=== PATIENT | female | born 1940 | race Caucasian/White ===

== ENCOUNTER 2018-05-30 17:36 | Inpatient (IN) | payer MEDICARE ==
[~2018-05-30] VITALS: Ht 154.9 cm; Wt 59.6 kg
[~2018-05-30 17:36] MED LIST: ACTONEL35 MG PO; AMIODARONE HCL200 MG PO; ARAVA10 MG PO; AVAPRO300 MG PO; BUTALBITAL-ASA1 EACH PO; CLONIDINE HCL0.2 MG PO; DAILY MULTIPLE1 EACH PO; FISH OIL300 MG PO; FUROSEMIDE20 MG PO; FUROSEMIDE40 MG PO; HYDRALAZINE HC100 MG PO; HYDROCHLOROTHIA25 MG PO; LOSARTAN POTASS25 MG PO; NORVASC5 MG PO; OPTIVAR6 ML; PANTOPRAZOLE SO40 MG PO; POTASSIUM CHLO20 ME1 PO; PRAVASTATIN SOD40 MG PO; PREVACID30 MG PO; TOPROL XL100 MG PO; ULTRAM 50MG50 MG PO; VITAMIN C500 M1 PO; ZOLOFT100 MG PO; [UNRECOGNIZED DRUG - REMARK]
--- OUTSIDE RECORDS SUMMARY | 2018-05-30 17:42 | XMS REPORT ---
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
--- OUTSIDE RECORDS SUMMARY | 2018-05-30 17:42 | XMS REPORT ---
Author Author Anthony Murphy [facility] [employer] Address Unknown Phone Unavailable Care Team Providers Care System Administration Manager Name Role Phone Anthony Murphy CP Unavailable Allergies, Adverse Reactions, Alerts Substance Reaction Event Type Scopolamine Base Info Not Available Drug Allergy plaquenil Info Not Available Non Drug Allergy Encounters Encounter Location Date 3m f/u Dick Beaulieu MD August 29, 2013 Problems Problem Type Condition ICD-9 Code Onset Dates Condition Status Problem 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 Problem Long-term (current) use of other medications - High Risk V58.69 Active Problem Rheumatoid arthritis 714.0 Active Problem Polyarthritis, multiple sites 716.59 Active Assessment Rheumatoid arthritis 714.0 Active Medications Medication Code System Code Instructions Start Date End Date Status Dosage Lisinopril [facility] [address]-97 10 MG Orally Once a day Active 1 tablet HydrALAZINE HCl [facility] [address]-00 100 MG Orally Twice a day Active 1 tablet Sertraline HCl [facility] [address]-54 100 MG Orally Once a day Active 1 tablet Lansoprazole [facility] [address]-07 30 MG Orally Once a day Active 1 capsule before a meal Lasix [facility] [address]-72 40MG Orally Once a day as needed Active 1 tablet Pravastatin Sodium [facility] [address]-18 40 MG Orally Once a day Active 1 tablet Actonel [facility] [address]-58 35 MG Orally Once a Week Active 1 tablet Multi Vitamin/Minerals [facility] [address]-51 Orally Active as directed Weishvywkk-JSZM-Ncmcuecf [facility] [address]-06 50-325-40 MG Orally every 4 hrs Active 1 tablet as needed Irbesartan [facility] [address]-61 300 MG Orally Once a day Active 1 tablet Metoprolol Succinate [facility] [address]-17 100 MG Orally Once a day Active 1 tablet Arava [facility] [address]-39 10 MG Orally Once a day August 29, 2013 November 27, 2013 Active 1 tablet Social History Social History Element Qualifiers Date Reported Tobacco Use: . Are you a:: never smoker August 29, 2013 Caffeine: yes. 1 cup a day August 29, 2013 Exercise: yes. walking August 29, 2013 Alcohol: no. August 29, 2013 Vital Signs Date/Time: August 29, 2013 Weight 174 lbs Height 63 in Temperature 97.0 F Cardiac Monitoring Heart Rate 66 /min Blood Pressure Diastolic 82 mm Hg Blood Pressure Systolic 128 mm Hg Results CBC (INCLUDES DIFF/PLT) SED RATE BY MODIFIED [place] COMPREHENSIVE METABOLIC PANEL W/EGFR C-REACTIVE PROTEIN Immunizations Vaccine Administration Date TORADOL August 29, 2013 depomedrol August 29, 2013 Summary Purpose [employer] Submission
--- OUTSIDE RECORDS SUMMARY | 2018-05-30 17:42 | XMS REPORT | Continuity of Care Document ---
Author Author Danielle devon [facility] Interface Address Unknown Phone Unavailable Problems Problem Status Onset Date Classification Date Reported Comments Source M79.661 - PAIN IN RIGHT LOWER LEG Active 12/31/2017 [facility] UNK Active 07/08/2016 [facility] Discharge Diagnosis: Acute headache 06/20/2016 06/23/2016 [facility] Discharge Diagnosis: Acute UTI 06/20/2016 06/23/2016 [facility] Discharge Diagnosis: Hypertension 06/20/2016 06/23/2016 [facility] Discharge Diagnosis: Nausea and vomiting 06/20/2016 06/23/2016 [facility] HYPERTENSIVE, VOMITING Active 06/19/2016 [facility] R10.9 Active 05/30/2016 [facility] CONSULT Active 05/14/2016 [facility] R11.2 NAUSEA WITH VOMITING, UNSPECIFIED Active 04/18/2016 [facility] Discharge Diagnosis: Abdominal pain 04/10/2016 04/13/2016 [facility] ABD PAIN Active 04/10/2016 [facility] Long-term use of high-risk medication Active Problem 04/15/2018 [facility] Midline low back pain, with sciatica presence unspecified Active Problem 04/15/2018 [facility] Rheumatoid arthritis of multiple sites without rheumatoid factor Active Problem 08/08/2017 [facility] Primary osteoarthritis involving multiple joints Active Problem 04/15/2018 [facility] Rheumatoid arthritis without rheumatoid factor, multiple sites Active Diagnosis 04/15/2018 [facility] disrd of bone density and structure, multiple sites Active Problem 04/15/2018 [facility] Low back pain Active Problem 04/15/2018 [facility] 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 09/24/2016 [facility] Neuropathy Active Problem 04/15/2018 [facility] Rheumatoid lung Active Problem 06/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 [facility] Long-term use of other medications - High Risk Active Problem 10/04/2015 [facility] Rheumatoid arthritis Active Problem 10/04/2015 [facility] Polyarthritis, multiple sites Active Problem 10/04/2015 [facility] Osteopenia Active Problem 10/04/2015 [facility] Osteoarthrosis, multiple sites Active Problem 10/04/2015 [facility] Pain in joint, hand Active Diagnosis 10/12/2014 [facility] Skin lesions Active Problem 04/15/2018 [facility] Atrial tachycardia Active Problem 08/01/2016 [facility] Acid reflux Resolved Problem 08/01/2016 [facility] HTN - Hypertension Active Problem 08/01/2016 [facility] PAC - Premature atrial contraction Active Problem 08/01/2016 [facility] Chronic diarrhea Active Problem 08/01/2016 [facility] Diverticulosis Active Problem 08/01/2016 [facility] Dysthymic disorder Resolved Problem 08/01/2016 [facility] Hemorrhoids Resolved Problem 08/01/2016 [facility] HLD (<span [id number]="[id number]</span>) Active Problem 08/01/2016 [facility] Breast cancer Resolved Problem 08/01/2016 [facility] Hiatal hernia Active Problem 08/01/2016 [facility] Osteopenia Active Problem 08/01/2016 [facility] ENCOUNTER FOR SCREENING FOR MALIGNANT NE Active [facility] GASTRO-ESOPHAGEAL REFLUX DISEASE WITHOUT Active [facility] NAUSEA WITH VOMITING, UNSPECIFIED Active [facility] ENCNTR FOR GENERAL ADULT MEDICAL EXAM W/ Active [facility] UNSPECIFIED ABDOMINAL PAIN Active [facility] DIARRHEA, UNSPECIFIED Active [facility] Medications Medication Details Route Status Patient Instructions Ordering Provider Order Date Source Leflunomide take 1 tablet BY MOUTH Active 10 BY MOUTH ONCE A DAY Elias 06/30/2017 [facility] Tramadol HCl 1 tablet as needed Orally Active 50 MG Orally every 6 hrs Elias 06/30/2017 [facility] Tizanidine HCl 1 tablet as needed Orally Active 4 MG Orally BID Elias 04/01/2017 [facility] Leflunomide 1 tablet Orally Active 10MG Orally Once a day [facility] 03/24/2017 [facility] Sodium Chloride 0.154 MEQ/ML Injectable Solution 1,000 mL, Rate: 25 ml/hr, Infuse over: 40 hr, Route: IV, Dosing Weight 58.239 kg, Total Volume: 1,000, Start date: 07/29/16 8:32:00 CDT, Duration: 30 day, Stop date: 08/28/16 8:31:00 CDT Inactive 07/29/2016 [facility] Vitamin C 500 mg oral tablet 500 mg=1 tab, PO, Daily Active 07/28/2016 [facility] Fish oil + D3 Caps Fish oil + D3 Caps, 1 cap, PO, Daily, Refill(s) 0 Active 07/28/2016 [facility] multivitamin 1 tab, PO, Daily, 0 Refill(s) Active 07/28/2016 [facility] Naproxen sodium 220 MG Oral Tablet [Aleve] 440 mg=2 tab, PO, Q8H, PRN Pain Active 07/28/2016 [facility] Acetaminophen 325 MG / butalbital 50 MG Oral Tablet 1 tab, PO, Q4H, PRN Headache Active 07/28/2016 [facility] Promethazine Hydrochloride 25 MG Oral Tablet See Instructions, PRN as needed for nausea/vomiting, Take 1 tab every 4 to 6 hours, 0 Refill(s) Active 07/28/2016 [facility] Atropine Sulfate 0.025 MG / Diphenoxylate Hydrochloride 2.5 MG Oral Tablet 1 tab, PO, QID, PRN for loose stool Active 07/28/2016 [facility] budesonide 3 mg oral capsule, extended release 3 mg=1 cap, PO, TID, 0 Refill(s) Active 07/28/2016 [facility] tramadol hydrochloride 50 MG Oral Tablet 50 mg=1 tab, PO, Q6H, PRN Pain Active 07/28/2016 [facility] losartan 50 mg oral tablet 50 mg=1 tab, PO, Daily Active 07/28/2016 [facility] leflunomide 10 mg oral tablet 10 mg=1 tab, PO, Daily Active 07/28/2016 [facility] pravastatin 40 mg oral tablet 40 mg=1 tab, PO, Bedtime Active 07/28/2016 [facility] pantoprazole 40 mg oral enteric coated tablet 40 mg=1 tab, PO, Daily Active 07/28/2016 [facility] sertraline 100 mg oral tablet 150 mg=1.5 tab, PO, Bedtime Active 07/28/2016 [facility] mesalamine 800 MG Enteric Coated Tablet 800 mg=1 tab, PO, TID Active 07/28/2016 [facility] buPROPion 150 mg/24 hours (XL) oral tablet, extended release 150 mg=1 tab, PO, QAM Active 07/28/2016 [facility] flunisolide 0.025 MG/ACTUAT Metered Dose Nasal [place] 1 spray, NASAL, BID, in each nostril, 0 Refill(s) Active 07/28/2016 [facility] hyoscyamine 0.125 mg oral tablet 0.125 mg=1 tab, PO, BID Active 07/28/2016 [facility] Metoprolol Succinate ER 25 mg oral tablet, extended release 25 mg=1 tab, PO, Daily Active 07/28/2016 [facility] Trazodone Hydrochloride 50 MG Oral Tablet 1 tab-2 tab, PO, Bedtime, PRN Insomnia Active 07/28/2016 [facility] Cephalexin 500 MG Oral Capsule [Keflex] 500 mg=1 cap, PO, QID, X 7 day, # 28 cap, 0 Refill(s) Active 06/20/2016 [facility] Ketorolac 15 mg, Route: IVP, Drug form: INJ, ONCE, Dosing Weight 59.545, kg, Priority: STAT, Start date: 06/20/16 2:08:00 MATTRESS SPECIALIST, Stop date: 06/20/16 2:08:00 MATTRESS SPECIALIST Inactive 06/20/2016 [facility] Sodium Chloride 0.154 MEQ/ML Injectable Solution 500 mL, Infuse Over: 1 hr, Route: IV, ONCE, Priority: STAT, Dosing Weight 59.545 kg, Start date: 06/19/16 23:58:00 MATTRESS SPECIALIST, Duration: 1 doses or times, Stop date: 06/19/16 23:58:00 MATTRESS SPECIALIST No Longer Active 06/20/2016 [facility] Reglan 5 mg, Route: IVP, Drug form: INJ, ONCE, Dosing Weight 59.545, kg, Priority: STAT, Start date: 06/19/16 23:58:00 MATTRESS SPECIALIST, Stop date: 06/19/16 23:58:00 MATTRESS SPECIALIST No Longer Active 06/20/2016 [facility] Morphine 2 mg, Route: IVP, ONCE, Dosing Weight 59.545, kg, Priority: STAT, Start date: 06/19/16 23:58:00 MATTRESS SPECIALIST, Stop date: 06/19/16 23:58:00 MATTRESS SPECIALIST No Longer Active 06/20/2016 [facility] Saline Flush 0.9% 10 mL, Route: IVP, Drug Form: INJ, Dosing Weight 59.545, kg, PRN, PRN Line Flush, Start date: 06/19/16 21:38:00 MATTRESS SPECIALIST, Duration: 30 day, Stop date: 07/19/16 22:37:00 CDTNotes: (Same as: BD Posiflush) No Longer Active 06/20/2016 [facility] Butalbital Compound oral tablet 1 tab, PO, Q6H, PRN Pain, # 24 tab, 0 Refill(s) Active 06/06/2016 [facility] tramadol hydrochloride 50 MG Oral Tablet 50 mg=1 tab, PO, Q8H, PRN Pain, # 60 tab, 0 Refill(s) Active 06/06/2016 [facility] budesonide 3 mg oral capsule, extended release 9 mg=3 cap, PO, Daily, # 270 cap, 0 Refill(s) Active 06/06/2016 [facility] Atropine Sulfate 10 MG/ML Ophthalmic Solution [Atropine-Care] 2 drp, OPTH, QID, # 15 ml, 0 Refill(s) Active 06/06/2016 [facility] promethazine 25 mg oral tablet 25 mg=1 tab, PO, Q4H, PRN for motion sickness, # 60 tab, 0 Refill(s) Active 06/06/2016 [facility] Sodium Chloride 0.154 MEQ/ML Injectable Solution 1,000 mL, Rate: 25 ml/hr, Infuse over: 40 hr, Route: IV, Dosing Weight 72.727 kg, Total Volume: 1,000, Start date: 05/02/16 9:20:00 MATTRESS SPECIALIST, Duration: 30 day, Stop date: 06/01/16 9:19:00 MATTRESS SPECIALIST Inactive 05/02/2016 [facility] tramadol hydrochloride 50 MG Oral Tablet 50 mg=1 tab, PO, Q6H, PRN Pain, X 10 day, # 40 tab, 0 Refill(s) Active 04/10/2016 [facility] Tylenol 650 mg, Route: PO, Drug form: TAB, ONCE, Dosing Weight 72.727, kg, Priority: STAT, Start date: 04/10/16 7:46:00 MATTRESS SPECIALIST, Stop date: 04/10/16 7:46:00 MATTRESS SPECIALIST Inactive 04/10/2016 [facility] potassium chloride 40 mEq, Route: PO, Drug form: ERTAB, ONCE, Dosing Weight 72.727, kg, Priority: STAT, Start date: 04/10/16 4:36:00 MATTRESS SPECIALIST, Stop date: 04/10/16 4:36:00 MATTRESS SPECIALIST Inactive 04/10/2016 [facility] Zofran 4 mg, Route: IVP, Drug form: INJ, ONCE, Dosing Weight 72.727, kg, Priority: STAT, Start date: 04/10/16 4:18:00 MATTRESS SPECIALIST, Stop date: 04/10/16 4:18:00 MATTRESS SPECIALIST Inactive 04/10/2016 [facility] Sodium Chloride 0.154 MEQ/ML Injectable Solution 1,000 mL, Rate: 25 ml/hr, Infuse over: 40 hr, Route: IV, Dosing Weight 65.455 kg, Total Volume: 1,000, Start date: 03/04/16 8:38:00 CDT, Duration: 30 day, Stop date: 04/03/16 8:37:00 MATTRESS SPECIALIST Inactive 03/04/2016 [facility] metoprolol tartrate 50 mg oral tablet 50 mg=1 tab, PO, Daily, 0 Refill(s) Active 03/03/2016 [facility] Fish Oil PO, 0 Refill(s) Active 03/03/2016 [facility] Hydrochlorothiazide 25 MG Oral Tablet 25 mg=1 tab, PO, Daily, 0 Refill(s) Active 03/03/2016 [facility] Leflunomide 1 tablet Orally Active 10 MG Orally Once a day [facility] 08/27/2015 [facility] Leflunomide 1 tablet Orally Active 10 MG Orally Once a day [facility] 08/14/2015 [facility] Leflunomide 1 tablet Orally Active 10 MG Orally Once a day [facility] 10/31/2014 [facility] Leflunomide take 1 tablet by mouth once daily Orally Active 10 Orally Once a day [facility] 10/19/2014 [facility] Arava 1 tablet Orally Active 10 MG Orally Once a day [facility] 12/23/2013 [facility] Arava 1 tablet Orally Active 10 MG Orally Once a day [place] 08/29/2013 [facility] Diphenoxylate-Atropine 1 tablet as needed Orally Active 2.5-0.025 MG Orally Four times a day [facility] Tylenol 2 tablets as needed Orally Active 325 MG Orally every 6 hrs [facility] Fish Oil 1 capsule Orally Active 500 MG Orally Twice a day [facility] Losartan Potassium 1 tablet Orally Active 100 MG Orally Once a day [facility]as [facility] Sertraline HCl 1 tablet Orally Active 100mg Orally Once a day [facility] Hyoscyamine Sulfate 1 tablet before meals as needed Orally Active 0.125 MG Orally every 4 hrs [facility] Sudafed 1 tablet as needed Orally Active 60 MG Orally as needed [facility] Tramadol HCl 1 tablet as needed Orally Active 50 MG Orally every 6 hrs [facility] Budesonide as directed Orally Active 3 MG Orally [facility] Pravastatin Sodium 1 tablet Orally Active 40 MG Orally Once a day [facility] Pantoprazole Sodium 1 tablet Orally Active 40 MG Orally Once a day [facility] BuPROPion HCl as directed Orally Active 150 MG Orally [facility] Mesalamine 2 tablets Orally Active 800 MG Orally Three times a day [facility] Azelastine HCl 1 drop into affected eye Ophthalmic Active 0.1 % Ophthalmic Twice a day [facility] Metoprolol Succinate as directed Orally Active 50 MG Orally [facility] Leflunomide 1 tablet Orally Active 10MG Orally Once a day [facility] Vitamin C 1 tablet Orally Active 500 MG Orally Once a day [facility] Vitamin B-12 as directed Orally Active 100 MCG Orally once a day [facility] Flunisolide HFA 2 puffs Inhalation Active 80 MCG/ACT Inhalation Twice a day [facility] [id number] 1 tablet as needed Orally Active 50-325-40 MG Orally every 4 hrs [facility] Promethazine HCl 1 tablet as needed Orally Active 25 MG Orally every 12 hrs [facility] Multi Vitamin/Minerals as directed Orally Active Orally [facility] PredniSONE as directed Orally Active 10 mg Orally Once a day [facility] Amlodipine Besylate 1 tablet Orally Active 10 MG Orally Once a day [facility] Imodium A-D as directed Orally Active 2 MG Orally [facility] NIFEdipine 1 tablet Orally Active 60 MG Orally bid [facility] Trazodone HCl 1 tablet at bedtime as needed Orally Active 50 MG Orally Once a day [facility] Pravastatin Sodium 1 tablet Orally Active 40 MG Orally Once a day [facility] Azelastine HCl 1 drop into affected eye Ophthalmic Active 0.05 % Ophthalmic Twice a day [facility] Losartan Potassium 1 tablet Orally Active 100 MG Orally Once a day [facility] Budesonide as directed Orally Active 3 MG Orally [facility] [id number] 1 tablet as needed Orally Active 50-325-40 MG Orally every 4 hrs [facility] Diphenoxylate-Atropine 1 tablet as needed Orally Active 2.5-0.025 MG Orally Four times a day [facility] Sertraline HCl 1 tablet Orally Active 100mg Orally Once a day [facility] Imodium A-D as directed Orally Active 2 MG Orally [facility] Tylenol 2 tablets as needed Orally Active 325 MG Orally every 6 hrs [facility] Hyoscyamine Sulfate 1 tablet before meals as needed Orally Active 0.125 MG Orally every 4 hrs [facility] Fish Oil 1 capsule Orally Active 500 MG Orally Twice a day [facility] Promethazine HCl 1 tablet as needed Orally Active 25 MG Orally every 12 hrs [facility] Pantoprazole Sodium 1 tablet Orally Active 40 MG Orally Once a day [facility] Multi Vitamin/Minerals as directed Orally Active Orally [facility] Vitamin C 1 tablet Orally Active 500 MG Orally Once a day [facility] Sudafed 1 tablet as needed Orally Active 60 MG Orally as needed [facility] Tizanidine HCl 1 tablet as needed Orally Active 4 MG Orally BID [facility] Azelastine HCl 1 puff in each nostril Nasally Active 0.1 % Nasally Twice a day [facility] BuPROPion HCl (XL) 1 tablet in the morning Orally Active 300 MG Orally Once a day [facility] Tramadol HCl 1 tablet as needed Orally Active 50 MG Orally every 6 hrs [facility] Lasix 1 tablet Orally Active 40 MG Orally Once a day [facility] Lisinopril 1 tablet Orally Active 10 MG Orally Once a day [facility] HydrALAZINE HCl 1 tablet Orally Active 100 MG Orally Twice a day [facility] Lansoprazole 1 capsule before a meal Orally Active 30 MG Orally Once a day [facility] Lasix 1 tablet Orally Active 40MG Orally Once a day as needed [facility] Actonel 1 tablet Orally Active 35 MG Orally Once a Week [facility] Irbesartan 1 tablet Orally Active 300 MG Orally Once a day [facility] Metoprolol Succinate 1 tablet Orally Active 100 MG Orally Once a day Katherine [facility] [place]rae [place] 3 1 capsule Orally Active 1000 MG Orally Once a day [facility] Amlodipine Besylate 1 tablet Orally Active 10 MG Orally Once a day [facility] Metoprolol Succinate as directed Orally Active 50 MG Orally Eliaswarren [facility] Leflunomide 1 tablet Orally Active 10 MG Orally Once a day [facility] Hydrochlorothiazide 1 tablet Orally Active 25 MG Orally Once a day [facility] Flunisolide HFA 2 puffs Inhalation Active 80 MCG/ACT Inhalation Twice a day [facility] Excedrin Extra Strength 2 tablets Orally Active 250-250-65 MG Orally Once a day [facility] Metoprolol Succinate as directed Orally Active 50 MG Orally [facility] Aripiprazole 1 tablet Orally Active 2 MG Orally Once a day [facility] Cephalexin 1 tablet Orally Active 500 MG Orally four times a day Eliaswarren [facility] Allergies, Adverse Reactions, Alerts Substance Category Reaction Severity Reaction type Status Date Reported Comments Source Scopolamine Base Adverse Reaction Info Not Available Adverse Reaction Active 03/30/2018 [facility] plaquenil Adverse Reaction Info Not Available Adverse Reaction Active 03/30/2018 [facility] scopolamine Assertion Drug allergy Active [facility] Immunizations Immunization Date Given Site Status Last Updated Comments Source Depomedrol 02/27/2014 completed Fitz Christofer Toradol 02/27/2014 completed [facility] TORADOL 08/29/2013 completed [facility] depomedrol 08/29/2013 completed [facility] Results Order Name Results Value Reference Range Date Interpretation Comments Source Tibia fibula series DX Tibia fibula series DX Exam: Tibia fibula series DX, 2 views, right Reason for Exam: - M79.661 Pain in right lower leg; dog bite of extremity Comparison Exam: None Discussion: No acute bony abnormalities identified. The joint spaces are unremarkable for technique. No suspicious osteoblastic or osteolytic lesions seen to suggest pathologic involvement. No radiopaque foreign bodies. No evidence seen to suggest osteomyelitis. Impression: 1. No acute bony abnormalities identified. No evidence seen to suggest osteomyelitis. 12/31/2017 - - Read by: Kirill Shafer MD Dictated Date/time: 12/31/17 13:47 Electronically Signed by: Kirill Shafer MD 12/31/17 13:50 FINAL REPORT [facility] CARDIAC ENZYMES Troponin-I 0.04 ng/mL 0.00 - 0.40 06/20/2016 [facility]INE [facility] STOOL UA Urobilinogen <=1.0 mg/dL 0.1 - 1.0 06/20/2016 [facility]INE [facility] STOOL UA Color Geno 06/20/2016 [facility] STOOL [facility]A Nitrite Negative (06/19/16 11:56 PM) Negative 06/20/2016 [facility]INE AND STOOL UA Leuk Est Small *ABN* (06/19/16 11:56 PM) Negative 06/20/2016 [facility]INE [facility] STOOL UA Spec Grav 1.033 <=1.030 06/20/2016 [facility]INE [facility] STOOL UA pH 5.0 5.0 - 8.0 06/20/2016 [facility] URINE AND STOOL UA Protein 30 mg/dL Negative mg/dL 06/20/2016 [facility]INE [facility] STOOL UA Glucose Negative mg/dL Negative mg/dL 06/20/2016 [facility]INE [facility] STOOL UA Turbidity Marked *ABN* (06/19/16 11:56 PM) Clear 06/20/2016 [facility] URINE AND STOOL UA Amorph Damari Occasional /HPF None Seen /HPF 06/20/2016 [facility] URINE AND STOOL UA CaOx Damari Few /HPF None Seen /HPF 06/20/2016 [facility]INE [facility] STOOL UA Mucus Few /LPF None Seen /LPF 06/20/2016 [facility]INE [facility] STOOL UA Hyal Cast 3 /LPF 0 - 2 06/20/2016 [facility]INE [facility] STOOL UA WBC 11 /HPF 0 - 5 06/20/2016 [facility]INE [facility] STOOL UA RBC 5 /HPF 0 - 2 06/20/2016 [facility] STOOL [facility]A Sq Epi Occasional /LPF Few /LPF 06/20/2016 [facility]INE [facility] STOOL UA Bacteria Occasional /HPF None Seen /HPF 06/20/2016 [facility] URINE AND STOOL UA Blood Negative (06/19/16 11:56 PM) Negative 06/20/2016 [facility] URINE AND STOOL UA Ketones Negative mg/dL Negative mg/dL 06/20/2016 [facility] URINE AND STOOL UA Bili Negative *NA* (06/19/16 11:56 PM) Negative 06/20/2016 [facility] CARDIAC ENZYMES CK MB Index null 0.0 - 2.5 06/20/2016 [facility] CARDIAC ENZYMES CK MB null 0.5 - 3.6 06/20/2016 [facility] CARDIAC ENZYMES Total CK 79 unit/L 12 - 191 06/20/2016 [facility] CARDIAC ENZYMES Troponin-I 0.04 ng/mL 0.00 - 0.40 06/20/2016 [facility] CHEM PANEL eGFR 90 mL/min/1.73m2 06/20/2016 Result Comment: The eGFR is calculated using the CKD-EPI formula. In most young, healthy individuals the eGFR will be >90 mL/min/1.73m2. The eGFR declines with age. An eGFR of 60-89 may be normal in some populations, particularly the elderly, for whom the CKD-EPI formula has not been extensively validated. Use of the eGFR is not recommended in the following populations: Individuals with unstable creatinine concentrations, including patients and those with serious co-morbid conditions. Patients with extremes in muscle mass or diet. The data above are obtained from the National Kidney Disease Education Program (NKDEP) which additionally recommends that when the eGFR is used in patients with extremes of body mass index for purposes of drug dosing, the eGFR should be multiplied by the estimated BMI. [facility] CHEM PANEL Total Protein 8.1 g/dL 6.4 - 8.4 06/20/2016 [facility] CHEM PANEL Albumin Lvl 2.9 g/dL 3.5 - 5.0 06/20/2016 [facility] CHEM PANEL B/C Ratio 26 6 - 25 06/20/2016 [facility] CHEM PANEL Globulin 5.2 g/dL 2.7 - 4.2 06/20/2016 [facility] CHEM PANEL Calcium Lvl 9.1 mg/dL 8.5 - 10.5 06/20/2016 [facility] CHEM PANEL A/G Ratio 0.6 0.7 - 1.6 06/20/2016 [facility] CHEM PANEL CO2 23 meq/L 24 - 32 06/20/2016 [facility] CHEM PANEL AGAP 15.8 meq/L 10.0 - 20.0 06/20/2016 [facility] CHEM PANEL Chloride Lvl 102 meq/L 95 - 109 06/20/2016 [facility] CHEM PANEL Sodium Lvl 137 meq/L 135 - 145 06/20/2016 [facility] CHEM PANEL Creatinine Lvl 0.58 mg/dL 0.50 - 1.40 06/20/2016 [facility] CHEM PANEL Glucose Lvl 124 mg/dL 70 - 99 06/20/2016 [facility] CHEM PANEL BUN 15 mg/dL 7 - 22 06/20/2016 [facility] CHEM PANEL ALT 16 unit/L 0 - 65 06/20/2016 [facility] CHEM PANEL Potassium Lvl 3.8 meq/L 3.5 - 5.1 06/20/2016 Result Comment: Slight hemolysis. [facility] CHEM PANEL Bili Total 0.4 mg/dL 0.2 - 1.3 06/20/2016 [facility] CHEM PANEL Alk Phos 84 unit/L 39 - 136 06/20/2016 [facility] CHEM PANEL AST 33 unit/L 0 - 37 06/20/2016 [facility] CHEM PANEL Lipase Lvl 92 unit/L 73 - 393 06/20/2016 [facility] HEMATOLOGY Eosinophils # 0.2 K/CMM 0.0 - 0.5 06/20/2016 [facility] HEMATOLOGY Monocytes # 0.9 K/CMM 0.0 - 0.8 06/20/2016 [facility] HEMATOLOGY Segs 63.6 % 45.0 - 75.0 06/20/2016 [facility] HEMATOLOGY Lymphocytes 20.9 % 20.0 - 40.0 06/20/2016 [facility] HEMATOLOGY Monocytes 12.3 % 2.0 - 12.0 06/20/2016 [facility] HEMATOLOGY Segs-Bands # 4.5 K/CMM 1.5 - 8.1 06/20/2016 [facility] HEMATOLOGY Basophils 0.6 % 0.0 - 1.0 06/20/2016 [facility] HEMATOLOGY Eosinophils 2.6 % 0.0 - 4.0 06/20/2016 [facility] Lymphocytes # 1.5 K/CMM 1.0 - 5.5 06/20/2016 [facility] MCHC 33.3 g/dL 32.0 - 36.0 06/20/2016 [facility] HEMATOLOGY MPV 7.8 fL 7.4 - 10.4 06/20/2016 [facility] HEMATOLOGY RDW 16.1 % 11.5 - 14.5 06/20/2016 [facility] HEMATOLOGY Platelet 329 K/CMM 133 - 450 06/20/2016 [facility] HEMATOLOGY Hgb 13.4 g/dL 12.0 - 16.0 06/20/2016 [facility] WBC 7.0 K/CMM 3.7 - 10.4 06/20/2016 [facility] Hct 40.2 % 36.0 - 48.0 06/20/2016 [facility] RBC 4.52 M/CMM 4.20 - 5.40 06/20/2016 [facility] MCH 29.6 pg 27.0 - 31.0 06/20/2016 [facility] MCV 88.9 fL 80.0 - 98.0 06/20/2016 [facility] Brain wo contrast CT Brain wo contrast CT I have reviewed this examination and concur with the interpretation. Clinical Indication: Woke up at 2000 shaking and heart rate 129. C/o BP being elevated this week and tonight. Also headache, vomiting and diarrhea. Vomiting and diarrhea x 7 months. Chest pain/sob. Comparison: None TECHNIQUE: CT images were obtained from the foramen magnum to the vertex without the use of intravenous contrast on a multidetector CT. Coronal and sagittal reconstructions were obtained. CT radiation dose DLP: 981.84 mGy-cm FINDINGS: BRAIN PARENCHYMA: Age appropriate involutionary changes with mild small vessel ischemic changes. Subacute or chronic subcentimeter lacunar infarct suspected in the left subinsular cortex. There are otherwise normal mares-white interfaces, sulci and gyri. There are no focal mass lesions on this noncontrast head CT. There is no mass effect, midline shift or edema. There are no intra-axial or extra-axial fluid collections, intraventricular or intraparenchymal hemorrhage. The pineal, sellar, brainstem, cerebellum and skull base regions appear unremarkable. VENTRICLES: The lateral ventricles, third and fourth ventricles appear unremarkable. The basilar cisterns are normal. ORBITS, MASTOIDS AND PARANASAL SINUSES: The visualized orbits and paranasal sinuses are otherwise unremarkable. The mastoid air cells are unopacified. SKULL: There are no osseous abnormalities. If there is further concern for intracranial pathology or acute stroke, MRI of the brain may be performed for complete assessment. IMPRESSION: 1. Age appropriate involutionary changes with mild small vessel ischemic changes. 2. Subacute or chronic subcentimeter lacunar infarct suspected in the left subinsular cortex. SL: CYNTHIA 06/20/2016 - - Read by: Jimy Avitia MD Dictated Date/time: 06/20/16 01:12 Electronically Signed by: Jimy Avitia MD 06/20/16 01:14 FINAL REPORT - - Read by: Harjeet Marin DO Dictated Date/time: 06/20/16 00:55 Electronically Signed by: Harjeet Marin DO 06/20/16 00:59 FINAL REPORT [facility] Chest 1view DX Chest 1view DX Study: Frontal chest x-ray compared to 04/10/2016 History: Chest pain Comments: The trachea is midline. The cardiomediastinal silhouette is normal in size. No pneumonia. No pleural effusions or pneumothorax. Hiatal hernia again seen Impression: No acute cardiopulmonary disease. 06/19/2016 - - Read by: Laya Bryan MD Dictated Date/time: 06/19/16 23:18 Electronically Signed by: Laya Bryan MD 06/19/16 23:19 FINAL REPORT [facility] Small bowel series DX Small bowel series DX Small bowel series DX COMPARISON: 04/10/2016 CLINICAL HISTORY: Abdominal pain(789.00)(R10.9); Fluoro time: 34sec DAP:474.6Gycm2 TECHNIQUE: Serial overhead images of the abdomen were performed at 15 to 30 minute intervals following ingestion of oral barium. FINDINGS: Paperback Machine Operator study reveals a nonobstructive bowel gas pattern. Moderate amount of stool is present in the colon. No pathologic calcifications noted. FINDINGS: No delay in passage of barium from the stomach into the small bowel and subsequently into the colon. The normal feathery pattern of the proximal jejunum is preserved. Mid to distal portion of jejunum and majority of the ileum demonstrates mild mucosal fold thickening.. No obstructing masses or strictures are visualized. The terminal ileum demonstrates normal morphology. IMPRESSION: Mild nonspecific thickening of the distal portion of jejunum and majority of the ileum. Differential considerations primarily include infectious and inflammatory etiologies, including celiac disease. SL: [id number] 06/09/2016 - - Read by: Ta Garcia MD Dictated Date/time: 06/09/16 16:42 Electronically Signed by: Ta Garcia MD 06/09/16 16:48 FINAL REPORT [facility] Stomach emptying NM Stomach emptying NM Stomach emptying NM CLINICAL HISTORY: R11.2 Nausea with vomiting, unspecified; COMPARISON: CT abdomen pelvis 04/10/2016 TECHNIQUE: 1 mCi of sulfur colloid meal was administered orally. Images were performed in anterior projection and an excretion curve plotted. FINDINGS: There is prompt activity identified within the stomach but delayed excretion into the small bowel. Large hiatal hernia is visualized. The T half life with inclusion of the hernia is 223 minutes. T half life with exclusion of the hernia is 160 minutes. (Normal range of 45min- 110min). % excretion at approx. 37 minutes: 20 % % excretion at approx. 73 minutes: 42 % % excretion at approx. 90 minutes: 46 % % excretion at approx. 120 minutes: 47 % % excretion at approx. 186 minutes: 55 % % excretion at approx. 243 minutes: 66 % (Normal <10% residual) IMPRESSION: Moderate to marked prolongation of gastric emptying. SL: [id number] 04/22/2016 - - Read by: aT Garcia MD Dictated Date/time: 04/23/16 07:30 Electronically Signed by: Ta Garcia MD 04/23/16 07:36 FINAL REPORT [facility] URINE AND STOOL UA Urobilinogen <=1.0 mg/dL 0.1 - 1.0 04/10/2016 [facility] URINE AND STOOL UA Glucose Negative mg/dL Negative mg/dL 04/10/2016 [facility] URINE AND STOOL UA Protein Negative mg/dL Negative mg/dL 04/10/2016 [facility] URINE AND STOOL UA Bili Negative *NA* (04/10/16 6:01 AM) Negative 04/10/2016 [facility] URINE AND STOOL UA Ketones Trace mg/dL Negative mg/dL 04/10/2016 [facility] URINE AND STOOL UA Hyal Cast 5 /LPF 0 - 2 04/10/2016 [facility] URINE AND STOOL UA Mucus Few /LPF None Seen /LPF 04/10/2016 [facility] URINE AND STOOL UA Leuk Est Negative (04/10/16 6:01 AM) Negative 04/10/2016 [facility] URINE AND STOOL UA Nitrite Negative (04/10/16 6:01 AM) Negative 04/10/2016 [facility] URINE AND STOOL UA Blood Negative (04/10/16 6:01 AM) Negative 04/10/2016 [facility] URINE AND STOOL UA RBC 5 /HPF 0 - 2 04/10/2016 [facility] URINE AND STOOL UA WBC 1 /HPF 0 - 5 04/10/2016 [facility] URINE AND STOOL UA Sq Epi Occasional /LPF Few /LPF 04/10/2016 [facility] URINE AND STOOL UA Turbidity Clear (04/10/16 6:01 AM) Clear 04/10/2016 [facility] URINE AND STOOL UA Color Yellow *NA* (04/10/16 6:01 AM) Yellow 04/10/2016 [facility] URINE AND STOOL UA pH 5.0 5.0 - 8.0 04/10/2016 [facility] URINE AND STOOL UA Spec Grav 1.017 <=1.030 04/10/2016 [facility] CARDIAC ENZYMES CK MB Index null 0.0 - 2.5 04/10/2016 [facility] CARDIAC ENZYMES Total CK 25 unit/L 12 - 191 04/10/2016 [facility] CARDIAC ENZYMES CK MB null 0.5 - 3.6 04/10/2016 [facility] CARDIAC ENZYMES Troponin-I null 0.00 - 0.40 04/10/2016 [facility] CHEM PANEL Lipase Lvl 101 unit/L 73 - 393 04/10/2016 [facility] CHEM PANEL Lactic Acid Lvl 1.0 mMol/L 0.5 - 2.2 04/10/2016 [facility] CHEM PANEL eGFR 87 mL/min/1.73m2 04/10/2016 Result Comment: The eGFR is calculated using the CKD-EPI formula. In most young, healthy individuals the eGFR will be >90 mL/min/1.73m2. The eGFR declines with age. An eGFR of 60-89 may be normal in some populations, particularly the elderly, for whom the CKD-EPI formula has not been extensively validated. Use of the eGFR is not recommended in the following populations: Individuals with unstable creatinine concentrations, including patients and those with serious co-morbid conditions. Patients with extremes in muscle mass or diet. The data above are obtained from the National Kidney Disease Education Program (NKDEP) which additionally recommends that when the eGFR is used in patients with extremes of body mass index for purposes of drug dosing, the eGFR should be multiplied by the estimated BMI. [facility] CHEM PANEL Calcium Lvl 7.9 mg/dL 8.5 - 10.5 04/10/2016 [facility] CHEM PANEL Globulin 4.2 g/dL 2.7 - 4.2 04/10/2016 [facility] CHEM PANEL Albumin Lvl 2.5 g/dL 3.5 - 5.0 04/10/2016 [facility] CHEM PANEL Total Protein 6.7 g/dL 6.4 - 8.4 04/10/2016 [facility] CHEM PANEL B/C Ratio 23 6 - 25 04/10/2016 [facility] CHEM PANEL Chloride Lvl 102 meq/L 95 - 109 04/10/2016 [facility] CHEM PANEL Sodium Lvl 137 meq/L 135 - 145 04/10/2016 [facility] CHEM PANEL CO2 24 meq/L 24 - 32 04/10/2016 [facility] CHEM PANEL Potassium Lvl 2.9 meq/L 3.5 - 5.1 04/10/2016 Result Comment: Critical Result(s) called to rae meier at 04/10/2016 04:31 by tl. Read back OK. [facility] CHEM PANEL AGAP 13.9 meq/L 10.0 - 20.0 04/10/2016 [facility] CHEM PANEL A/G Ratio 0.6 0.7 - 1.6 04/10/2016 [facility] CHEM PANEL Alk Phos 77 unit/L 39 - 136 04/10/2016 [facility] CHEM PANEL ALT 15 unit/L 0 - 65 04/10/2016 [facility] CHEM PANEL Bili Total 0.4 mg/dL 0.2 - 1.3 04/10/2016 [facility] CHEM PANEL AST 15 unit/L 0 - 37 04/10/2016 [facility] CHEM PANEL BUN 15 mg/dL 7 - 22 04/10/2016 [facility] CHEM PANEL Glucose Lvl 106 mg/dL 70 - 99 04/10/2016 [facility] CHEM PANEL Creatinine Lvl 0.64 mg/dL 0.50 - 1.40 04/10/2016 [facility] CHEM PANEL Phosphorus 2.4 mg/dL 2.5 - 4.5 04/10/2016 [facility] CHEM PANEL Magnesium Lvl 1.6 mg/dL 1.8 - 2.4 04/10/2016 [facility] HEMATOLOGY Eosinophils # 0.1 K/CMM 0.0 - 0.5 04/10/2016 [facility] HEMATOLOGY Basophils # 0.1 K/CMM 0.0 - 0.2 04/10/2016 [facility] HEMATOLOGY Lymphocytes # 1.3 K/CMM 1.0 - 5.5 04/10/2016 [facility] HEMATOLOGY Monocytes # 1.1 K/CMM 0.0 - 0.8 04/10/2016 [facility] HEMATOLOGY Segs 73.5 % 45.0 - 75.0 04/10/2016 [facility] HEMATOLOGY Lymphocytes 13.5 % 20.0 - 40.0 04/10/2016 [facility] Basophils 0.6 % 0.0 - 1.0 04/10/2016 [facility] Segs-Bands # 7.1 K/CMM 1.5 - 8.1 04/10/2016 [facility] Eosinophils 1.3 % 0.0 - 4.0 04/10/2016 [facility] Monocytes 11.1 % 2.0 - 12.0 04/10/2016 [facility] MCHC 33.8 g/dL 32.0 - 36.0 04/10/2016 [facility] Hct 36.3 % 36.0 - 48.0 04/10/2016 [facility] MCV 90.1 fL 80.0 - 98.0 04/10/2016 [facility] RDW 14.7 % 11.5 - 14.5 04/10/2016 [facility] MCH 30.4 pg 27.0 - 31.0 04/10/2016 [facility] MPV 7.5 fL 7.4 - 10.4 04/10/2016 [facility] Platelet 347 K/CMM 133 - 450 04/10/2016 [facility] WBC 9.6 K/CMM 3.7 - 10.4 04/10/2016 [facility] RBC 4.03 M/CMM 4.20 - 5.40 04/10/2016 [facility] Hgb 12.2 g/dL 12.0 - 16.0 04/10/2016 [facility] PTT 32.2 s 22.9 - 35.8 04/10/2016 [facility] INR 1.04 0.85 - 1.17 04/10/2016 [facility] PT 13.8 s 12.0 - 14.7 04/10/2016 [facility] Abdomen/Pelvis w IV contrast CT Abdomen/Pelvis w IV contrast CT Patient Name: TOMAS RUIZ : 1940; Age: 76 years y/o Female MR: [id number] Study: Abdomen/Pelvis w IV contrast CT 04/10/2016 3:01 AM [employer] Ordering Physician: Radha Tracy DO Comparison: None CT Radiation Dose DLP 1414.90 mGy-cm Clinical Indication: Abdominal pain, acute ct dlp 1414.90; epigastric pain Multiple computerized axial tomograms of the abdomen and pelvis were obtained after administration of IV contrast and oral contrast. 2-D sagittal and coronal reformation reconstruction images were obtained. Lumbar curvature convex to the left. Degenerative disc disease at L3-4, L4-5 and L5-S1. Thoracic and lumbar spondylosis are noted associated with degenerative arthropathy of the lower lumbar apophyseal joints. Curvilinear opacity at the medial aspect of the left lower lobe is noted volume loss related to moderate hiatal hernia. Small cyst is present at the lateral segment of the left hepatic lobe. Gallbladder mildly distended. Dilatation of the central intrahepatic ducts and the extrahepatic biliary tree. The caliber of the common hepatic duct is 9.4 mm. The caliber of the common bile duct is 9.5 mm. No obvious pancreatic mass. Mild to moderate generalized atrophy of the pancreas is noted. The caliber of the main pancreatic duct at the pancreatic head is 6.4 mm. Vascular appearing calcification at the normal caliber tortuous abdominal aorta extending into the common iliac arteries and abdominal visceral arteries is noted. Small cyst is noted at the dorsal cortex of the mid right kidney. Single subcentimeter indeterminate hypodensity at the dorsal cortex of the mid right kidney. Cortical thinning at the inferior pole of the left kidney. Single subcentimeter indeterminate hypodensity at the medial cortex of the superior pole of the left kidney. 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 A single ureter enters the urinary bladder. Liver, kidneys, spleen, pancreas and adrenal glands have an otherwise normal CT appearance. Duodenal diverticulum is noted arising from the C-loop. No free fluid or pneumoperitoneum. Venous vascular and arterial calcifications are noted at the pelvis. The appendix is normal. There is mild constipation noted at the sigmoid colon. Diverticula are noted at the sigmoid colon without diverticulitis. There is no pelvic mass, adenopathy or free fluid noted. IMPRESSION: 1. No acute abnormality at the abdomen or pelvis. 2. There is dilatation of the central intrahepatic ducts and extrahepatic biliary tree without obvious pancreatic mass. Correlation with liver function tests to exclude an obstructive pattern. 3. Generalized atrophy of the pancreas with mild dilatation of the proximal main pancreatic duct. No findings for acute pancreatitis. 4. The gallbladder is mildly distended without evidence of pericholecystic inflammatory change. 5. Moderate hiatal hernia with plate atelectasis at the medial aspect of the left lower lobe. 6. Single small cysts are noted at the lateral segment of the left hepatic lobe and the right kidney. Single subcentimeter indeterminate hypodensities are noted at the kidneys bilaterally. Statistically, these likely represent cysts but are too small to obtain accurate attenuation numbers. 7. Duplicated left upper collecting system. See above. 8. Duodenal diverticulum. 9. Status post hysterectomy. 10. Lumbar spondylosis and lumbar degenerative disc disease. SL: [id number] 04/10/2016 - - Read by: Azeem Almanzar MD Dictated Date/time: 04/10/16 07:09 Electronically Signed by: Azeem Almanzar MD 04/10/16 07:23 FINAL REPORT [facility] Chest 1view DX Chest 1view DX Clinical Indication: Dyspnea Comparison: None FINDINGS: HEART: Cardiomediastinal silhouette unremarkable. PULMONARY VASCULATURE: The pulmonary vasculature is unremarkable. LUNGS: Lung volumes are maintained. There are no pneumothoraces noted. Costophrenic sulci: -Right costophrenic sulcus: The right costophrenic sulcus is sharp without evidence for pleural effusions or thickening. -Left costophrenic sulcus: The left costophrenic sulcus is sharp without evidence for pleural effusions or thickening. BONES: The visualized osseous structures are unremarkable. IMPRESSION: 1. Unremarkable chest x-ray. SL: [id number] 04/10/2016 - - Read by: Harjeet Marin DO Dictated Date/time: 04/10/16 03:51 Electronically Signed by: Harjeet Marin DO 04/10/16 03:51 FINAL REPORT [facility] Vital Signs Vital Sign Value Date Comments Source Weight 137.8 03/30/2018 [facility] Height 61 03/30/2018 [facility] Temperature Oral (F) 99.1 F 03/30/2018 [facility] Heart Rate 72 03/30/2018 [facility] Diastolic (mm Hg) 86 03/30/2018 [facility] Systolic (mm Hg) 122 03/30/2018 [facility] Weight 135.6 11/26/2017 [facility] Height 61 11/26/2017 [facility] Temperature Oral (F) 98.6 F 11/26/2017 [facility] Heart Rate 76 11/26/2017 [facility] Diastolic (mm Hg) 70 11/26/2017 [facility] Systolic (mm Hg) 128 11/26/2017 [facility] Weight 135 08/10/2017 [facility] Height 61 08/10/2017 [facility] Temperature Oral (F) 97.3 F 08/10/2017 [facility] Heart Rate 72 08/10/2017 [facility] Diastolic (mm Hg) 80 08/10/2017 [facility] Systolic (mm Hg) 140 08/10/2017 [facility] Weight 130.9 04/01/2017 [facility] Height 61 04/01/2017 [facility] Temperature Oral (F) 98.4 F 04/01/2017 [facility] Heart Rate 80 04/01/2017 [facility] Diastolic (mm Hg) 80 04/01/2017 [facility] Systolic (mm Hg) 138 04/01/2017 [facility] Weight 124 12/23/2016 [facility] Height 61 12/23/2016 [facility] Temperature Oral (F) 98.1 F 12/23/2016 [facility] Heart Rate 72 12/23/2016 [facility] Diastolic (mm Hg) 72 12/23/2016 [facility] Systolic (mm Hg) 138 12/23/2016 [facility] Weight 127 09/22/2016 [facility] Height 62 09/22/2016 [facility] Temperature Oral (F) 98.1 F 09/22/2016 [facility] Heart Rate 76 09/22/2016 [facility] Diastolic (mm Hg) 78 09/22/2016 [facility] Systolic (mm Hg) 138 09/22/2016 [facility] Respitory Rate 11 07/29/2016 [facility] Systolic (mm Hg) 161 07/29/2016 [facility] Diastolic (mm Hg) 79 07/29/2016 [facility] Systolic (mm Hg) 165 07/29/2016 [facility] Diastolic (mm Hg) 80 07/29/2016 [facility] Respitory Rate 15 07/29/2016 [facility] Systolic (mm Hg) 103 07/29/2016 [facility] Diastolic (mm Hg) 53 07/29/2016 [facility] Respitory Rate 18 07/29/2016 [facility] Temperature Oral (F) 98.1 F 07/29/2016 [facility] Heart Rate 76 07/29/2016 [facility] BMI Calculated 23.48 07/28/2016 [facility] Height 157.48 cm 07/28/2016 [facility] Weight 58.239 07/28/2016 [facility] Weight 125 06/23/2016 [facility] Height 62 06/23/2016 [facility] Temperature Oral (F) 97.7 F 06/23/2016 [facility] Heart Rate 80 06/23/2016 [facility] Diastolic (mm Hg) 72 06/23/2016 [facility] Systolic (mm Hg) 112 06/23/2016 [facility] Respitory Rate 13 06/20/2016 [facility] Systolic (mm Hg) 130 06/20/2016 [facility] Diastolic (mm Hg) 69 06/20/2016 [facility] Temperature Oral (F) 98.2 F 06/20/2016 [facility] Respitory Rate 21 06/20/2016 [facility] Systolic (mm Hg) 134 06/20/2016 [facility] Diastolic (mm Hg) 87 06/20/2016 [facility] Respitory Rate 16 06/20/2016 [facility] Systolic (mm Hg) 162 06/20/2016 [facility] Diastolic (mm Hg) 94 06/20/2016 [facility] Heart Rate 80 06/20/2016 [facility] Temperature Oral (F) 98.3 F 06/20/2016 [facility] Temperature Oral (F) 98.3 F 06/20/2016 [facility] BMI Calculated 24.01 06/20/2016 [facility] Weight 59.545 06/20/2016 [facility] Height 157.48 cm 06/20/2016 [facility] Heart Rate 98 06/20/2016 [facility] Weight 59.545 06/06/2016 [facility] BMI Calculated 23.63 06/06/2016 [facility] Height 158.75 cm 06/06/2016 [facility] Heart Rate 79 06/06/2016 [facility] Respitory Rate 16 06/06/2016 [facility] Systolic (mm Hg) 147 06/06/2016 [facility] Diastolic (mm Hg) 94 06/06/2016 [facility] Systolic (mm Hg) 108 05/02/2016 [facility] Diastolic (mm Hg) 66 05/02/2016 [facility] Respitory Rate 16 05/02/2016 [facility] Systolic (mm Hg) 109 05/02/2016 [facility] Diastolic (mm Hg) 76 05/02/2016 [facility] Respitory Rate 16 05/02/2016 [facility] Systolic (mm Hg) 117 05/02/2016 [facility] Diastolic (mm Hg) 59 05/02/2016 [facility] Respitory Rate 15 05/02/2016 [facility] Height 157.48 cm 05/02/2016 [facility] Weight 62.727 05/02/2016 [facility] BMI Calculated 25.29 05/02/2016 [facility] Heart Rate 82 05/02/2016 [facility] Heart Rate 93 04/10/2016 [facility] Respitory Rate 17 04/10/2016 [facility] Systolic (mm Hg) 109 04/10/2016 [facility] Diastolic (mm Hg) 65 04/10/2016 [facility] Heart Rate 96 04/10/2016 [facility] Systolic (mm Hg) 116 04/10/2016 [facility] Diastolic (mm Hg) 67 04/10/2016 [facility] Temperature Oral (F) 97.5 F 04/10/2016 [facility] Respitory Rate 18 04/10/2016 [facility] Systolic (mm Hg) 114 04/10/2016 [facility] Diastolic (mm Hg) 72 04/10/2016 [facility] Temperature Oral (F) 98.3 F 04/10/2016 [facility] Respitory Rate 18 04/10/2016 [facility] Heart Rate 106 04/10/2016 [facility] Weight 72.727 04/10/2016 [facility] Respitory Rate 13 03/04/2016 [facility] Respitory Rate 16 03/04/2016 [facility] Systolic (mm Hg) 149 03/04/2016 [facility] Diastolic (mm Hg) 77 03/04/2016 [facility] Respitory Rate 13 03/04/2016 [facility] Systolic (mm Hg) 143 03/04/2016 [facility] Diastolic (mm Hg) 70 03/04/2016 [facility] Systolic (mm Hg) 133 03/04/2016 [facility] Diastolic (mm Hg) 70 03/04/2016 [facility] Height 157.48 cm 03/03/2016 [facility] BMI Calculated 26.39 03/03/2016 [facility] Weight 65.455 03/03/2016 [facility] Height 157.48 cm 03/03/2016 [facility] Weight 65.455 03/03/2016 [facility] BMI Calculated 26.39 03/03/2016 [facility] Weight 157 11/07/2015 [facility] Height 62 11/07/2015 [facility] Temperature Oral (F) 98.3 F 11/07/2015 [facility] Diastolic (mm Hg) 70 11/07/2015 [facility] Systolic (mm Hg) 124 11/07/2015 [facility] Weight 160 07/02/2015 [facility] Height 62 07/02/2015 [facility] Temperature Oral (F) 97.4 F 07/02/2015 [facility] Heart Rate 69 07/02/2015 [facility] Diastolic (mm Hg) 70 07/02/2015 [facility] Systolic (mm Hg) 112 07/02/2015 [facility] Weight 160 03/01/2015 [facility] Height 62.5 03/01/2015 [facility] Temperature Oral (F) 97.0 F 03/01/2015 [facility] Heart Rate 70 03/01/2015 [facility] Diastolic (mm Hg) 68 03/01/2015 [facility] Systolic (mm Hg) 112 03/01/2015 [facility] Weight 170 02/27/2014 [facility] Height 62 02/27/2014 [facility] Temperature Oral (F) 98.4 F 02/27/2014 [facility] Heart Rate 76 02/27/2014 [facility] Diastolic (mm Hg) 70 02/27/2014 [facility] Systolic (mm Hg) 130 02/27/2014 [facility] Weight 174 08/29/2013 [facility] Height 63 08/29/2013 [facility] Temperature Oral (F) 97.0 F 08/29/2013 [facility] Heart Rate 66 08/29/2013 [facility] Diastolic (mm Hg) 82 08/29/2013 [facility] Systolic (mm Hg) 128 08/29/2013 [facility] Encounters Location Location Details Encounter Type Encounter Number Reason For Visit Attending Provider ADM Date DC Date Status Source [facility] MD f/u [id number] 08/29/2013 08/29/2013 [facility] MD f/u [id number] 08/29/2013 08/29/2013 [facility] MD f/u [id number] 08/29/2013 08/29/2013 [facility] MD f/u [id number] 08/29/2013 08/29/2013 [facility] MD f/u [id number] 08/29/2013 08/29/2013 [facility] MD f/u [id number] 08/29/2013 08/29/2013 [facility] MD f/u [id number] 08/29/2013 08/29/2013 [facility] MD f/u [id number] 08/29/2013 08/29/2013 [facility] MD f/u [id number] 08/29/2013 08/29/2013 [facility] MD f/u [id number] 08/29/2013 08/29/2013 [facility] MD f/u [id number] 08/29/2013 08/29/2013 [facility] MD f/u [id number] 08/29/2013 08/29/2013 [facility] MD f/u [id number] 08/29/2013 08/29/2013 [facility] MD f/u [id number] 08/29/2013 08/29/2013 [facility] MD f/u [id number] 08/29/2013 08/29/2013 [facility] MD f/u [id number] 08/29/2013 08/29/2013 [facility] MD f/u [id number] 08/29/2013 08/29/2013 [facility] MD f/u [id number] 08/29/2013 08/29/2013 [facility] MD f/u [id number] 08/29/2013 08/29/2013 [facility] MD f/u [id number] 08/29/2013 08/29/2013 [facility] MD f/u [id number] 08/29/2013 08/29/2013 [facility] MD f/u [id number] 08/29/2013 08/29/2013 [facility] MD f/u [id number] 08/29/2013 08/29/2013 Fitz Beaulieu MD f/u [id number]-9d5f-0r25-13h5-rz894516u0b9 08/29/2013 08/29/2013 Fitz Beaulieu MD f/u [id number] 08/29/2013 08/29/2013 Fitz Beaulieu MD f/u [id number]-[id number] 08/29/2013 08/29/2013 Fitz Beaulieu MD f/u [id number]-6n3c-87s8-gv1a932yg17p 08/29/2013 08/29/2013 Fitz Beaulieu MD f/u 0l5j6vok-8l49-55p4-0t22-27174j5eq7xi 08/29/2013 08/29/2013 Fitz Beaulieu MD f/u 56nlt933-80oz-7362-g09c-9791s47r0vpg 08/29/2013 08/29/2013 Fitz Beaulieu MD f/u [id number]-[id number] 08/29/2013 08/29/2013 Fitz Beaulieu MD f/u [id number]-[id number] 08/29/2013 08/29/2013 Fitz Beaulieu MD f/u [id number]-m77w10044isg 08/29/2013 08/29/2013 Fitz Beaulieu MD f/u [id number]-dq2h3j7a6w82 08/29/2013 08/29/2013 MD SIOBHAN Vallecillo [id number]-8025-30y12z51ub2z 12/23/2013 12/23/2013 MD KAYLEEN Vallecillo-GATITO [id number]-bc31p73823tv 12/23/2013 12/23/2013 Fitz Beaulieu MD [facility] [id number]-[id number] 12/23/2013 12/23/2013 Fitz Beaulieu MD [facility] [id number] 12/23/2013 12/23/2013 Fitz Beaulieu MD [facility] [id number]-97jo-i739-52j3222p20ms 12/23/2013 12/23/2013 Fitz Beaulieu MD [facility] 5hbc41h4-ic2h-3y57-643e-2xc4c62b5ew5 12/23/2013 12/23/2013 Fitz Beaulieu MD [facility] 3347t4s1-43xj-33y2-s84s-8ong59hi2eh0 12/23/2013 12/23/2013 Fitz Beaulieu MD [facility] 6ji0ho5b-a02k-98kc-295b-0fsritq7l29a 12/23/2013 12/23/2013 Fitz Beaulieu MD RE[facility] 49sz45c1-69f8-2lj6-mr56-x9u3145z5l9k 12/23/2013 12/23/2013 Fitz Beaulieu MD [facility] [id number]-i143-2926-0451-c48tziujnmg1 12/23/2013 12/23/2013 Fitz Beaulieu MD [facility] [id number]-5850-bfb5-355337883kg5 12/23/2013 12/23/2013 Fitz Beaulieu MD RE[facility] 780v5shu-c47n-2sij-n610-1k08gf6t89gj 12/23/2013 12/23/2013 Fitz Beaulieu MD [facility] [id number]-4ovv-16fd-m1kin5801l7q 12/23/2013 12/23/2013 Fitz Beaulieu MD RE[facility] [id number]-[id number]-q66933s1g3w2 12/23/2013 12/23/2013 Fitz Beaulieu MD RE[facility] 28m3hq33-9s17-6r30-36fh-67s56e565wkh 12/23/2013 12/23/2013 Fitz Beaulieu MD RE[facility] 5kdp4yrv-f2mo-3194-n39j-59htw0e5p644 12/23/2013 12/23/2013 Fitz Beaulieu MD RE[facility] 2vr999xr-m0u9-9683-akku-y884518040g8 12/23/2013 12/23/2013 Fitz Beaulieu MD RE[facility] [id number]-318b-47rj-3xhi1032245c 12/23/2013 12/23/2013 Fitz Beaulieu MD RE[facility] p3t0j60z-3650-3g5z-jh0j-61087c0dnk7t 12/23/2013 12/23/2013 Fitz Beaulieu MD RE[facility] 4riuhw8x-8jo3-7je6-n866-x33skr6mow8a 12/23/2013 12/23/2013 Fitz eBaulieu MD REFI[facility] [id number]-dj5n095g0483 12/23/2013 12/23/2013 Fitz Beaulieu MD RE[facility] [id number]-v7qh-0332-8294-96mf2139o6dl 12/23/2013 12/23/2013 Fitz Beaulieu MD RE[facility] gtc8j32j-7m8l-00b9-a521-7861uc3tze04 12/23/2013 12/23/2013 Fitz Beaulieu MD RE[facility] k53e4g1u-766o-2988-dw48-c09xd9n2c3p9 12/23/2013 12/23/2013 Fitz Beaulieu MD REFI[facility] 30d966ra-cd35-7038-gt7h-xvy88392k5f4 12/23/2013 12/23/2013 Fitz Beaulieu MD REFI[facility] [id number]-3q1t-6ieb-svq6-73q76a3k2dg9 12/23/2013 12/23/2013 Fitz Beaulieu MD RE[facility] 4p96ijy8-8831-8599-i272-x1j4c79c116y 12/23/2013 12/23/2013 Fitz Beaulieu MD RE[facility] [id number]-26484nq632t8 12/23/2013 12/23/2013 Fitz Beaulieu MD RE[facility] 5x81jo4k-gpg9-450e-0jxf-x2rph7gug95z 12/23/2013 12/23/2013 Fitz Beaulieu MD REFI[facility] [id number]-[id number] 12/23/2013 12/23/2013 Fitz Beaulieu MD RE[facility] [id number]-y811-q5f3kj822890 12/23/2013 12/23/2013 Fitz Beaulieu MD RE[facility] iqsz99n2-57z3-073x-4651-541805do23x1 12/23/2013 12/23/2013 Fitz Beaulieu MD dexa agnp79l5-de97-0qg6-n517-72um11881770 02/22/2014 02/22/2014 Fitz Beaulieu MD dexa [id number]-dj6b-a0al8pd94736 02/22/2014 02/22/2014 Fitz Beaulieu MD dexa [id number]-[id number] 02/22/2014 02/22/2014 Fitz Beaulieu MD dexa [id number]-siy3-3j5g-4t1c-259x1605219o 02/22/2014 02/22/2014 Fitz Beaulieu MD dexa [id number]-o05p-2a12-y89x-yae426csw6h1 02/22/2014 02/22/2014 Fitz Beaulieu MD dexa [id number]-263w-[id number]-f5c6ley41202 02/22/2014 02/22/2014 Fitz Beaulieu MD dexa [id number] 02/22/2014 02/22/2014 Fitz Beaulieu MD dexa [id number]-s16v-[id number] 02/22/2014 02/22/2014 Fitz Beaulieu MD dexa [id number]-[id number] 02/22/2014 02/22/2014 Fitz Beaulieu MD dexa [id number]-[id number]-hn7676r43i35 02/22/2014 02/22/2014 Fitz Beaulieu MD dexa [id number]-x26n-9v7l-z08d-7017o48413s9 02/22/2014 02/22/2014 Fitz Beaulieu MD dexa 630v7q9u-z9e8-8w48-73t6-23doo5h996lj 02/22/2014 02/22/2014 Fitz Beaulieu MD dexa 675uzj77-335p-027m-8ga3-t1z865xm4544 02/22/2014 02/22/2014 Fitz Beaulieu MD dexa [id number]-r2p9-77as-[id number] 02/22/2014 02/22/2014 Fitz Beaulieu MD dexa 70ddivt8-c075-8u2x-z704-5q6v3f9j616q 02/22/2014 02/22/2014 Fitz Beaulieu MD dexa [id number]-a267-q0upt638yp30 02/22/2014 02/22/2014 Fitz Beaulieu MD dexa [id number]-x3h1-6e72-e111-yrjw8y58b3w2 02/22/2014 02/22/2014 Fitz Beaulieu MD dexa [id number]-r5h0-84nr1ydbog02 02/22/2014 02/22/2014 Fitz Beaulieu MD dexa [id number]-k579-4dy3t6h4703d 02/22/2014 02/22/2014 Fitz Beaulieu MD dexa [id number]-q451-7jew5dn7g40b 02/22/2014 02/22/2014 Fitz Beaulieu MD dexa [id number]-7fy865h6cd74 02/22/2014 02/22/2014 Fitz Beaulieu MD dexa [id number]-l12k-67xw1606a783 02/22/2014 02/22/2014 Fitz Beaulieu MD dexa [id number] 02/22/2014 02/22/2014 Fitz Beaulieu MD dexa [id number]-[id number]-[id number] 02/22/2014 02/22/2014 Fitz Beaulieu MD dexa [id number] 02/22/2014 02/22/2014 Fitz Beaulieu MD dexa [id number]-vh4e-1ts4-a674-1fzo8s3byv18 02/22/2014 02/22/2014 Fitz Beaulieu MD dexa [id number]-uy5h-5v0w-y83l-a15k7r29u5a4 02/22/2014 02/22/2014 Fitz Beaulieu MD dexa [id number]-dc97-2u3d-x854-c20056uo565q 02/22/2014 02/22/2014 Fitz Beaulieu MD dexa uz6ozzrt-87t3-3903-v5pq-789o8a1s5k5l 02/22/2014 02/22/2014 Fitz Beaulieu MD dexa [id number]-81p5-546e-oq30-396p5c651ut8 02/22/2014 02/22/2014 Fitz Beaulieu MD dexa [id number]-c9zk-82ly-mbv4-ix0r8c201fw9 02/22/2014 02/22/2014 Fitz Beaulieu MD f/u qbt7q1b1-m905-5760-5s39-426m3o91ifs1 02/27/2014 02/27/2014 Fitz Beaulieu MD f/u 62f8a5gk-8xjv-5cx5-1024-9v8j4u906i73 02/27/2014 02/27/2014 Fitz Beaulieu MD f/u [id number]-1q69-422o-8144tae54302 02/27/2014 02/27/2014 Fitz Beaulieu MD f/u 9r6mnnmc-xu30-1l7c-0047-78c69c1c7bp2 02/27/2014 02/27/2014 Fitz Beaulieu MD f/u gto6tbx7-y8ox-5c07-a619-c194580bkp5l 02/27/2014 02/27/2014 Fitz Beaulieu MD f/u 488n3g4d-n45z-3p4i-r375-5fp37ac41552 02/27/2014 02/27/2014 Fitz Beaulieu MD f/u r9krz496-3f4f-6044-e8m2-2b13u72440wx 02/27/2014 02/27/2014 Fitz Beaulieu MD f/u o017h5n6-477k-080s-199w-z6784s31te46 02/27/2014 02/27/2014 Fitz Beaulieu MD f/u w54dh9n1-iety-9840-1o02-af05e12f9743 02/27/2014 02/27/2014 Fitz Beaulieu MD f/u s574hh20-3o14-15eq-8977-1x2c2t9r22nm 02/27/2014 02/27/2014 Fitz Beaulieu MD f/u m846mn77-ss42-68y4-4845-t8it6cys37kq 02/27/2014 02/27/2014 Fitz Beaulieu MD f/u 4k80b5ib-5ri3-57b4-607d-k50528dn823t 02/27/2014 02/27/2014 Fitz Beaulieu MD f/u 2u67ii6x-tt09-24c5-5ag4-7610m17c6652 02/27/2014 02/27/2014 Fitz Beaulieu MD f/u [id number]-ib51-n9j561k9323m 02/27/2014 02/27/2014 Fitz Beaulieu MD f/u [id number]-mz1b-9jt4-29i0-4n74553fxl94 02/27/2014 02/27/2014 Fitz Beaulieu MD f/u 30w341w1-n976-2323-k63e-2b6k603a61c4 02/27/2014 02/27/2014 Fitz Beaulieu MD f/u 419z25br-l104-0a54-6k85-tp12g71f141m 02/27/2014 02/27/2014 Fitz Beaulieu MD f/u 9531sh11-0653-5iv5-2sc9-6l2235vzd3x8 02/27/2014 02/27/2014 Fitz Beaulieu MD f/u [id number]-7r72-kz6i-c919r0y73t4l 02/27/2014 02/27/2014 Fitz Beaulieu MD f/u w39v0826-d5t5-965v-m3s8-092m678cts82 02/27/2014 02/27/2014 Fitz Beaulieu MD f/u [id number]-4cil-727f-ejsa-659c2e72xhw5 02/27/2014 02/27/2014 Fitz Beaulieu MD f/u 90ocys9g-0922-24jx-a60v-m982848h284a 02/27/2014 02/27/2014 Fitz Beaulieu MD f/u [id number] 02/27/2014 02/27/2014 Fitz Beaulieu MD f/u [id number]-t1l7-1s50-sb9m-c64c257v1w2y 02/27/2014 02/27/2014 Fitz Beaulieu MD [facility]/u 6n5h1j54-s57p-306s-f00y-546h0bxw747j 02/27/2014 02/27/2014 Fitz Beaulieu MD [facility]/u [id number]-2239-i099g195368s 02/27/2014 02/27/2014 Fitz Beaulieu MD [facility]/u [id number]-6n57-7f97es9452t1 02/27/2014 02/27/2014 Fitz Beaulieu MD [facility]/u [id number]-i9v0-6da8-8fex-29x61684vfe4 02/27/2014 02/27/2014 Fitz Beaulieu MD f/u [id number]-1w75-3tkz65mx5303 02/27/2014 02/27/2014 Fitz Beaulieu MD f/u 152l27gj-l398-3bev-hln7-942dn2m17g56 02/27/2014 02/27/2014 Fitz Beaulieu MD Appointment [id number]-[id number] 05/12/2014 05/12/2014 Fitz Beaulieu MD Appointment [id number]-[id number]-[id number] 05/12/2014 05/12/2014 Fitz Beaulieu MD Appointment [id number]-jt84-hpc0f36l0530 05/12/2014 05/12/2014 Fitz Beaulieu MD Appointment [id number]-70fi-0892-657bol494s8w 05/12/2014 05/12/2014 Fitz Beaulieu MD Appointment [id number] 05/12/2014 05/12/2014 Fitz Beaulieu MD Appointment [id number] 05/12/2014 05/12/2014 Fitz Beaulieu MD Appointment [id number]-[id number] 05/12/2014 05/12/2014 Fitz Beaulieu MD Appointment [id number]-a0l0-50e902h6ywt6 05/12/2014 05/12/2014 Fitz Beaulieu MD Appointment [id number]-531t-7j8h-nt29-p5yv607v4x44 05/12/2014 05/12/2014 Fitz Beaulieu MD Appointment [id number]-rinc-x75kum015960 05/12/2014 05/12/2014 Fitz Beaulieu MD Appointment [id number] 05/12/2014 05/12/2014 Fitz Beaulieu MD Appointment [id number] 05/12/2014 05/12/2014 Fitz Beaulieu MD Appointment [id number]-w6t1-20dh92q55x63 05/12/2014 05/12/2014 Fitz Beaulieu MD Appointment [id number]-[id number] 05/12/2014 05/12/2014 Fitz Beaulieu MD Appointment [id number]-qc0p-61tj-6b4d-rt33628c0h1g 05/12/2014 05/12/2014 Fitz Beaulieu MD Appointment [id number]-[id number] 05/12/2014 05/12/2014 Fitz Beaulieu MD Appointment [id number] 05/12/2014 05/12/2014 Fitz Beaulieu MD Appointment [id number]-[id number] 05/12/2014 05/12/2014 Fitz Beaulieu MD Appointment [id number]-7iwz-3m99-1sef-czy3cyl61m48 05/12/2014 05/12/2014 Fitz Beaulieu MD Appointment [id number]-800x-775f-66v1-p1xe3w56v8l9 05/12/2014 05/12/2014 Fitz Beaulieu MD Appointment [id number]-d37m-9tt28v6o02t4 05/12/2014 05/12/2014 Fitz Beaulieu MD Appointment [id number]-[id number] 05/12/2014 05/12/2014 Fitz Beaulieu MD Appointment [id number]-[id number]-z403-m5x46t9u1581 05/12/2014 05/12/2014 Fitz Beaulieu MD Appointment [id number]-ye5j-[id number] 05/12/2014 05/12/2014 Fitz Beaulieu MD Appointment [id number] 05/12/2014 05/12/2014 Fitz Beaulieu MD Appointment [id number]-[id number]-[id number] 05/12/2014 05/12/2014 Fitz Beaulieu MD Appointment [id number]-[id number]-b2pcr3hn2e00 05/12/2014 05/12/2014 Fitz Beaulieu MD Appointment [id number]-ub8x-[id number] 05/12/2014 05/12/2014 Fitz Beaulieu MD Appointment [id number] 05/12/2014 05/12/2014 Fitz Beaulieu MD Appointment [id number] 05/12/2014 05/12/2014 Fitz Beaulieu MD Refill- Leflunomide [id number]-d183-10086s3u5n68 05/15/2014 05/15/2014 Fitz Beaulieu MD Refill- Leflunomide [id number]-658t-[id number] 05/15/2014 05/15/2014 Fitz Beaulieu MD Refill- Leflunomide 9w55vvlk-3u7u-4q1j-mgjy-89663p2cn867 05/15/2014 05/15/2014 Fitz Beaulieu MD Refill- Leflunomide 06e2ehq8-6s39-9i04-3pxn-y280z2332j56 05/15/2014 05/15/2014 Fitz Beaulieu MD Refill- Leflunomide ywq1y50s-7501-7n92-292t-5h553nw92l70 05/15/2014 05/15/2014 Fitz Beaulieu MD Refill- Leflunomide [id number]-3077-66qd-r122m78by3y4 05/15/2014 05/15/2014 Fitz Beaulieu MD Refill- Leflunomide at3ogdq9-nym9-6c27-n226-701xpueo97p8 05/15/2014 05/15/2014 Fitz Beaulieu MD Refill- Leflunomide pa3d3k3c-5128-035y-5q5m-9if700s28381 05/15/2014 05/15/2014 Fitz Beaulieu MD Refill- Leflunomide v32x436d-nb85-9u2j-563m-e9jpd805el00 05/15/2014 05/15/2014 Fitz Beaulieu MD Refill- Leflunomide 3s35q0wu-6250-70qy-51j6-4451014658f2 05/15/2014 05/15/2014 Fitz Beaulieu MD Refill- Leflunomide 080c4flx-z390-615j-61sb-65i72y91sli6 05/15/2014 05/15/2014 Fitz Beaulieu MD Refill- Leflunomide [id number]-a71l-1ur8-7291-0r108css666y 05/15/2014 05/15/2014 Fitz Beaulieu MD Refill- Leflunomide [id number]-zy91-672m-a1a4-h23a2u9013dr 05/15/2014 05/15/2014 Fitz Beaulieu MD Refill- Leflunomide 218j1002-9ol9-1n19-k8a1-471r8i3y2x1t 05/15/2014 05/15/2014 Fitz Beaulieu MD Refill- Leflunomide 1001pd88-271j-2m11-415a-4i657002m53t 05/15/2014 05/15/2014 Fitz Beaulieu MD Refill- Leflunomide jfb78747-2631-9bb7-7pv6-7sr71mids6b5 05/15/2014 05/15/2014 iFtz Beaulieu MD Refill- Leflunomide 6vcz8709-713k-97g8-n33h-31x61z117p08 05/15/2014 05/15/2014 Fitz Beaulieu MD Refill- Leflunomide 4y7h476g-x507-3yy1-x35k-3p67338m5hp0 05/15/2014 05/15/2014 Fitz Beaulieu MD Refill- Leflunomide 2199pk3s-n0zp-95hn-q59v-j566y867r767 05/15/2014 05/15/2014 Fitz Beaulieu MD Refill- Leflunomide ir774407-kgqz-47v8-jj8y-65t3czk97qed 05/15/2014 05/15/2014 Fitz Beaulieu MD Refill- Leflunomide 34rz9lwk-8k54-8v1s-lvo7-268r2fcx372g 05/15/2014 05/15/2014 Fitz Beaulieu MD Refill- Leflunomide e2bap23u-8g01-3438-623h-886n3593945u 05/15/2014 05/15/2014 Fitz Beaulieu MD Refill- Leflunomide 5s148t4q-58d2-0735-u5b1-x914f547dt36 05/15/2014 05/15/2014 Fitz Beaulieu MD Refill- Leflunomide 4170diy6-7n95-70j9-w759-r9266o22521a 05/15/2014 05/15/2014 Fitz Beaulieu MD Refill- Leflunomide 18k4o286-g9gh-3515-233f-7151478b267f 05/15/2014 05/15/2014 Fitz Beaulieu MD Refill- Leflunomide u18h63rf-6626-3825-7s8g-b806v91y7053 05/15/2014 05/15/2014 Fitz Beaulieu MD Refill- Leflunomide 2qy6c3v5-57z3-9z77-938e-3o3bkcv8ve2f 05/15/2014 05/15/2014 Fitz Beaulieu MD Refill- Leflunomide 45m9400p-yvc6-5i6f-tb68-u0n704rfy081 05/15/2014 05/15/2014 Fitz Beaulieu MD 3 [place] F/U lp7434yg-a5tk-32c8-mmc0-u1984995v228 05/30/2014 05/30/2014 Fitz Beaulieu MD 3 [place] F/U 95q1v25v-9717-974e-h6ll-57r8xyp86gl9 05/30/2014 05/30/2014 Fitz Beaulieu MD 3 [place] F/U 8khmpxmo-x2k5-82s2l5e3-31p3-7614-3g28t204z250 05/30/2014 05/30/2014 Fitz Beaulieu MD 3 [place] F/U 0uuum734-7214-5m42-jmx4-23h3h817984i 05/30/2014 05/30/2014 Fitz Beaulieu MD 3 [place] F/U a34946fr-28fq-4iw1-riv9-z1qry649c08a 05/30/2014 05/30/2014 Fitz Beaulieu MD 3 [place] F/U n364j759-q614-24a2-9243-o11k1063429v 05/30/2014 05/30/2014 Fitz Beaulieu MD 3 [place] F/U 95d8w861-d47r-63kb-xg60-70355r557i50 05/30/2014 05/30/2014 Fitz Beaulieu MD 3 [place] F/U 50u29h96-14q8-7o03-280o-1ulxhd26085d 05/30/2014 05/30/2014 Fitz Beaulieu MD 3 [place] F/U m81vs586-36q7-20tp-ch42-99gz1i21tuv6 05/30/2014 05/30/2014 Fitz Beaulieu MD 3 [place] F/U 6o691z4g-r6th-6o0c-d5qk-4i7h31l96eia 05/30/2014 05/30/2014 Fitz Beaulieu MD 3 [place] F/U n3ng8bla-95q5-27si-7vp6-490kq83zy7ev 05/30/2014 05/30/2014 Fitz Beaulieu MD 3 [place] F/U i57z18v8-n7n0-39b0-v389-580472eq7a3d 05/30/2014 05/30/2014 Fitz Beaulieu MD 3 [place] F/U v6r2zn7m-0d21-37ep-q974-80tr8541q8lb 05/30/2014 05/30/2014 Fitz Beaulieu MD 3 [place] F/U 4902pycg-6j0h-2c2i6j1u-1a5z-wc81-u00666d4469f 05/30/2014 05/30/2014 Fitz Beaulieu MD 3 [place] F/U 9drhn80i-0855-2860-u667-4u79f74fu52h 05/30/2014 05/30/2014 Fitz Beaulieu MD 3 [place] F/U 8u8662g5-4u4p-266y-94q7-q2c8u3m04x71 05/30/2014 05/30/2014 Fitz Beaulieu MD 3 [place] F/U [id number]-2k6o-v36qy3238381 05/30/2014 05/30/2014 Fitz Beaulieu MD 3 [place] F/U [id number]-[id number] 05/30/2014 05/30/2014 Fitz Beaulieu MD 3 [place] F/U [id number]-m267-41r54685515z 05/30/2014 05/30/2014 Fitz Beaulieu MD 3 MO F/U [id number]-[id number] 05/30/2014 05/30/2014 Fitz Beaulieu MD 3 MO F/U [id number]-[id number]-[id number] 05/30/2014 05/30/2014 Fitz Beaulieu MD 3 MO F/U [id number] 05/30/2014 05/30/2014 Fitz Beaulieu MD 3 MO F/U [id number] 05/30/2014 05/30/2014 Fitz Beaulieu MD 3 MO F/U [id number] 05/30/2014 05/30/2014 Fitz Beaulieu MD 3 MO F/U [id number] 05/30/2014 05/30/2014 Fitz Beaulieu MD 3 MO F/U [id number] 05/30/2014 05/30/2014 Fitz Beaulieu MD 3 MO F/U [id number] 05/30/2014 05/30/2014 Fitz Beaulieu MD MRI Bi Hands August 02 [id number] 06/14/2014 06/14/2014 Fitz Beaulieu MD MRI Bi Hands August 02 [id number] 06/14/2014 06/14/2014 Fitz Beaulieu MD MRI Bi Hands August 02 [id number] 06/14/2014 06/14/2014 Fitz Beaulieu MD MRI Bi Hands August 02 [id number] 06/14/2014 06/14/2014 Fitz Beaulieu MD MRI Bi Hands August 02 [id number] 06/14/2014 06/14/2014 Fitz Beaulieu MD MRI Bi Hands August 02 [id number] 06/14/2014 06/14/2014 Fitz Beaulieu MD MRI Bi Hands August 02 [id number] 06/14/2014 06/14/2014 Fitz Beaulieu MD MRI Bi Hands August 02 [id number] 06/14/2014 06/14/2014 Fitz Beaulieu MD MRI Bi Hands August 02 [id number] 06/14/2014 06/14/2014 Fitz Beaulieu MD MRI Bi Hands August 02 [id number] 06/14/2014 06/14/2014 Fitz Beaulieu MD MRI Bi Hands August 02 [id number] 06/14/2014 06/14/2014 Fitz Beaulieu MD MRI [facility] Hands August 02 [id number] 06/14/2014 06/14/2014 Fitz Beaulieu MD MRI [facility] Hands August 02 [id number] 06/14/2014 06/14/2014 Fitz Beaulieu MD MRI Bi Hands August 02 [id number] 06/14/2014 06/14/2014 Fitz Beaulieu MD MRI Bi Hands August 02 [id number] 06/14/2014 06/14/2014 Fitz Beaulieu MD MRI Bi Hands August 02 [id number] 06/14/2014 06/14/2014 Fitz Beaulieu MD MRI Bi Hands August 02 [id number] 06/14/2014 06/14/2014 Fitz Beaulieu MD MRI Bi Hands August 02 [id number] 06/14/2014 06/14/2014 Fitz Beaulieu MD MRI Bi Hands August 02 [id number] 06/14/2014 06/14/2014 Fitz Beaulieu MD MRI Bi Hands August 02 [id number] 06/14/2014 06/14/2014 Fitz Beaulieu MD MRI Bi Hands August 02 [id number] 06/14/2014 06/14/2014 Fitz Beaulieu MD MRI Bi Hands August 02 [id number] 06/14/2014 06/14/2014 Fitz Beaulieu MD MRI Bi Hands August 02 [id number] 06/14/2014 06/14/2014 Fitz Beaulieu MD MRI Bi Hands August 02 [id number] 06/14/2014 06/14/2014 Fitz Beaulieu MD MRI Bi Hands August 02 [id number] 06/14/2014 06/14/2014 Fitz Beaulieu MD MRI Bi Hands August 02 [id number] 06/14/2014 06/14/2014 Fitz Beaulieu MD MRI Bi Hands August 02 [id number] 06/14/2014 06/14/2014 Fitz Beaulieu MD 3 MO F/U [id number] 08/29/2014 08/29/2014 Fitz Beaulieu MD 3 MO F/U [id number] 08/29/2014 08/29/2014 Fitz Beaulieu MD 3 MO F/U [id number] 08/29/2014 08/29/2014 Fitz Beaulieu MD 3 MO F/U [id number] 08/29/2014 08/29/2014 Fitz Beaulieu MD 3 MO F/U [id number] 08/29/2014 08/29/2014 Fitz Beaulieu MD 3 MO F/U [id number] 08/29/2014 08/29/2014 Fitz Beaulieu MD 3 MO F/U [id number]-z825-m6e71pcu0cks 08/29/2014 08/29/2014 Fitz Beaulieu MD 3 MO F/U [id number] 08/29/2014 08/29/2014 Fitz Beaulieu MD 3 MO F/U [id number] 08/29/2014 08/29/2014 Fitz Beaulieu MD 3 MO F/U [id number]-a09p-gb25h034p2k5 08/29/2014 08/29/2014 Fitz Beaulieu MD 3 MO F/U [id number] 08/29/2014 08/29/2014 Fitz Beaulieu MD 3 MO F/U [id number] 08/29/2014 08/29/2014 Fitz Beaulieu MD 3 MO F/U [id number]-[id number] 08/29/2014 08/29/2014 Fitz Beaulieu MD 3 MO F/U [id number] 08/29/2014 08/29/2014 Fitz Beaulieu MD 3 MO F/U [id number]-[id number] 08/29/2014 08/29/2014 Fitz Beaulieu MD 3 MO F/U [id number] 08/29/2014 08/29/2014 Fitz Beaulieu MD 3 MO F/U [id number] 08/29/2014 08/29/2014 Fitz Beaulieu MD 3 MO F/U [id number]-[id number] 08/29/2014 08/29/2014 Fitz Beaulieu MD 3 MO F/U [id number] 08/29/2014 08/29/2014 Fitz Beaulieu MD 3 MO F/U [id number] 08/29/2014 08/29/2014 Fitz Beaulieu MD 3 MO F/U [id number] 08/29/2014 08/29/2014 Fitz Beaulieu MD 3 MO F/U [id number]-o8t8-[id number] 08/29/2014 08/29/2014 Fitz Beaulieu MD 3 MO F/U [id number]-4700-rb51-j7r2kx90v10f 08/29/2014 08/29/2014 Fitz Beaulieu MD 3 MO F/U [id number]-8542-me5kvwlus01w 08/29/2014 08/29/2014 Fitz Beaulieu MD 3 MO F/U [id number] 08/29/2014 08/29/2014 Fitz Beaulieu MD 3 MO F/U [id number] 08/29/2014 08/29/2014 Fitz Beaulieu MD 3 MO F/U [id number]-e116-es37f41f7q86 08/29/2014 08/29/2014 Fitz Beaulieu MD DEXA [id number] 09/01/2014 09/01/2014 Fitz Beaulieu MD DEXA [id number] 09/01/2014 09/01/2014 Fitz Beaulieu MD DEXA [id number] 09/01/2014 09/01/2014 Fitz Beaulieu MD DEXA [id number] 09/01/2014 09/01/2014 Fitz Beaulieu MD DEXA [id number] 09/01/2014 09/01/2014 Fitz Beaulieu MD DEXA [id number] 09/01/2014 09/01/2014 Fitz Beaulieu MD DEXA [id number] 09/01/2014 09/01/2014 Fitz Beaulieu MD DEXA [id number] 09/01/2014 09/01/2014 Fitz Beaulieu MD DEXA [id number] 09/01/2014 09/01/2014 Fitz Beaulieu MD DEXA [id number] 09/01/2014 09/01/2014 Fitz Beaulieu MD DEXA [id number] 09/01/2014 09/01/2014 Fitz Beaulieu MD DEXA [id number] 09/01/2014 09/01/2014 Fitz Beaulieu MD DEXA [id number] 09/01/2014 09/01/2014 Fitz Beaulieu MD DEXA [id number] 09/01/2014 09/01/2014 Fitz Beaulieu MD DEXA [id number] 09/01/2014 09/01/2014 Fitz Beaulieu MD DEXA [id number] 09/01/2014 09/01/2014 Fitz Beaulieu MD DEXA [id number] 09/01/2014 09/01/2014 Fitz Beaulieu MD DEXA [id number] 09/01/2014 09/01/2014 Fitz Beaulieu MD DEXA [id number] 09/01/2014 09/01/2014 Fitz Beaulieu MD DEXA [id number] 09/01/2014 09/01/2014 Fitz Beaulieu MD DEXA [id number] 09/01/2014 09/01/2014 Fitz Beaulieu MD DEXA [id number] 09/01/2014 09/01/2014 Fitz Beaulieu MD DEXA [id number] 09/01/2014 09/01/2014 Fitz Beaulieu MD DEXA [id number] 09/01/2014 09/01/2014 Fitz Beaulieu MD DEXA [id number] 09/01/2014 09/01/2014 Fitz Beaulieu MD DEXA [id number] 09/01/2014 09/01/2014 Fitz Beaulieu MD RX Request-- Leflunomide [id number] 09/15/2014 09/15/2014 Fitz Beaulieu MD RX Request-- Leflunomide [id number] 09/15/2014 09/15/2014 Fitz Beaulieu MD RX Request-- Leflunomide [id number] 09/15/2014 09/15/2014 Fitz Beaulieu MD RX Request-- Leflunomide [id number] 09/15/2014 09/15/2014 Fitz Beaulieu MD RX Request-- Leflunomide [id number] 09/15/2014 09/15/2014 Fitz Beaulieu MD RX Request-- Leflunomide [id number] 09/15/2014 09/15/2014 Fitz Beaulieu MD RX Request-- Leflunomide 4s56zk89-7168-376a-g1o3-0ox092m304u8 09/15/2014 09/15/2014 Fitz Beaulieu MD RX Request-- Leflunomide 870537g0-i905-17i6-s011-786452r9rp5h 09/15/2014 09/15/2014 Fitz Beaulieu MD RX Request-- Leflunomide a39r8u30-o451-4hd7-ye40-065m71g293s2 09/15/2014 09/15/2014 Fitz Beaulieu MD RX Request-- Leflunomide 1v246zg2-8f7j-21id-od9w-36e925301832 09/15/2014 09/15/2014 Fitz Beaulieu MD RX Request-- Leflunomide hi8187se-294s-0fv3-1r9x-626e9oyl1234 09/15/2014 09/15/2014 Fitz Beaulieu MD RX Request-- Leflunomide 93p56y0k-e363-9003-42k4-962zv7135246 09/15/2014 09/15/2014 Fitz Beaulieu MD RX Request-- Leflunomide 1c36x060-3x62-60m6-582j-w0a21sv157rw 09/15/2014 09/15/2014 Fitz Beaulieu MD RX Request-- Leflunomide 7qf4a7d8-jz31-3z2i-154u-y8z210e755v7 09/15/2014 09/15/2014 Fitz Beaulieu MD RX Request-- Leflunomide 3l9822u4-997i-80kq-74t5-n854q8sr80b8 09/15/2014 09/15/2014 Fitz Beaulieu MD RX Request-- Leflunomide 1ndsyx18-4709-71o7-gr17-y15zlw77w76r 09/15/2014 09/15/2014 Fitz Beaulieu MD RX Request-- Leflunomide 1o728745-202d-7nb5-rn35-390329081c71 09/15/2014 09/15/2014 Fitz Beaulieu MD RX Request-- Leflunomide t84074u3-q73u-8cd7-hbtf-59hzcz056y16 09/15/2014 09/15/2014 Fitz Beaulieu MD RX Request-- Leflunomide 5d6bi1d6-679i-2682-36nr-41h55i0w18g1 09/15/2014 09/15/2014 Fitz Beaulieu MD RX Request-- Leflunomide 97y55969-0qda-101e-iq63-r8zl966d40n7 09/15/2014 09/15/2014 Fitz Beaulieu MD RX Request-- Leflunomide 690253yv-7236-1v52-vip9-905uw5122l3b 09/15/2014 09/15/2014 Fitz Beaulieu MD RX Request-- Leflunomide ew1j33w4-6a5q-46j4-5znq-7n28y0u27325 09/15/2014 09/15/2014 Fitz Beaulieu MD RX Request-- Leflunomide 26c5397y-75p5-9kb0-29z8-p63f1fl0p71x 09/15/2014 09/15/2014 Fitz Beaulieu MD RX Request-- Leflunomide 1t3777v8-13xz-5yb7-vgy6-4k2k324sik13 09/15/2014 09/15/2014 Fitz Beaulieu MD RX Request-- Leflunomide 86w89vq3-n851-4i3k-2z15-k1yle76a4639 09/15/2014 09/15/2014 Fitz Beaulieu MD Refill- Leflunomide 953567g4-e586-1mk9-79u2-la9042k34oyp 09/19/2014 09/19/2014 Fitz Beaulieu MD Refill- Leflunomide 6847lu8r-0yv7-7340-5gjw-52slj5g66558 09/19/2014 09/19/2014 Fitz Beaulieu MD Refill- Leflunomide 2j24yq63-66x8-77ku-478g-o7883246u69b 09/19/2014 09/19/2014 Fitz Beaulieu MD Refill- Leflunomide 8ec20c1k-463p-989p-vc78-d63j879g697n 09/19/2014 09/19/2014 Fitz Beaulieu MD Refill- Leflunomide 4l5189g7-6n6t-27ga-ug72-b757kkon252g 09/19/2014 09/19/2014 Fitz Beaulieu MD Refill- Leflunomide 00s2b0o6-8255-3ir7-laor-84f933jj67bw 09/19/2014 09/19/2014 Fitz Beaulieu MD Refill- Leflunomide 6yg3275s-3r9s-841s-tk54-ja4h86802o21 09/19/2014 09/19/2014 Fitz Beaulieu MD Refill- Leflunomide b31i4c9h-hm1z-74ve-m2s4-ew750205t70f 09/19/2014 09/19/2014 Fitz Beaulieu MD Refill- Leflunomide 4815316d-3pt1-7266-f9t7-40cg0x649mei 09/19/2014 09/19/2014 Fitz Beaulieu MD Refill- Leflunomide lb4j1n58-5279-821j-x34u-kv8545170ixk 09/19/2014 09/19/2014 Fitz Beaulieu MD Refill- Leflunomide 7h88vv8i-726o-3yc9-4v75-7dt477wr6y01 09/19/2014 09/19/2014 Fitz Beaulieu MD Refill- Leflunomide 5f2j384v-8935-6506-t647-m671e5714ta4 09/19/2014 09/19/2014 Fitz Beaulieu MD Refill- Leflunomide 9475h76z-yx1d-02b5-0uhu-8160ql37kuxf 09/19/2014 09/19/2014 Fitz Beaulieu MD Refill- Leflunomide 748ef0i3-n27v-535j-v009-37cy155vutt0 09/19/2014 09/19/2014 Fitz Beaulieu MD Refill- Leflunomide 296c0940-4878-56g3-57c1-f13dk1z5y9tk 09/19/2014 09/19/2014 Fitz Beaulieu MD Refill- Leflunomide w57v5fk4-6jx6-2y44-56cn-384cj4s90408 09/19/2014 09/19/2014 Fitz Beaulieu MD Refill- Leflunomide l4wf2n90-od67-530o-m245-kc75b2g08989 09/19/2014 09/19/2014 Fitz Beaulieu MD Refill- Leflunomide 81599r17-d331-7644-s4cz-68m6j3546240 09/19/2014 09/19/2014 Fitz Beaulieu MD Refill- Leflunomide 8af53ug4-1801-4o81-h988-33ple9b2o8k5 09/19/2014 09/19/2014 Fitz Beaulieu MD Refill- Leflunomide 2v1o11y7-977s-9jb2-n3t4-2d31h06628k1 09/19/2014 09/19/2014 Fitz Beaulieu MD Refill- Leflunomide r3816466-17t7-66uv-l487-9f5048p952i8 09/19/2014 09/19/2014 Fitz Beaulieu MD Refill- Leflunomide 11917l7j-ngc9-3iq2-8ey0-kdc3569a617g 09/19/2014 09/19/2014 Fitz Beaulieu MD Refill- Leflunomide v9q0r851-o319-955o-cbr5-t36fvz4dm945 09/19/2014 09/19/2014 Fitz Beaulieu MD Refill- Leflunomide 0556v707-0n09-7j93-2ao4-m9g61q40y908 09/19/2014 09/19/2014 Fitz Beaulieu MD Refill- Leflunomide twyf08tj-836u-92a7-90h5-60r26626f758 09/19/2014 09/19/2014 Fitz Beaulieu MD xray order 206920ys-srb4-79o0-2zb2-8gmk5o2i1221 09/22/2014 09/22/2014 Fitz Beaulieu MD xray order 5679716h-4n1u-7055-u664-0et02382j0p5 09/22/2014 09/22/2014 Fitz Beaulieu MD xray order [id number]-k497985688j5 09/22/2014 09/22/2014 Fitz Beaulieu MD xray order f526278l-5f00-3zps-2hyt-9o4h876w993q 09/22/2014 09/22/2014 Fitz Beaulieu MD xray order 9o808r01-eom2-4598-m72m-4z08n929045h 09/22/2014 09/22/2014 Fitz Beaulieu MD xray order 164c98n9-ll86-4p2a-c88v-65mwa9ozu6a7 09/22/2014 09/22/2014 Fitz Beaulieu MD xray order r4h23t73-8o97-7727-y243-16my27f75977 09/22/2014 09/22/2014 Fitz Beaulieu MD xray order h1f68im8-j670-3v6b-knf9-f53104056775 09/22/2014 09/22/2014 Fitz Beaulieu MD xray order l4483s7m-356z-133o-01uf-xd61358a15as 09/22/2014 09/22/2014 Fitz Beaulieu MD xray order 19n69015-6knm-299o-791w-509cmryf8p3x 09/22/2014 09/22/2014 Fitz Beaulieu MD xray order [id number] 09/22/2014 09/22/2014 Fitz Beaulieu MD xray order xj74o1j2-b830-2753-814h-b7h55gs6865t 09/22/2014 09/22/2014 Fitz Beaulieu MD xray order ne144h38-0729-13jb-9139-3giij8w9u6je 09/22/2014 09/22/2014 Fitz Beaulieu MD xray order qcs01a9q-aez5-4y79-3n94-8qygy6p37pl0 09/22/2014 09/22/2014 Fitz Beaulieu MD xray order 902cqy6h-8x12-2i5o-j313-2y5qq98g5sj5 09/22/2014 09/22/2014 Fitz Beaulieu MD xray order 716a52u8-sf63-3m0i-jn96-juno300x1161 09/22/2014 09/22/2014 Fizt Beaulieu MD xray order 9660jq42-age3-325w-bb21-h0ta2y2o8512 09/22/2014 09/22/2014 Fitz Beaulieu MD xray order tuh82j5h-23xf-0e4i-x1k9-82y3c2i8u685 09/22/2014 09/22/2014 Fitz Beaulieu MD xray order 2g698353-4xhp-576a-6310-4m0kq4686c64 09/22/2014 09/22/2014 Fitz Beaulieu MD xray order 0365h3f5-3u42-0o74-g922-1057b1863019 09/22/2014 09/22/2014 Fitz Beaulieu MD xray order 7p76d731-o4n2-418l-2g4a-19wk12yr6b05 09/22/2014 09/22/2014 Fitz Beaulieu MD xray order guije1h4-a380-8610-0okm-e76995w23n86 09/22/2014 09/22/2014 Fitz Beaulieu MD xray order 23c5g7zc-6q5c-3717-308i-et4434x46802 09/22/2014 09/22/2014 Fitz Beaulieu MD Refill- Leflunomide 679w695e-2p75-1vtj-46hr-49w582g990o0 09/27/2014 09/27/2014 Fitz Beaulieu MD Refill- Leflunomide 4u3655u4-704t-4vlx-ey4a-0i7h77hs72b9 09/27/2014 09/27/2014 Fitz Beaulieu MD Refill- Leflunomide p5g0br60-0i8k-3208-53bv-31spk3155077 09/27/2014 09/27/2014 Fitz Beaulieu MD Refill- Leflunomide 4j61555z-lab0-6084-7800-991k5a5xq33s 09/27/2014 09/27/2014 Fitz Beaulieu MD Refill- Leflunomide y06n00a1-65i9-7157-1b09-7l412vh43838 09/27/2014 09/27/2014 Fitz Beaulieu MD Refill- Leflunomide 2yjhmm7h-lvlt-1g30-e5e6-6567g170k431 09/27/2014 09/27/2014 Fitz Beaulieu MD Refill- Leflunomide c04b1t8x-5j43-9ba6-u735-9z627aig2qw1 09/27/2014 09/27/2014 Fitz Beaulieu MD Refill- Leflunomide 7v0939d3-328v-8201-e68q-0h6836fx2566 09/27/2014 09/27/2014 Fitz Beaulieu MD Refill- Leflunomide 700vc208-i90o-26bd-y67j-06d7k278l511 09/27/2014 09/27/2014 Fitz Beaulieu MD Refill- Leflunomide rn96nwm4-66y3-200k-qm72-h9y6i3kh7889 09/27/2014 09/27/2014 Fitz Beaulieu MD Refill- Leflunomide hxe06437-c4o1-151m-2s75-1dqr7e07866a 09/27/2014 09/27/2014 Fitz Beaulieu MD Refill- Leflunomide o002s2o7-09t2-9582-6o4w-u95px2cf6578 09/27/2014 09/27/2014 Fitz Beaulieu MD Refill- Leflunomide tm9xcg5t-2p3w-4tqh-v000-8ic09rhg0o59 09/27/2014 09/27/2014 Fitz Beaulieu MD Refill- Leflunomide 107218ne-j4gv-5464-8r9f-all7j3d9sgc0 09/27/2014 09/27/2014 Fitz Beaulieu MD Refill- Leflunomide 8276emc0-q911-3131-2765-6531m024c47e 09/27/2014 09/27/2014 Fitz Beaulieu MD Refill- Leflunomide 6u7nljvw-0897-5608-3dyv-668z2i3oru8q 09/27/2014 09/27/2014 Fitz Beaulieu MD Refill- Leflunomide 05q8825p-c605-3q6o-xuqu-8z3h53228991 09/27/2014 09/27/2014 Fitz Beaulieu MD Refill- Leflunomide h73bogpb-4g46-485v-d3g2-l1988rxjdg8z 09/27/2014 09/27/2014 Fitz Beaulieu MD Refill- Leflunomide h30w844x-m4o4-87qq-p93m-k15vr13h2654 09/27/2014 09/27/2014 Fitz Beaulieu MD Refill- Leflunomide u95z276d-8e46-9be5-wt26-4j0n37eef01h 09/27/2014 09/27/2014 Fitz Beaulieu MD Refill- Leflunomide p1qz0kz5-8t52-9ur6-a5t4-6e14635ja883 09/27/2014 09/27/2014 Fitz Beaulieu MD Refill- Leflunomide 53ad0859-zpfc-16jj-u1y3-hw8173z0587h 09/27/2014 09/27/2014 Fitz Beaulieu MD Refill- Leflunomide 45848820-fms9-3q87-8ty1-7919k94vkn22 09/27/2014 09/27/2014 Fitz Beaulieu MD Refill- Leflunomide o0o00a9d-x28y-1272-1x35-t3x9966e9832 09/27/2014 09/27/2014 Fitz Beaulieu MD Refill- Leflunomide 7ure3380-3026-92k1-6f98-1825qfh45q01 10/31/2014 10/31/2014 Fitz Beaulieu MD Refill- Leflunomide ssphe577-q5x3-477t-r8kp-mb77wz204118 10/31/2014 10/31/2014 Fitz Beaulieu MD Refill- Leflunomide jw147455-u189-3401-1y23-e7971d378wux 10/31/2014 10/31/2014 Fitz Beaulieu MD Refill- Leflunomide tcn78055-2mg1-2l3e-a3u2-1339d9r0h524 10/31/2014 10/31/2014 Fitz Beaulieu MD Refill- Leflunomide 71825xbs-9lk8-14y1-8674-05y226q2xcb1 10/31/2014 10/31/2014 Fitz Beaulieu MD Refill- Leflunomide 72smv677-78ph-43t0-t5o8-so3ob09vn38i 10/31/2014 10/31/2014 Fitz Beaulieu MD Refill- Leflunomide 5694c33h-869b-0ux5-d75k-926x15ba04s4 10/31/2014 10/31/2014 Fitz Beaulieu MD Refill- Leflunomide 7i4t7aie-45lt-46g8-0p71-23391st62484 10/31/2014 10/31/2014 Fitz Beaulieu MD Refill- Leflunomide 377awmx6-j2en-0147-38rm-5dsp6vd08150 10/31/2014 10/31/2014 Fitz Beaulieu MD Refill- Leflunomide sy37lmk7-1afg-14gs-0e07-99f6y7t64s19 10/31/2014 10/31/2014 Fitz Beaulieu MD Refill- Leflunomide qrd1bs1u-6845-6dt5-4d9p-9oajixk9p3o2 10/31/2014 10/31/2014 Fitz Beaulieu MD Refill- Leflunomide u26m7bhq-w270-53u3-7081-9921a6p69pu5 10/31/2014 10/31/2014 Fitz Beaulieu MD Refill- Leflunomide 189242m5-0izf-10s6-537x-o512807b9o5e 10/31/2014 10/31/2014 Fitz Beaulieu MD Refill- Leflunomide l9880o3w-gd48-3886-41x8-zdp4rp3185zs 10/31/2014 10/31/2014 Fitz Beaulieu MD Refill- Leflunomide 7p877944-602y-7f35-5u62-stm1ndr0t579 10/31/2014 10/31/2014 Fitz Beaulieu MD Refill- Leflunomide 9op98p28-073q-57e5-u92o-up308a377768 10/31/2014 10/31/2014 Fitz Beaulieu MD Refill- Leflunomide w0e26zqd-p630-21p7-7fz3-59822610y52v 10/31/2014 10/31/2014 Fitz Beaulieu MD Refill- Leflunomide 54j41fre-4262-44s2-1i27-u49372nyikbs 10/31/2014 10/31/2014 Fitz Beaulieu MD Refill- Leflunomide 76aki54h-6587-6808-87i9-eb32e39rc64n 10/31/2014 10/31/2014 Fitz Beaulieu MD Refill- Leflunomide 9i0759nu-w4k9-06ei-4486-48839z448436 10/31/2014 10/31/2014 Fitz Beaulieu MD Refill- Leflunomide 3pb3s571-5457-54ts-9878-5sxe8570j37u 10/31/2014 10/31/2014 Fitz Beaulieu MD Refill- Leflunomide 27x5867h-u723-8e07-4wip-6j259kkc2813 10/31/2014 10/31/2014 Fitz Beaulieu MD Labs 73e2inc4-2468-6n9j-13h3-0tp5081v2d58 11/09/2014 11/09/2014 Fitz Beaulieu MD Labs 59ysn1j5-9ox1-5357-i44f-clh0u4t68r9e 11/09/2014 11/09/2014 Fitz Beaulieu MD Labs [id number]-5403-2t4i-3778030o8008 11/09/2014 11/09/2014 Fitz Beaulieu MD Labs asx5121k-1143-1e12-6140-7vmt4c1293k8 11/09/2014 11/09/2014 Fitz Beaulieu MD Labs qmn60s09-v8z3-440z-3r7l-xxy41m598s89 11/09/2014 11/09/2014 Fitz Beaulieu MD Labs 17sl3fj1-19ha-7583-130r-jol92u74jl42 11/09/2014 11/09/2014 Fitz Beaulieu MD Labs o5j41443-17ib-11t8-lo97-u362095kp791 11/09/2014 11/09/2014 Fitz Beaulieu MD Labs 1072890w-2317-2815-q8a4-ux654j8e5256 11/09/2014 11/09/2014 Fitz Beaulieu MD Labs 5x0913ii-f69r-1ct9-5o18-2v7031c6k1ja 11/09/2014 11/09/2014 Fitz Beaulieu MD Labs 3546a49x-k3bo-26n3-4872-06091fnvx32o 11/09/2014 11/09/2014 Fitz Beaulieu MD Labs u5211453-g95z-4269-g29d-433pbsr99aus 11/09/2014 11/09/2014 Fitz Beaulieu MD Refill- Leflunomide b978bnw3-25h7-3fon-i185-rb499064i820 11/09/2014 11/09/2014 Fitz Beaulieu MD Refill- Leflunomide 029a6et8-17y5-146e-zt58-67n075577wk0 11/09/2014 11/09/2014 Fitz Beaulieu MD Refill- Leflunomide 1l1r574o-68d7-0241-49m7-3gc24a7sw766 11/09/2014 11/09/2014 Fitz Beaulieu MD Refill- Leflunomide x83uxk1l-m445-7398-4jfh-49l42521n33x 11/09/2014 11/09/2014 Fitz Beaulieu MD Refill- Leflunomide 74xz3304-apr7-3wss-ai20-ycb08y0r4s13 11/09/2014 11/09/2014 Fitz Beaulieu MD Refill- Leflunomide 0870wk9o-57x4-20p4-77l0-6q75goy66722 11/09/2014 11/09/2014 Fitz Beaulieu MD Refill- Leflunomide 0j786dli-qa2u-6u37-266q-3133474224b5 11/09/2014 11/09/2014 Fitz Beaulieu MD Refill- Leflunomide 03ts9t62-4020-9d72-x8f5-32he39bim27g 11/09/2014 11/09/2014 Fitz Beaulieu MD Refill- Leflunomide 3x46v3ey-ir97-077v-ad31-5l2825uf3v0s 11/09/2014 11/09/2014 Fitz Beaulieu MD Refill- Leflunomide 57kqg3f5-z68l-9785-7966-t810453a24vq 11/09/2014 11/09/2014 Fitz Beaulieu MD Refill- Leflunomide xs5914r7-nst4-8221-ex2f-202j0998zo66 11/09/2014 11/09/2014 Fitz Beaulieu MD Labs j5a53t1h-41i8-7203-msj5-0967245p83pr 11/09/2014 11/09/2014 Fitz Beaulieu MD Labs v3633m52-mq8e-943i-muff-87ys345a8411 11/09/2014 11/09/2014 Fitz Beaulieu MD Labs g713y234-oo21-211z-a6x1-3314fs7z5s2z 11/09/2014 11/09/2014 Fitz Beaulieu MD Labs 9je95934-ei8w-4cx1-7838-2k3w913bkheu 11/09/2014 11/09/2014 Fitz Beaulieu MD Labs 1jf7mk68-7723-3ni4-8r52-od7nk3276p1p 11/09/2014 11/09/2014 Fitz Beaulieu MD Labs 416055st-5187-7d6x-52mj-410d0bx2x48s 11/09/2014 11/09/2014 Fitz Beaulieu MD Labs 0bt275ta-p335-05z0-v295-g2732b2x2i53 11/09/2014 11/09/2014 Fitz Beaulieu MD Labs q7ekv432-93n9-94c2-984p-77s147p364f3 11/09/2014 11/09/2014 Fitz Beaulieu MD Labs yc51209m-2n73-8syl-9531-4b91392v0s16 11/09/2014 11/09/2014 Fitz Beaulieu MD Labs v10nyz10-jr78-386i-37uk-4q5853t06anz 11/09/2014 11/09/2014 Fitz Beaulieu MD Labs 5yp05hy8-954u-99l4-731w-vv16958k7l43 11/09/2014 11/09/2014 Fitz Beaulieu MD Refill- Leflunomide 5em10smc-140d-1418-i10r-r2119189zd54 11/09/2014 11/09/2014 Fitz Beaulieu MD Refill- Leflunomide s4687qv3-796f-4w07-7z39-8fmjyt59u586 11/09/2014 11/09/2014 Fitz Beaulieu MD Refill- Leflunomide w47dy102-4n3q-38gg-7z57-0870137ilcje 11/09/2014 11/09/2014 Fitz Beaulieu MD Refill- Leflunomide j677346q-5z5k-92wp-69l9-258161614o48 11/09/2014 11/09/2014 Fitz Beaulieu MD Refill- Leflunomide j041x5il-67l7-0m9k-4jdj-678q0e18c426 11/09/2014 11/09/2014 Fitz Beaulieu MD Refill- Leflunomide 45o92m21-87k0-11t8-2xn2-63133w335x0j 11/09/2014 11/09/2014 Fitz Beaulieu MD Refill- Leflunomide d05k2fw2-4d81-334g-0562-x223231157cu 11/09/2014 11/09/2014 Fitz Beaulieu MD Refill- Leflunomide 65072071-zc2v-7m12-u1rv-s536x0p2w295 11/09/2014 11/09/2014 Fitz Beaulieu MD Refill- Leflunomide 072i80n2-1041-0jl5-1w18-0s7x57864659 11/09/2014 11/09/2014 Fitz Beaulieu MD Refill- Leflunomide tm195x35-87p4-52e1-8455-2z55p1c7qo27 11/09/2014 11/09/2014 Fitz Beaulieu MD Refill- Leflunomide 39d99y7g-992b-9y0x-o1ov-561330hg0a28 11/09/2014 11/09/2014 Fitz Beaulieu MD 3 MO F/U 918nxj7v-x187-0286-zg11-891kcq739587 11/29/2014 11/29/2014 Fitz Beaulieu MD 3 MO F/U 409775r4-sl82-6564-ans2-t2sh6npvm10s 11/29/2014 11/29/2014 Fitz Beaulieu MD 3 MO F/U 2lu00eg9-0027-8r0r-lus9-11z8si8448z5 11/29/2014 11/29/2014 Fitz Bealuieu MD 3 MO F/U 959uq178-a4e6-9341-kx88-yud42kec351k 11/29/2014 11/29/2014 Fitz Beaulieu MD 3 MO F/U 4g0fa8am-4962-9vh8-9971-sj0h160r4m93 11/29/2014 11/29/2014 Fitz Beaulieu MD 3 MO F/U 80sn857h-c929-8604-8d13-24976ry10m0c 11/29/2014 11/29/2014 Fitz Beaulieu MD 3 MO F/U to6x8511-3g1e-6xfg-rry1-ah23b0623v92 11/29/2014 11/29/2014 Fitz Beaulieu MD 3 MO F/U 8273b32o-try0-2lj7-89x5-56aq6pe877p4 11/29/2014 11/29/2014 Fitz Beaulieu MD 3 MO F/U 58568490-24g2-956y-32zr-506xx8648g0r 11/29/2014 11/29/2014 Fitz Beaulieu MD 3 MO F/U lvn2yy15-g63q-8e1h-i678-7so45crcs089 11/29/2014 11/29/2014 Fitz Beaulieu MD 3 MO F/U dor44qa7-t9a9-4669-3e66-1yvw6g22222t 11/29/2014 11/29/2014 Fitz Beaulieu MD 3 MO F/U 531u69fh-ffe9-8261-c0f1-803z99xz5vch 11/29/2014 11/29/2014 Fitz Beaulieu MD 3 MO F/U 4r0b2iz3-y8w2-1b62-d0g8-cq9to444qt57 11/29/2014 11/29/2014 Fitz Beaulieu MD 3 MO F/U 5rs61135-175p-799g-2379-20vo5w6s2685 11/29/2014 11/29/2014 Fitz Beaulieu MD 3 MO F/U 3c3xr227-432w-886w-6a1n-42797n56o923 11/29/2014 11/29/2014 Fitz Beaulieu MD 3 MO F/U 6kmvu5s4-58i8-06d7-fwns-4c0877msg95j 11/29/2014 11/29/2014 Fitz Beaulieu MD 3 MO F/U 3313d71l-[id number] 11/29/2014 11/29/2014 Fitz Beaulieu MD 3 MO F/U 22t3l6r0-63ld-5247-kal0-8u27y52y48i6 11/29/2014 11/29/2014 Fitz Beaulieu MD 3 MO F/U [id number] 11/29/2014 11/29/2014 Fitz Beaulieu MD 3 MO F/U [id number] 11/29/2014 11/29/2014 Fitz Beaulieu MD MRI [id number] 01/01/2015 01/01/2015 Fitz Beaulieu MD MRI k1h6l2yj-[id number]-k0ppm0l1eaph 01/01/2015 01/01/2015 Fitz Beaulieu MD MRI [id number]-yu34-[id number] 01/01/2015 01/01/2015 Fitz Beaulieu MD MRI [id number] 01/01/2015 01/01/2015 Fitz Beaulieu MD MRI 73t7vk2h-e47j-3088-3z02-3l61l99c1jem 01/01/2015 01/01/2015 Fitz Beaulieu MD MRI [id number] 01/01/2015 01/01/2015 Fitz Beaulieu MD MRI [id number]-iqf4-njdc08k68p01 01/01/2015 01/01/2015 Fitz Beaulieu MD MRI [id number] 01/01/2015 01/01/2015 Fitz Beaulieu MD MRI [id number]-31379s6m5915 01/01/2015 01/01/2015 Fitz Beaulieu MD MRI [id number] 01/01/2015 01/01/2015 Fitz Beaulieu MD MRI 172sb16r-[id number]-86jp-[id number] 01/01/2015 01/01/2015 Fitz Beaulieu MD MRI [id number]-fn8o-[id number] 01/01/2015 01/01/2015 Fitz Beaulieu MD MRI [id number]-y8in-a26ccmh0978s 01/01/2015 01/01/2015 Fitz Beaulieu MD MRI [id number] 01/01/2015 01/01/2015 Fitz Beaulieu MD MRI [id number] 01/01/2015 01/01/2015 Fitz Beaulieu MD MRI [id number] 01/01/2015 01/01/2015 Fitz Beaulieu MD MRI [id number] 01/01/2015 01/01/2015 Fitz Beaulieu MD MRI [id number] 01/01/2015 01/01/2015 Fitz Beaulieu MD MRI 04a123ut-6ijn-7930-a6wg-26j591nl804p 01/01/2015 01/01/2015 Fitz Beaulieu MD MRI [id number] 01/01/2015 01/01/2015 Fitz Beaulieu MD Refill- Leflunomide [id number] 02/15/2015 02/15/2015 Fitz Beaulieu MD Refill- Leflunomide 46385oh5-he76-394z-9x96-tky8601i3o96 02/15/2015 02/15/2015 Fitz Beaulieu MD Refill- Leflunomide 2882631h-niuy-4893-jy7c-xh42f5m30604 02/15/2015 02/15/2015 Fitz Beaulieu MD Refill- Leflunomide 180s7483-q2r1-780f-se88-8085c9ez2a62 02/15/2015 02/15/2015 Fitz Beaulieu MD Refill- Leflunomide xw3063n6-[id number]-[id number] 02/15/2015 02/15/2015 Fitz Beaulieu MD Refill- Leflunomide cn8d6y80-6i17-9467-sa90-17008p0e0222 02/15/2015 02/15/2015 Fitz Beaulieu MD Refill- Leflunomide 7syd73e2-119w-1671-6wjw-p1z8e67djej2 02/15/2015 02/15/2015 Fitz Beaulieu MD Refill- Leflunomide 5u7mjk95-5w11-535t-7v95-i5109v6g1yn8 02/15/2015 02/15/2015 Fitz Beaulieu MD Refill- Leflunomide [id number]-5g32-634w-r12tm25a9461 02/15/2015 02/15/2015 Fitz Beaulieu MD Refill- Leflunomide 00i068gj-n57p-7fzb-fmr9-sx064lp1919y 02/15/2015 02/15/2015 Fitz Beaulieu MD Refill- Leflunomide [id number]8i2k71xpas 02/15/2015 02/15/2015 Fitz Beaulieu MD Refill- Leflunomide 6810kyhd-1630-80ur-5r5c-1451suvch527 02/15/2015 02/15/2015 Fitz Beaulieu MD Refill- Leflunomide 11478x67-355a-4jxo-267f-j657uie8444q 02/15/2015 02/15/2015 Fitz Beaulieu MD Refill- Leflunomide 805f8443-55l7-0012-l03y-059ze0ljh937 02/15/2015 02/15/2015 Fitz Beaulieu MD Refill- Leflunomide [id number]-943j-401y-6059-cj79gx608ef7 02/15/2015 02/15/2015 Fitz Beaulieu MD Refill- Leflunomide 336rrc88-7808-816h-4k2c-6t09276wrxv9 02/15/2015 02/15/2015 Fitz Beaulieu MD Refill- Leflunomide 1wf56l81-0b78-3wnb-wp93-85071rjp38w2 02/15/2015 02/15/2015 Fitz Beaulieu MD Refill- Leflunomide 1609jx10-08o4-6t52-90v0-w083od099313 02/15/2015 02/15/2015 Fitz Beaulieu MD Refill- Leflunomide [id number]w93 02/15/2015 02/15/2015 Fitz Beaulieu MD mri cancellation/xray hands [id number]-[id number]-zh95783fpqs1 02/19/2015 02/19/2015 Fitz Beaulieu MD mri cancellation/xray hands [id number]-8571if04h96z 02/19/2015 02/19/2015 Fitz Beaulieu MD mri cancellation/xray hands [id number]-[id number] 02/19/2015 02/19/2015 Fitz Beaulieu MD mri cancellation/xray hands [id number]-vghz-337f-s33x-u83027k56r2q 02/19/2015 02/19/2015 Fitz Beaulieu MD mri cancellation/xray hands [id number]-[id number] 02/19/2015 02/19/2015 Fitz Beaulieu MD mri cancellation/xray hands [id number]-[id number]-8639nqhf96c6 02/19/2015 02/19/2015 Fitz Beaulieu MD mri cancellation/xray hands [id number]-[id number] 02/19/2015 02/19/2015 Fitz Beaulieu MD mri cancellation/xray hands 559t58r9-i365-9159-91m0-28q03s03b78b 02/19/2015 02/19/2015 Fitz Beaulieu MD mri cancellation/xray hands pynd79b3-[id number]-h24pz5n70943 02/19/2015 02/19/2015 Fitz Beaulieu MD mri cancellation/xray hands 5h2btgqx-15de-[id number] 02/19/2015 02/19/2015 Fitz Beaulieu MD mri cancellation/xray hands 93z2tm23-834b-384g-5091-tj714hpfzib5 02/19/2015 02/19/2015 Fitz Beaulieu MD mri cancellation/xray hands 4wcr594b-fa83-4u9s-31i3-4257489o4h6w 02/19/2015 02/19/2015 Fitz Beaulieu MD mri cancellation/xray hands 0cub3r6l-[id number] 02/19/2015 02/19/2015 Fitz Beaulieu MD mri cancellation/xray hands [id number]-[id number] 02/19/2015 02/19/2015 Fitz Beaulieu MD mri cancellation/xray hands i12y1w4o-r855-3787-c846-598kb8081m79 02/19/2015 02/19/2015 Fitz Beaulieu MD mri cancellation/xray hands [id number]-5054-b20r-18y762d747eg 02/19/2015 02/19/2015 Fitz Beaulieu MD mri cancellation/xray hands [id number]-m8zf-1655-s5y1-vu8i84q0iv2k 02/19/2015 02/19/2015 Fitz Beaulieu MD mri cancellation/xray hands [id number]-[id number] 02/19/2015 02/19/2015 Fitz Beaulieu MD mri cancellation/xray hands [id number]-2r96-v3yh0f84q2ga 02/19/2015 02/19/2015 Fitz Beaulieu MD 3 MO F/U [id number]-965p-52193b4b668p 03/01/2015 03/01/2015 Fitz Beaulieu MD 3 MO F/U w675qznk-i310-9s20-i99x-4w118du5c6bk 03/01/2015 03/01/2015 Fitz Beaulieu MD 3 MO F/U [id number]-98iq-7663-[id number] 03/01/2015 03/01/2015 Fitz Beaulieu MD 3 MO F/U [id number]-f83c9690ezs5 03/01/2015 03/01/2015 Fitz Beaulieu MD 3 MO F/U [id number] 03/01/2015 03/01/2015 Fitz Beaulieu MD 3 MO F/U [id number]-3h1o-038x-v7h25m1c2288 03/01/2015 03/01/2015 Fitz Beaulieu MD 3 MO F/U [id number]-11ze-40vs-73a57ps955p3 03/01/2015 03/01/2015 Fitz Beaulieu MD 3 MO F/U 65x30ltb-106g-2vw7-1r44-[id number] 03/01/2015 03/01/2015 Fitz Beaulieu MD 3 MO F/U rljb244h-6062-62mo-0681-i18287oslvdo 03/01/2015 03/01/2015 Fitz Beaulieu MD 3 MO F/U [id number]-tlr2-f48r43p4sq75 03/01/2015 03/01/2015 Fitz Beaulieu MD 3 MO F/U 2qt7g2t3-34i9-3y13-937m-1a12wt60m5x7 03/01/2015 03/01/2015 Fitz Beaulieu MD 3 MO F/U [id number]-[id number] 03/01/2015 03/01/2015 Fitz Beaulieu MD 3 MO F/U [id number] 03/01/2015 03/01/2015 Fitz Beaulieu MD 3 MO F/U [id number] 03/01/2015 03/01/2015 Fitz Beaulieu MD 3 MO F/U [id number]-gd481bl02n4l 03/01/2015 03/01/2015 Fitz Beaulieu MD 3 MO F/U [id number] 03/01/2015 03/01/2015 Fitz Beaulieu MD 3 MO F/U [id number]-v11e-958528i359jl 03/01/2015 03/01/2015 Fitz Beaulieu MD 3 MO F/U [id number]-79l1-b46x-k8pv47ax1246 03/01/2015 03/01/2015 Fitz Beaulieu MD Refill- Tramadol [id number]-[id number] 03/16/2015 03/16/2015 Fitz Beaulieu MD Refill- Tramadol 4wv7i0k9-486c-3085-y5fr-d7085416h49o 03/16/2015 03/16/2015 Fitz Beaulieu MD Refill- Tramadol [id number]-k193-4r33k809cc64 03/16/2015 03/16/2015 Fitz Beaulieu MD Refill- Tramadol [id number]-mum3-dk2db40c24nj 03/16/2015 03/16/2015 Fitz Beaulieu MD Refill- Tramadol [id number]-l6r1-8315-31q3-k0b7c66e2719 03/16/2015 03/16/2015 Fitz Beaulieu MD Refill- Tramadol [id number]-3707-das5-gxce94ew7v65 03/16/2015 03/16/2015 Fitz Beaulieu MD Refill- Tramadol [id number] 03/16/2015 03/16/2015 Fitz Beaulieu MD Refill- Tramadol a37o122f-5s5w-25om-54x0-79a5n1661d6t 03/16/2015 03/16/2015 Fitz Beaulieu MD Refill- Tramadol 10ako5nf-539u-6283-l827-2p56cfc3k5nn 03/16/2015 03/16/2015 Fitz Beaulieu MD Refill- Tramadol s955883c-358f-0t3x-t0eh-2401lo1e2l30 03/16/2015 03/16/2015 Fitz Beaulieu MD Refill- Tramadol 39qr6a44-y466-47vm-t82s-k52lb13213oy 03/16/2015 03/16/2015 Fitz Beaulieu MD Refill- Tramadol kd9219cf-p9e4-2395-6bd0-gj82k96ae5o3 03/16/2015 03/16/2015 Fitz Beaulieu MD Refill- Tramadol 6t9qe6gi-6qu5-1kwu-4wrm-q964ua4fu8l8 03/16/2015 03/16/2015 Fitz Beaulieu MD Refill- Tramadol rpxi87d2-s9oh-3613-xfe0-h5z7l043l484 03/16/2015 03/16/2015 Fitz Beaulieu MD Refill- Tramadol b68f2m30-u737-9v4u-u9q9-omg91irfbgn1 03/16/2015 03/16/2015 Fitz Beaulieu MD Refill- Tramadol 756x1ox2-se21-251l-gv02-99921565286c 03/16/2015 03/16/2015 Fitz Beaulieu MD Refill- Tramadol 353qt946-62y3-763z-29u7-5454764i9721 03/16/2015 03/16/2015 Fitz Beaulieu MD Refill- Tramadol p96092q8-yi78-0996-i08e-93d0si3qk93p 03/16/2015 03/16/2015 Fitz Beaulieu MD Refill- Tramadol 2ck96j6r-i1x0-51c6-05zm-49b11z3671m0 03/16/2015 03/16/2015 Fitz Beaulieu MD MRI 49zm9f9f-7eb6-2jrd-445j-992632220g6v 04/10/2015 04/10/2015 Fitz Beaulieu MD MRI [id number]-9448-t227-78xp0a63yn26 04/10/2015 04/10/2015 Fitz Beaulieu MD MRI 7mnr08bk-82rb-67uc-vbq5-70nl7g5l223i 04/10/2015 04/10/2015 Fitz Beaulieu MD MRI [id number]-08zm-9v5x-22kt168e2w72 04/10/2015 04/10/2015 Fitz Beaulieu MD MRI [id number]-zq33w2rby601 04/10/2015 04/10/2015 Fitz Beaulieu MD MRI ac1gf6n0-v1w7-8272-2xb0-pq515l593x4m 04/10/2015 04/10/2015 Fitz Beaulieu MD MRI [id number]-c0o3-37y5l87e0uih 04/10/2015 04/10/2015 Fitz Beaulieu MD MRI [id number] 04/10/2015 04/10/2015 Fitz Beaulieu MD MRI [id number]-[id number] 04/10/2015 04/10/2015 Fitz Beaulieu MD MRI [id number]-r436-f123b7vv89i5 04/10/2015 04/10/2015 Fitz Beaulieu MD MRI [id number]-[id number]-q7024is8796v 04/10/2015 04/10/2015 Fitz Beaulieu MD MRI [id number] 04/10/2015 04/10/2015 Fitz Bealuieu MD MRI 7g0w0mi9-60td-57ou-ge92-641w8ot3mic5 04/10/2015 04/10/2015 Fitz Beaulieu MD MRI 601m7q4u-5g00-1633-5j73-lb28236q5s6x 04/10/2015 04/10/2015 Fitz Beaulieu MD MRI [id number] 04/10/2015 04/10/2015 Fitz Beaulieu MD MRI [id number] 04/10/2015 04/10/2015 Fitz Beaulieu MD MRI 67d24d0g-6uq9-0041-h799-23lwz355207b 04/10/2015 04/10/2015 Fitz Beaulieu MD Refill- Leflunomide 69c6n6d0-d355-6206-brz8-32921fzry1xe 05/16/2015 05/16/2015 Fitz Beaulieu MD Refill- Leflunomide r2has3w2-71rc-1931-v85z-8p5iclieil90 05/16/2015 05/16/2015 Fitz Beaulieu MD Refill- Leflunomide awf6kmfv-b395-559c-f530-156i36ud77c0 05/16/2015 05/16/2015 Fitz Beaulieu MD Refill- Leflunomide 3x7vh9b3-z216-819l-2mwr-5394k9570wya 05/16/2015 05/16/2015 Fitz Beaulieu MD Refill- Leflunomide 1la9i36z-a169-2i72-cc77-81mok8j90d6f 05/16/2015 05/16/2015 Fitz Beaulieu MD Refill- Leflunomide p28654q3-9y5b-7742-k106-v2204hq7894f 05/16/2015 05/16/2015 Fitz Beaulieu MD Refill- Leflunomide 1o70m048-b7oe-5837-v7h6-z0o0p67368uu 05/16/2015 05/16/2015 Fitz Beaulieu MD Refill- Leflunomide 61tgho33-z1h6-9t1c-5256-6l137ubmw419 05/16/2015 05/16/2015 Fitz Beaulieu MD Refill- Leflunomide 7409sj86-3h12-3e5b-4puf-5q6735d8zqs9 05/16/2015 05/16/2015 Fitz Beaulieu MD Refill- Leflunomide r89388m4-1372-95ds-6qwv-ivip7j3n8kmm 05/16/2015 05/16/2015 Fitz Beaulieu MD Refill- Leflunomide 8x8m3yf2-1515-18k6-5575-92c19cikcnf6 05/16/2015 05/16/2015 Fitz Beaulieu MD Refill- Leflunomide 676yg0x8-924c-4y77-025x-6nkw062m2rl2 05/16/2015 05/16/2015 Fitz Beaulieu MD Refill- Leflunomide u74xfso6-1s9o-2ps3-yf3p-io467j3aaaqe 05/16/2015 05/16/2015 Fitz Beaulieu MD Refill- Leflunomide 2rax3l36-2z66-71q3-076y-os434fs01e2k 05/16/2015 05/16/2015 Fitz Beaulieu MD Refill- Leflunomide qvn94c4p-tams-8atr-xz5x-73js11jm09p9 05/16/2015 05/16/2015 Fitz Beaulieu MD Refill- Leflunomide 611459kx-205s-2q19-vesj-55750z89m227 05/16/2015 05/16/2015 Fitz Beaulieu MD MRI peer to peer [id number] 05/25/2015 05/25/2015 Fitz Beaulieu MD MRI peer to peer [id number] 05/25/2015 05/25/2015 Fitz Beaulieu MD MRI peer to peer [id number] 05/25/2015 05/25/2015 Fitz Beaulieu MD MRI peer to peer [id number] 05/25/2015 05/25/2015 Fitz Beaulieu MD MRI peer to peer [id number] 05/25/2015 05/25/2015 Fitz Beaulieu MD MRI peer to peer [id number] 05/25/2015 05/25/2015 Fitz Beaulieu MD MRI peer to peer [id number] 05/25/2015 05/25/2015 Fitz Beaulieu MD MRI peer to peer [id number] 05/25/2015 05/25/2015 Fitz Beaulieu MD MRI peer to peer [id number] 05/25/2015 05/25/2015 Fitz Beaulieu MD MRI peer to peer [id number] 05/25/2015 05/25/2015 Fitz Beaulieu MD MRI peer to peer [id number] 05/25/2015 05/25/2015 Fitz Beaulieu MD MRI peer to peer [id number] 05/25/2015 05/25/2015 Fitz Beaulieu MD MRI peer to peer [id number] 05/25/2015 05/25/2015 Fitz Beaulieu MD MRI peer to peer [id number] 05/25/2015 05/25/2015 Fitz Beaulieu MD MRI peer to peer [id number] 05/25/2015 05/25/2015 Fitz Beaulieu MD MRI peer to peer [id number] 05/25/2015 05/25/2015 Fitz Beaulieu MD 3 MO F/U [id number]-61b1-eq9n-291i762534p6 07/02/2015 07/02/2015 Fitz Beaulieu MD 3 MO F/U 88rj0396-6659-1db9-472d-6a8ehpt50r3q 07/02/2015 07/02/2015 Fitz Beaulieu MD 3 MO F/U 2yd6r67k-k2nj-5x27-5b1b-6166hso62p88 07/02/2015 07/02/2015 Fitz Beaulieu MD 3 MO F/U 42d0lo9g-248c-0728-pc80-y136840sa8tg 07/02/2015 07/02/2015 Fitz Beaulieu MD 3 MO F/U 8014jy11-78tz-1243-01k5-0d3zv940v97r 07/02/2015 07/02/2015 Fitz Beaulieu MD 3 MO F/U 4eq5s9jn-tvr4-121a-6c33-[id number] 07/02/2015 07/02/2015 Fitz Beaulieu MD 3 MO F/U 1069b87a-2x62-8j63-g469-8413u6wpv18y 07/02/2015 07/02/2015 Fitz Beaulieu MD 3 MO F/U 9w4vrh62-2jc3-3v49-nyt5-r3e9895akm39 07/02/2015 07/02/2015 Fitz Beaulieu MD 3 MO F/U q2x5990j-s2ko-963m-t2p4-x436576r7506 07/02/2015 07/02/2015 Fitz Beaulieu MD 3 MO F/U 37x9o4d4-7804-1qs7-z440-kw018fkyi2nm 07/02/2015 07/02/2015 Fitz Beaulieu MD 3 MO F/U s3kn3c81-1h18-1o4n-xj87-e5a66if5f575 07/02/2015 07/02/2015 Fitz Beaulieu MD 3 MO F/U 879p72gw-o2b3-4d6g-[id number] 07/02/2015 07/02/2015 Fitz Beaulieu MD 3 MO F/U [id number]-[id number] 07/02/2015 07/02/2015 Fitz Beaulieu MD 3 MO F/U 3a46o179-u94j-7535-7x31-7k9w0nj32h90 07/02/2015 07/02/2015 Fitz Beaulieu MD tramadol refill 5yu32zni-wf24-373t-lt2l-j3sl3u583761 08/06/2015 08/06/2015 Fitz Beaulieu MD tramadol refill 1753p47m-ka81-0lh4-n176-14oo7mu29xi7 08/06/2015 08/06/2015 Fitz Beaulieu MD tramadol refill [id number]-p26i-6694ra9phza1 08/06/2015 08/06/2015 Fitz Beaulieu MD tramadol refill 327wt114-b6ma-920w-4935-62f34938t39b 08/06/2015 08/06/2015 Fitz Beaulieu MD tramadol refill b0p0f0l1-p7vz-52i3-5287-1o54u0iq764s 08/06/2015 08/06/2015 Fitz Beaulieu MD tramadol refill va70w646-0615-96w9-fhba-4sx75z63q75i 08/06/2015 08/06/2015 Fitz Beaulieu MD tramadol refill 32wmpeg9-zkn3-191y-39j4-ui15kb24b1j2 08/06/2015 08/06/2015 Fitz Beaulieu MD tramadol refill 29pd9niq-63l1-92dy-b9mn-shvsuk2494gi 08/06/2015 08/06/2015 Fitz Beaulieu MD tramadol refill [id number]-5n1b1c4f5n91 08/06/2015 08/06/2015 Fitz Beaulieu MD tramadol refill [id number]-964m-8550-7a0t-807trr973389 08/06/2015 08/06/2015 Fitz Beaulieu MD tramadol refill [id number]-h93o-[id number] 08/06/2015 08/06/2015 Fitz Beaulieu MD tramadol refill 854j7h56-z7u9-5h33-t08e-el663o764x4b 08/06/2015 08/06/2015 Fitz Beaulieu MD tramadol refill p6j8s4ti-59e8-6p91-8z7v-8s057y272wz3 08/06/2015 08/06/2015 Fitz Beaulieu MD Refill Req [id number]-5313-1udf-1056-z25851jnoeto 08/27/2015 08/27/2015 Fitz Beaulieu MD Refill Req [id number]-[id number] 08/27/2015 08/27/2015 Fitz Beaulieu MD Refill Req 3uq0z008-80el-6svb-olst-ec7te9077747 08/27/2015 08/27/2015 Fitz Beaulieu MD Refill Req m2gne779-j8f5-24er-u1oa-y873evftblmr 08/27/2015 08/27/2015 Fitz Beaulieu MD Refill Req rc599s58-i69y-9xr5-9m57-u06841j5qj08 08/27/2015 08/27/2015 Fitz Beaulieu MD Refill Req [id number]-be8h-5dx0-b79v-402894g791k1 08/27/2015 08/27/2015 Fitz Beaulieu MD Refill Req 8b716b7y-vk4r-0473-hyj9-k98714dn1010 08/27/2015 08/27/2015 Fitz Beaulieu MD Refill Req 444o2lj0-qj0h-6z31-o7zt-o22w77g7b274 08/27/2015 08/27/2015 Fitz Beaulieu MD Refill Req 0t0j1e9z-k309-1491-65dg-9756o4ayu96u 08/27/2015 08/27/2015 Fitz Beaulieu MD Refill Req 407645s6-2u50-5r8h-s7wq-2r1c75m3clb5 08/27/2015 08/27/2015 Fitz Beaulieu MD Refill Req p80p3y6i-irbi-7442-n8gs-1314d7v3d408 08/27/2015 08/27/2015 Fitz Beaulieu MD Refill Req h53q22t2-6ydz-764l-8103-94hk75en07hg 08/27/2015 08/27/2015 Fitz Beaulieu MD N/S appt 645h2s67-908g-70v5-h2j7-4c9350p19vxu 10/02/2015 10/02/2015 Fitz Beaulieu MD N/S appt 7211n63g-k521-84u1-g1o3-38723f31m722 10/02/2015 10/02/2015 Fitz Beaulieu MD N/S appt 9fe48810-v69d-3luj-m88a-8h367g7594m9 10/02/2015 10/02/2015 Fitz Beaulieu MD N/S appt b230pqru-2500-8k87-qb1z-x103p93313c1 10/02/2015 10/02/2015 Fitz Beaulieu MD N/S appt [id number]-m561-z93o79t61941 10/02/2015 10/02/2015 Fitz Beaulieu MD N/S appt lx78835f-6289-32hv-s241-4393x3x73257 10/02/2015 10/02/2015 Fitz Beaulieu MD N/S appt m06v6346-8659-40vw-8693-r234f29p6829 10/02/2015 10/02/2015 Fitz Beaulieu MD N/S appt 4b9y0493-y3ly-8m22-v864-15tw0bokd07r 10/02/2015 10/02/2015 Fitz Beaulieu MD N/S appt 6y3992q3-8579-6kx5-4m8h-2hbx668n611i 10/02/2015 10/02/2015 Fitz Beaulieu MD N/S appt 15305mt8-268c-3kkk-s9o9-jvz16r8437b0 10/02/2015 10/02/2015 Fitz Beaulieu MD N/S appt 6q10cy49-29zn-59c5-1g1i-y429d70mm51h 10/02/2015 10/02/2015 Fitz Beaulieu MD Lab order [id number] 10/17/2015 10/17/2015 Fitz Beaulieu MD Lab order [id number] 10/17/2015 10/17/2015 Fitz Beaulieu MD Lab order [id number] 10/17/2015 10/17/2015 Fitz Beaulieu MD Lab order [id number] 10/17/2015 10/17/2015 Fitz Beaulieu MD Lab order [id number] 10/17/2015 10/17/2015 Fitz Beaulieu MD Lab order [id number] 10/17/2015 10/17/2015 Fitz Beaulieu MD Lab order [id number] 10/17/2015 10/17/2015 Fitz Beaulieu MD Lab order [id number] 10/17/2015 10/17/2015 Fitz Beaulieu MD Lab order [id number] 10/17/2015 10/17/2015 Fitz Beaulieu MD Lab order [id number] 10/17/2015 10/17/2015 Fitz Beaulieu MD follow up [id number] 11/07/2015 11/07/2015 Fitz Beaulieu MD follow up [id number] 11/07/2015 11/07/2015 Fitz Beaulieu MD follow up [id number] 11/07/2015 11/07/2015 Fitz Beaulieu MD follow up [id number]-bi87-5824-kt14-31z8w308jt7c 11/07/2015 11/07/2015 Fitz Beaulieu MD follow up [id number]-84a3-8030-6x62-p279l3785q93 11/07/2015 11/07/2015 Fitz Beaulieu MD follow up 9rdyis1a-ufch-5b58-zd96-34r58xnp5g92 11/07/2015 11/07/2015 Fitz Beaulieu MD follow up 88rhmr16-y5p9-72z0-3915-65ikj3zo0wg5 11/07/2015 11/07/2015 Fitz Beaulieu MD follow up [id number]-2898z1s2iq18 11/07/2015 11/07/2015 Fitz Beaulieu MD follow up [id number]-86u8h16pc636 11/07/2015 11/07/2015 Fitz Beaulieu MD Pt pain [id number]-s52l-a7pixq043405 01/29/2016 01/29/2016 Fitz Beaulieu MD Pt pain [id number]-4980-4des-j22x80g67v96 01/29/2016 01/29/2016 Fitz Beaulieu MD Pt pain [id number]-9yrp-bj0z-83x9hfon3p0l 01/29/2016 01/29/2016 Fitz Beaulieu MD Pt pain [id number]-76wr-1ui7a0agd999 01/29/2016 01/29/2016 Fitz Beaulieu MD Pt pain [id number]-739g-0t0q-98y8-byr85370h8td 01/29/2016 01/29/2016 Fitz Beaulieu MD Pt pain k6a21bp7-1g98-190v-8510-ce3y2u6hj9p4 01/29/2016 01/29/2016 Fitz Beaulieu MD Pt pain 81i3l9qw-edyx-53c7-dn4r-n2hm8gyb85n1 01/29/2016 01/29/2016 Fitz Beaulieu MD Pt pain 7058n3s3-02ud-2r50-20b6-17213o6qtg61 01/29/2016 01/29/2016 Fitz Beaulieu MD ADDED TO SCHEDULE FOR 02/14 66p1d95m-i2l8-0951-99u5-r60w597e2813 02/14/2016 02/14/2016 Fitz Beaulieu MD ADDED TO SCHEDULE FOR 02/14 an48bzx0-2z44-9ux8-wu27-312d8b94p35q 02/14/2016 02/14/2016 Fitz Beaulieu MD ADDED TO SCHEDULE FOR 02/14 [id number] 02/14/2016 02/14/2016 Fitz Beaulieu MD ADDED TO SCHEDULE FOR 02/14 [id number]-[id number]-[id number] 02/14/2016 02/14/2016 Fitz Beaulieu MD ADDED TO SCHEDULE FOR 02/14 09246ggd-15mq-32xy-g983-t08mg4q13dt1 02/14/2016 02/14/2016 Fitz Beaulieu MD ADDED TO SCHEDULE FOR 02/14 [id number]-8ok4-zn82-5358u6nb54g2 02/14/2016 02/14/2016 Fitz Beaulieu MD ADDED TO SCHEDULE FOR 02/14 [id number]-y99v-t770d43w8koc 02/14/2016 02/14/2016 Fitz Beaulieu MD NS 02/15/16 INJECTION [id number] 02/15/2016 02/15/2016 Fitz Beaulieu MD NS 02/15/16 INJECTION [id number] 02/15/2016 02/15/2016 Fitz Beaulieu MD NS 02/15/16 INJECTION [id number]-752b-caf5-t5b57f9c22v9 02/15/2016 02/15/2016 Fitz Beaulieu MD NS 02/15/16 INJECTION [id number] 02/15/2016 02/15/2016 Fitz Beaulieu MD NS 02/15/16 INJECTION [id number]-[id number] 02/15/2016 02/15/2016 Fitz Beaulieu MD NS 02/15/16 INJECTION [id number] 02/15/2016 02/15/2016 Fitz Beaulieu [facility] Bedded Outpatient [id number] John Moreno 03/04/2016 03/04/2016 [facility] Dick Beaulieu MD NS APPT 03/10 [id number] 03/10/2016 03/10/2016 Fitz Beaulieu MD NS APPT 03/10 [id number] 03/10/2016 03/10/2016 Fitz Beaulieu MD NS APPT 03/10 [id number] 03/10/2016 03/10/2016 Fitz Beaulieu MD NS APPT 03/10 [id number]-q7zd73j0993x 03/10/2016 03/10/2016 Fitz Beaulieu MD NS APPT 03/10 [id number] 03/10/2016 03/10/2016 [facility] Emergency [id number] Radha Tracy 04/10/2016 04/10/2016 Nayely Beaulieu MD OV [id number] 04/15/2016 04/15/2016 Fitz Beaulieu MD OV [id number] 04/15/2016 04/15/2016 Fitz Beaulieu MD OV [id number] 04/15/2016 04/15/2016 Fitz Beaulieu MD OV [id number] 04/15/2016 04/15/2016 [facility] Outpatient [id number] John Moreno 04/22/2016 04/23/2016 [facility] Bedded Outpatient [id number] John Moreno 05/02/2016 05/02/2016 [facility] Outpatient [id number] Cody Gonzalez 06/06/2016 06/07/2016 [facility] Outpatient [id number] John Tiffanie 06/09/2016 06/10/2016 Nayely Beaulieu MD PT ADDED 06/23 [id number] 06/11/2016 06/11/2016 Fitz Beaulieu MD PT ADDED 06/23 [id number] 06/11/2016 06/11/2016 Fitz Beaulieu MD PT ADDED 06/23 [id number] 06/11/2016 06/11/2016 [facility] Emergency [id number] Eren Harper 06/20/2016 06/20/2016 [facility] Dick Beaulieu MD PT INS. 06/23 [id number] 06/20/2016 06/20/2016 Fitz Beaulieu MD PT INS. 06/23 [id number] 06/20/2016 06/20/2016 Fitz Beaulieu MD F/U [id number] 06/23/2016 06/23/2016 [facility] Bedded Outpatient [id number] John Moreno 07/29/2016 07/29/2016 [facility] Procedures Procedure Code Date Perfomer Comments Source Ablation [id number] [facility] [id number] [facility] [id number] [facility] [id number] [facility] Hysterectomy [id number] [facility] Mastectomy [id number] [facility]
--- OUTSIDE RECORDS SUMMARY | 2018-05-30 17:42 | XMS REPORT ---
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 Assessment 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 Problem Long-term use of high-risk medication Z79.899 Active Problem Midline low back pain, with sciatica presence unspecified M54.5 Active Problem Rheumatoid arthritis of multiple sites without rheumatoid factor M06.09 Active Problem 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 Assessment Rheumatoid arthritis without rheumatoid factor, multiple sites M06.09 Active Problem Rheumatoid arthritis without rheumatoid factor, multiple sites M06.09 Active Problem Oth disrd of bone density and structure, 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 Medications Medication Code System Code Instructions Start Date End Date Status Dosage BuPROPion HCl [facility] [address]-30 300 MG Orally Active as directed Pravastatin Sodium [facility] [address]-87 40 MG Orally Once a day Active 1 tablet Losartan Potassium [facility] [address]-80 100 MG Orally Once a day Active 1 tablet Metoprolol Succinate ND 0 50 MG Orally Active as directed Pantoprazole Sodium [facility] [address]-39 40 MG Orally Once a day Active 1 tablet Sertraline HCl [facility] [address]-40 100mg Orally Once a day Active 1 tablet Diphenoxylate-Atropine [facility] [address]-70 2.5-0.025 MG Orally Four times a day Active 1 tablet as needed Tylenol [facility] [address]-17 325 MG Orally every 6 hrs Active 2 tablets as needed Leflunomide [facility] 50151690010 10MG Orally Once a day Active 1 tablet Azelastine HCl [facility] [address]-70 0.1 % Ophthalmic Twice a day Active 1 drop into affected eye Amlodipine Besylate [facility] [address]-32 10 MG Orally Once a day Active 1 tablet Vitamin C [facility] [address]-42 500 MG Orally Once a day Active 1 tablet Imodium A-D [facility] [address]-88 2 MG Orally Active as directed NIFEdipine [facility] [address]-53 30 MG Orally Active as directed Budesonide [facility] [address]-55 3 MG Orally Active as directed Fish Oil [facility] [address]-66 500 MG Orally Twice a day Active 1 capsule Sudafed [facility] [address]-36 60 MG Orally as needed Active 1 tablet as needed Flunisolide HFA [facility] [address]-24 80 MCG/ACT Inhalation Twice a day Active 2 puffs Tramadol HCl [facility] [address]-83 50 MG Orally every 6 hrs Active 1 tablet as needed Trazodone HCl [facility] [address]-56 50 MG Orally Once a day Active 1 tablet at bedtime as needed Multi Vitamin/Minerals [facility] [address]-13 Orally Active as directed Hyoscyamine Sulfate [facility] [address]-75 0.125 MG Orally every 4 hrs Active 1 tablet before meals as needed Javflyojxn-TOZF-Nrwowzjz [facility] [address]-77 50-325-40 MG Orally every 4 hrs Active 1 tablet as needed Promethazine HCl [facility] [address]-84 25 MG Orally every 12 hrs Active 1 tablet as needed Vital Signs Date/Time: Dec 23, 2016 BMI 23.43 Index Weight 124 lbs Height 61 in Temperature 98.1 F Cardiac Monitoring Heart Rate 72 /min Blood Pressure Diastolic 72 mm Hg Blood Pressure Systolic 138 mm Hg Results No Known Results Summary Purpose [employer] Submission
--- OUTSIDE RECORDS SUMMARY | 2018-05-30 17:42 | XMS REPORT ---
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
--- OUTSIDE RECORDS SUMMARY | 2018-05-30 17:42 | XMS REPORT ---
Author Author Tereza Elias [facility] eClinicalWorks Address Unknown Phone Unavailable Care Team Providers Care Digital Strategist Name Role Phone Tereza Elias Unavailable Allergies, Adverse Reactions, Alerts Substance Reaction Event Type Scopolamine Base Info Not Available Drug Allergy plaquenil Info Not Available Non Drug Allergy Problems Problem Type Condition Code Onset Dates Condition Status Assessment Low back pain M54.5 Active Assessment Rheumatoid arthritis without rheumatoid factor, multiple sites M06.09 Active Assessment Long-term use of high-risk medication Z79.899 Active Assessment 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 Problem Rheumatoid arthritis of multiple sites [...] rheumatoid factor, multiple sites M06.09 Active Medications Medication Code System Code Instructions Start Date End Date Status Dosage Pravastatin Sodium [facility] 12701008275 40 MG Orally Once a day Active 1 tablet Azelastine HCl [facility] 12187607988 0.05 % Ophthalmic Twice a day Active 1 drop into affected eye Sudafed [facility] [address]-83 60 MG Orally as needed Active 1 tablet as needed Losartan Potassium ND 56959189870 100 MG Orally Once a day Active 1 tablet Metoprolol Succinate ND 0 50 MG Orally Active as directed Budesonide ND 40185594666 3 MG Orally Active as directed Broswmpuxi-FYYC-Uvjistso [facility] 64049944894 50-325-40 MG Orally every 4 hrs Active 1 tablet as needed Diphenoxylate-Atropine ND 62380999742 2.5-0.025 MG Orally Four times a day Active 1 tablet as needed Flunisolide HFA [facility] [address]-70 80 MCG/ACT Inhalation Twice a day Active 2 puffs Leflunomide [facility] 74613356039 10 BY MOUTH ONCE A DAY Jun 30, 2017 Active take 1 tablet Sertraline HCl ND 08877838712 100mg Orally Once a day Active 1 tablet Imodium A-D ND 23796172430 2 MG Orally Active as directed Tylenol [facility] 84806932283 325 MG Orally every 6 hrs Active 2 tablets as needed Tramadol HCl ND 60692961721 50 MG Orally every 6 hrs Jun 30, 2017 Active 1 tablet as needed Tizanidine HCl [facility] 14474392187 4 MG Orally BID Apr 01, 2017 May 31, 2017 Active 1 tablet as needed BuPROPion HCl [facility] [address]-61 150 MG Orally Active as directed Hyoscyamine Sulfate [facility] 61317325547 0.125 MG Orally every 4 hrs Active 1 tablet before meals as needed Fish Oil ND 77274203305 500 MG Orally Twice a day Active 1 capsule Promethazine HCl [facility] 82411740381 25 MG Orally every 12 hrs Active 1 tablet as needed Pantoprazole Sodium [facility] 56237246692 40 MG Orally Once a day Active 1 tablet Multi Vitamin/Minerals [facility] 98059143543 Orally Active as directed Vitamin C ND 01029060102 500 MG Orally Once a day Active 1 tablet Vital Signs Date/Time: Apr 01, 2017 BMI 24.73 Index Weight 130.9 lbs Height 61 in Temperature 98.4 F Cardiac Monitoring Heart Rate 80 /min Blood Pressure Diastolic 80 mm Hg Blood Pressure Systolic 138 mm Hg Results No Known Results Summary Purpose eClinicalWorks Submission
--- OUTSIDE RECORDS SUMMARY | 2018-05-30 17:42 | XMS REPORT ---
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 Problem Neuropathy G62.9 Active Problem Low back pain M54.5 Active Problem Skin lesions L98.9 Active Problem Rheumatoid arthritis without rheumatoid factor, multiple sites M06.09 Active Problem 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 Problem Long-term use of high-risk medication Z79.899 Active Problem Midline low back pain, with sciatica presence unspecified M54.5 Active Assessment Skin lesions L98.9 Active Assessment Long-term use of high-risk medication Z79.899 Active Assessment Low back pain M54.5 Active Assessment 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 Medications Medication Code System Code Instructions Start Date End Date Status Dosage Losartan Potassium ND 34338093027 100 MG Orally Once a day Active 1 tablet Pantoprazole Sodium ND 31362335469 40 MG Orally Once a day Active 1 tablet Flunisolide HFA NDC 0 80 MCG/ACT Inhalation Twice a day Active 2 puffs Hyoscyamine Sulfate ND 09334358228 0.125 MG Orally every 4 hrs Active 1 tablet before meals as needed Excedrin Extra Strength ND 88237006240 250-250-65 MG Orally Once a day Active 2 tablets Fish Oil ND 18358235611 500 MG Orally Twice a day Active 1 capsule Vitamin C ND 63371120581 500 MG Orally Once a day Active 1 tablet Nejbbaxumz-DAWE-Cqeflpnz ND 11399564838 50-325-40 MG Orally every 4 hrs Active 1 tablet [place] [address]-62 50 MG Orally Active as directed Promethazine HCl [facility] 59179409609 25 MG Orally every 12 hrs Active 1 tablet as needed Multi Vitamin/Minerals [facility] 27616595338 Orally Active as directed Leflunomide [facility] 83105398210 10MG Orally Once a day Active 1 tablet Tylenol [facility] 00542884590 325 MG Orally every 6 hrs Active 2 tablets as needed Imodium A-D [facility] 05787211492 2 MG Orally Active as directed Sertraline HCl [facility] 44373538958 100mg Orally Once a day Active 1 tablet Budesonide [facility] 55133978341 3 MG Orally Active as directed BuPROPion HCl (XL) [facility] 23482625422 300 MG Orally Once a day Active 1 tablet in the morning Pravastatin Sodium [facility] 88006596116 40 MG Orally Once a day Active 1 tablet Diphenoxylate-Atropine [facility] 89217461045 2.5-0.025 MG Orally Four times a day Active 1 tablet as needed Azelastine HCl [facility] 24533618014 0.1 % Nasally Twice a day Active 1 puff in each nostril Tramadol HCl [facility] 39077960654 50 MG Orally every 6 hrs Active 1 tablet as needed Tizanidine HCl [facility] 03391943844 4 MG Orally BID Active 1 tablet as needed Aripiprazole [facility] 91368193160 2 MG Orally Once a day Active 1 tablet NIFEdipine [facility] [address]-81 60 MG Orally bid Active 1 tablet Lasix [facility] 78509421330 40 MG Orally Once a day Active 1 tablet Sudafed [facility] [address]-62 60 MG Orally as needed Active 1 tablet as needed Vital Signs Date/Time: Mar 30, 2018 BMI 26.03 Index Weight 137.8 lbs Height 61 in Temperature 99.1 F Cardiac Monitoring Heart Rate 72 /min Blood Pressure Diastolic 86 mm Hg Blood Pressure Systolic 122 mm Hg Results No Known Results Summary Purpose eClinicalWorks Submission
--- OUTSIDE RECORDS SUMMARY | 2018-05-30 17:42 | XMS REPORT ---
Author Author Dick Beaulieu Organization eClinicalWorks Address Unknown Phone Unavailable Care Team Providers Care Pneumatic Press Hand Name Role Phone Dick Beaulieu CP Unavailable Allergies No Known Allergies Problems Problem Type Condition Code Onset Dates Condition Status Problem Low back pain M54.5 Active Problem Long-term use of high-risk medication Z79.899 Active Problem Neuropathy G62.9 Active Problem 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 Problem Oth disrd of bone density and structure, 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 Problem Midline low back pain, with sciatica presence unspecified M54.5 Active Problem Rheumatoid arthritis without rheumatoid factor, multiple sites M06.09 Active Medications No Known Medications Results No Known Results Summary Purpose eClinicalWorks Submission
--- OUTSIDE RECORDS SUMMARY | 2018-05-30 17:42 | XMS REPORT ---
Author Author Dick Beaulieu Organization eClinicalWorks Address Unknown Phone Unavailable Care Team Providers Care Residential Plumber Name Role Phone Dick Beaulieu CP Unavailable Allergies No Known Allergies Problems Problem Type Condition Code Onset Dates Condition Status Assessment Long-term use of high-risk medication Z79.899 Active Problem Long-term use of high-risk medication [...] Medications Results No Known Results Summary Purpose [facility]by[facility] Submission
--- OUTSIDE RECORDS SUMMARY | 2018-05-30 17:42 | XMS REPORT ---
Author Author Dick Beaulieu Organization eClinicalWorks Address Unknown Phone Unavailable Care Team Providers Care Account Installer Name Role Phone Dick Beaulieu CP Unavailable Allergies No Known Allergies Problems Problem Type Condition Code Onset Dates Condition Status Problem Long-term use of high-risk medication Z79.899 Active Problem Midline low back pain, with sciatica presence unspecified M54.5 Active Problem Rheumatoid arthritis of multiple sites without rheumatoid factor M06.09 Active Problem 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 Problem Rheumatoid arthritis without rheumatoid factor, multiple sites M06.09 Active Problem Oth disrd of bone density and structure, 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
--- OUTSIDE RECORDS SUMMARY | 2018-05-30 17:42 | XMS REPORT ---
Author Author Dick Beaulieu Organization eClinicalWorks Address Unknown Phone Unavailable Care Team Providers Care Recruiting Consultant Name Role Phone Dick Beaulieu CP Unavailable [...] Medications Results No Known Results Summary Purpose Spiced BitsinicalWorks Submission
--- OUTSIDE RECORDS SUMMARY | 2018-05-30 17:42 | XMS REPORT ---
Author Author Dick Beaulieu Organization eClinicalWorks Address Unknown Phone Unavailable Care Team Providers Care Call Taker Name Role Phone Dick Beaulieu CP Unavailable Allergies No Known Allergies Problems Problem Type Condition Code Onset Dates Condition Status Assessment Long-term use of high-risk medication Z79.899 Active Problem Long-term use of high-risk medication Z79.899 Active Problem Midline low back pain, with sciatica presence unspecified M54.5 Active Problem Rheumatoid arthritis of multiple sites without rheumatoid factor M06.09 Active Problem Rheumatoid arthritis without rheumatoid factor, multiple sites M06.09 Active Assessment Rheumatoid arthritis without rheumatoid factor, multiple sites M06.09 Active Problem 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 Problem Oth disrd of bone density and structure, 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
--- OUTSIDE RECORDS SUMMARY | 2018-05-30 17:42 | XMS REPORT ---
Author Author Dick Beaulieu [facility] eClinicalWorks Address Unknown Phone Unavailable Care Team Providers Care Field Supervisor Seed Production Name Role Phone Dick Beaulieu CP Unavailable Allergies, Adverse Reactions, Alerts Substance Reaction Event Type Scopolamine Base Info Not Available Drug Allergy plaquenil Info Not Available Non Drug Allergy Problems Problem Type Condition Code Onset Dates Condition Status Assessment Neuropathy G62.9 Active Assessment Rheumatoid arthritis without rheumatoid factor, multiple sites M06.09 Active Assessment 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 Problem Low back pain M54.5 Active [...] Instructions Start Date End Date Status Dosage Diphenoxylate-Atropine [facility] 2] 19695693279 2.5-0.025 MG Orally Four times a day Active 1 tablet as needed Flunisolide HFA [facility] [place] 2] [address]-77 80 MCG/ACT Inhalation Twice a day Active 2 puffs Sudafed [facility] [place]NOTE 2] [address]-24 60 MG Orally as needed Active 1 tablet as needed Metoprolol Succinate NDC 0 50 MG Orally Active as directed Sertraline HCl ND 97483657784 100mg Orally Once a day Active 1 tablet Fish Oil ND 43329647341 500 MG Orally Twice a day Active 1 capsule NIFEdipine [facility] [place]NOTE 2] [address]-25 60 MG Orally bid Active 1 tablet Azelastine HCl ND 39345225836 0.1 % Nasally Twice a day Active 1 puff in each nostril Hyoscyamine Sulfate ND 80553305419 0.125 MG Orally every 4 hrs Active 1 tablet before meals as needed Losartan Potassium ND 69580604220 100 MG Orally Once a day Active 1 tablet BuPROPion HCl (XL) [facility] [place]NOTE 2] 04172858295 300 MG Orally Once a day Active 1 tablet in the morning Leflunomide ND 03375616099 10MG Orally Once a day Active 1 tablet Tramadol HCl ND 83870983625 50 MG Orally every 6 hrs Active 1 tablet as needed Lasix ND 42332614454 40 MG Orally Once a day Active 1 tablet Imodium A-D ND 98334502599 2 MG Orally Active as directed Promethazine HCl ND 94865972502 25 MG Orally every 12 hrs Active 1 tablet as needed Pantoprazole Sodium [facility] [place]NOTE 2] 63899759919 40 MG Orally Once a day Active 1 tablet Multi Vitamin/Minerals [facility] [place]NOTE 2] 99082598804 Orally Active as directed Tylenol [facility] [place]NOTE 2] 60805771609 325 MG Orally every 6 hrs Active 2 tablets as needed Tizanidine HCl ND 84588586266 4 MG Orally BID Active 1 tablet as needed Idkhznlfcr-MVQH-Shynxkmx [facility] [place]NOTE 2] 13753872787 50-325-40 MG Orally every 4 hrs Active 1 tablet as needed Pravastatin Sodium [facility] [place]NOTE 2] 42501750150 40 MG Orally Once a day Active 1 tablet Vitamin C ND 91560239215 500 MG Orally Once a day Active 1 tablet Budesonide ND 08667073978 3 MG Orally Active as directed Vital Signs Date/Time: November 26, 2017 BMI 25.62 Index Weight 135.6 lbs Height 61 in Temperature 98.6 F Cardiac Monitoring Heart Rate 76 /min Blood Pressure Diastolic 70 mm Hg Blood Pressure Systolic 128 mm Hg Results No Known Results Summary Purpose eClinicalWorks Submission
--- OUTSIDE RECORDS SUMMARY | 2018-05-30 17:42 | XMS REPORT ---
Author Author Dick Beaulieu [facility] eClinicalWorks Address Unknown Phone Unavailable Care Team Providers Care Paper Machine Tender Name Role Phone Dick Beaulieu CP Unavailable Allergies, Adverse Reactions, Alerts Substance Reaction Event Type Scopolamine Base Info Not Available Drug Allergy plaquenil Info Not Available Non Drug Allergy Problems Problem Type Condition Code Onset Dates Condition Status Assessment Long-term use of high-risk medication Z79.899 Active Assessment 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 Assessment Low back pain M54.5 Active Problem Long-term [...] Instructions Start Date End Date Status Dosage Imodium A-D [facility] 64613488282 2 MG Orally Active as directed Budesonide ND 99455243263 3 MG Orally Active as directed Vitamin C ND 10004421645 500 MG Orally Once a day Active 1 tablet Losartan Potassium ND 69327132229 100 MG Orally Once a day Active 1 tablet Multi Vitamin/Minerals [facility] 88795137988 Orally Active as directed Diphenoxylate-Atropine ND 55430455566 2.5-0.025 MG Orally Four times a day Active 1 tablet as needed Sudafed [facility] [address]-79 60 MG Orally as needed Active 1 tablet as needed Promethazine HCl [facility] 91020139294 25 MG Orally every 12 hrs Active 1 tablet as needed Pravastatin Sodium ND 81383110096 40 MG Orally Once a day Active 1 tablet Sertraline HCl [facility] 95761855612 100mg Orally Once a day Active 1 tablet Leflunomide [facility] 69475514795 10MG Orally Once a day Active 1 tablet Tizanidine HCl [facility] 31873643559 4 MG Orally BID Active 1 tablet as needed Metoprolol Succinate ND 0 50 MG Orally Active as directed Azelastine HCl [facility] 90940124529 0.05 % Ophthalmic Twice a day Active 1 drop into affected eye Fish Oil [facility] 15908354562 500 MG Orally Twice a day Active 1 capsule Tylenol [facility] 88672544478 325 MG Orally every 6 hrs Active 2 tablets as needed Flunisolide HFA [facility] [address]-43 80 MCG/ACT Inhalation Twice a day Active 2 puffs Hyoscyamine Sulfate [facility] 03998014914 0.125 MG Orally every 4 hrs Active 1 tablet before meals as needed Pantoprazole Sodium [facility] 44021291801 40 MG Orally Once a day Active 1 tablet Aserohkxcq-NOYL-Gxrqrkqh [facility] 75178557696 50-325-40 MG Orally every 4 hrs Active 1 tablet as needed BuPROPion HCl [facility] [address]-79 150 MG Orally Active as directed Vital Signs Date/Time: August 10, 2017 BMI 25.51 Index Weight 135 lbs Height 61 in Temperature 97.3 F Cardiac Monitoring Heart Rate 72 /min Blood Pressure Diastolic 80 mm Hg Blood Pressure Systolic 140 mm Hg Results No Known Results Summary Purpose eClinicalWorks Submission
--- OUTSIDE RECORDS SUMMARY | 2018-05-30 17:42 | XMS REPORT ---
Author Author Tereza Elias [facility] eClinicalWorks Address Unknown Phone Unavailable Care Team Providers Care Apartment Community Assistant Manager Name Role Phone Tereza Elias Unavailable Allergies, Adverse Reactions, Alerts Substance Reaction Event Type Scopolamine Base Info Not Available Drug Allergy plaquenil Info Not Available Non Drug Allergy Problems Problem Type Condition Code Onset Dates Condition Status Assessment terminal carman (current) use of opiate analgesic Z79.891 Active Assessment 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 Assessment Long-term use of high-risk medication [...] Start Date End Date Status Dosage Diphenoxylate-Atropine [facility] [address]-88 2.5-0.025 MG Orally Four times a day Active 1 tablet as needed Tylenol [facility] [address]-37 325 MG Orally every 6 hrs Active 2 tablets as needed Fish Oil [facility] [address]-57 500 MG Orally Twice a day Active 1 capsule Losartan Potassium [facility] [address]-22 100 MG Orally Once a day Active 1 tablet Sertraline HCl [facility] [address]-90 100mg Orally Once a day Active 1 tablet Hyoscyamine Sulfate [facility] [address]-30 0.125 MG Orally every 4 hrs Active 1 tablet before meals as needed Sudafed [facility] [address]-66 60 MG Orally as needed Active 1 tablet as needed Tramadol HCl [facility] [address]-05 50 MG Orally every 6 hrs Active 1 tablet as needed Budesonide [facility] [address]-81 3 MG Orally Active as directed Pravastatin Sodium [facility] [address]-29 40 MG Orally Once a day Active 1 tablet Pantoprazole Sodium [facility] [address]-78 40 MG Orally Once a day Active 1 tablet BuPROPion HCl [facility] [address]-10 150 MG Orally Active as directed Mesalamine [facility] [address]-87 800 MG Orally Three times a day Active 2 tablets Azelastine HCl [facility] [address]-25 0.05 % Ophthalmic Twice a day Active 1 drop into affected eye Metoprolol Succinate NDC 0 50 MG Orally Active as directed Leflunomide [facility] 37487574652 10 Active TAKE 1 TABLET BY MOUTH EVERY DAY Vitamin C [facility] [address]-04 500 MG Orally Once a day Active 1 tablet Vitamin B-12 [facility] [address]-10 100 MCG Orally once a day Active as directed Flunisolide HFA [facility] [address]-40 80 MCG/ACT Inhalation Twice a day Active 2 puffs Sqipbmmoor-MDZV-Qundyucr [facility] [address]-62 50-325-40 MG Orally every 4 hrs Active 1 tablet as needed Promethazine HCl [facility] [address]-80 25 MG Orally every 12 hrs Active 1 tablet as needed Multi Vitamin/Minerals [facility] [address]-49 Orally Active as directed PredniSONE NDC 0 10 mg Orally Once a day Active as directed Vital Signs Date/Time: September 22, 2016 BMI 23.23 Index Weight 127 lbs Height 62 in Temperature 98.1 F Cardiac Monitoring Heart Rate 76 /min Blood Pressure Diastolic 78 mm Hg Blood Pressure Systolic 138 mm Hg Results No Known Results Summary Purpose eClinicalWorks Submission
--- OUTSIDE RECORDS SUMMARY | 2018-05-30 17:42 | XMS REPORT ---
Author Author Dick Beaulieu Organization eClinicalWorks Address Unknown Phone Unavailable Care Team Providers Care Homicide Squad Sergeant Name Role Phone Dick Beaulieu CP Unavailable [...] Medications Results No Known Results Summary Purpose OlistainicalWorks Submission
--- OUTSIDE RECORDS SUMMARY | 2018-05-30 17:43 | XMS REPORT ---
Author Author Dick Beaulieu eClinicalWorks Address Unknown Phone Unavailable Care Team Providers Care Service Crew Supervisor Name Role Phone Dick Beaulieu CP Unavailable Encounters Encounter Location Date 3m f/u Dick Beaulieu MD Feb 27, 2014 Appointment Dick Beaulieu MD May 12, 2014 Refill- Dove Dick Beaulieu MD May 15, 2014 3 MO F/U Dick Beaulieu MD May 30, 2014 3m f/u Dick Beaulieu MD August 29, 2013 REFILL-ARAVA Dick Beaulieu MD Dec 23, 2013 dexa Dick Beaulieu MD Feb 22, 2014 DEXA Dick Beaulieu MD September 01, 2014 mri cancellation/xray hands Dick Beaulieu MD Feb 19, 2015 Refill- Dove Dick Beaulieu MD Feb 15, 2015 MRI Bi Hands August 02 Dick Beaulieu MD Jun 14, 2014 3 MO F/U Dick Beaulieu MD August 29, 2014 Refill- Mina Beaulieu MD November 09, 2014 3 MO F/U Dick Beaulieu MD November 29, 2014 Refill- Mendozanomide Dick Beaulieu MD October 31, 2014 Labs Dick Beaulieu MD November 09, 2014 Refill- Tramadol Dick Beaulieu MD Mar 16, 2015 Refill- Mina Beaulieu MD September 27, 2014 3 MO F/U Dick Beaulieu MD Mar 01, 2015 xray order Dick Beaulieu MD September 22, 2014 MRI Dick Beaulieu MD Apr 09, 2015 RX Request-- Lulymide Dick Beaulieu MD September 15, 2014 Refill- Mina Beaulieu MD September 19, 2014 MRI Dick Beaulieu MD Dec 31, 2014 Problems Problem Type Condition ICD-9 Code Onset Dates Condition Status Problem Long-term (current) use of other medications - High Risk V58.69 Active Problem Polyarthritis, multiple sites 716.59 Active Problem Oth disrd of bone density and structure, 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 Mar 01, 2015 Tobacco Use: . Are you a:: never smoker Mar 01, 2015 Marital Status: . Mar 01, 2015 Caffeine: yes. 1 cup a day Mar 01, 2015 Exercise: yes. walking Mar 01, 2015 Alcohol: no. 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
--- OUTSIDE RECORDS SUMMARY | 2018-05-30 17:43 | XMS REPORT ---
Author Author Dick Beaulieu eClinicalWorks Address Unknown Phone Unavailable Care Team Providers Care Data Center Engineer Name Role Phone Dick Beaulieu CP Unavailable Encounters Encounter Location Date DEXA Dick Beaulieu MD September 01, 2014 Lab order Dick Beaulieu MD October 17, 2015 N/S appt Dick Beaulieu MD October 02, 2015 Refill- Mina Beaulieu MD November 09, 2014 3 MO F/U Dick Beaulieu MD November 29, 2014 Refill- Mina Beaulieu MD October 31, 2014 Labs Dick Beaulieu MD November 09, 2014 Refill- Mina Beaulieu MD September 27, 2014 xray order Dick Beaulieu MD September 22, 2014 RX Request-- Mina Beaulieu MD September 15, 2014 Refill- Mina Beaulieu MD September 19, 2014 MRI Dick Beaulieu MD Dec 31, 2014 3m f/u Dick Beaulieu MD Feb 27, 2014 Appointment Dick Beaulieu MD May 12, 2014 Refill- Mina Beaulieu MD May 15, 2014 3 MO F/U Dick Beaulieu MD May 30, 2014 3m f/u Dick Beaulieu MD August 29, 2013 REFILL-ARAVA Dick Beaulieu MD Dec 23, 2013 dexa Dick Beaulieu MD Feb 22, 2014 mri cancellation/xray hands Dick Beaulieu MD Feb 19, 2015 Refill- Mina Beaulieu MD Feb 15, 2015 MRI Bi Hands August 02 Dick Beaulieu MD Jun 14, 2014 3 MO F/U Dick Beaulieu MD August 29, 2014 MRI peer to peer Dick Beaulieu MD May 25, 2015 3 MO F/U Dick Beaulieu MD Jul 02, 2015 tramadol refill Dick Beaulieu MD August 06, 2015 Refill Req Dick Beaulieu MD August 27, 2015 Refill- Tramadol Dick Beaulieu MD Mar 16, 2015 3 MO F/U Dick Beaulieu MD Mar 01, 2015 MRI Dick Beaulieu MD Apr 09, 2015 Refill- Leflunomide iDck Beaulieu MD May 16, 2015 Problems Problem Type Condition ICD-9 Code Onset Dates Condition Status Assessment Long-term use of high-risk medication Z79.899 Active Problem Long-term use of high-risk medication Z79.899 Active Problem Midline low back pain, with sciatica presence unspecified M54.5 Active Problem Rheumatoid arthritis of multiple sites without rheumatoid factor M06.09 Active Problem 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 Assessment Rheumatoid arthritis of multiple sites without rheumatoid factor M06.09 Active Problem Rheumatoid arthritis without rheumatoid factor, multiple sites M06.09 Active Problem Oth disrd of bone density and structure, 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 October 17, 2015 Tobacco Use: . Are you a:: never smoker October 17, 2015 Marital Status: . October 17, 2015 Caffeine: yes. 1 cup a day October 17, 2015 Exercise: yes. walking October 17, 2015 Alcohol: no. 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
--- OUTSIDE RECORDS SUMMARY | 2018-05-30 17:43 | XMS REPORT ---
Author Author Tereza Elias [facility] eClinicalWorks Address Unknown Phone Unavailable Care Team Providers Care Woods Boss Name Role Phone Tereza Elias Unavailable Encounters Encounter Location Date 3m f/u [...] Dick Beaulieu MD November 29, 2014 Refill- Dove Dick Beaulieu MD October 31, 2014 Labs Dick Beaulieu MD November 09, 2014 Refill- Tramadol Dick Beaulieu MD Mar 16, 2015 Refill- Mina Beaulieu MD September 27, 2014 xray order Dick Beaulieu MD September 22, 2014 RX Request-- Mina Beaulieu MD September 15, 2014 Refill- Dove Dick Beaulieu MD September 19, 2014 MRI Dick [...] sites 715.09 Active Problem Osteopenia 733.90 Active Medications Medication Code System Code Instructions Start Date End Date Status Dosage Tramadol HCl [facility] [address]-26 50 MG Orally every 6 hrs Active 1 tablet as needed Social History Social History Element Qualifiers Date Reported Diet: no. Mar 01, 2015 Tobacco Use: . Are you a:: never smoker Mar 01, 2015 Marital Status: . Mar 01, 2015 Caffeine: yes. 1 cup a day Mar 01, 2015 Exercise: yes. walking Mar 01, 2015 Alcohol: no. 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
--- OUTSIDE RECORDS SUMMARY | 2018-05-30 17:43 | XMS REPORT ---
Author Author Dick Beaulieu eClinicalWorks Address Unknown Phone Unavailable Care Team Providers Care Electric Deicer Assembler Name Role Phone Dick Beaulieu CP Unavailable Encounters Encounter Location Date GARLANDA Dick Beaulieu MD September 01, 2014 Refill- Mendozanogordone Dick Beaulieu MD November 09, 2014 3 MO F/U Dick Beaulieu MD November 29, 2014 Refill- Dove Dick Beaulieu MD October 31, 2014 Labs Dick Beaulieu MD November 09, 2014 Refill- Mina Beaulieu MD September 27, 2014 xray order Dick Beaulieu MD September 22, 2014 RX Request-- Dove Dick Beaulieu MD September 15, 2014 Refill- Mendozanomide Dick Beaulieu MD September 19, 2014 MRI [...] peer Dick Beaulieu MD May 25, 2015 Refill- Tramadol Dick Beaulieu MD Mar 16, 2015 3 MO F/U Dick Beaulieu MD Mar 01, 2015 MRI Dick Beaulieu MD Apr 09, 2015 Refill- Leflunomide Dick Beaulieu MD May 16, 2015 Problems Problem [...] Alcohol: no. 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
--- OUTSIDE RECORDS SUMMARY | 2018-05-30 17:43 | XMS REPORT ---
Author Author Dick Beaulieu eClinicalWorks Address Unknown Phone Unavailable Care Team Providers Care Foundry Engineer Name Role Phone Dick Beaulieu CP [...] DEXA Dick Beaulieu MD September 01, 2014 MRI Bi Hands August 02 Dick Beaulieu MD Jun 14, 2014 3 MO F/U Dick Beaulieu MD August 29, 2014 Refill- Mendozanomide Dick Beaulieu MD September 27, 2014 RX Request-- Dove Dick Beaulieu MD September 15, 2014 Refill- Dove Dick Beaulieu MD September 19, 2014 Problems Problem Type Condition ICD-9 Code Onset Dates Condition Status Problem Osteopenia 733.90 Active Problem Rheumatoid arthritis 714.0 Active Problem Osteoarthrosis, multiple sites 715.09 Active Problem Polyarthritis, multiple sites 716.59 Active Problem 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 Are you a:: never smoker August 29, 2014 Caffeine: yes. 1 cup a day August 29, 2014 Exercise: yes. walking August 29, 2014 Alcohol: no. August 29, 2014 Summary Purpose eClinicalWorks Submission
--- OUTSIDE RECORDS SUMMARY | 2018-05-30 17:43 | XMS REPORT ---
Author Author Dick Beaulieu [facility] eClinicalWorks Address Unknown Phone Unavailable Care Team Providers Care Gathering Machine Setter Name Role Phone Dick Beaulieu Unavailable Encounters Encounter Location Date 3m f/u Dick Beaulieu MD Feb 27, 2014 Appointment Dick Beaulieu MD May 12, 2014 3m f/u Dick Beaulieu MD August 29, 2013 REFILL-ARAVA Dick Beaulieu MD Dec 23, 2013 dexa Dick Beaulieu MD Feb 22, 2014 Social History Social History Element Qualifiers Date Reported Tobacco Use: . Are you a:: never smoker Feb 27, 2014 Caffeine: yes. 1 cup a day Feb 27, 2014 Exercise: yes. walking Feb 27, 2014 Alcohol: no. Feb 27, 2014 Summary Purpose eClinicalWorks Submission
--- OUTSIDE RECORDS SUMMARY | 2018-05-30 17:43 | XMS REPORT ---
Author Author Tereza Elias [facility] eClinicalWorks Address Unknown Phone Unavailable Care Team Providers Care Automatic Seamer Name Role Phone Tereza Elias Unavailable Allergies, [...] Dick Beaulieu MD August 29, 2014 Refill- Dove Dick Beaulieu MD November 09, 2014 3 [...] Dick Beaulieu MD September 15, 2014 Refill- Leflunomide Dick Beaulieu MD September 19, 2014 MRI Dick Beaulieu MD Dec 31, 2014 Problems Problem Type Condition ICD-9 Code Onset Dates Condition Status Assessment Rheumatoid arthritis without rheumatoid factor, multiple sites M06.09 Active Problem Long-term (current) use of other medications - High Risk V58.69 Active Problem Polyarthritis, multiple sites 716.59 Active Assessment 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 Assessment Oth disrd of bone density and structure, 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 Problem Oth disrd of bone density and structure, 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 Problem 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 Problem Rheumatoid arthritis without rheumatoid factor, multiple sites M06.09 Active Problem Rheumatoid arthritis 714.0 Active Problem 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 Problem Osteoarthrosis, multiple sites 715.09 Active Problem Osteopenia 733.90 Active Medications Medication Code System Code Instructions Start Date End Date Status Dosage Multi Vitamin/Minerals [facility] [address]-61 Orally Active as directed Tramadol HCl [facility] [address]-21 50 MG Orally every 6 hrs Active 1 tablet as needed Losartan Potassium [facility] [address]-20 25 MG Orally Once a day Active 1 tablet Maxie 3 [facility] 475[address]41 1000 MG Orally Once a day Active 1 capsule Lutvuzddrc-WJSB-Xhydrgoj [facility] [address]-79 50-325-40 MG Orally every 4 hrs Active 1 tablet as needed Amlodipine Besylate [facility] [address]-81 10 MG Orally Once a day Active 1 tablet Pantoprazole Sodium [facility] [address]-90 40 MG Orally Once a day Active 1 tablet Metoprolol Succinate Unknown 0 50 MG Orally Active as directed Azelastine HCl [facility] [address]-86 0.05 % Ophthalmic Twice a day Active 1 drop into affected eye Leflunomide [facility] [address]-14 10 MG Orally Once a day Active 1 tablet Sertraline HCl [facility] [address]-75 100 MG Orally Once a day Active 1 tablet Hydrochlorothiazide [facility] [address]-90 25 MG Orally Once a day Active 1 tablet Social History Social History Element Qualifiers Date Reported Diet: no. Mar 01, 2015 Tobacco Use: . Are you a:: never smoker Mar 01, 2015 Marital Status: . Mar 01, 2015 Caffeine: yes. 1 cup a day Mar 01, 2015 Exercise: yes. walking Mar 01, 2015 Alcohol: no. 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
--- OUTSIDE RECORDS SUMMARY | 2018-05-30 17:43 | XMS REPORT ---
Author Author Dick Beaulieu eClinicalWorks Address Unknown Phone Unavailable Care Team Providers Care 2Nd Grade Teacher Name Role Phone Dick Beaulieu CP Unavailable [...] MD September 22, 2014 RX Request-- Dove iDck Beaulieu MD September 15, 2014 Refill- Mendozanomide [...] Date End Date Status Dosage Leflunomide MEDISPAN [address]-06 10 MG Orally Once a day August 14, 2015 Active 1 tablet Social History Social History Element Qualifiers Date Reported Diet: no. Mar 01, 2015 Tobacco Use: . Are you a:: never smoker Mar 01, 2015 Marital Status: . Mar 01, 2015 Caffeine: yes. 1 cup a day Mar 01, 2015 Exercise: yes. walking Mar 01, 2015 Alcohol: no. 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
--- OUTSIDE RECORDS SUMMARY | 2018-05-30 17:43 | XMS REPORT ---
Author Author Tereza Elias [facility] eClinicalWorks Address Unknown Phone Unavailable Care Team Providers Care Broth Setter Name Role Phone Tereza Elias CP Unavailable Allergies, Adverse Reactions, Alerts Substance [...] dexa Dick Beaulieu MD Feb 22, 2014 Problems Problem Type Condition ICD-9 Code Onset Dates Condition Status Assessment Osteopenia 733.90 Active Assessment Osteoarthrosis, multiple sites 715.09 Active Assessment Rheumatoid arthritis 714.0 Active Social History Social History Element Qualifiers Date Reported Tobacco Use: . Are you a:: never smoker Feb 27, 2014 Caffeine: yes. 1 cup a day Feb 27, 2014 Exercise: yes. walking Feb 27, 2014 Alcohol: no. Feb 27, 2014 Vital Signs Date/Time: Feb 27, 2014 Weight 170 lbs Height 62 in Temperature 98.4 F Cardiac Monitoring Heart Rate 76 /min Blood Pressure Diastolic 70 mm Hg Blood Pressure Systolic 130 mm Hg Immunizations Vaccine Administration Date Depomedrol Feb 27, 2014 Toradol Feb 27, 2014 Summary Purpose eClinicalWorks Submission
--- OUTSIDE RECORDS SUMMARY | 2018-05-30 17:43 | XMS REPORT ---
Author Author Dick Beaulieu eClinicalWorks Address Unknown Phone Unavailable Care Team Providers Care Web Applications Programmer Name Role Phone Dick Beaulieu CP Unavailable Encounters Encounter Location Date 3m f/u Dick Beaulieu MD Feb 27, 2014 Appointment Dick Beaulieu MD May 12, 2014 Refill- Lulymide Dick Beaulieu MD May 15, 2014 3 [...] 29, 2014 Refill- Dove Dick Beaulieu MD September 27, 2014 xray order Dick Beaulieu MD September 22, 2014 RX Request-- Mina Beaulieu MD September 15, 2014 Refill- Mina Beaulieu MD September 19, 2014 Problems Problem Type Condition ICD-9 Code Onset Dates Condition Status Problem Osteopenia 733.90 Active Problem Rheumatoid arthritis 714.0 Active Problem Osteoarthrosis, multiple sites 715.09 Active Problem Polyarthritis, multiple sites 716.59 Active Assessment Pain in joint, hand 719.44 Active Problem 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 Are you a:: never smoker August 29, 2014 Caffeine: yes. 1 cup a day August 29, 2014 Exercise: yes. walking August 29, 2014 Alcohol: no. August 29, 2014 Summary Purpose eClinicalWorks Submission
--- OUTSIDE RECORDS SUMMARY | 2018-05-30 17:43 | XMS REPORT ---
Author Author Dick Beaulieu eClinicalWorks Address Unknown Phone Unavailable Care Team Providers Care Icu Clerk Name Role Phone Dick Beaulieu CP Unavailable Encounters Encounter Location Date 3m f/u Dick Beaulieu MD Feb 27, 2014 Appointment Dick Beaulieu MD May 12, 2014 Refill- Mina Beaulieu MD May 15, 2014 3 MO F/U Dick Beaulieu MD May 30, 2014 3m f/u Dick Beaulieu MD August 29, 2013 RX Request-- Dove Dick Beauleiu MD September 15, 2014 REFILL-ARAVA Dick Beaulieu MD Dec 23, 2013 Refill- Mina Beaulieu MD September 19, 2014 dexa Dick Beaulieu MD Feb 22, 2014 DEXA Dick Beaulieu MD September 01, 2014 MRI Bi Hands August 02 Dick Beaulieu MD Jun 14, 2014 3 MO F/U Dick Beaulieu MD August 29, 2014 Problems Problem Type Condition ICD-9 Code Onset Dates Condition Status Assessment Long-term (current) use of other medications - High Risk V58.69 Active Problem Osteopenia 733.90 Active Problem Rheumatoid arthritis 714.0 Active Problem Osteoarthrosis, multiple sites 715.09 Active Problem Polyarthritis, multiple sites 716.59 Active Assessment Rheumatoid arthritis 714.0 Active Problem 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
--- OUTSIDE RECORDS SUMMARY | 2018-05-30 17:43 | XMS REPORT ---
Author Author Dick Beaulieu eClinicalWorks Address Unknown Phone Unavailable Care Team Providers Care Powder Mill Operator Name Role Phone Dick Beaulieu CP Unavailable [...] Dove Dick Beaulieu MD November 09, 2014 Refill- Dove Dick Beaulieu MD October 31, 2014 Labs Dick Beaulieu MD November 09, 2014 Refill- Mina Beaulieu MD September 27, 2014 xray order Dick Beaulieu MD September 22, 2014 RX Request-- Mendozanomide Dick Beaulieu MD September 15, 2014 Refill- [...]
--- OUTSIDE RECORDS SUMMARY | 2018-05-30 17:43 | XMS REPORT ---
Author Author Dick Beaulieu eClinicalWorks Address Unknown Phone Unavailable Care Team Providers Care Sheet Metal Worker Helper Name Role Phone Dick Beaulieu CP Unavailable Encounters Encounter Location Date GARLANDA Dick Beaulieu MD September 01, 2014 Refill- Mina Beaulieu MD November 09, [...] refill Dick Beaulieu MD August 06, 2015 Refill- Tramadol Dick Beaulieu MD Mar 16, 2015 3 MO F/U Dick Beaulieu MD Mar 01, 2015 MRI Dick Beaulieu MD Apr 09, 2015 Refill- Leflunomide Dick Beaulieu MD May 16, 2015 Problems Problem Type Condition ICD-9 Code Onset Dates Condition Status Problem Long-term (current) use of other medications - High Risk V58.69 Active Problem Polyarthritis, multiple sites 716.59 Active Problem Rheumatoid arthritis without rheumatoid factor, multiple sites M06.09 Active Problem Oth disrd of bone density and structure, 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 Jul 02, 2015 Tobacco Use: . Are you a:: never smoker Jul 02, 2015 Marital Status: . Jul 02, 2015 Caffeine: yes. 1 cup a day Jul 02, 2015 Exercise: yes. walking Jul 02, 2015 Alcohol: no. 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
--- OUTSIDE RECORDS SUMMARY | 2018-05-30 17:43 | XMS REPORT ---
Author Author Dick Beaulieu [facility] eClinicalWorks Address Unknown Phone Unavailable Care Team Providers Care Assistant To The Ceo Name Role Phone Dick Beaulieu Unavailable Encounters [...] Active Problem Polyarthritis, multiple sites 716.59 Active Social History Social History Element Qualifiers Date Reported Tobacco Use: . Are you a:: never smoker August 29, 2013 Caffeine: yes. 1 cup a day August 29, 2013 Exercise: yes. walking August 29, 2013 Alcohol: no. August 29, 2013 Summary Purpose eClinicalWorks Submission
--- OUTSIDE RECORDS SUMMARY | 2018-05-30 17:43 | XMS REPORT ---
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 Are you a:: never smoker August 29, 2013 Caffeine: yes. 1 cup a day August 29, 2013 Exercise: yes. walking August 29, 2013 Alcohol: no. August 29, 2013 Summary Purpose eClinicalWorks Submission
--- OUTSIDE RECORDS SUMMARY | 2018-05-30 17:43 | XMS REPORT ---
Author Author Dick Beaulieu eClinicalWorks Address Unknown Phone Unavailable Care Team Providers Care Educational Diagnostician Name Role Phone Dick Beaulieu CP Unavailable Encounters Encounter Location Date 3m f/u Dick Beaulieu MD Feb 27, 2014 Appointment Dick Beaulieu MD May 12, 2014 Refill- Leflunomide Dick Beaulieu MD May 15, 2014 3 MO F/U Dick Beaulieu MD May 30, 2014 3m f/u Dick Beaulieu MD August 29, 2013 REFILL-ARAVA Dick Beaulieu MD Dec 23, 2013 dexa Dick Beaulieu MD Feb 22, 2014 MRI Bi Hands August 02 Dick [...]
--- OUTSIDE RECORDS SUMMARY | 2018-05-30 17:43 | XMS REPORT ---
Author Author Dick Beaulieu [facility] eClinicalWorks Address Unknown Phone Unavailable Care Team Providers Care Permit Specialist Name Role Phone Dick Beaulieu Unavailable Encounters Encounter Location Date 3m f/u Dick Beaulieu MD Feb 27, 2014 Appointment Dick Beaulieu MD May 12, 2014 Refill- Leflunomide Dick Beaulieu MD May 15, 2014 3m f/u Dick Beaulieu MD August [...]
--- OUTSIDE RECORDS SUMMARY | 2018-05-30 17:43 | XMS REPORT ---
Author Author Dick Beaulieu eClinicalWorks Address Unknown Phone Unavailable Care Team Providers Care Underground Truck Operator Name Role Phone Dick Beaulieu CP Unavailable Allergies, Adverse Reactions, Alerts Substance Reaction Event Type Scopolamine Base Info Not Available Drug Allergy plaquenil Info Not Available Non Drug Allergy Encounters Encounter Location Date DEXA Dick Beaulieu MD September 01, 2014 follow up Dick Beaulieu MD November 07, 2015 Lab order Dick Beaulieu MD October 17, [...] Dick Beaulieu MD Feb 19, 2015 Refill- Leflunomide Dick Beaulieu MD Feb 15, 2015 MRI [...] Dick Beaulieu MD Apr 09, 2015 Refill- Evitalunomide Dick Beaulieu MD May 16, 2015 Problems Problem Type Condition ICD-9 Code Onset Dates Condition Status Assessment Primary osteoarthritis involving multiple joints M15.0 [...] Instructions Start Date End Date Status Dosage Amlodipine Besylate [facility] [address]-10 10 MG Orally Once a day Active 1 tablet Pantoprazole Sodium [facility] [address]-33 40 MG Orally Once a day Active 1 tablet Metoprolol Succinate Unknown 0 50 MG Orally Active as directed Azelastine HCl [facility] [address]-87 0.05 % Ophthalmic Twice a day Active 1 drop into affected eye Multi Vitamin/Minerals [facility] [address]-20 Orally Active as directed Sertraline HCl [facility] [address]-01 150mg Orally Once a day Active 1 tablet Tramadol HCl [facility] [address]-56 50 MG Orally every 6 hrs Active 1 tablet as needed Leflunomide [facility] [address]-65 10 MG Orally Once a day Active 1 tablet Losartan Potassium [facility] [address]-75 25 MG Orally Once a day Active 1 tablet Dxcfuihwxm-XBWN-Duplgmvg [facility] [address]-40 50-325-40 MG Orally every 4 hrs Active 1 tablet as needed Hydrochlorothiazide [facility] [address]-64 25 MG Orally Once a day Active 1 tablet Social History Social History Element Qualifiers Date Reported Diet: no. November 07, 2015 Tobacco Use: . Are you a:: never smoker November 07, 2015 Marital Status: . November 07, 2015 Caffeine: yes. 1 cup a day November 07, 2015 Exercise: yes. walking November 07, 2015 Alcohol: no. 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
--- OUTSIDE RECORDS SUMMARY | 2018-05-30 17:43 | XMS REPORT ---
Author Author Dick Beaulieu eClinicalWorks Address Unknown Phone Unavailable Care Team Providers Care Cut Off Man Name Role Phone Dick Beaulieu CP Unavailable [...] Dick Beaulieu MD August 29, 2014 Refill- Lulymide Dick Beaulieu MD November 09, 2014 Refill- Dove Dick Beaulieu MD October 31, 2014 Labs Dick Beauliue MD November 09, 2014 Refill- Mina Beaulieu MD September 27, 2014 xray order Dick Beaulieu MD September 22, 2014 RX Request-- Evitalunomide Dick Beaulieu MD September 15, 2014 Refill- Mendozanomide Dick Beaulieu MD September 19, 2014 Problems [...] Date End Date Status Dosage Leflunomide MEDISPAN [address]-89 10 MG Orally Once a day October 31, 2014 Feb 07, 2015 Active 1 tablet Social History Social History Element Qualifiers Date Reported Tobacco Use: . Are you a:: never smoker August 29, 2014 Caffeine: yes. 1 cup a day August 29, 2014 Exercise: yes. walking August 29, 2014 Alcohol: no. August 29, 2014 Summary Purpose eClinicalWorks Submission
--- OUTSIDE RECORDS SUMMARY | 2018-05-30 17:43 | XMS REPORT ---
Author Author Dick Beaulieu eClinicalWorks Address Unknown Phone Unavailable Care Team Providers Care Stator Winder Name Role Phone Dick eBaulieu Unavailable Allergies, Adverse Reactions, Alerts Substance Reaction Event Type Scopolamine Base Info Not Available Drug Allergy plaquenil Info Not Available Non Drug Allergy Encounters Encounter Location Date DEXA Dick Beaulieu MD September 01, 2014 Refill- [...] F/U Dick Beaulieu MD Jul 02, 2015 Refill- Tramadol Dick Beaulieu MD Mar [...] Problem Polyarthritis, multiple sites 716.59 Active Assessment Midline low back pain, with sciatica presence unspecified M54.5 Active Assessment Primary osteoarthritis involving multiple [...] Instructions Start Date End Date Status Dosage Gtjixvgnkn-ZXOI-Bjlysgin [facility] [address]-11 50-325-40 MG Orally every 4 hrs Active 1 tablet as needed Amlodipine Besylate [facility] [address]-47 10 MG Orally Once a day Active 1 tablet Hydrochlorothiazide [facility] [address]-15 25 MG Orally Once a day Active 1 tablet Azelastine HCl [facility] [address]-12 0.05 % Ophthalmic Twice a day Active 1 drop into affected eye Tramadol HCl [facility] [address]-51 50 MG Orally every 6 hrs Active 1 tablet as needed Multi Vitamin/Minerals [facility] [address]-86 Orally Active as directed Sertraline HCl [facility] [address]-37 150mg Orally Once a day Active 1 tablet Metoprolol Succinate Unknown 0 50 MG Orally Active as directed Losartan Potassium [facility] [address]-62 25 MG Orally Once a day Active 1 tablet [place] 3 [facility] [address]14-55617 1000 MG Orally Once a day Active 1 capsule Leflunomide [facility] [address]-51 10 MG Orally Once a day August 14, 2015 Active 1 tablet Pantoprazole Sodium [facility] [address]-04 40 MG Orally Once a day Active 1 tablet Social History Social History Element Qualifiers Date Reported Diet: no. Jul 02, 2015 Tobacco Use: . Are you a:: never smoker Jul 02, 2015 Marital Status: . Jul 02, 2015 Caffeine: yes. 1 cup a day Jul 02, 2015 Exercise: yes. walking Jul 02, 2015 Alcohol: no. 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
--- OUTSIDE RECORDS SUMMARY | 2018-05-30 17:43 | XMS REPORT ---
Author Author Dick Beaulieu eClinicalWorks Address Unknown Phone Unavailable Care Team Providers Care Clinical Informatics Physician Name Role Phone Dick Beaulieu CP Unavailable [...]
--- OUTSIDE RECORDS SUMMARY | 2018-05-30 17:43 | XMS REPORT ---
Author Author Dick Beaulieu eClinicalWorks Address Unknown Phone Unavailable Care Team Providers Care Hardwood Faller Name Role Phone Dick Beaulieu CP Unavailable Encounters Encounter Location Date [facility] Dick Beaulieu MD September 01, 2014 N/S appt Dick Beaulieu MD October 02, 2015 Refill- Dove Dick Beaulieu MD November 09, [...] Active Problem Osteoarthrosis, multiple sites 715.09 Active Social History Social History Element Qualifiers Date Reported Diet: no. Jul 02, 2015 Tobacco Use: . Are you a:: never smoker Jul 02, 2015 Marital Status: . Jul 02, 2015 Caffeine: yes. 1 cup a day Jul 02, 2015 Exercise: yes. walking Jul 02, 2015 Alcohol: no. 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
--- OUTSIDE RECORDS SUMMARY | 2018-05-30 17:43 | XMS REPORT ---
Author Author Dick Beaulieu eClinicalWorks Address Unknown Phone Unavailable Care Team Providers Care Podiatric Medicine Professor Name Role Phone Dick Beaulieu CP Unavailable Encounters Encounter Location Date [facility] Dick Beaulieu MD September 01, 2014 Refill- Mina Bealuieu MD November 09, 2014 3 MO F/U [...] Start Date End Date Status Dosage Leflunomide [facility] [address]-36 10 MG Orally Once a day August 27, 2015 Active 1 tablet Social History Social History Element Qualifiers Date Reported Diet: no. Jul 02, 2015 Tobacco Use: . Are you a:: never smoker Jul 02, 2015 Marital Status: . Jul 02, 2015 Caffeine: yes. 1 cup a day Jul 02, 2015 Exercise: yes. walking Jul 02, 2015 Alcohol: no. 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
--- OUTSIDE RECORDS SUMMARY | 2018-05-30 17:43 | XMS REPORT ---
Author Author Dick Beaulieu eClinicalWorks Address Unknown Phone Unavailable Care Team Providers Care Neonatal Nurse Practitioner Name Role Phone Dick Beaulieu CP Unavailable [...] 09, 2014 Refill- Dove Dick Beaulieu MD September [...] Element Qualifiers Date Reported Diet: no. November 29, 2014 Tobacco Use: . Are you a:: never smoker November 29, 2014 Marital Status: . November 29, 2014 Caffeine: yes. 1 cup a day November 29, 2014 Exercise: yes. walking November 29, 2014 Alcohol: no. 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
--- OUTSIDE RECORDS SUMMARY | 2018-05-30 17:44 | XMS REPORT ---
Author Author Dick Beaulieu eClinicalWorks Address Unknown Phone Unavailable Care Team Providers Care Chain Hooker Name Role Phone Dick Beaulieu CP Unavailable Encounters Encounter Location Date DEXA Dick Beaulieu MD September 01, 2014 follow up Dick Beaulieu MD November 07, 2015 Lab order Dick Beaulieu MD October 17, 2015 N/S appt Dick Beaulieu MD October 02, 2015 NS 02/15/16 INJECTION Dick Beaulieu MD Feb 15, 2016 Refill- Mina Beaulieu MD November 09, 2014 NS APPT 03/10 Dick Beaulieu MD Mar 10, 2016 3 MO F/U Dick Beaulieu MD November 29, 2014 Pt pain Dick Beaulieu MD Jan 29, 2016 Refill- Dove Dick Beaulieu MD October 31, 2014 ADDED TO SCHEDULE FOR 02/14 Dick Beaulieu MD Feb 14, 2016 Labs Dick Beaulieu MD November 09, 2014 PT INS. 06/23 Dick Beaulieu MD Jun 20, 2016 Refill- Dove Dick Beaulieu MD September 27, 2014 xray order Dick Beaulieu MD September 22, 2014 OV Dick Beaulieu MD Apr 15, 2016 RX Request-- Dove Dick Beaulieu MD September 15, 2014 PT ADDED 06/23 Dick Beaulieu MD Jun 11, 2016 Refill- Dove Dick Beaulieu MD September 19, [...] Dick Beaulieu MD Feb 19, 2015 Refill- Mendozanomide Dick Beaulieu MD Feb 15, 2015 MRI [...] Dick Beaulieu MD Apr 09, 2015 Refill- Dove Dick Beaulieu MD May 16, 2015 Problems [...] Alcohol: no. 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
--- OUTSIDE RECORDS SUMMARY | 2018-05-30 17:44 | XMS REPORT | Summary of Care ---
Author Author [facility] Organization [facility] Address Unknown Phone Unavailable Encounter TYREE Lewis(MARCIN) [id number] Date(s): 07/29/16 - 07/29/16 [facility] [address] [place] [address]- Discharge Disposition: Home or Self Care Attending Physician: John Moreno MD Referring Physician: John Moreno MD Vital Signs 1 2 3 Most recent to oldest [Reference Range]: 157.48 cm (07/28/16 2:35 PM) Height 98.1 DegF (07/29/16 11:15 AM) Temperature Oral [96.4-99.1 DegF] 161/79 mmHg *HI* (07/29/16 11:45 AM) 165/80 mmHg *HI* (07/29/16 11:30 AM) 103/53 mmHg (07/29/16 11:15 AM) Blood Pressure [90-140/60-90 mmHg] 11 BRMIN *LOW* (07/29/16 11:45 AM) 15 BRMIN (07/29/16 11:30 AM) 18 BRMIN (07/29/16 11:15 AM) Respiratory Rate [14-20 BRMIN] 76 bpm (07/29/16 8:42 AM) Peripheral Pulse Rate [60-100 bpm] 58.239 kg (07/28/16 2:35 PM) Weight 23.48 m2 (07/28/16 2:35 PM) Body Mass Index Problem List Condition Effective Dates Status Health Status Informant Atrial Active tachycardia(Confirme d) Chronic Active diarrhea(Confirmed) Diverticulosis(Confi Active rmed) Dysthymic Resolved disorder(Confirmed) Acid Resolved reflux(Confirmed) Hemorrhoids(Confirme Resolved d) HTN - Active Hypertension(Confirm ed) HLD Active (hyperlipidemia)(Con firmed) Breast Resolved cancer(Confirmed) Hiatal Active hernia(Confirmed) Osteopenia(Confirmed Active ) PAC - Premature Active atrial contraction(Confirme d) Allergies, Adverse Reactions, Alerts Substance Reaction Severity Status scopolamine Active Medications acetaminophen-butalbital 325 mg-50 mg oral tablet 1 tab, PO, Q4H, PRN Headache Start Date: 07/28/16 Status: Ordered Aleve Caplet 220 mg oral tablet 440 mg=2 tab, PO, Q8H, PRN Pain Start Date: 07/28/16 Status: Ordered atropine-diphenoxylate 0.025 mg-2.5 mg oral tablet 1 tab, PO, QID, PRN for loose stool Start Date: 07/28/16 Status: Ordered budesonide 3 mg oral capsule, extended release 3 mg=1 cap, PO, TID, 0 Refill(s) Start Date: 07/28/16 Status: Ordered buPROPion 150 mg/24 hours (XL) oral tablet, extended release 150 mg=1 tab, PO, QAM Start Date: 07/28/16 Status: Ordered Fish oil + D3 Caps Fish oil + D3 Caps, 1 cap, PO, Daily, Refill(s) 0 Start Date: 07/28/16 Status: Ordered flunisolide nasal 25 mcg/inh spray 1 spray, NASAL, BID, in each nostril, 0 Refill(s) Start Date: 07/28/16 Status: Ordered hyoscyamine 0.125 mg oral tablet 0.125 mg=1 tab, PO, BID Start Date: 07/28/16 Status: Ordered leflunomide 10 mg oral tablet 10 mg=1 tab, PO, Daily Start Date: 07/28/16 Status: Ordered losartan 50 mg oral tablet 50 mg=1 tab, PO, Daily Start Date: 07/28/16 Status: Ordered mesalamine 800 mg oral enteric coated tablet 800 mg=1 tab, PO, TID Start Date: 07/28/16 Status: Ordered Metoprolol Succinate ER 25 mg oral tablet, extended release 25 mg=1 tab, PO, Daily Start Date: 07/28/16 Status: Ordered multivitamin 1 tab, PO, Daily, 0 Refill(s) Start Date: 07/28/16 Status: Ordered pantoprazole 40 mg oral enteric coated tablet 40 mg=1 tab, PO, Daily Start Date: 07/28/16 Status: Ordered pravastatin 40 mg oral tablet 40 mg=1 tab, PO, Bedtime Start Date: 07/28/16 Status: Ordered promethazine 25 mg oral tablet See Instructions, PRN as needed for nausea/vomiting, Take 1 tab every 4 to 6 gurvinder rs, 0 Refill(s) Start Date: 07/28/16 Status: Ordered sertraline 100 mg oral tablet 150 mg=1.5 tab, PO, Bedtime Start Date: 07/28/16 Status: Ordered Sodium Chloride 0.9% IV 1000 mL 1,000 mL, Rate: 25 ml/hr, Infuse over: 40 hr, Route: IV, Dosing Weight 58.239 kg , Total Volume: 1,000, Start date: 07/29/16 8:32:00 CDT, Duration: 30 day, Stop date: 08/28/16 8:31:00 CDT Start Date: 07/29/16 Stop Date: 07/29/16 Status: Discontinued tramadol 50 mg oral tablet 50 mg=1 tab, PO, Q6H, PRN Pain Start Date: 07/28/16 Status: Ordered trazodone 50 mg oral tablet 1 tab-2 tab, PO, Bedtime, PRN Insomnia Start Date: 07/28/16 Status: Ordered Vitamin C 500 mg oral tablet 500 mg=1 tab, PO, Daily Start Date: 07/28/16 Status: Ordered Results No data available for this section Immunizations No data available for this section Procedures Procedure Date Related Diagnosis Body Site Ablation Hysterectomy Mastectomy Social History Social History Type Response Substance Abuse Use: None. Alcohol Never Smoking Status Never smoker; Exposure to Tobacco Smoke None; Cigarette Smoking Last 365 Days No; Reg Smoking Cessation Counseling No Assessment and Plan No data available for this section
--- OUTSIDE RECORDS SUMMARY | 2018-05-30 17:44 | XMS REPORT ---
Author Author Dick Beaulieu eClinicalWorks Address Unknown Phone Unavailable Care Team Providers Care Site Worker Name Role Phone Dick Beaulieu CP Unavailable [...] Dick Beaulieu MD Apr 09, 2015 Refill- Mina Beaulieu MD May 16, 2015 Problems Problem [...] Alcohol: no. 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
--- OUTSIDE RECORDS SUMMARY | 2018-05-30 17:44 | XMS REPORT | Summary of Care ---
Author Author [facility] Organization [facility] Address Unknown Phone Unavailable Encounter HQ Joshua(MARCIN) [id number] Date(s): 04/22/16 - 04/22/16 [facility] [address] [place] [address]- Discharge Disposition: Home or Self Care Attending Physician: John Moreno MD Referring Physician: John Moreno MD Vital Signs No data available for this section Problem List Condition Effective Dates Status Health Status Informant Atrial Active tachycardia(Confirme d) Acid Resolved reflux(Confirmed) HTN - Active Hypertension(Confirm ed) PAC - Premature Active atrial contraction(Confirme d) Allergies, Adverse Reactions, Alerts Substance Reaction Severity Status scopolamine Active Medications No data available for this section Results No data available for this section Immunizations No data available for this section Procedures Procedure Date Related Diagnosis Body Site Ablation Hysterectomy Mastectomy Social History Social History Type Response Alcohol Never Smoking Status Never smoker; Exposure to Tobacco Smoke None; Cigarette Smoking Last 365 Days No; Reg Smoking Cessation Counseling No Assessment and Plan No data available for this section
--- OUTSIDE RECORDS SUMMARY | 2018-05-30 17:44 | XMS REPORT | Summary of Care ---
Author Author [facility] Organization [facility] Address Unknown Phone Unavailable Encounter TYREE Lewis(MARCIN) [id number] Date(s): 06/19/16 - 06/20/16 [facility] [address] [place] [address]- [phone] Discharge Diagnosis: Acute headache Discharge Diagnosis: Acute UTI Discharge Diagnosis: Hypertension Discharge Diagnosis: Nausea and vomiting Discharge Disposition: Home or Self Care Attending Physician: Eren Harper MD Vital Signs 1 2 3 Most recent to oldest [Reference Range]: 157.48 cm (06/19/16 9:33 PM) Height 98.2 DegF (06/20/16 2:01 AM) 98.3 DegF (06/20/16 12:01 AM) 98.3 DegF (06/19/16 9:33 PM) Temperature Oral [96.4-99.1 DegF] 130/69 mmHg (06/20/16 2:45 AM) 134/87 mmHg (06/20/16 2:01 AM) 162/94 mmHg *HI* (06/20/16 1:01 AM) Blood Pressure [90-140/60-90 mmHg] 13 BRMIN *LOW* (06/20/16 2:45 AM) 21 BRMIN *HI* (06/20/16 2:01 AM) 16 BRMIN (06/20/16 1:01 AM) Respiratory Rate [14-20 BRMIN] 80 bpm (06/20/16 12:01 AM) 98 bpm (06/19/16 9:33 PM) Peripheral Pulse Rate [60-100 bpm] 59.545 kg (06/19/16 9:33 PM) Weight 24.01 m2 (06/19/16 9:33 PM) Body Mass Index Problem List Condition Effective Dates Status Health Status Informant Atrial Active tachycardia(Confirme d) Acid Resolved reflux(Confirmed) HTN - Active Hypertension(Confirm ed) PAC - Premature Active atrial contraction(Confirme d) Allergies, Adverse Reactions, Alerts Substance Reaction Severity Status scopolamine Active Medications Keflex 500 mg oral capsule 500 mg=1 cap, PO, QID, X 7 day, # 28 cap, 0 Refill(s) Start Date: 06/20/16 Stop Date: 06/27/16 Status: Ordered ketOROLAC 15 mg, Route: IVP, Drug form: INJ, ONCE, Dosing Weight 59.545, kg, Priority: STA T, Start date: 06/20/16 2:08:00 ADVERTISING ANALYST, Stop date: 06/20/16 2:08:00 ADVERTISING ANALYST Start Date: 06/20/16 Stop Date: 06/20/16 Status: Completed morphine Sulfate 2 mg, Route: IVP, ONCE, Dosing Weight 59.545, kg, Priority: STAT, Start date: 23:58:00 ADVERTISING ANALYST, Stop date: 06/19/16 23:58:00 ADVERTISING ANALYST Start Date: 06/19/16 Stop Date: 06/20/16 Status: Completed Reglan 5 mg, Route: IVP, Drug form: INJ, ONCE, Dosing Weight 59.545, kg, Priority: STAT , Start date: 06/19/16 23:58:00 ADVERTISING ANALYST, Stop date: 06/19/16 23:58:00 ADVERTISING ANALYST Start Date: 06/19/16 Stop Date: 06/20/16 Status: Completed Saline Flush 0.9% 10 mL, Route: IVP, Drug Form: INJ, Dosing Weight 59.545, kg, PRN, PRN Line Flush , Start date: 06/19/16 21:38:00 ADVERTISING ANALYST, Duration: 30 day, Stop date: 07/19/16 22:37 :00 CDT Notes: (Same as: BD Posiflush) Start Date: 06/19/16 Stop Date: 06/20/16 Status: Discontinued Sodium Chloride 0.9% (Bolus) IV 500 mL, Infuse Over: 1 hr, Route: IV, ONCE, Priority: STAT, Dosing Weight 59.545 kg, Start date: 06/19/16 23:58:00 ADVERTISING ANALYST, Duration: 1 doses or times, Stop date: 0 06/19/16 23:58:00 ADVERTISING ANALYST Start Date: 06/19/16 Stop Date: 06/20/16 Status: Completed Results ELECTROLYTES Most recent to 1 2 oldest [Reference Range]: Sodium Lvl [135-145 137 mEq/L mEq/L] (06/19/16 10:27 PM) Potassium Lvl 3.8 mEq/L 1 [3.5-5.1 mEq/L] (06/19/16 10:27 PM) Chloride Lvl [95-109 102 mEq/L mEq/L] (06/19/16 10:27 PM) CO2 [24-32 mEq/L] 23 mEq/L *LOW* (06/19/16 10:27 PM) AGAP [10.0-20.0 15.8 mEq/L mEq/L] (06/19/16 10:27 PM) 1Result Comment: Slight hemolysis. CHEM PANEL Most recent to 1 2 oldest [Reference Range]: Creatinine Lvl 0.58 mg/dL [0.50-1.40 mg/dL] (06/19/16 10:27 PM) eGFR 90 mL/min/1.73m2 1 *NA* (06/19/16 10:27 PM) BUN [7-22 mg/dL] 15 mg/dL (06/19/16 10:27 PM) B/C Ratio [6-25] 26 *HI* (06/19/16 10:27 PM) Glucose Lvl [70-99 124 mg/dL mg/dL] *HI* (06/19/16 10:27 PM) Total Protein 8.1 g/dL [6.4-8.4 g/dL] (06/19/16 10:27 PM) Albumin Lvl [3.5-5.0 2.9 g/dL g/dL] *LOW* (06/19/16 10:27 PM) Globulin [2.7-4.2 5.2 g/dL g/dL] *HI* (06/19/16 10:27 PM) A/G Ratio [0.7-1.6] 0.6 *LOW* (06/19/16 10:27 PM) Calcium Lvl 9.1 mg/dL [8.5-10.5 mg/dL] (06/19/16 10:27 PM) ALT [0-65 unit/L] 16 unit/L (06/19/16 10:27 PM) AST [0-37 unit/L] 33 unit/L (06/19/16 10:27 PM) Alk Phos [39-136 84 unit/L unit/L] (06/19/16 10:27 PM) Bili Total [0.2-1.3 0.4 mg/dL mg/dL] (06/19/16 10:27 PM) Lipase Lvl [73-393 92 unit/L unit/L] (06/19/16 10:27 PM) 1Result Comment: The eGFR is calculated using the [...] from the National Kidney Disease Education Program ( NKDEP) which additionally recommends that when the eGFR is used in patients with extremes of body mass index for purposes of drug dosing, the eGFR should be mul tiplied by the estimated BMI. CARDIAC ENZYMES Most recent to 1 2 oldest [Reference Range]: Total CK [12-191 79 unit/L unit/L] (06/19/16 10:27 PM) CK MB [0.5-3.6 <0.5 ng/mL ng/mL] (06/19/16 10:27 PM) CK MB Index <0.6 [0.0-2.5] (06/19/16 10:27 PM) Troponin-I 0.04 ng/mL 0.04 ng/mL [0.00-0.40 ng/mL] (06/20/16 2:07 AM) (06/19/16 10:27 PM) URINE AND STOOL Most recent to 1 2 oldest [Reference Range]: UA Turbidity [Clear] Marked *ABN* (06/19/16 11:56 PM) UA Color Geno *NA* (06/19/16 11:56 PM) UA pH [5.0-8.0] 5.0 (06/19/16 11:56 PM) UA Spec Grav 1.033 [<=1.030] *HI* (06/19/16 11:56 PM) UA Glucose [Negative Negative mg/dL mg/dL] *NA* (06/19/16 11:56 PM) UA Blood [Negative] Negative (06/19/16 11:56 PM) UA Ketones [Negative Negative mg/dL mg/dL] *NA* (06/19/16 11:56 PM) UA Protein [Negative 30 mg/dL mg/dL] *ABN* (06/19/16 11:56 PM) UA Urobilinogen <=1.0 mg/dL [0.1-1.0 mg/dL] *NA* (06/19/16 11:56 PM) UA Bili [Negative] Negative *NA* (06/19/16 11:56 PM) UA Leuk Est Small [Negative] *ABN* (06/19/16 11:56 PM) UA Nitrite Negative [Negative] (06/19/16 11:56 PM) UA WBC [0-5 /HPF] 11 /HPF *HI* (06/19/16 11:56 PM) UA RBC [0-2 /HPF] 5 /HPF *HI* (06/19/16 11:56 PM) UA Bacteria [None Occasional /HPF Seen /HPF] *NA* (06/19/16 11:56 PM) UA Sq Epi [Few /LPF] Occasional /LPF *NA* (06/19/16 11:56 PM) UA Hyal Cast [0-2 3 /LPF /LPF] *HI* (06/19/16 11:56 PM) UA CaOx Damari [None Few /HPF Seen /HPF] *NA* (06/19/16 11:56 PM) UA Amorph Damari [None Occasional /HPF Seen /HPF] *NA* (06/19/16 11:56 PM) UA Mucus [None Seen Few /LPF /LPF] *NA* (06/19/16 11:56 PM) HEMATOLOGY Most recent to 1 2 oldest [Reference Range]: WBC [3.7-10.4 K/CMM] 7.0 K/CMM (06/19/16 10:27 PM) RBC [4.20-5.40 4.52 M/CMM M/CMM] (06/19/16 10:27 PM) Hgb [12.0-16.0 g/dL] 13.4 g/dL (06/19/16 10:27 PM) Hct [36.0-48.0 %] 40.2 % (06/19/16 10:27 PM) MCV [80.0-98.0 fL] 88.9 fL (06/19/16 10:27 PM) MCH [27.0-31.0 pg] 29.6 pg (06/19/16 10:27 PM) MCHC [32.0-36.0 33.3 g/dL g/dL] (06/19/16 10:27 PM) RDW [11.5-14.5 %] 16.1 % *HI* (06/19/16 10:27 PM) Platelet [133-450 329 K/CMM K/CMM] (06/19/16 10:27 PM) MPV [7.4-10.4 fL] 7.8 fL (06/19/16 10:27 PM) Segs [45.0-75.0 %] 63.6 % (06/19/16 10:27 PM) Lymphocytes 20.9 % [20.0-40.0 %] (06/19/16 10:27 PM) Monocytes [2.0-12.0 12.3 % %] *HI* (06/19/16 10:27 PM) Eosinophils [0.0-4.0 2.6 % %] (06/19/16 10:27 PM) Basophils [0.0-1.0 0.6 % %] (06/19/16 10:27 PM) Segs-Bands # 4.5 K/CMM [1.5-8.1 K/CMM] (06/19/16 10:27 PM) Lymphocytes # 1.5 K/CMM [1.0-5.5 K/CMM] (06/19/16 10:27 PM) Monocytes # [0.0-0.8 0.9 K/CMM K/CMM] *HI* (06/19/16 10:27 PM) Eosinophils # 0.2 K/CMM [0.0-0.5 K/CMM] (06/19/16 10:27 PM) Immunizations No data available for this section Procedures Procedure Date Related Diagnosis Body Site Ablation Hysterectomy Mastectomy Social History Social History Type Response Alcohol Never Smoking Status Never smoker; Exposure to Tobacco Smoke None; Cigarette Smoking Last 365 Days No; Reg Smoking Cessation Counseling No Assessment and Plan No data available for this section
--- OUTSIDE RECORDS SUMMARY | 2018-05-30 17:44 | XMS REPORT | Summary of Care ---
Author Author [facility] Organization [facility] Address Unknown Phone Unavailable Encounter TYREE Lewis(MARCIN) [id number] Date(s): 05/02/16 - 05/02/16 [facility] [address] [place] [address]- Discharge Disposition: Home or Self Care Attending Physician: John Moreno MD Referring Physician: John Moreno MD Vital Signs 1 2 3 Most recent to oldest [Reference Range]: 157.48 cm (05/02/16 9:21 AM) Height 108/66 mmHg (05/02/16 10:15 AM) 109/76 mmHg (05/02/16 10:00 AM) 117/59 mmHg (05/02/16 9:46 AM) Blood Pressure [90-140/60-90 mmHg] 16 BRMIN (05/02/16 10:15 AM) 16 BRMIN (05/02/16 10:00 AM) 15 BRMIN (05/02/16 9:46 AM) Respiratory Rate [14-20 BRMIN] 82 bpm (05/02/16 9:18 AM) Peripheral Pulse Rate [60-100 bpm] 62.727 kg (05/02/16 9:21 AM) Weight 25.29 m2 (05/02/16 9:21 AM) Body Mass Index Problem List Condition Effective Dates Status Health Status Informant Atrial Active tachycardia(Confirme d) Acid Resolved reflux(Confirmed) HTN - Active Hypertension(Confirm ed) PAC - Premature Active atrial contraction(Confirme d) Allergies, Adverse Reactions, Alerts Substance Reaction Severity Status scopolamine Active Medications Sodium Chloride 0.9% IV 1000 mL 1,000 mL, Rate: 25 ml/hr, Infuse over: 40 hr, Route: IV, Dosing Weight 72.727 kg , Total Volume: 1,000, Start date: 05/02/16 9:20:00 WELDING MACHINE OPERATOR ELECTROSLAG, Duration: 30 day, Stop date: 06/01/16 9:19:00 WELDING MACHINE OPERATOR ELECTROSLAG Start Date: 05/02/16 Stop Date: 05/02/16 Status: Discontinued Results No data available for this section [...]
--- OUTSIDE RECORDS SUMMARY | 2018-05-30 17:44 | XMS REPORT ---
Author Author Tereza Elias [facility] eClinicalWorks Address Unknown Phone Unavailable Care Team Providers Care Metal Mixer Name Role Phone Tereza Elias CP Unavailable [...] Dick Beaulieu MD Jan 29, 2016 Refill- Mina Beaulieu MD October 31, 2014 ADDED TO [...] 02 Dick Beaulieu MD Jun 14, 2014 F/U Dick Beaulieu MD Jun 23, 2016 3 MO F/U Dick Beaulieu MD August [...] ICD-9 Code Onset Dates Condition Status Assessment group home (current) use of opiate analgesic Z79.891 Active [...] Date End Date Status Dosage Multi Vitamin/Minerals [facility] [address]-41 Orally Active as directed Metoprolol Succinate Unknown 0 50 MG Orally Active as directed Cephalexin [facility] [address]-30 500 MG Orally four times a day Active 1 tablet Azzmgvivom-HOTR-Bivfnega [facility] [address]-92 50-325-40 MG Orally every 4 hrs Active 1 tablet as needed Tramadol HCl [facility] [address]-31 50 MG Orally every 6 hrs Active 1 tablet as needed Losartan Potassium [facility] [address]-62 25 MG Orally Once a day Active 1 tablet Leflunomide [facility] [address]-59 10 MG Orally Once a day Active 1 tablet Diphenoxylate-Atropine [facility] [address]-51 2.5-0.025 MG Orally Four times a day Active 1 tablet as needed Tylenol [facility] [address]-45 325 MG Orally every 6 hrs Active 2 tablets as needed Fish Oil [facility] [address]-46 500 MG Orally Twice a day Active 1 capsule Azelastine HCl [facility] [address]-97 0.05 % Ophthalmic Twice a day Active 1 drop into affected eye Vitamin C [facility] [address]-48 500 MG Orally Once a day Active 1 tablet Promethazine HCl [facility] [address]-81 25 MG Orally every 12 hrs Active 1 tablet as needed Pantoprazole Sodium [facility] [address]-00 40 MG Orally Once a day Active 1 tablet Sertraline HCl [facility] [address]-73 150mg Orally Once a day Active 1 tablet Budesonide [facility] [address]-90 3 MG Orally Active as directed Social History Social History Element Qualifiers Date Reported Diet: no. Jun 23, 2016 Tobacco Use: . Are you a:: never smoker Jun 23, 2016 Marital Status: . Jun 23, 2016 Caffeine: yes. 1 cup a day Jun 23, 2016 Exercise: yes. walking Jun 23, 2016 Alcohol: no. 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
--- OUTSIDE RECORDS SUMMARY | 2018-05-30 17:44 | XMS REPORT ---
Author Author Dick Beaulieu eClinicalWorks Address Unknown Phone Unavailable Care Team Providers Care Pharmacy Order Entry Technician Name Role Phone Dick Beaulieu CP Unavailable [...] Dick Beaulieu MD August 29, 2013 REFILL-ARAVA Dcik Beaulieu MD Dec 23, 2013 dexa Dick [...] Alcohol: no. 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
--- OUTSIDE RECORDS SUMMARY | 2018-05-30 17:44 | XMS REPORT ---
Author Author Dick Beaulieu eClinicalWorks Address Unknown Phone Unavailable Care Team Providers Care Automobile Rental Representative Name Role Phone Dick Beaulieu CP Unavailable [...] Alcohol: no. 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
--- OUTSIDE RECORDS SUMMARY | 2018-05-30 17:44 | XMS REPORT ---
Author Author Dick Beaulieu eClinicalWorks Address Unknown Phone Unavailable Care Team Providers Care Surgical Assist Name Role Phone Dick Beaulieu CP Unavailable [...] Request-- Mina Beaulieu MD September 15, 2014 RefillCharlie Beaulieu MD September 19, 2014 MRI Dick [...] Alcohol: no. 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
--- OUTSIDE RECORDS SUMMARY | 2018-05-30 17:44 | XMS REPORT | Summary of Care ---
Author Author [facility] Organization [facility] Address Unknown Phone Unavailable Encounter HQ Joshua(MARCIN) [id number] Date(s): 06/09/16 - 06/09/16 [facility] [address] [place] [address]- Discharge Disposition: Home or Self Care Attending [...]
--- OUTSIDE RECORDS SUMMARY | 2018-05-30 17:44 | XMS REPORT | Summary of Care ---
Author Author [facility] Organization [facility] Address Unknown Phone Unavailable Encounter TYREE Lewis(MARCIN) [id number] Date(s): 03/04/16 - 03/04/16 [facility] [address] [place] [address]- Discharge Disposition: Home or Self Care Attending Physician: John Moreno MD Referring Physician: John Moreno MD Vital Signs 1 2 3 Most recent to oldest [Reference Range]: 157.48 cm (03/03/16 3:08 PM) 157.48 cm (03/03/16 3:04 PM) Height 149/77 mmHg *HI* (03/04/16 11:45 AM) 143/70 mmHg *HI* (03/04/16 11:30 AM) 133/70 mmHg (03/04/16 11:15 AM) Blood Pressure [90-140/60-90 mmHg] 13 BRMIN *LOW* (03/04/16 12:00 PM) 16 BRMIN (03/04/16 11:45 AM) 13 BRMIN *LOW* (03/04/16 11:30 AM) Respiratory Rate [14-20 BRMIN] 65.455 kg (03/03/16 3:08 PM) 65.455 kg (03/03/16 3:04 PM) Weight 26.39 m2 (03/03/16 3:08 PM) 26.39 m2 (03/03/16 3:04 PM) Body Mass Index Problem List Condition Effective Dates Status Health Status Informant Atrial Active tachycardia(Confirme d) Acid Resolved reflux(Confirmed) HTN - Active Hypertension(Confirm ed) PAC - Premature Active atrial contraction(Confirme d) Allergies, Adverse Reactions, Alerts Substance Reaction Severity Status scopolamine Active Medications Fish Oil PO, 0 Refill(s) Start Date: 03/03/16 Status: Ordered hydrochlorothiazide 25 mg oral tablet 25 mg=1 tab, PO, Daily, 0 Refill(s) Start Date: 03/03/16 Status: Ordered metoprolol tartrate 50 mg oral tablet 50 mg=1 tab, PO, Daily, 0 Refill(s) Start Date: 03/03/16 Status: Ordered Sodium Chloride 0.9% IV 1000 mL 1,000 mL, Rate: 25 ml/hr, Infuse over: 40 hr, Route: IV, Dosing Weight 65.455 kg , Total Volume: 1,000, Start date: 03/04/16 8:38:00 CDT, Duration: 30 day, Stop date: 04/03/16 8:37:00 INTERNAL CONTROLS SPECIALIST Start Date: 03/04/16 Stop Date: 03/04/16 Status: Discontinued Results No data available for [...]
--- OUTSIDE RECORDS SUMMARY | 2018-05-30 17:44 | XMS REPORT ---
Author Author Dick Beaulieu eClinicalWorks Address Unknown Phone Unavailable Care Team Providers Care Director Of Campus Recreation Name Role Phone Dick Beaulieu CP Unavailable [...] Alcohol: no. 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
--- OUTSIDE RECORDS SUMMARY | 2018-05-30 17:44 | XMS REPORT ---
Author Author Dick Beaulieu eClinicalWorks Address Unknown Phone Unavailable Care Team Providers Care Scrub Tech Name Role Phone Dick Beaulieu CP Unavailable Encounters Encounter Location Date DEXA Dick Beaulieu MD September 01, 2014 follow up Dick eBaulieu MD November 07, 2015 Lab order Dick [...] Alcohol: no. 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
--- OUTSIDE RECORDS SUMMARY | 2018-05-30 17:44 | XMS REPORT | Summary of Care ---
Author Author [facility] Organization [facility] Address Unknown Phone Unavailable Encounter TYREE Lewis(MARCIN) [id number] Date(s): 06/06/16 - 06/06/16 [facility] [address] [place] [address]- [facility] [phone] Discharge Disposition: Home or Self Care Attending Physician: Cody Gonzalez MD Referring Physician: Cody Gonzalez MD Vital Signs Most recent to 1 oldest [Reference Range]: Height 158.75 cm (06/06/16 9:35 AM) Blood Pressure 147/94 mmHg [90-140/60-90 mmHg] *HI* (06/06/16 9:35 AM) Respiratory Rate 16 BRMIN [14-20 BRMIN] (06/06/16 9:35 AM) Peripheral Pulse 79 bpm Rate [60-100 bpm] (06/06/16 9:35 AM) Weight 59.545 kg (06/06/16 9:35 AM) Body Mass Index 23.63 m2 (06/06/16 9:35 AM) Problem List Condition Effective Dates Status Health Status Informant Atrial Active tachycardia(Confirme d) Acid Resolved reflux(Confirmed) HTN - Active Hypertension(Confirm ed) PAC - Premature Active atrial contraction(Confirme d) Allergies, Adverse Reactions, Alerts Substance Reaction Severity Status scopolamine Active Medications Atropine-Care 1% ophthalmic solution 2 drp, OPTH, QID, # 15 ml, 0 Refill(s) Start Date: 06/06/16 Stop Date: 06/13/16 Status: Ordered budesonide 3 mg oral capsule, extended release 9 mg=3 cap, PO, Daily, # 270 cap, 0 Refill(s) Start Date: 06/06/16 Status: Ordered Butalbital Compound oral tablet 1 tab, PO, Q6H, PRN Pain, # 24 tab, 0 Refill(s) Start Date: 06/06/16 Stop Date: 06/12/16 Status: Ordered promethazine 25 mg oral tablet 25 mg=1 tab, PO, Q4H, PRN for motion sickness, # 60 tab, 0 Refill(s) Start Date: 06/06/16 Stop Date: 06/16/16 Status: Ordered tramadol 50 mg oral tablet 50 mg=1 tab, PO, Q8H, PRN Pain, # 60 tab, 0 Refill(s) Start Date: 06/06/16 Stop Date: 06/26/16 Status: Ordered Results No data available for [...]
--- OUTSIDE RECORDS SUMMARY | 2018-05-30 17:44 | XMS REPORT | Summary of Care ---
Author Author [facility] Organization [facility] Address Unknown Phone Unavailable Encounter TYREE Lewis(MARCIN) [id number] Date(s): 04/10/16 - 04/10/16 [facility] [address] [place] [address]- Discharge Diagnosis: Abdominal pain Discharge Disposition: Home or Self Care Attending Physician: Radha Tracy DO Vital Signs 1 2 3 Most recent to oldest [Reference Range]: 97.5 DegF (04/10/16 7:10 AM) 98.3 DegF (04/10/16 2:55 AM) Temperature Oral [96.4-99.1 DegF] 109/65 mmHg (04/10/16 8:09 AM) 116/67 mmHg (04/10/16 7:10 AM) 114/72 mmHg (04/10/16 6:00 AM) Blood Pressure [90-140/60-90 mmHg] 17 BRMIN (04/10/16 8:09 AM) 18 BRMIN (04/10/16 7:10 AM) 18 BRMIN (04/10/16 2:55 AM) Respiratory Rate [14-20 BRMIN] 93 bpm (04/10/16 8:09 AM) 96 bpm (04/10/16 7:10 AM) 106 bpm *HI* (04/10/16 2:55 AM) Peripheral Pulse Rate [60-100 bpm] 72.727 kg (04/10/16 2:55 AM) Weight Problem List Condition Effective Dates Status Health Status Informant Atrial Active tachycardia(Confirme d) Acid Resolved reflux(Confirmed) HTN - Active Hypertension(Confirm ed) PAC - Premature Active atrial contraction(Confirme d) Allergies, Adverse Reactions, Alerts Substance Reaction Severity Status scopolamine Active Medications potassium chloride 40 mEq, Route: PO, Drug form: ERTAB, ONCE, Dosing Weight 72.727, kg, Priority: S TAT, Start date: 04/10/16 4:36:00 NEW ACCOUNT INTERVIEWER, Stop date: 04/10/16 4:36:00 NEW ACCOUNT INTERVIEWER Start Date: 04/10/16 Stop Date: 04/10/16 Status: Completed tramadol 50 mg oral tablet 50 mg=1 tab, PO, Q6H, PRN Pain, X 10 day, # 40 tab, 0 Refill(s) Start Date: 04/10/16 Stop Date: 04/20/16 Status: Ordered Tylenol 650 mg, Route: PO, Drug form: TAB, ONCE, Dosing Weight 72.727, kg, Priority: STA T, Start date: 04/10/16 7:46:00 NEW ACCOUNT INTERVIEWER, Stop date: 04/10/16 7:46:00 NEW ACCOUNT INTERVIEWER Start Date: 04/10/16 Stop Date: 04/10/16 Status: Completed Zofran 4 mg, Route: IVP, Drug form: INJ, ONCE, Dosing Weight 72.727, kg, Priority: STAT , Start date: 04/10/16 4:18:00 NEW ACCOUNT INTERVIEWER, Stop date: 04/10/16 4:18:00 NEW ACCOUNT INTERVIEWER Start Date: 04/10/16 Stop Date: 04/10/16 Status: Completed Results ELECTROLYTES Most recent to 1 oldest [Reference Range]: Sodium Lvl [135-145 137 mEq/L mEq/L] (04/10/16 3:37 AM) Potassium Lvl 2.9 mEq/L 1 [3.5-5.1 mEq/L] *CRIT* (04/10/16 3:37 AM) Chloride Lvl [95-109 102 mEq/L mEq/L] (04/10/16 3:37 AM) CO2 [24-32 mEq/L] 24 mEq/L (04/10/16 3:37 AM) AGAP [10.0-20.0 13.9 mEq/L mEq/L] (04/10/16 3:37 AM) 1Result Comment: Critical Result(s) called to rae meier at 04/10/2016 04:31 by tl. Read back OK. CHEM PANEL Most recent to 1 oldest [Reference Range]: Creatinine Lvl 0.64 mg/dL [0.50-1.40 mg/dL] (04/10/16 3:37 AM) eGFR 87 mL/min/1.73m2 1 *NA* (04/10/16 3:37 AM) BUN [7-22 mg/dL] 15 mg/dL (04/10/16 3:37 AM) B/C Ratio [6-25] 23 (04/10/16 3:37 AM) Glucose Lvl [70-99 106 mg/dL mg/dL] *HI* (04/10/16 3:37 AM) Total Protein 6.7 g/dL [6.4-8.4 g/dL] (04/10/16 3:37 AM) Albumin Lvl [3.5-5.0 2.5 g/dL g/dL] *LOW* (04/10/16 3:37 AM) Globulin [2.7-4.2 4.2 g/dL g/dL] (04/10/16 3:37 AM) A/G Ratio [0.7-1.6] 0.6 *LOW* (04/10/16 3:37 AM) Calcium Lvl 7.9 mg/dL [8.5-10.5 mg/dL] *LOW* (04/10/16 3:37 AM) Phosphorus [2.5-4.5 2.4 mg/dL mg/dL] *LOW* (04/10/16 3:37 AM) Magnesium Lvl 1.6 mg/dL [1.8-2.4 mg/dL] *LOW* (04/10/16 3:37 AM) ALT [0-65 unit/L] 15 unit/L (04/10/16 3:37 AM) AST [0-37 unit/L] 15 unit/L (04/10/16 3:37 AM) Alk Phos [39-136 77 unit/L unit/L] (04/10/16 3:37 AM) Bili Total [0.2-1.3 0.4 mg/dL mg/dL] (04/10/16 3:37 AM) Lipase Lvl [73-393 101 unit/L unit/L] (04/10/16 3:37 AM) Lactic Acid Lvl 1.0 mMol/L [0.5-2.2 mMol/L] (04/10/16 3:37 AM) 1Result Comment: The eGFR is calculated using [...] BMI. CARDIAC ENZYMES Most recent to 1 oldest [Reference Range]: Total CK [12-191 25 unit/L unit/L] (04/10/16 3:37 AM) CK MB [0.5-3.6 <0.5 ng/mL ng/mL] (04/10/16 3:37 AM) CK MB Index <2.0 [0.0-2.5] (04/10/16 3:37 AM) Troponin-I <0.02 ng/mL [0.00-0.40 ng/mL] (04/10/16 3:37 AM) URINE AND STOOL Most recent to 1 oldest [Reference Range]: UA Turbidity [Clear] Clear (04/10/16 6:01 AM) UA Color [Yellow] Yellow *NA* (04/10/16 6:01 AM) UA pH [5.0-8.0] 5.0 (04/10/16 6:01 AM) UA Spec Grav 1.017 [<=1.030] (04/10/16 6:01 AM) UA Glucose [Negative Negative mg/dL mg/dL] *NA* (04/10/16 6:01 AM) UA Blood [Negative] Negative (04/10/16 6:01 AM) UA Ketones [Negative Trace mg/dL mg/dL] *ABN* (04/10/16 6:01 AM) UA Protein [Negative Negative mg/dL mg/dL] (04/10/16 6:01 AM) UA Urobilinogen <=1.0 mg/dL [0.1-1.0 mg/dL] *NA* (04/10/16 6:01 AM) UA Bili [Negative] Negative *NA* (04/10/16 6:01 AM) UA Leuk Est Negative [Negative] (04/10/16 6:01 AM) UA Nitrite Negative [Negative] (04/10/16 6:01 AM) UA WBC [0-5 /HPF] 1 /HPF (04/10/16 6:01 AM) UA RBC [0-2 /HPF] 5 /HPF *HI* (04/10/16 6:01 AM) UA Sq Epi [Few /LPF] Occasional /LPF *NA* (04/10/16 6:01 AM) UA Hyal Cast [0-2 5 /LPF /LPF] *HI* (04/10/16 6:01 AM) UA Mucus [None Seen Few /LPF /LPF] *NA* (04/10/16 6:01 AM) HEMATOLOGY Most recent to 1 oldest [Reference Range]: WBC [3.7-10.4 K/CMM] 9.6 K/CMM (04/10/16 3:37 AM) RBC [4.20-5.40 4.03 M/CMM M/CMM] *LOW* (04/10/16 3:37 AM) Hgb [12.0-16.0 g/dL] 12.2 g/dL (04/10/16 3:37 AM) Hct [36.0-48.0 %] 36.3 % (04/10/16 3:37 AM) MCV [80.0-98.0 fL] 90.1 fL (04/10/16 3:37 AM) MCH [27.0-31.0 pg] 30.4 pg (04/10/16 3:37 AM) MCHC [32.0-36.0 33.8 g/dL g/dL] (04/10/16 3:37 AM) RDW [11.5-14.5 %] 14.7 % *HI* (04/10/16 3:37 AM) Platelet [133-450 347 K/CMM K/CMM] (04/10/16 3:37 AM) MPV [7.4-10.4 fL] 7.5 fL (04/10/16 3:37 AM) Segs [45.0-75.0 %] 73.5 % (04/10/16 3:37 AM) Lymphocytes 13.5 % [20.0-40.0 %] *LOW* (04/10/16 3:37 AM) Monocytes [2.0-12.0 11.1 % %] (04/10/16 3:37 AM) Eosinophils [0.0-4.0 1.3 % %] (04/10/16 3:37 AM) Basophils [0.0-1.0 0.6 % %] (04/10/16 3:37 AM) Segs-Bands # 7.1 K/CMM [1.5-8.1 K/CMM] (04/10/16 3:37 AM) Lymphocytes # 1.3 K/CMM [1.0-5.5 K/CMM] (04/10/16 3:37 AM) Monocytes # [0.0-0.8 1.1 K/CMM K/CMM] *HI* (04/10/16 3:37 AM) Eosinophils # 0.1 K/CMM [0.0-0.5 K/CMM] (04/10/16 3:37 AM) Basophils # [0.0-0.2 0.1 K/CMM K/CMM] (04/10/16 3:37 AM) PT [12.0-14.7 13.8 seconds seconds] (04/10/16 3:37 AM) INR [0.85-1.17] 1.04 (04/10/16 3:37 AM) PTT [22.9-35.8 32.2 seconds seconds] (04/10/16 3:37 AM) Immunizations No data available for this section Procedures Procedure Date Related Diagnosis Body Site Ablation Hysterectomy Mastectomy Social History Social History Type Response Alcohol Never Smoking Status Never smoker; Exposure to Tobacco Smoke None; Cigarette Smoking Last 365 Days No; Reg Smoking Cessation Counseling No Assessment and Plan No data available for this section
[2018-05-30] MEDS ORDERED: SODIUM CHLORIDE 0.9% 500ML 500 ML IV STA (17:51)
[2018-05-30] MEDS ORDERED: DIPHENHYDRAMINE HCL INJ 50 MG/ML VIAL IV ONE (18:00)
[2018-05-30] MEDS ORDERED: FAMOTIDINE 20 MG/2 ML VIAL IV ONE (18:00)
[2018-05-30] MEDS ORDERED: DEXAMETHASONE SOD PHOS 10 MG/1 ML VIAL IV ONE (18:00)
[2018-05-30] MEDS ORDERED: KETOROLAC TROMETHAMINE 30 MG/ML VIAL IV ONE (18:00)
[2018-05-30] MEDS ORDERED: METOCLOPRAMIDE HCL 10 MG/2ML VIAL IV ONE (18:00)
[2018-05-30] MEDS ORDERED: LABETALOL HCL 5 MG/ML 20ML VIAL IV STA ×2 (18:59→19:52)
--- NOTE | 2018-05-30 19:14 | Diagnostic Imaging Report ---
CT BRAIN [facility] HISTORY: Headache COMPARISON: Report from head CT dated 08/31/2010 (images not available at time of dictation) TECHNIQUE: Noncontrast axial scans were obtained from skull base to the vertex. Coronal and sagittal reconstructions obtained from the axial data. One or more of the following dose reduction techniques were used: Automated exposure control, adjustment of the mA and/or kV according to patient size, and/or utilization of iterative reconstruction technique. Beam hardening and motion artifacts obscure some details. DISCUSSION: Scalp/Skull: Unremarkable. Brain sulci: Mildly prominent. Ventricles: Compensatory dilatation. Extra-axial spaces: No masses or fluid collections. Carotid siphon and vertebral artery calcifications are present. Parenchyma: Mild bilateral deep white matter hypodensity is likely chronic microvascular ischemic change. Otherwise, no masses, hemorrhage, or large vascular territory acute infarct. Dural sinuses: No abnormal densities. Sellar/Suprasellar region: Intact. Skull base: Intact. Incidental findings: None. IMPRESSION: 1. No acute intracranial abnormalities. 2. Mild supratentorial chronic microvascular ischemic change. Mild generalized cerebral volume loss. Signed by: Dr. Larry Castro M.D. on 05/30/2018 7:10 PM
[2018-05-30] MEDS ORDERED: CLONIDINE HCL 0.1 MG TAB PO ONE (20:00)
[2018-05-30] MEDS ORDERED: SODIUM CHLORIDE FLUSH 10 ML SYR INJ PRN (20:15)
[2018-05-30] MEDS ORDERED: ONDANSETRON HCL INJ 2MG/ML 2ML 2 MG/ML VIAL IV PRN (20:15)
[2018-05-30] MEDS ORDERED: ZOLPIDEM TARTRATE 5 MG TAB PO PRN (20:15)
[2018-05-30] MEDS ORDERED: DIPHENHYDRAMINE HCL INJ 50 MG/ML VIAL IV PRN (20:15)
[2018-05-30] MEDS ORDERED: MORPHINE SULFATE INJ 4 MG/ML INJ 1ML IV PRN (20:15)
[2018-05-30] MEDS ORDERED: PROMETHAZINE 12.5MG/ NACL 0.9% 12.5 MG/50 ML BAG IV PRN (20:15)
[2018-05-30] MEDS ORDERED: FAMOTIDINE 20 MG/2 ML VIAL IV SCH (20:15)
--- OUTSIDE RECORDS SUMMARY | 2018-05-30 20:54 | XMS REPORT ---
Author Author [facility] Address Unknown Phone Unavailable Care Team Providers Care Pharmacy Technician Per Diem Name Role Phone Edith RODRÍGUEZ Unavailable Unavailable Problems This patient has no known problems. Allergies, Adverse Reactions, Alerts This patient has no known allergies or adverse reactions. Medications This patient has no known medications. Results Test Description Test Time Test Comments Text Results Atomic Results Result Comments CT BRAIN WO-HOPD 2018-05-30 19:05:00 [place] [address] Patient Name: TOMAS RUIZ MR #: [id number] : 1940 Age/Sex: 78/F Req #: [id number] Adm Physician: Ordered by: JAME RODRÍGUEZ MD Report #: [id number] Location: [facility] Room/Bed: Procedure: [id number] HOPD/CT BRAIN [facility] Exam Date: 05/30/18 Exam Time: 1825 REPORT STATUS: Signed CT BRAIN [facility] HISTORY: Headache COMPARISON: Report from head CT dated 08/31/2010 (images not available at time of dictation) TECHNIQUE: Noncontrast axial scans were obtained from skull base to the vertex. Coronal and sagittal reconstructions obtained from the axial data. One or more of the following dose reduction techniques were used: Automated exposure control, adjustment of the mA and/or kV according to patient size, and/or utilization of iterative reconstruction technique. Beam hardening and motion artifacts obscure some details. DISCUSSION: Scalp/Skull: Unremarkable. Brain sulci: Mildly prominent. Ventricles: Compensatory dilatation. Extra-axial spaces: No masses or fluid collections. Carotid siphon and vertebral artery calcifications are present. Parenchyma: Mild bilateral deep white matter hypodensity is likely chronic microvascular ischemic change. Otherwise, no masses, hemorrhage, or large vascular territory acute infarct. Dural sinuses: No abnormal densities. Sellar/Suprasellar region: Intact. Skull base: Intact. Incidental findings: None. IMPRESSION: 1. No acute intracranial abnormalities. 2. Mild supratentorial chronic microvascular ischemic change. Mild generalized cerebral volume loss. Signed by: Dr. Larry Rush M.D. on 05/30/2018 7:10 PM Dictated By: LARRY RUSH MD 09 Transcribed By: BRENTON on 05/30/181909 COPY TO: JAME RODRÍGUEZ MD
[2018-05-30 22:00] VITALS: BP 174/90
[2018-05-30] MEDS ORDERED: ACETAMINOPHEN 325 MG TAB ONE (22:29)
[2018-05-30 22:58] VITALS: BP 174/90
[2018-05-30] MEDS ORDERED: NICARDIPINE 20MG/200ML PREMIX 200 ML ONE (22:58)
[2018-05-30 23:00] VITALS: BP 184/88
[2018-05-30] MEDS: ACETAMINOPHEN 325 MG TAB PO PRN (23:00)
[2018-05-30 23:42] VITALS: BP 174/90
[2018-05-30 23:59] VITALS: BP 165/85
[2018-05-31] VITALS (19 sets, daily range): BP systolic 120–182; BP diastolic 72–118
[2018-05-31] MEDS: NICARDIPINE 20MG/200ML PREMIX 200 ML IV PRN ×2 (02:00→18:09)
[2018-05-31 04:53] LABS: BASOPHILS % 0.3 % (0.0-1.0); HEMATOCRIT 32.9 % (34.2-44.1); HEMOGLOBIN 11.6 g/dL (12.0-16.0); LYMPHOCYTES # (AUTO) 0.9 (1.0-3.2); LYMPHOCYTES % 13.1 % (18.0-39.1); MEAN CORPUSCULAR HEMOGLOBIN 31.1 pg (28-32); MEAN CORPUSCULAR HGB CONC 35.3 g/dL (31-35); MEAN CORPUSCULAR VOLUME 88.2 fL (81-99); MONOCYTES # (AUTO) 0.3 (0.2-0.8); MONOCYTES % 4.1 % (4.4-11.3); NEUTROPHILS # (AUTO) 5.3 (2.1-6.9); PLATELET COUNT 286 x10e3/uL (140-360); RED BLOOD COUNT 3.73 x10e6/uL (3.6-5.1); RED CELL DISTRIBUTION WIDTH 14.4 % (11.7-14.4)
[2018-05-31 05:13] LABS: ANION GAP 13.7 mmol/L (8-16); BLOOD UREA NITROGEN 14 mg/dL (7-26); BUN/CREATININE RATIO 21 (6-25); CARBON DIOXIDE 25 mmol/L (22-29); CHLORIDE 107 mmol/L (98-107); CHOL/HDL RATIO 3.8 (3.0-3.6); CHOLESTEROL 142 MD/DL (0-199); CREATININE, SERUM 0.68 mg/dL (0.57-1.11); EST GLOMERULAR FILTRATION RATE > 60 ML/MIN (60-); GLUCOSE 113 mg/dL (74-118); HDL CHOLESTEROL 37 MG/DL (40-60); LDL CHOLESTEROL 82 MG/DL (60-130); POTASSIUM 3.7 mmol/L (3.5-5.1); SODIUM 142 mmol/L (136-145); TRIGLYCERIDES 113 MG/DL (0-149)
[2018-05-31] MEDS: ACETAMINOPHEN 325 MG TAB PO PRN ×2 (06:41→23:40)
[2018-05-31] MEDS ORDERED: TRAMADOL HCL 50 MG TAB PO PRN (07:30)
[2018-05-31] MEDS: AMIODARONE HCL 200 MG TAB PO SCH (08:28)
[2018-05-31] MEDS: FAMOTIDINE 20 MG/2 ML VIAL IV SCH ×2 (08:28→23:00)
[2018-05-31] MEDS: PANTOPRAZOLE SOD 40 MG TABEC PO SCH (08:28)
[2018-05-31] MEDS: SERTRALINE HCL 100 MG TAB PO SCH (08:31)
[2018-05-31] MEDS: METOPROLOL SUCCINATE 50 MG TAB XL PO SCH (08:31)
[2018-05-31] MEDS: HYDROCHLOROTHIAZIDE 25 MG TAB PO SCH (08:31)
[2018-05-31] MEDS ORDERED: LOSARTAN POTASSIUM 25 MG TAB PO SCH (09:00)
[2018-05-31] MEDS ORDERED: PROMETHAZINE 25MG/ NS 50ML (IV) IV SCH (15:00)
[2018-05-31] MEDS ORDERED: VALPROATE SOD INJ 500 MG in SODIUM CHLORIDE 0.9% 100 ML 100 ML IV SCH (15:00)
[2018-05-31] MEDS ORDERED: METHYLPREDNISOLONE SOD SUCC 125 MG/2ML VIAL IV SCH (15:00)
[2018-05-31 16:19] LABS: INR 0.9
[2018-05-31] MEDS ORDERED: NON-FORMULARY MEDICATION (Pravastatin Sodium 40 MG) PO SCH (21:00)
--- NOTE | 2018-05-31 21:06 | History and Physical ---
PRIMARY CARE PHYSICIAN: Dr. Ochoa CHIEF COMPLAINT: Elevated blood pressure. HISTORY OF PRESENT ILLNESS: This is a 78-year-old woman with a history of hypertension, who developed markedly elevated blood pressure at home prompting her to come to the hospital. Patient also has some vision changes, but she has had vision procedures recently done. In the emergency room, blood pressure was as high as 227/109 and she is admitted for further evaluation and management. Patient did have a headache in the left frontal region, which was associated with the elevated blood pressure. PAST MEDICAL HISTORY: Hypertension, breast cancer in 2002 status post left mastectomy, atrial fibrillation status post ablation, rheumatoid arthritis, GERD, hyperlipidemia. PAST SURGICAL HISTORY: Hysterectomy, left mastectomy, injections to the eye, cardiac ablation in 2013. ALLERGIES: PER ELECTRONIC MEDICAL RECORD. FAMILY/SOCIAL HISTORY: Patient is . No alcohol, illicits, or cigarettes. MEDICATIONS: Per electronic medical record. REVIEW OF SYSTEMS: Denies any fever, chills, sweats, nausea, vomiting, diarrhea, headache, chest pain, shortness of breath, leg pain, skin rash. PHYSICAL EXAMINATION: VITAL SIGNS: Have been reviewed. GENERAL APPEARANCE: Tired-appearing woman resting in bed. HEENT: Anicteric. CARDIOVASCULAR: Normal S1 and S2. She has a 2/6 systolic murmur in the aortic region. LUNGS: Moderate breath sounds. ABDOMEN: Soft, nontender, nondistended. EXTREMITIES: No edema or calf tenderness. NEUROLOGICAL: Alert and oriented x3. She moves all extremities. SKIN: Dry. PSYCHIATRIC: Normal affect. LABS: Reviewed. MEDICATIONS: Reviewed. ASSESSMENT: Ygmdwbt-ytuqs-gszq-old woman: 1. Hypertensive emergency. 2. Hyperlipidemia. 3. Paroxysmal atrial fibrillation. 4. Rheumatoid arthritis. 5. Gastroesophageal reflux disease. 6. Headache secondary to high blood pressure. PLAN: 1. Control blood pressure with drip and add oral medication now. 2. Check lipid panel. 3. CT scan of the brain, no acute findings. 4. Monitor closely in the ICU. 5. Restart sertraline for mood disorder. 6. Will continue amiodarone for atrial fibrillation. 7. Use Pepcid for GI prophylaxis and SCD. 8. Disposition. Monitor closely in the ICU. Critical care time more than 35 minutes. Job#: [id number]
[2018-05-31] MEDS: VALPROATE SOD INJ 500 MG in SODIUM CHLORIDE 0.9% 100 ML 100 ML IV SCH (22:55)
[2018-05-31] MEDS: METHYLPREDNISOLONE SOD SUCC 125 MG/2ML VIAL IV SCH (23:00)
[2018-05-31] MEDS: PRAVASTATIN 20 MG TAB PO SCH (23:00)
[2018-05-31] MEDS: PROMETHAZINE 25MG/ NS 50ML (IV) IV SCH (23:00)
--- NOTE | 2018-05-31 23:13 | Consultation ---
DATE OF CONSULTATION: May 31, 2018 NEUROLOGY CONSULT NOTE HISTORY OF PRESENT ILLNESS: Ms. Toscano is a 78-year-old [id number] woman with past medical history significant for hypertension and migraines, admitted to [facility] on May 30, 2018 with hypertensive emergency requiring continuous infusion of nicardipine and status migrainosus. The neurology service is consulted to treat the patient's headaches. Ms. Toscano began experiencing migraines at approximately 12 years of age. She describes her typical migraine as follows: The pain begins over the occiput and radiates unilaterally, right greater than left. Occasionally, the pain will begin across the forehead and radiate unilaterally, once again right greater than left. Initially, the pain is described as dull and aching, but quickly progresses to a throbbing pain which is moderate to severe. Associated with the headaches are photophobia, phonophobia, and nausea with or without vomiting. Occasionally, Ms. Toscano experiences a visual aura which is described as "looking through water." The patient reports this aura proceeds the headaches by approximately 2 to 3 days. The headaches occurred frequently during young and middle adulthood. After the patient went through menopause, the frequency and severity of the headaches decreased significantly. Ms. Toscano reports experiencing only an occasional migraine. If Ms. Toscano takes a dose of Excedrin shortly after the onset of the migraine and lays down in a dark quite room to sleep, her migraines typically resolved within 2 hours. Ms. Toscano describes her present headache as follows: The pain is located over the right side of the head. Ms. Toscano describes the pain as constant and severe. Associated with the headache are photophobia, phonophobia, and nausea. Ms. Toscano did vomit on the day of admission, May 30, 2018 secondary to this headache. The patient does not report a visual disturbance or dizziness associated with this headache. While in the emergency center, Ms. Toscano received a combination of medications, including: Reglan, Benadryl, dexamethasone, and promethazine. None of these medications individually or in combination alleviated her headache. The patient's mother as well as daughter have a history of migraines. REVIEW OF SYSTEMS: Nausea, vomiting, visual disturbance, neck pain, headache, photophobia, phonophobia. Otherwise, the 12-point review of systems is negative. 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 PAST SURGICAL HISTORY: Left breast mastectomy, partial hysterectomy, tonsillectomy. PAST HOSPITALIZATIONS: Surgeries/procedures as listed, migraines x7, hypertension x2, childbirth x5. FAMILY MEDICAL HISTORY: The patient's paternal and maternal grandparents are . Their medical histories are unknown. The patient's father is from coronary artery disease with a myocardial infarction. The patient's mother is . She had a history of migraines and arthritis. Ms. Toscano had 2 siblings, both sisters. One sister is alive and has chronic obstructive pulmonary disease. The second sister is . She had multiple medical problems. Ms. Toscano has 5 children, 3 sons and 2 daughters, all of whom are living. One son has depression with prior suicidal ideations. The other 2 sons are healthy. One daughter is healthy. The second daughter has migraines. SOCIAL HISTORY: The patient is . She is retired. The patient does not report current or prior tobacco, alcohol, or recreational drug use. HOME MEDICATIONS: Reviewed. Please see the list of home medications available in the electronic medical record. HOSPITAL MEDICATIONS: Reviewed. Please see the list of hospital medications available in the electronic medical record. ALLERGIES: SCOPOLAMINE. NO KNOWN FOOD ALLERGIES. NO KNOWN ALLERGIES TO LATEX. NO KNOWN ALLERGIES TO IODINE OR OTHER CONTRAST MATERIALS. PHYSICAL EXAMINATION: VITAL SIGNS: Height 61 inches, weight 134 pounds, BMI 25.4 kg/sq m. Blood pressure 153/83 mmHg, pulse 81 beats per minute, respiratory rate 17 breaths per minute, oxygen saturation 98% on room air. GENERAL: The patient is awake and alert, does not appear distressed. HEENT: Normocephalic, atraumatic. Pupils are equal, round, and reactive to light. Moist mucous membranes. NECK: Supple. No appreciable thyromegaly. No appreciable carotid bruits. CARDIOVASCULAR: S1, S2, regular rate and rhythm. No murmurs, rubs, or gallops. RESPIRATORY: Clear to auscultation bilaterally. No wheezes, rhonchi, or rales. EXTREMITIES: The skin is warm and dry. No clubbing, cyanosis, or edema. The posterior tibial and dorsalis pedis pulses are 2+ and symmetric. SKIN: No rashes or lesions. NEUROLOGIC EXAMINATION: MEMORY/ATTENTION: The patient is awake and alert, oriented to person, place, time, and situation. CRANIAL NERVES: Cranial nerve I - not tested. Cranial nerves II, III, IV, and - Pupils are equal and round, reacts briskly to light (from 6 mm to 3 mm). Extraocular movements intact. No nystagmus. Cranial nerve V - Sensation to light touch and pinprick is intact in the bilateral V1 through V3 distributions. Strength of the temporalis and masseter muscles is within normal limits. Cranial nerve VII - The face is symmetric as are all facial movements. Strength is within normal limits. Cranial nerve VIII - Hearing is intact to finger rub bilaterally. Cranial nerve IX, X - The soft palate elevates equally and symmetrically. Cranial nerve XI - Normal strength of the bilateral sternocleidomastoid and trapezius muscles. Cranial nerve XII - The tongue protrudes midline and moves symmetrically from side to side. STRENGTH: Bulk is normal. Strength is 5/5 in the bilateral deltoids, biceps, triceps, wrist flexors and extensors, finger flexors and extensors, intrinsic hand muscles, hip flexors, knee flexors and extensors, ankle dorsiflexion and plantarflexion, and intrinsic foot muscles. Tone is normal. DTRs: Deep tendon reflexes are 1+ and symmetric at the triceps, biceps, brachioradialis, and patellas. Deep tendon reflexes are absent and symmetric at the Achilles. Plantar responses are flexor bilaterally. SENSATION: Sensation is intact to light touch and pinprick in both arms and both legs. SPEECH: Spontaneous speech is normal without appreciable dysarthria or aphasia. Repetition is intact. INVOLUNTARY MOVEMENTS: None. PRONATOR DRIFT: None. LABORATORY DATA: The patient's most recent basic metabolic panel is unremarkable. Total cholesterol 142, triglycerides 113, LDL cholesterol 82, HDL cholesterol 37. The CBC with differential and platelets reveals a white blood cell count of 6.51 with a right shift with 82.0% neutrophils, 13.1% lymphocytes, 4.1% monocytes, 0.0% eosinophils, and 0.3% basophils. The hemoglobin and hematocrit are 11.6 and 32.9, respectively. The platelet count is 286,000. DIAGNOSTIC STUDIES: CT of the brain without contrast, May 30, 2018: On my review, there is no evidence of recent large territorial ischemia, hemorrhage, mass, or mass effect. Cerebral volumes are appropriate for age. There are findings compatible with moderate chronic small-vessel ischemic disease. ASSESSMENT AND PLAN: Ms. Toscano is a 78-year-old etjfr-flmu-wkhoovdu woman with past medical history significant for hypertension and migraines, admitted to [facility] on May 30, 2018 with hypertensive emergency and migraine with aura, not intractable, with status migrainosus. The patient's neurological examination is nonfocal. Her laboratory data and other diagnostic studies have been reviewed and are documented above. At present, the patient rates her pain a 5 to 6 out of 10. Ms. Toscano was informed her headache is not only due to status migrainosus, but to hypertensive emergency as well. Treatment with a migraine cocktail should significantly improve or alleviate the migrainous portion of her headache. However, the portion of her headache due to hypertensive emergency will gradually improve as her blood pressures are gradually brought under control. RECOMMENDATIONS: As follows: 1. Promethazine 25 mg intravenously every 6 hours x2 doses. 2. Methylprednisolone 125 mg intravenously every 6 hours x2 doses. 3. Valproate 500 mg intravenously every 6 hours x2 doses. 4. Defer treatment of the remaining medical comorbidities to the primary and other specialties following the patient. Thank you for this consultation. I will continue to follow the patient while she remains in the hospital. TIME SPENT: 70 minutes. Job#: [id number] DR BUTLER
[2018-06-01] VITALS (19 sets, daily range): BP systolic 133–171; BP diastolic 74–111
[2018-06-01] MEDS: PROMETHAZINE 25MG/ NS 50ML (IV) IV SCH (04:36)
[2018-06-01] MEDS: METHYLPREDNISOLONE SOD SUCC 125 MG/2ML VIAL IV SCH (04:36)
[2018-06-01] MEDS: VALPROATE SOD INJ 500 MG in SODIUM CHLORIDE 0.9% 100 ML 100 ML IV SCH (04:36)
[2018-06-01 05:16] LABS: INR 0.95; PROTHROMBIN TIME 13.5 seconds (11.9-14.5)
[2018-06-01 05:17] LABS: PARTIAL THROMBOPLASTIN TIME 29.6 seconds (23.8-35.5)
[2018-06-01 05:19] LABS: BASOPHILS % 0.6 % (0.0-1.0); EOSINOPHILS % 0.3 % (0.0-6.0); HEMATOCRIT 39.6 % (34.2-44.1); HEMOGLOBIN 12.6 g/dL (12.0-16.0); LYMPHOCYTES # (AUTO) 0.9 (1.0-3.2); LYMPHOCYTES % 12.9 % (18.0-39.1); MEAN CORPUSCULAR HGB CONC 31.8 g/dL (31-35); MEAN CORPUSCULAR VOLUME 91.2 fL (81-99); MONOCYTES # (AUTO) 0.1 (0.2-0.8); MONOCYTES % 1.1 % (4.4-11.3); NEUTROPHILS # (AUTO) 6.1 (2.1-6.9); NEUTROPHILS % 84.7 % (38.7-80.0); PLATELET COUNT 363 x10e3/uL (140-360); RED BLOOD COUNT 4.34 x10e6/uL (3.6-5.1); RED CELL DISTRIBUTION WIDTH 14.4 % (11.7-14.4)
[2018-06-01 05:27] LABS: ALANINE AMINOTRANSFERASE 14 IU/L (0-55); ALBUMIN 3.2 g/dL (3.5-5.0); ALKALINE PHOSPHATASE 85 IU/L (40-150); ANION GAP 18.5 mmol/L (8-16); BLOOD UREA NITROGEN 14 mg/dL (7-26); BUN/CREATININE RATIO 17 (6-25); CALCIUM 9.1 mg/dL (8.4-10.2); CARBON DIOXIDE 24 mmol/L (22-29); CHLORIDE 103 mmol/L (98-107); CREATININE, SERUM 0.81 mg/dL (0.57-1.11); EST GLOMERULAR FILTRATION RATE > 60 ML/MIN (60-); GLUCOSE 129 mg/dL (74-118); MAGNESIUM 1.7 MG/DL (1.3-2.1); PHOSPHORUS 2.3 MG/DL (2.3-4.7); POTASSIUM 3.5 mmol/L (3.5-5.1); SODIUM 142 mmol/L (136-145)
[2018-06-01] MEDS ORDERED: SERTRALINE HCL 150 MG PO SCH (06:00)
[2018-06-01] MEDS ORDERED: METOPROLOL SUCCINATE 50 MG PO SCH (06:00)
[2018-06-01] MEDS: LOSARTAN POTASSIUM 100 MG TAB PO SCH (07:11)
[2018-06-01] MEDS: NIFEDIPINE CR 30 MG TAB PO SCH ×2 (07:11→20:39)
[2018-06-01] MEDS ORDERED: LOSARTAN POTASSIUM 100 MG TAB ONE (07:12)
[2018-06-01] MEDS ORDERED: LOSARTAN POTASSIUM 25 MG TAB PO SCH (09:00)
[2018-06-01] MEDS: SERTRALINE HCL 100 MG TAB PO SCH (09:04)
[2018-06-01] MEDS: METOPROLOL SUCCINATE 50 MG TAB XL PO SCH (09:04)
[2018-06-01] MEDS: HYDROCHLOROTHIAZIDE 25 MG TAB PO SCH (09:04)
[2018-06-01] MEDS: AMIODARONE HCL 200 MG TAB PO SCH (09:04)
[2018-06-01] MEDS: PANTOPRAZOLE SOD 40 MG TABEC PO SCH (09:36)
[2018-06-01] MEDS: FAMOTIDINE 20 MG/2 ML VIAL IV SCH ×2 (09:46→20:39)
[2018-06-01] MEDS: CLONIDINE HCL 0.2 MG TAB PO SCH ×2 (10:47→20:39)
[2018-06-01] MEDS ORDERED: PHENYLEPHRINE HCL 2 ML DROPS OP ONE (15:30)
[2018-06-01] MEDS ORDERED: CYCLOPENTOLATE HCL 2% OPTH SOLN 2 ML BTL OP ONE (15:30)
[2018-06-01] MEDS: PRAVASTATIN 20 MG TAB PO SCH (20:39)
[2018-06-02] VITALS (16 sets, daily range): BP systolic 129–189; BP diastolic 65–101
[2018-06-02] MEDS: CLONIDINE HCL 0.2 MG TAB PO SCH ×2 (05:04→14:26)
[2018-06-02] MEDS: AMIODARONE HCL 200 MG TAB PO SCH (08:09)
[2018-06-02] MEDS: FAMOTIDINE 20 MG/2 ML VIAL IV SCH ×2 (08:09→20:18)
[2018-06-02] MEDS: PANTOPRAZOLE SOD 40 MG TABEC PO SCH (08:09)
[2018-06-02] MEDS: LOSARTAN POTASSIUM 100 MG TAB PO SCH (08:10)
[2018-06-02] MEDS: NIFEDIPINE CR 30 MG TAB PO SCH ×2 (08:10→20:19)
[2018-06-02] MEDS: METOPROLOL SUCCINATE 50 MG TAB XL PO SCH (08:10)
[2018-06-02] MEDS: HYDROCHLOROTHIAZIDE 25 MG TAB PO SCH (08:10)
[2018-06-02] MEDS: HYDRALAZINE HCL 25 MG TAB PO SCH ×3 (11:34→20:19)
[2018-06-02] MEDS: ACETAMINOPHEN 325 MG TAB PO PRN (11:35)
[2018-06-02] MEDS: PRAVASTATIN 20 MG TAB PO SCH (20:18)
[2018-06-02] MEDS ORDERED: SERTRALINE HCL 100 MG TAB PO SCH (21:00)
[2018-06-03] VITALS (8 sets, daily range): BP systolic 114–175; BP diastolic 60–78
[2018-06-03] MEDS: CLONIDINE HCL 0.2 MG TAB PO SCH ×3 (00:57→13:28)
[2018-06-03] MEDS: ACETAMINOPHEN 325 MG TAB PO PRN (05:52)
[2018-06-03] MEDS ORDERED: CATAPRES0.2 MG PO (07:54)
[2018-06-03] MEDS ORDERED: HYDRALAZINE HCL25 MG PO (07:54)
[2018-06-03] MEDS ORDERED: COZAAR100 MG PO (07:54)
[2018-06-03] MEDS ORDERED: NIFEDIPINE ER30 M1 PO (07:54)
[2018-06-03] MEDS: AMIODARONE HCL 200 MG TAB PO SCH (08:50)
[2018-06-03] MEDS: PANTOPRAZOLE SOD 40 MG TABEC PO SCH (08:50)
[2018-06-03] MEDS: LOSARTAN POTASSIUM 100 MG TAB PO SCH (08:50)
[2018-06-03] MEDS: METOPROLOL SUCCINATE 50 MG TAB XL PO SCH (08:50)
[2018-06-03] MEDS: HYDRALAZINE HCL 25 MG TAB PO SCH ×2 (08:50→15:18)
[2018-06-03] MEDS: HYDROCHLOROTHIAZIDE 25 MG TAB PO SCH (08:50)
[2018-06-03] MEDS: NIFEDIPINE CR 30 MG TAB PO SCH (08:50)
[2018-06-03] MEDS: FAMOTIDINE 20 MG/2 ML VIAL IV SCH (08:50)
[2018-06-03] MEDS ORDERED: FAMOTIDINE 20 MG TAB PO SCH (21:00)
--- NOTE | 2018-06-10 07:20 | Diagnostic Imaging Report ---
Date and Time: 05/31/2018 Procedure: Central venous catheter placement metal drill operator: Dr. Champagne Pre-operative diagnosis: Poor intravenous access Post-operative diagnosis: Poor intravenous access Conscious Sedation: None Additional Medications: Lidocaine 1% for local anesthesia Fluoroscopy time: 0.3 minutes Frontal Air Kerma: 3.6 mGy Contrast used: None Estimated blood loss: Minimal Blood products administered: None Specimens: None Implants: 7 [place] 16 cm triple-lumen central venous catheter Condition at completion: Stable Disposition: Returned to ICU DISCUSSION: Informed consent was obtained and documented in the medical record after discussion of risks and benefits. The patient was placed in the supine position on the hospital bed. Preliminary sonographic evaluation confirmed patency of the right internal jugular vein, evidenced by compressibility. The right neck was prepped and draped in the standard sterile fashion. 1% lidocaine was infiltrated into the skin and subcutaneous tissues for local anesthesia. Then under continuous sonographic guidance, an 18-gauge singlewall needle was used to access the right internal jugular vein. A permanent sonographic image was stored in the medical record. A 0.0 3 5-in. wire was advanced centrally into the IVC under fluoroscopic guidance. The needle was removed over the wire and the tract was dilated. Then a 7 [place], 16 cm triple-lumen central venous catheter was advanced over the wire to full depth. The wire was removed, and the catheter tip was positioned at the low superior vena cava. Each lumen showed adequate bidirectional flow and was flushed with sterile saline. The catheter was secured to the skin with monofilament nylon suture and a sterile dressing was applied. The patient tolerated the procedure well without immediate complication. FINDINGS: Patent right internal jugular vein IMPRESSION: Successful placement of a 7 [place], 16 cm triple-lumen central venous catheter by a right internal jugular approach. Signed by: Dr. Fareed Champagne M.D. on 06/10/2018 7:16 AM
--- NOTE | 2018-06-10 07:20 | Diagnostic Imaging Report ---
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 The patient was placed in the supine position on the hospital bed. Preliminary sonographic evaluation confirmed patency of the right internal jugular vein, evidenced by compressibility. The right neck was prepped and draped in the standard sterile fashion. 1% lidocaine was infiltrated into the skin and subcutaneous tissues for local anesthesia. Then under continuous sonographic guidance, an 18-gauge singlewall needle was used to access the right internal jugular vein. A permanent sonographic image was stored in the medical record. A 0.0 3 5-in. wire was advanced centrally into the IVC under fluoroscopic guidance. The needle was removed over the wire and the tract was dilated. Then a 7 [place], 16 cm triple-lumen central venous catheter was advanced over the wire to full depth. The wire was removed, and the catheter tip was positioned at the low superior vena cava. Each lumen showed adequate bidirectional flow and was flushed with sterile saline. The catheter was secured to the skin with monofilament nylon suture and a sterile dressing was applied. The patient tolerated the procedure well without immediate complication. FINDINGS: Patent right internal jugular vein IMPRESSION: Successful placement of a 7 [place], 16 cm triple-lumen central venous catheter by a right internal jugular approach. Signed by: Dr. Fareed Champagne M.D. on 06/10/2018 7:16 AM
== END 2018-06-03 16:22 | disposition home or self-care (01) | DRG 305 ==
LOC: FSED 17:36 → ERHOLD 20:02 → ICU 21:53 → MED/SURG3 06-02 19:01
PROVIDERS: ADMIT Internal Medicine; ATTEND Internal Medicine
PROC: 02HV33Z Insertion of Infusion Device into Superior Vena Cava, Percutaneous Approach (ICD-10-PCS; principal; 2018-05-31)
DX: I16.1 Hypertensive emergency (principal); G43.101 Migraine with aura, not intractable, with status migrainosus; M06.9 Rheumatoid arthritis, unspecified; E78.5 Hyperlipidemia, unspecified; K21.9 Gastro-esophageal reflux disease without esophagitis; I48.0 Paroxysmal atrial fibrillation; Z85.3 Personal history of malignant neoplasm of breast; I10 Essential (primary) hypertension; H35.033 Hypertensive retinopathy, bilateral
CPT/HCPCS: 36415; 36556; 70450; 74470; 76937; 77001; 80048; 80053; 80061; 83735; 84100; 85025; 85610; 85730; 99284; C1751; J1100; J1200; J1885; J2270; J2405; J2550; J2765; J2930; J7040

== ENCOUNTER 2018-06-18 14:32 | Emergency (ER) | payer MEDICARE ==
[~2018-06-18] VITALS: Ht 157.5 cm; Wt 61.2 kg
[~2018-06-18 14:32] MED LIST changes: +CATAPRES0.2 MG PO; +COZAAR100 MG PO; +HYDRALAZINE HCL25 MG PO; +NIFEDIPINE ER30 M1 PO
--- OUTSIDE RECORDS SUMMARY | 2018-06-18 14:40 | XMS REPORT | Continuity of Care Document ---
Author Author Danielle devon [facility] Interface Address Unknown Phone Unavailable Problems Problem Status Onset Date Classification Date Reported Comments Source M79.661 - PAIN IN RIGHT LOWER LEG Active 12/31/2017 [facility] UNK Active 07/08/2016 [facility] Discharge Diagnosis: Acute headache 06/20/2016 06/23/2016 [facility] Discharge Diagnosis: Acute UTI 06/20/2016 06/23/2016 [facility] Discharge Diagnosis: Hypertension 06/20/2016 06/23/2016 [facility] Discharge Diagnosis: Nausea and vomiting 06/20/2016 06/23/2016 [facility] HYPERTENSIVE, VOMITING Active 06/19/2016 [facility] R10.9 Active 05/30/2016 [facility] CONSULT Active 05/14/2016 [facility] R11.2 NAUSEA WITH VOMITING, UNSPECIFIED Active 04/18/2016 [facility] Discharge Diagnosis: Abdominal pain 04/10/2016 04/13/2016 [facility] ABD PAIN Active 04/10/2016 [facility] Long-term use of high-risk medication Active Problem 04/15/2018 [facility] Midline low back pain, with sciatica presence unspecified Active Problem 04/15/2018 [facility] Rheumatoid arthritis of multiple sites without rheumatoid factor Active Problem 08/08/2017 Fitzclem[facility] Primary osteoarthritis involving multiple joints Active Problem 04/15/2018 [facility] Rheumatoid arthritis without rheumatoid factor, multiple sites Active Diagnosis 04/15/2018 [facility] disrd of bone density and structure, multiple sites Active Problem 04/15/2018 [facility] Low back pain Active Problem 04/15/2018 [facility] 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 09/24/2016 [...] [facility] Atrial tachycardia Active Problem 08/01/2016 [facility] Acid reflux Resolved Problem 08/01/2016 [facility] HTN - Hypertension Active Problem 08/01/2016 [facility] PAC - Premature atrial contraction Active Problem 08/01/2016 [facility] Chronic diarrhea Active Problem 08/01/2016 [facility] Diverticulosis Active Problem 08/01/2016 [facility] Dysthymic disorder Resolved Problem 08/01/2016 [facility] Hemorrhoids Resolved Problem 08/01/2016 [facility] HLD (<span ID="[id number]">Confirmed</span>) Active Problem 08/01/2016 [facility] Breast cancer Resolved Problem 08/01/2016 [facility] Hiatal hernia Active Problem 08/01/2016 [facility] Osteopenia Active Problem 08/01/2016 [facility] Headache Active Problem 06/03/2018 [facility] Hypertensive emergency Active Problem 06/03/2018 [facility] Hypertensive emergency, no CHF Active Problem 06/03/2018 [facility] ENCOUNTER FOR SCREENING FOR MALIGNANT NE Active [facility] GASTRO-ESOPHAGEAL REFLUX DISEASE WITHOUT Active [facility] NAUSEA WITH VOMITING, UNSPECIFIED Active [facility] ENCNTR FOR GENERAL ADULT MEDICAL EXAM W/ Active [facility] UNSPECIFIED ABDOMINAL PAIN Active [facility] DIARRHEA, UNSPECIFIED Active [facility] Medications Medication Details Route Status Patient Instructions Ordering Provider Order Date Source Clonidine Hcl (Catapres) 0.2 Mg Tablet Every 8 Hours Active [facility] 06/03/2018 [facility] Hydralazine Hcl 25 Mg Tab Three Times A Day Active Mae 06/03/2018 [facility] Losartan Potassium (Cozaar) 100 Mg Tablet Daily Active Mae 06/03/2018 [facility] Nifedipine (Nifedipine Er) 30 Mg Tab.er.24 Daily Active [facility] 06/03/2018 [facility] Amlodipine Besylate (Norvasc) 5 Mg Tab, 10 Mg Oral Daily Active 06/03/2018 [facility] Losartan Potassium 25 Mg Tablet, 25 Mg Oral Daily Active 06/03/2018 [facility] Medications In Room With Pt , Active 06/03/2018 [facility] Leflunomide take 1 tablet BY MOUTH Active 10 BY MOUTH ONCE A DAY [facility] 06/30/2017 [facility] Tramadol HCl 1 tablet as needed Orally Active 50 MG Orally every 6 hrs [facility]as 06/30/2017 [facility] Tizanidine HCl 1 tablet as needed Orally Active 4 MG Orally BID Elias 04/01/2017 [facility] Leflunomide 1 tablet Orally Active 10MG Orally Once a day [facility] 03/24/2017 [facility] Sodium Chloride 0.154 MEQ/ML Injectable Solution 1,000 mL, Rate: 25 ml/hr, Infuse over: 40 hr, Route: IV, Dosing Weight 58.239 kg, Total Volume: 1,000, Start date: 07/29/16 8:32:00 CDT, Duration: 30 day, Stop date: 08/28/16 8:31:00 CDT Inactive 07/29/2016 [facility] Vitamin C 500 mg oral tablet 500 mg=1 tab, PO, Daily Active 07/28/2016 [facility] Fish oil + D3 Caps Fish oil + D3 Caps, 1 cap, PO, Daily, Refill(s) 0 Active 07/28/2016 [facility] multivitamin 1 tab, PO, Daily, 0 Refill(s) Active 07/28/2016 [facility] Naproxen sodium 220 MG Oral Tablet [Aleve] 440 mg=2 tab, PO, Q8H, PRN Pain Active 07/28/2016 [facility] Acetaminophen 325 MG / butalbital 50 MG Oral Tablet 1 tab, PO, Q4H, PRN Headache Active 07/28/2016 [facility] Promethazine Hydrochloride 25 MG Oral Tablet See Instructions, PRN as needed for nausea/vomiting, Take 1 tab every 4 to 6 hours, 0 Refill(s) Active 07/28/2016 [facility] Atropine Sulfate 0.025 MG / Diphenoxylate Hydrochloride 2.5 MG Oral Tablet 1 tab, PO, QID, PRN for loose stool Active 07/28/2016 [facility] budesonide 3 mg oral capsule, extended release 3 mg=1 cap, PO, TID, 0 Refill(s) Active 07/28/2016 [facility] tramadol hydrochloride 50 MG Oral Tablet 50 mg=1 tab, PO, Q6H, PRN Pain Active 07/28/2016 [facility] losartan 50 mg oral tablet 50 mg=1 tab, PO, Daily Active 07/28/2016 [facility] leflunomide 10 mg oral tablet 10 mg=1 tab, PO, Daily Active 07/28/2016 [facility] pravastatin 40 mg oral tablet 40 mg=1 tab, PO, Bedtime Active 07/28/2016 [facility] pantoprazole 40 mg oral enteric coated tablet 40 mg=1 tab, PO, Daily Active 07/28/2016 [facility] sertraline 100 mg oral tablet 150 mg=1.5 tab, PO, Bedtime Active 07/28/2016 [facility] mesalamine 800 MG Enteric Coated Tablet 800 mg=1 tab, PO, TID Active 07/28/2016 [facility] buPROPion 150 mg/24 hours (XL) oral tablet, extended release 150 mg=1 tab, PO, QAM Active 07/28/2016 [facility] flunisolide 0.025 MG/ACTUAT Metered Dose Nasal [place] 1 spray, NASAL, BID, in each nostril, 0 Refill(s) Active 07/28/2016 [facility] hyoscyamine 0.125 mg oral tablet 0.125 mg=1 tab, PO, BID Active 07/28/2016 [facility] Metoprolol Succinate ER 25 mg oral tablet, extended release 25 mg=1 tab, PO, Daily Active 07/28/2016 [facility] Trazodone Hydrochloride 50 MG Oral Tablet 1 tab-2 tab, PO, Bedtime, PRN Insomnia Active 07/28/2016 [facility] Cephalexin 500 MG Oral Capsule [Keflex] 500 mg=1 cap, PO, QID, X 7 day, # 28 cap, 0 Refill(s) Active 06/20/2016 [facility] Ketorolac 15 mg, Route: IVP, Drug form: INJ, ONCE, Dosing Weight 59.545, kg, Priority: STAT, Start date: 06/20/16 2:08:00 CAFETERIA MANAGER, Stop date: 06/20/16 2:08:00 CAFETERIA MANAGER Inactive 06/20/2016 [facility] Sodium Chloride 0.154 MEQ/ML Injectable Solution 500 mL, Infuse Over: 1 hr, Route: IV, ONCE, Priority: STAT, Dosing Weight 59.545 kg, Start date: 06/19/16 23:58:00 CAFETERIA MANAGER, Duration: 1 doses or times, Stop date: 06/19/16 23:58:00 CAFETERIA MANAGER No Longer Active 06/20/2016 [facility] Reglan 5 mg, Route: IVP, Drug form: INJ, ONCE, Dosing Weight 59.545, kg, Priority: STAT, Start date: 06/19/16 23:58:00 CAFETERIA MANAGER, Stop date: 06/19/16 23:58:00 CAFETERIA MANAGER No Longer Active 06/20/2016 [facility] Morphine 2 mg, Route: IVP, ONCE, Dosing Weight 59.545, kg, Priority: STAT, Start date: 06/19/16 23:58:00 CAFETERIA MANAGER, Stop date: 06/19/16 23:58:00 CAFETERIA MANAGER No Longer Active 06/20/2016 [facility] Saline Flush 0.9% 10 mL, Route: IVP, Drug Form: INJ, Dosing Weight 59.545, kg, PRN, PRN Line Flush, Start date: 06/19/16 21:38:00 CAFETERIA MANAGER, Duration: 30 day, Stop date: 07/19/16 22:37:00 CDTNotes: (Same as: BD Posiflush) No Longer Active 06/20/2016 [facility] Butalbital Compound oral tablet 1 tab, PO, Q6H, PRN Pain, # 24 tab, 0 Refill(s) Active 06/06/2016 [facility] tramadol hydrochloride 50 MG Oral Tablet 50 mg=1 tab, PO, Q8H, PRN Pain, # 60 tab, 0 Refill(s) Active 06/06/2016 [facility] budesonide 3 mg oral capsule, extended release 9 mg=3 cap, PO, Daily, # 270 cap, 0 Refill(s) Active 06/06/2016 [facility] Atropine Sulfate 10 MG/ML Ophthalmic Solution [Atropine-Care] 2 drp, OPTH, QID, # 15 ml, 0 Refill(s) Active 06/06/2016 [facility] promethazine 25 mg oral tablet 25 mg=1 tab, PO, Q4H, PRN for motion sickness, # 60 tab, 0 Refill(s) Active 06/06/2016 [facility] Sodium Chloride 0.154 MEQ/ML Injectable Solution 1,000 mL, Rate: 25 ml/hr, Infuse over: 40 hr, Route: IV, Dosing Weight 72.727 kg, Total Volume: 1,000, Start date: 05/02/16 9:20:00 CAFETERIA MANAGER, Duration: 30 day, Stop date: 06/01/16 9:19:00 CAFETERIA MANAGER Inactive 05/02/2016 [facility] tramadol hydrochloride 50 MG Oral Tablet 50 mg=1 tab, PO, Q6H, PRN Pain, X 10 day, # 40 tab, 0 Refill(s) Active 04/10/2016 [facility] Tylenol 650 mg, Route: PO, Drug form: TAB, ONCE, Dosing Weight 72.727, kg, Priority: STAT, Start date: 04/10/16 7:46:00 CAFETERIA MANAGER, Stop date: 04/10/16 7:46:00 CAFETERIA MANAGER Inactive 04/10/2016 [facility] potassium chloride 40 mEq, Route: PO, Drug form: ERTAB, ONCE, Dosing Weight 72.727, kg, Priority: STAT, Start date: 04/10/16 4:36:00 CAFETERIA MANAGER, Stop date: 04/10/16 4:36:00 CAFETERIA MANAGER Inactive 04/10/2016 [facility] Zofran 4 mg, Route: IVP, Drug form: INJ, ONCE, Dosing Weight 72.727, kg, Priority: STAT, Start date: 04/10/16 4:18:00 CAFETERIA MANAGER, Stop date: 04/10/16 4:18:00 CAFETERIA MANAGER Inactive 04/10/2016 [facility] Sodium Chloride 0.154 MEQ/ML Injectable Solution 1,000 mL, Rate: 25 ml/hr, Infuse over: 40 hr, Route: IV, Dosing Weight 65.455 kg, Total Volume: 1,000, Start date: 03/04/16 8:38:00 CDT, Duration: 30 day, Stop date: 04/03/16 8:37:00 CAFETERIA MANAGER Inactive 03/04/2016 [facility] metoprolol tartrate 50 mg oral tablet 50 mg=1 tab, PO, Daily, 0 Refill(s) Active 03/03/2016 [facility] Fish Oil PO, 0 Refill(s) Active 03/03/2016 [facility] Hydrochlorothiazide 25 MG Oral Tablet 25 mg=1 tab, PO, Daily, 0 Refill(s) Active 03/03/2016 [facility] Clonidine Hcl 0.2 Mg Tablet, 0.2 Mg Oral Twice A Day Active 02/08/2016 [facility] Furosemide 40 Mg Tablet, 40 Mg Oral Rt Daily Active 02/08/2016 [facility] Furosemide 20 Mg Tablet, 20 Mg Oral Daily Active 02/08/2016 [facility] Hydralazine Hcl 100 Mg Tablet, 100 Mg Oral Three Times A Day Active 02/08/2016 [facility] Irbesartan (Avapro) 300 Mg Tablet, 300 Mg Oral Rt Daily Active 02/08/2016 [facility] Lansoprazole (Prevacid) 30 Mg Capsule.dr, 30 Mg Oral Rt Daily Active 02/08/2016 [facility] Risedronate Sodium (Actonel) 35 Mg Tablet, 35 Mg Oral Once Week Active 02/08/2016 [facility] Leflunomide 1 tablet Orally Active 10 MG Orally Once a day [place] 08/27/2015 [facility] Leflunomide 1 tablet Orally Active 10 MG Orally Once a day [place] 08/14/2015 [facility] Leflunomide 1 tablet Orally Active 10 MG Orally Once a day [place] 10/31/2014 [facility] Leflunomide take 1 tablet by mouth once daily Orally Active 10 Orally Once a day [place] 10/19/2014 [facility] Arava 1 tablet Orally Active 10 MG Orally Once a day [place] 12/23/2013 [facility] Arava 1 tablet Orally Active 10 MG Orally Once a day [facility] 08/29/2013 [facility] Diphenoxylate-Atropine 1 tablet as needed Orally Active 2.5-0.025 MG Orally Four times a day [facility]as [facility] Tylenol 2 tablets as needed Orally Active 325 MG Orally every 6 hrs Elias [facility] Fish Oil 1 capsule Orally Active 500 MG Orally Twice a day Elias [facility] Losartan Potassium 1 tablet Orally Active 100 MG Orally Once a day [facility]as [facility] Sertraline HCl 1 tablet Orally Active 100mg Orally Once a day [facility] Hyoscyamine Sulfate 1 tablet before meals as needed Orally Active 0.125 MG Orally every 4 hrs [place] [facility] Sudafed 1 tablet as needed Orally Active 60 MG Orally as needed [facility] Tramadol HCl 1 tablet as needed Orally Active 50 MG Orally every 6 hrs [facility] [facility] Budesonide as directed Orally Active 3 MG Orally [place] [facility] Pravastatin Sodium 1 tablet Orally Active 40 MG Orally Once a day [facility] Pantoprazole Sodium 1 tablet Orally Active 40 MG Orally Once a day [place] [facility] BuPROPion HCl as directed Orally Active 150 MG Orally [place] Fitz [facility] Mesalamine 2 tablets Orally Active 800 MG [facility] Azelastine HCl 1 drop into affected eye Ophthalmic Active 0.1 % Ophthalmic Twice a day [place] Fitz [facility] Metoprolol Succinate as directed Orally Active 50 MG Orally [place] Fitz [facility] Leflunomide 1 tablet Orally Active 10MG Orally Once a day [place] Fitz [facility] Vitamin C 1 tablet Orally Active 500 MG [facility] Vitamin B-12 as directed Orally Active 100 MCG Orally [facility] Flunisolide HFA 2 puffs Inhalation Active 80 MCG/ACT Inhalation Twice a day [place] Fitz [facility] [id number] 1 tablet as needed Orally Active 50-325-40 MG Orally every 4 hrs [place] [facility] Promethazine HCl 1 tablet as needed Orally Active 25 MG Orally every 12 hrs [place] [facility] Multi Vitamin/Minerals as directed Orally Active Orally [place] [facility] PredniSONE as directed Orally Active 10 mg Orally Once a day [place] [facility] Amlodipine Besylate 1 tablet Orally Active 10 MG [facility] Imodium A-D as directed Orally Active 2 MG Orally [facility] NIFEdipine 1 tablet Orally Active 60 MG Orally bid [facility] Trazodone HCl 1 tablet at bedtime as needed Orally Active 50 MG Orally Once a day [place] [facility] Pravastatin Sodium 1 tablet Orally Active 40 MG Orally Once a day [place] Fitz [facility] Azelastine HCl 1 drop into affected eye Ophthalmic Active 0.05 % Ophthalmic Twice a day [place] Fitz [facility] Losartan Potassium 1 tablet Orally Active 100 MG Orally Once a day [place] Fitz [facility] Budesonide as directed Orally Active 3 MG Orally [place] Fitz [facility] [id number] 1 tablet as needed Orally Active 50-325-40 MG Orally every 4 hrs [place] [facility] [place] Diphenoxylate-Atropine 1 tablet as needed Orally Active 2.5-0.025 MG Orally Four times a day [facility] Sertraline HCl 1 tablet Orally Active 100mg Orally Once a day [place] Fitz [facility] Imodium A-D as directed Orally Active 2 MG Orally [place] Fitz [facility] Tylenol 2 tablets as needed Orally Active 325 MG Orally every 6 hrs [facility] Hyoscyamine Sulfate 1 tablet before meals as needed Orally Active 0.125 MG Orally every 4 hrs [facility] Fish Oil 1 capsule Orally Active 500 MG Orally Twice a day [facility] [place] Promethazine HCl 1 tablet as needed Orally Active 25 MG Orally every 12 hrs [facility] Pantoprazole Sodium 1 tablet Orally Active 40 MG Orally Once a day [facility] Multi Vitamin/Minerals as directed Orally Active Orally [facility] Vitamin C 1 tablet Orally Active 500 MG Orally Once a day [facility] Sudafed 1 tablet as needed Orally Active 60 MG Orally as needed [facility] Tizanidine HCl 1 tablet as needed Orally Active 4 MG Orally BID [facility] Azelastine HCl 1 puff in each nostril Nasally Active 0.1 % Nasally Twice a day [facility] BuPROPion HCl (XL) 1 tablet in the morning Orally Active 300 MG Orally Once a day [facility] Tramadol HCl 1 tablet as needed Orally Active 50 MG Orally every 6 hrs [facility] Lasix 1 tablet Orally Active 40 MG Orally Once a day [facility] Lisinopril 1 tablet Orally Active 10 MG Orally Once a day [facility] Fitz [place] HydrALAZINE HCl 1 tablet Orally Active 100 MG Orally Twice a day [place] [facility] Lansoprazole 1 capsule before a meal Orally Active 30 MG Orally Once a day [facility] [place] Lasix 1 tablet Orally Active 40MG Orally Once a day as needed [facility] Actonel 1 tablet Orally Active 35 MG Orally Once a Week [facility] Irbesartan 1 tablet Orally Active 300 MG Orally Once a day Murphyryan [facility] Metoprolol Succinate 1 tablet Orally Active 100 MG Orally Once a day Katherine [facility]ul[facility] [place] 3 1 capsule Orally Active 1000 MG Orally Once a day [place] [facility] Amlodipine Besylate 1 tablet Orally Active 10 MG Orally Once a day [place] Fitz [facility] Metoprolol Succinate as directed Orally Active 50 MG Orally Curt [facility] Leflunomide 1 tablet Orally Active 10 MG Orally Once a day [facility] Fitz [facility] Hydrochlorothiazide 1 tablet Orally Active 25 MG Orally Once a day [place] Fitz [facility] Flunisolide HFA 2 puffs Inhalation Active 80 MCG/ACT Inhalation Twice a day [place] Fitz [facility] Excedrin Extra Strength 2 tablets Orally Active 250-250-65 MG Orally Once a day [place] Fitz [facility] Metoprolol Succinate as directed Orally Active 50 MG Orally [place] Fitz [facility] Aripiprazole 1 tablet Orally Active 2 MG Orally Once a day [place] Fitz [facility] Cephalexin 1 tablet Orally Active 500 MG Or[facility] Amiodarone Hcl 200 Mg Tablet Daily Active [facility] Ascorbic Acid (Vitamin C) 500 Mg Tablet Daily Active [facility] Azelastine Hcl (Optivar) 6 Ml Drpette Twice A Day Active [facility] Butalbital/Aspirin/Caffeine (Czfnrdrwxa-Xdq-Ffczgrvu Cap) 1 Each Capsule Three Times A Day as needed for Headache Active [facility] Hydrochlorothiazide 25 Mg Tablet Daily Active [facility] Leflunomide (Arava) 10 Mg Tablet Rt Daily Active [facility] Metoprolol Succinate (Toprol Xl) 100 Mg Tab.er.24h Rt Daily Active [facility] Multivitamin (Daily Multiple Vitamin) 1 Each Tablet Daily Active [facility] [place]-3 Fatty Acids (Fish Oil) 300 Mg Capsule Daily Active [facility] Pantoprazole Sodium (Protonix) 40 Mg Tablet.dr Daily Active [facility] Potassium Chloride 20 Meq Tab.er.prt Daily Active [facility] Pravastatin Sodium 40 Mg Tablet Bedtime Active [facility] Sertraline Hcl (Zoloft) 100 Mg Tablet Rt Daily Active [facility] Tramadol Hcl (Ultram 50MG*) 50 Mg Tab Every 6 Hours as needed for Pain Active [facility] Allergies, Adverse Reactions, Alerts Substance Category Reaction Severity Reaction type Status Date Reported Comments Source Scopolamine HALLUCINATIONS Unknown Propensity to adverse reactions Active 02/08/2016 [facility] Scopolamine Base Adverse Reaction Info Not Available Adverse Reaction Active 03/30/2018 [facility] plaquenil Adverse Reaction Info Not Available Adverse Reaction Active 03/30/2018 [facility] scopolamine Assertion Drug allergy Active [facility] Immunizations Immunization Date Given Site Status Last Updated Comments Source Depomedrol 02/27/2014 completed [facility] Toradol 02/27/2014 completed [facility] TORADOL 08/29/2013 completed [facility] depomedrol 08/29/2013 completed [facility] Results Order Name Results Value Reference Range Date Interpretation Comments Source Blood leukocytes automated count (number/volume) 7.14 4.8 - 10.8 06/01/2018 [facility] Blood erythrocytes automated count (number/volume) 4.34 3.6 - 5.1 06/01/2018 [facility] Blood hemoglobin measurement (moles/volume) 12.6 12.0 - 16.0 06/01/2018 [facility] Automated blood hematocrit (volume fraction) 39.6 34.2 - 44.1 06/01/2018 [facility] Automated erythrocyte mean corpuscular volume 91.2 81 - 99 06/01/2018 [facility] Automated erythrocyte mean corpuscular hemoglobin (mass per erythrocyte) 29.0 28 - 32 06/01/2018 [facility] Automated erythrocyte mean corpuscular hemoglobin concentration measurement (mass/volume) 31.8 31 - 35 06/01/2018 [facility] RDW BldCo-Rto 14.4 11.7 - 14.4 06/01/2018 [facility] Automated blood platelet count (count/volume) 363 140 - 360 06/01/2018 [facility] Automated blood segmented neutrophil count as percentage of total leukocytes 84.7 38.7 - 80.0 06/01/2018 [facility] Automated blood lymphocyte count as percentage ot total leukocytes 12.9 18.0 - 39.1 06/01/2018 [facility] Automated blood monocyte count as percentage of total leukocytes 1.1 4.4 - 11.3 06/01/2018 [facility] Automated blood eosinophil count as percentage of total leukocytes 0.3 0.0 - 6.0 06/01/2018 [facility] Automated blood basophil count as percentage of total leukocytes 0.6 0.0 - 1.0 06/01/2018 [facility] IM GRANULOCYTES % 0.4 0.0 - 1.0 06/01/2018 [facility] Automated blood neutrophil count 6.1 2.1 - 6.9 06/01/2018 [facility] Blood lymphocytes count (number/volume) 0.9 1.0 - 3.2 06/01/2018 [facility] Blood monocytes automated count (number/volume) 0.1 0.2 - 0.8 06/01/2018 [facility] Automated blood eosinophil count 0.0 0.0 - 0.4 06/01/2018 [facility] Automated blood basophil count (count/volume) 0.0 0.0 - 0.1 06/01/2018 [facility] Absolute Immature Granulocyte (auto 0.03 0 - 0.1 06/01/2018 [facility] Prothrombin time (PT) in platelet poor plasma by coagulation assay 13.5 11.9 - 14.5 06/01/2018 [facility] INR in Platelet poor plasma by Coagulation assay 0.95 06/01/2018 [facility] Activated partial thromboplastin time (aPTT) in platelet poor plasma bycoagulation assay 29.6 23.8 - 35.5 06/01/2018 [facility] Serum or plasma sodium measurement (moles/volume) 142 136 - 145 06/01/2018 [facility] Serum or plasma potassium measurement (moles/volume) 3.5 3.5 - 5.1 06/01/2018 [facility] Serum or plasma chloride measurement (moles/volume) 103 98 - 107 06/01/2018 [facility] Serum or plasma carbon dioxide, total measurement (moles/volume) 24 22 - 29 06/01/2018 [facility] Serum or plasma anion gap 18.5 8 - 16 06/01/2018 [facility] Serum or plasma urea nitrogen measurement (mass/volume) 14 7 - 26 06/01/2018 [facility] Serum or plasma creatinine measurement (mass/volume) 0.81 0.57 - 1.11 06/01/2018 [facility] Serum or plasma urea nitrogen/creatinine mass ratio 17 6 - 25 06/01/2018 [facility] Estimated glomerular filtration rate (GFR) determination > 60 60 06/01/2018 [facility] Glucose measurement 129 74 - 118 06/01/2018 [facility] Serum or plasma calcium measurement (mass/volume) 9.1 8.4 - 10.2 06/01/2018 [facility] Phosphorus measurement 2.3 2.3 - 4.7 06/01/2018 [facility] Serum or plasma magnesium measurement (mass/volume) 1.7 1.3 - 2.1 06/01/2018 [facility] Serum or plasma total bilirubin measurement (mass/volume) 0.3 0.2 - 1.2 06/01/2018 [facility] Aspartate Amino Transf (AST/SGOT) 15 5 - 34 06/01/2018 [facility] Serum or plasma alanine aminotransferase measurement (enzymatic activity/volume) 14 0 - 55 06/01/2018 [facility] Serum or plasma protein measurement (mass/volume) 6.5 6.5 - 8.1 06/01/2018 [facility] Serum or plasma albumin measurement (mass/volume) 3.2 3.5 - 5.0 06/01/2018 [facility] Plasma globulin measurement (mass/volume) 3.3 2.3 - 3.5 06/01/2018 [facility] Serum or plasma albumin/globulin mass ratio 1.0 0.8 - 2.0 06/01/2018 [facility] Serum or plasma alkaline phosphatase measurement (enzymatic activity/volume) 85 40 - 150 06/01/2018 [facility] Serum or plasma triglyceride measurement (mass/volume) 113 0 - 149 05/31/2018 [facility] Serum or plasma cholesterol measurement (mass/volume) 142 0 - 199 05/31/2018 [facility] Serum or plasma cholesterol in LDL measurement (mass/volume) 82 60 - 130 05/31/2018 [facility] Serum or plasma cholesterol in HDL measurement (mass/volume) 37 40 - 60 05/31/2018 [facility] Serum or plasma total cholesterol/cholesterol in HDL mass ratio 3.8 3.0 - 3.6 05/31/2018 [facility] Tibia fibula series DX Tibia fibula series [...] URINE AND STOOL UA Color Geno 06/20/2016 [facility] URINE AND STOOL UA Nitrite Negative (06/19/16 11:56 PM) Negative 06/20/2016 [facility] URINE AND STOOL UA Leuk Est Small *ABN* (06/19/16 11:56 PM) Negative 06/20/2016 [facility] URINE AND STOOL UA Spec Grav 1.033 <=1.030 06/20/2016 [facility] URINE AND STOOL UA pH 5.0 5.0 - 8.0 06/20/2016 [facility] URINE AND STOOL UA Protein 30 mg/dL Negative mg/dL 06/20/2016 [facility] URINE AND STOOL UA Glucose Negative mg/dL Negative mg/dL 06/20/2016 [facility] URINE AND STOOL UA Turbidity Marked *ABN* (06/19/16 11:56 PM) Clear 06/20/2016 [facility] URINE AND STOOL UA Amorph Damari Occasional /HPF None Seen /HPF 06/20/2016 [facility] URINE AND STOOL UA CaOx Damari Few /HPF None Seen /HPF 06/20/2016 [facility] URINE AND STOOL UA Mucus Few /LPF None Seen /LPF 06/20/2016 [facility] URINE AND STOOL UA Hyal Cast 3 /LPF 0 - 2 06/20/2016 [facility] URINE AND STOOL UA WBC 11 /HPF 0 - 5 06/20/2016 [facility] URINE AND STOOL UA RBC 5 /HPF 0 - 2 06/20/2016 [facility] URINE AND STOOL UA Sq Epi Occasional /LPF Few /LPF 06/20/2016 [facility] URINE AND STOOL UA Bacteria Occasional /HPF None Seen /HPF 06/20/2016 [facility] URINE AND STOOL UA Blood Negative (06/19/16 11:56 PM) Negative 06/20/2016 [facility] URINE AND STOOL UA Ketones Negative mg/dL Negative mg/dL 06/20/2016 [facility] URINE AND STOOL UA Bili Negative *NA* (06/19/16 11:56 PM) Negative 06/20/2016 [facility] CARDIAC ENZYMES CK MB Index null 0.0 - 2.5 06/20/2016 [facility] CARDIAC ENZYMES CK MB null 0.5 - 3.6 06/20/2016 [facility] CARDIAC ENZYMES Total CK 79 unit/L 12 - 191 06/20/2016 [facility] CARDIAC ENZYMES Troponin-I 0.04 ng/mL 0.00 - 0.40 06/20/2016 [facility] CHEM PANEL eGFR 90 mL/min/1.73m2 06/20/2016 [...] should be multiplied by the estimated BMI. [facility] CHEM PANEL Total Protein 8.1 g/dL 6.4 - 8.4 06/20/2016 [facility] CHEM PANEL Albumin Lvl 2.9 g/dL 3.5 - 5.0 06/20/2016 [facility] CHEM PANEL B/C Ratio 26 6 - 25 06/20/2016 [facility] CHEM PANEL Globulin 5.2 g/dL 2.7 - 4.2 06/20/2016 [facility] CHEM PANEL Calcium Lvl 9.1 mg/dL 8.5 - 10.5 06/20/2016 [facility] CHEM PANEL A/G Ratio 0.6 0.7 - 1.6 06/20/2016 [facility] CHEM PANEL CO2 23 meq/L 24 - 32 06/20/2016 [facility] CHEM PANEL AGAP 15.8 meq/L 10.0 - 20.0 06/20/2016 [facility] CHEM PANEL Chloride Lvl 102 meq/L 95 - 109 06/20/2016 [facility] CHEM PANEL Sodium Lvl 137 meq/L 135 - 145 06/20/2016 [facility] CHEM PANEL Creatinine Lvl 0.58 mg/dL 0.50 - 1.40 06/20/2016 [facility] CHEM PANEL Glucose Lvl 124 mg/dL 70 - 99 06/20/2016 [facility] CHEM PANEL BUN 15 mg/dL 7 - 22 06/20/2016 [facility] CHEM PANEL ALT 16 unit/L 0 - 65 06/20/2016 [facility] CHEM PANEL Potassium Lvl 3.8 meq/L 3.5 - 5.1 06/20/2016 Result Comment: Slight hemolysis. [facility] CHEM PANEL Bili Total 0.4 mg/dL 0.2 - 1.3 06/20/2016 [facility] CHEM PANEL Alk Phos 84 unit/L 39 - 136 06/20/2016 [facility] CHEM PANEL AST 33 unit/L 0 - 37 06/20/2016 [facility] CHEM PANEL Lipase Lvl 92 unit/L 73 - 393 06/20/2016 [facility] HEMATOLOGY Eosinophils # 0.2 K/CMM 0.0 - 0.5 06/20/2016 [facility] Monocytes # 0.9 K/CMM 0.0 - 0.8 06/20/2016 [facility] HEMATOLOGY Segs 63.6 % 45.0 - 75.0 06/20/2016 [facility] Lymphocytes 20.9 % 20.0 - 40.0 06/20/2016 [facility] Monocytes 12.3 % 2.0 - 12.0 06/20/2016 [facility] Segs-Bands # 4.5 K/CMM 1.5 - 8.1 06/20/2016 [facility] Basophils 0.6 % 0.0 - 1.0 06/20/2016 [facility] Eosinophils 2.6 % 0.0 - 4.0 06/20/2016 [facility] Lymphocytes # 1.5 K/CMM 1.0 - 5.5 06/20/2016 [facility] MCHC 33.3 g/dL 32.0 - 36.0 06/20/2016 [facility] MPV 7.8 fL 7.4 - 10.4 06/20/2016 [facility] RDW 16.1 % 11.5 - 14.5 06/20/2016 [facility] Platelet 329 K/CMM 133 - 450 06/20/2016 [facility] Hgb 13.4 g/dL 12.0 - 16.0 06/20/2016 [facility] WBC 7.0 K/CMM 3.7 - 10.4 06/20/2016 [facility] Hct 40.2 % 36.0 - 48.0 06/20/2016 [facility] RBC 4.52 M/CMM 4.20 - 5.40 06/20/2016 [facility] MCH 29.6 pg 27.0 - 31.0 06/20/2016 [facility] MCV 88.9 fL 80.0 - 98.0 06/20/2016 [facility] Brain wo contrast CT Brain wo [...] Harjeet Marin DO 06/20/16 00:59 FINAL REPORT [facility] Chest 1view DX Chest 1view DX [...] Laya Bryan MD 06/19/16 23:19 FINAL REPORT [facility] Small bowel series DX Small bowel series DX Small bowel series DX COMPARISON: 04/10/2016 CLINICAL HISTORY: Abdominal pain(789.00)(R10.9); Fluoro time: 34sec DAP:474.6Gycm2 TECHNIQUE: Serial overhead images of the abdomen were performed at 15 to 30 minute intervals following ingestion of oral barium. FINDINGS: [employer] study reveals a nonobstructive bowel gas pattern. [...] and inflammatory etiologies, including celiac disease. SL: [id number] 06/09/2016 - - Read by: Ta Garcia MD Dictated Date/time: 06/09/16 16:42 Electronically Signed by: Ta Garcia MD 06/09/16 16:48 FINAL REPORT [facility] Stomach emptying NM Stomach emptying NM [...] to marked prolongation of gastric emptying. SL: [id number] 04/22/2016 - - Read by: Ta Garcia MD Dictated Date/time: 04/23/16 07:30 Electronically Signed by: Ta Garcia MD 04/23/16 07:36 FINAL REPORT [facility] URINE AND STOOL UA Urobilinogen <=1.0 mg/dL 0.1 - 1.0 04/10/2016 [facility] URINE AND STOOL UA Glucose Negative mg/dL Negative mg/dL 04/10/2016 [facility] URINE AND STOOL UA Protein Negative mg/dL Negative mg/dL 04/10/2016 [facility] URINE AND STOOL UA Bili Negative *NA* (04/10/16 6:01 AM) Negative 04/10/2016 [facility] URINE AND STOOL UA Ketones Trace mg/dL Negative mg/dL 04/10/2016 [facility] URINE AND STOOL UA Hyal Cast 5 /LPF 0 - 2 04/10/2016 [facility] URINE AND STOOL UA Mucus Few /LPF None Seen /LPF 04/10/2016 [facility] URINE AND STOOL UA Leuk Est Negative (04/10/16 6:01 AM) Negative 04/10/2016 [facility] URINE AND STOOL UA Nitrite Negative (04/10/16 6:01 AM) Negative 04/10/2016 [facility] URINE AND STOOL UA Blood Negative (04/10/16 6:01 AM) Negative 04/10/2016 [facility] URINE AND STOOL UA RBC 5 /HPF 0 - 2 04/10/2016 [facility] URINE AND STOOL UA WBC 1 /HPF 0 - 5 04/10/2016 [facility] URINE AND STOOL UA Sq Epi Occasional /LPF Few /LPF 04/10/2016 [facility] URINE AND STOOL UA Turbidity Clear (04/10/16 6:01 AM) Clear 04/10/2016 [facility] URINE AND STOOL UA Color Yellow *NA* (04/10/16 6:01 AM) Yellow 04/10/2016 [facility] URINE AND STOOL UA pH 5.0 5.0 - 8.0 04/10/2016 [facility] URINE AND STOOL UA Spec Grav 1.017 <=1.030 04/10/2016 [facility] CARDIAC ENZYMES CK MB Index null 0.0 - 2.5 04/10/2016 [facility] CARDIAC ENZYMES Total CK 25 unit/L 12 - 191 04/10/2016 [facility] CARDIAC ENZYMES CK MB null 0.5 - 3.6 04/10/2016 [facility] CARDIAC ENZYMES Troponin-I null 0.00 - 0.40 04/10/2016 [facility] CHEM PANEL Lipase Lvl 101 unit/L 73 - 393 04/10/2016 [facility] CHEM PANEL Lactic Acid Lvl 1.0 mMol/L 0.5 - 2.2 04/10/2016 [facility] CHEM PANEL eGFR 87 mL/min/1.73m2 04/10/2016 [...] should be multiplied by the estimated BMI. [facility] CHEM PANEL Calcium Lvl 7.9 mg/dL 8.5 - 10.5 04/10/2016 [facility] CHEM PANEL Globulin 4.2 g/dL 2.7 - 4.2 04/10/2016 [facility] CHEM PANEL Albumin Lvl 2.5 g/dL 3.5 - 5.0 04/10/2016 [facility] CHEM PANEL Total Protein 6.7 g/dL 6.4 - 8.4 04/10/2016 [facility] CHEM PANEL B/C Ratio 23 6 - 25 04/10/2016 [facility] CHEM PANEL Chloride Lvl 102 meq/L 95 - 109 04/10/2016 [facility] CHEM PANEL Sodium Lvl 137 meq/L 135 - 145 04/10/2016 [facility] CHEM PANEL CO2 24 meq/L 24 - 32 04/10/2016 [facility] CHEM PANEL Potassium Lvl 2.9 meq/L 3.5 - 5.1 04/10/2016 Result Comment: Critical Result(s) called to rae meier at 04/10/2016 04:31 by tl. Read back OK. [facility] CHEM PANEL AGAP 13.9 meq/L 10.0 - 20.0 04/10/2016 [facility] CHEM PANEL A/G Ratio 0.6 0.7 - 1.6 04/10/2016 [facility] CHEM PANEL Alk Phos 77 unit/L 39 - 136 04/10/2016 [facility] CHEM PANEL ALT 15 unit/L 0 - 65 04/10/2016 [facility] CHEM PANEL Bili Total 0.4 mg/dL 0.2 - 1.3 04/10/2016 [facility] CHEM PANEL AST 15 unit/L 0 - 37 04/10/2016 [facility] CHEM PANEL BUN 15 mg/dL 7 - 22 04/10/2016 [facility] CHEM PANEL Glucose Lvl 106 mg/dL 70 - 99 04/10/2016 [facility] CHEM PANEL Creatinine Lvl 0.64 mg/dL 0.50 - 1.40 04/10/2016 [facility] CHEM PANEL Phosphorus 2.4 mg/dL 2.5 - 4.5 04/10/2016 [facility] CHEM PANEL Magnesium Lvl 1.6 mg/dL 1.8 - 2.4 04/10/2016 [facility] HEMATOLOGY Eosinophils # 0.1 K/CMM 0.0 - 0.5 04/10/2016 [facility] HEMATOLOGY Basophils # 0.1 K/CMM 0.0 - 0.2 04/10/2016 [facility] HEMATOLOGY Lymphocytes # 1.3 K/CMM 1.0 - 5.5 04/10/2016 [facility] HEMATOLOGY Monocytes # 1.1 K/CMM 0.0 - 0.8 04/10/2016 [facility] HEMATOLOGY Segs 73.5 % 45.0 - 75.0 04/10/2016 [facility] HEMATOLOGY Lymphocytes 13.5 % 20.0 - 40.0 04/10/2016 [facility] HEMATOLOGY Basophils 0.6 % 0.0 - 1.0 04/10/2016 [facility] HEMATOLOGY Segs-Bands # 7.1 K/CMM 1.5 - 8.1 04/10/2016 [facility] HEMATOLOGY Eosinophils 1.3 % 0.0 - 4.0 04/10/2016 [facility] HEMATOLOGY Monocytes 11.1 % 2.0 - 12.0 04/10/2016 [facility] HEMATOLOGY MCHC 33.8 g/dL 32.0 - 36.0 04/10/2016 [facility] HEMATOLOGY Hct 36.3 % 36.0 - 48.0 04/10/2016 [facility] MCV 90.1 fL 80.0 - 98.0 04/10/2016 [facility] RDW 14.7 % 11.5 - 14.5 04/10/2016 [facility] MCH 30.4 pg 27.0 - 31.0 04/10/2016 [facility] MPV 7.5 fL 7.4 - 10.4 04/10/2016 [facility] Platelet 347 K/CMM 133 - 450 04/10/2016 [facility] WBC 9.6 K/CMM 3.7 - 10.4 04/10/2016 [facility] RBC 4.03 M/CMM 4.20 - 5.40 04/10/2016 [facility] Hgb 12.2 g/dL 12.0 - 16.0 04/10/2016 [facility] PTT 32.2 s 22.9 - 35.8 04/10/2016 [facility] INR 1.04 0.85 - 1.17 04/10/2016 [facility] PT 13.8 s 12.0 - 14.7 04/10/2016 [facility] Abdomen/Pelvis w IV contrast CT Abdomen/Pelvis w IV contrast CT Patient Name: TOMAS RUIZ : 1940; Age: 76 years y/o Female MR: [id number] Study: Abdomen/Pelvis w IV contrast CT 04/10/2016 3:01 AM [employer] Ordering Physician: Radha Tracy DO Comparison: None [...] spondylosis and lumbar degenerative disc disease. SL: [id number] 04/10/2016 - - Read by: Azeem Almanzar MD Dictated Date/time: 04/10/16 07:09 Electronically Signed by: Azeem Almanzar MD 04/10/16 07:23 FINAL REPORT [facility] Chest 1view DX Chest 1view DX [...] unremarkable. IMPRESSION: 1. Unremarkable chest x-ray. SL: [id number] 04/10/2016 - - Read by: Harjeet Marin DO Dictated Date/time: 04/10/16 03:51 Electronically Signed by: Harjeet Marin DO 04/10/16 03:51 FINAL REPORT [facility] Vital Signs Vital Sign Value Date [...] 09/22/2016 [facility] Respitory Rate 11 07/29/2016 [facility] Systolic (mm Hg) 161 07/29/2016 [facility] Diastolic (mm Hg) 79 07/29/2016 [facility] Systolic (mm Hg) 165 07/29/2016 [facility] Diastolic (mm Hg) 80 07/29/2016 [facility] Respitory Rate 15 07/29/2016 [facility] Systolic (mm Hg) 103 07/29/2016 [facility] Diastolic (mm Hg) 53 07/29/2016 [facility] Respitory Rate 18 07/29/2016 [facility] Temperature Oral (F) 98.1 F 07/29/2016 [facility] Heart Rate 76 07/29/2016 [facility] BMI Calculated 23.48 07/28/2016 [facility] Height 157.48 cm 07/28/2016 [facility] Weight 58.239 07/28/2016 [facility] Weight 125 06/23/2016 [facility] Height 62 06/23/2016 [facility] Temperature Oral (F) 97.7 F 06/23/2016 [facility] Heart Rate 80 06/23/2016 [facility] Diastolic (mm Hg) 72 06/23/2016 [facility] Systolic (mm Hg) 112 06/23/2016 [facility] Respitory Rate 13 06/20/2016 [facility] Systolic (mm Hg) 130 06/20/2016 [facility] Diastolic (mm Hg) 69 06/20/2016 [facility] Temperature Oral (F) 98.2 F 06/20/2016 [facility] Respitory Rate 21 06/20/2016 [facility] Systolic (mm Hg) 134 06/20/2016 [facility] Diastolic (mm Hg) 87 06/20/2016 [facility] Respitory Rate 16 06/20/2016 [facility] Systolic (mm Hg) 162 06/20/2016 [facility] Diastolic (mm Hg) 94 06/20/2016 [facility] Heart Rate 80 06/20/2016 [facility] Temperature Oral (F) 98.3 F 06/20/2016 [facility] Temperature Oral (F) 98.3 F 06/20/2016 [facility] BMI Calculated 24.01 06/20/2016 [facility] Weight 59.545 06/20/2016 [facility] Height 157.48 cm 06/20/2016 [facility] Heart Rate 98 06/20/2016 [facility] Weight 59.545 06/06/2016 [facility] BMI Calculated 23.63 06/06/2016 [facility] Height 158.75 cm 06/06/2016 [facility] Heart Rate 79 06/06/2016 [facility] Respitory Rate 16 06/06/2016 [facility] Systolic (mm Hg) 147 06/06/2016 [facility] Diastolic (mm Hg) 94 06/06/2016 [facility] Systolic (mm Hg) 108 05/02/2016 [facility] Diastolic (mm Hg) 66 05/02/2016 [facility] Respitory Rate 16 05/02/2016 [facility] Systolic (mm Hg) 109 05/02/2016 [facility] Diastolic (mm Hg) 76 05/02/2016 [facility] Respitory Rate 16 05/02/2016 [facility] Systolic (mm Hg) 117 05/02/2016 [facility] Diastolic (mm Hg) 59 05/02/2016 [facility] Respitory Rate 15 05/02/2016 [facility] Height 157.48 cm 05/02/2016 [facility] Weight 62.727 05/02/2016 [facility] BMI Calculated 25.29 05/02/2016 [facility] Heart Rate 82 05/02/2016 [facility] Heart Rate 93 04/10/2016 [facility] Respitory Rate 17 04/10/2016 [facility] Systolic (mm Hg) 109 04/10/2016 [facility] Diastolic (mm Hg) 65 04/10/2016 [facility] Heart Rate 96 04/10/2016 [facility] Systolic (mm Hg) 116 04/10/2016 [facility] Diastolic (mm Hg) 67 04/10/2016 [facility] Temperature Oral (F) 97.5 F 04/10/2016 [facility] Respitory Rate 18 04/10/2016 [facility] Systolic (mm Hg) 114 04/10/2016 [facility] Diastolic (mm Hg) 72 04/10/2016 [facility] Temperature Oral (F) 98.3 F 04/10/2016 [facility] Respitory Rate 18 04/10/2016 [facility] Heart Rate 106 04/10/2016 [facility] Weight 72.727 04/10/2016 [facility] Respitory Rate 13 03/04/2016 [facility] Respitory Rate 16 03/04/2016 [facility] Systolic (mm Hg) 149 03/04/2016 [facility] Diastolic (mm Hg) 77 03/04/2016 [facility] Respitory Rate 13 03/04/2016 [facility] Systolic (mm Hg) 143 03/04/2016 [facility] Diastolic (mm Hg) 70 03/04/2016 [facility] Systolic (mm Hg) 133 03/04/2016 [facility] Diastolic (mm Hg) 70 03/04/2016 [facility] Height 157.48 cm 03/03/2016 [facility] BMI Calculated [...] 02/27/2014 [facility] Height 62 02/27/2014 [facility] Temperature Oral (F) 98.4 F 02/27/2014 [facility] [...] Date Status Source [facility] MD f/u [id number] 08/29/2013 08/29/2013 [facility] MD f/u [id number] 08/29/2013 08/29/2013 [facility] MD f/u [id number] 08/29/2013 08/29/2013 [facility] MD f/u [id number] 08/29/2013 08/29/2013 [facility] MD f/u [id number] 08/29/2013 08/29/2013 [facility] MD f/u [id number] 08/29/2013 08/29/2013 [facility] MD f/u [id number] 08/29/2013 08/29/2013 [facility] MD f/u [id number] 08/29/2013 08/29/2013 [facility] MD f/u [id number] 08/29/2013 08/29/2013 [facility] MD f/u [id number] 08/29/2013 08/29/2013 [facility] MD f/u [id number] 08/29/2013 08/29/2013 [facility] MD f/u [id number] 08/29/2013 08/29/2013 [facility] MD f/u [id number] 08/29/2013 08/29/2013 [facility] MD f/u [id number] 08/29/2013 08/29/2013 [facility] MD f/u [id number] 08/29/2013 08/29/2013 [facility] MD f/u [id number] 08/29/2013 08/29/2013 [facility] MD f/u [id number] 08/29/2013 08/29/2013 [facility] MD f/u [id number] 08/29/2013 08/29/2013 [facility] MD f/u [id number] 08/29/2013 08/29/2013 [facility] MD f/u [id number] 08/29/2013 08/29/2013 [facility] MD f/u [id number] 08/29/2013 08/29/2013 [facility] MD f/u [id number] 08/29/2013 08/29/2013 [facility] MD f/u [id number] 08/29/2013 08/29/2013 [facility] MD f/u [id number] 08/29/2013 08/29/2013 [facility] MD f/u [id number] 08/29/2013 08/29/2013 [facility] MD f/u [id number] 08/29/2013 08/29/2013 [facility] MD f/u [id number] 08/29/2013 08/29/2013 [facility] MD f/u [id number] 08/29/2013 08/29/2013 [facility] MD f/u [id number] 08/29/2013 08/29/2013 [facility] MD f/u [id number] 08/29/2013 08/29/2013 [facility] MD f/u [id number] 08/29/2013 08/29/2013 [facility] MD f/u [id number] 08/29/2013 08/29/2013 [facility] MD f/u [id number] 08/29/2013 08/29/2013 [facility] MD [employer] [id number] 12/23/2013 12/23/2013 [facility] MD [employer] [id number] 12/23/2013 12/23/2013 [facility] MD [employer] [id number] 12/23/2013 12/23/2013 [facility] MD [employer] [id number] 12/23/2013 12/23/2013 [facility] MD [employer] [id number] 12/23/2013 12/23/2013 [facility] MD [employer] [id number] 12/23/2013 12/23/2013 [facility] MD [employer] [id number] 12/23/2013 12/23/2013 [facility] MD [employer] [id number] 12/23/2013 12/23/2013 [facility] MD [employer] [id number] 12/23/2013 12/23/2013 [facility] MD [employer] [id number] 12/23/2013 12/23/2013 [facility] MD [employer] [id number] 12/23/2013 12/23/2013 [facility] MD [employer] [id number] 12/23/2013 12/23/2013 [facility] MD [employer] [id number] 12/23/2013 12/23/2013 [facility] MD [employer] [id number] 12/23/2013 12/23/2013 [facility] MD [employer] [id number] 12/23/2013 12/23/2013 [facility] MD [employer] [id number] 12/23/2013 12/23/2013 [facility] MD [employer] [id number] 12/23/2013 12/23/2013 Fitz Beaulieu MD RE[employer] [id number] 12/23/2013 12/23/2013 Fitz Beaulieu MD [facility] [id number] 12/23/2013 12/23/2013 Fitz Beaulieu MD RE[employer] [id number] 12/23/2013 12/23/2013 Fitz Beaulieu MD [employer] [id number] 12/23/2013 12/23/2013 Fitz Beaulieu MD [facility] [id number] 12/23/2013 12/23/2013 Fitz Beaulieu MD [facility] [id number] 12/23/2013 12/23/2013 Fitz Beaulieu MD [facility] [id number] 12/23/2013 12/23/2013 Fitz Beaulieu MD REFI[facility] [id number] 12/23/2013 12/23/2013 Fitz Beaulieu MD REFI[facility] [id number] 12/23/2013 12/23/2013 Fitz Beaulieu MD REFILL[facility]ARAVA [id number]-[id number] 12/23/2013 12/23/2013 Fitz Beaulieu MD RE[facility] [id number] 12/23/2013 12/23/2013 Fitz Beaulieu MD REFI[facility] [id number] 12/23/2013 12/23/2013 Fitz Beaulieu MD RE[facility] [id number] 12/23/2013 12/23/2013 Fitz Beaulieu MD RE[facility] [id number] 12/23/2013 12/23/2013 Fitz Beaulieu MD REFI[facility] [id number] 12/23/2013 12/23/2013 Fitz Beaulieu MD dexa [id number] 02/22/2014 02/22/2014 Fitz Beaulieu MD dexa [id number] 02/22/2014 02/22/2014 Fitz Beaulieu MD dexa [id number] 02/22/2014 02/22/2014 Fitz Beaulieu MD dexa [id number] 02/22/2014 02/22/2014 Fitz Beaulieu MD dexa [id number] 02/22/2014 02/22/2014 Fitz Beaulieu MD dexa [id number] 02/22/2014 02/22/2014 Fitz Beaulieu MD dexa [id number] 02/22/2014 02/22/2014 Fitz Beaulieu MD dexa [id number] 02/22/2014 02/22/2014 Fitz Beaulieu MD dexa [id number] 02/22/2014 02/22/2014 Fitz Beaulieu MD dexa [id number] 02/22/2014 02/22/2014 Fitz Beaulieu MD dexa [id number] 02/22/2014 02/22/2014 Fitz Beaulieu MD dexa [id number] 02/22/2014 02/22/2014 Fitz Beaulieu MD dexa [id number] 02/22/2014 02/22/2014 Fitz Beaulieu MD dexa [id number] 02/22/2014 02/22/2014 Fitz Beaulieu MD dexa [id number] 02/22/2014 02/22/2014 Fitz Beaulieu MD dexa [id number] 02/22/2014 02/22/2014 Fitz Beaulieu MD dexa [id number] 02/22/2014 02/22/2014 Fitz Beaulieu MD dexa [id number] 02/22/2014 02/22/2014 Fitz Beaulieu MD dexa [id number] 02/22/2014 02/22/2014 Fitz Beaulieu MD dexa [id number] 02/22/2014 02/22/2014 Fitz Beaulieu MD dexa [id number] 02/22/2014 02/22/2014 Fitz Beaulieu MD dexa [id number] 02/22/2014 02/22/2014 Fitz Beaulieu MD dexa [id number] 02/22/2014 02/22/2014 Fitz Beaulieu MD dexa [id number] 02/22/2014 02/22/2014 Fitz Beaulieu MD dexa [id number] 02/22/2014 02/22/2014 Fitz Beaulieu MD dexa [id number] 02/22/2014 02/22/2014 Fitz Beaulieu MD dexa [id number] 02/22/2014 02/22/2014 Fitz Beaulieu MD dexa [id number] 02/22/2014 02/22/2014 Fitz Beaulieu MD dexa [id number] 02/22/2014 02/22/2014 Fitz Beaulieu MD dexa [id number] 02/22/2014 02/22/2014 Fitz Beaulieu MD dexa [id number] 02/22/2014 02/22/2014 Fitz Beaulieu MD f/u [id number] 02/27/2014 02/27/2014 Fitz Beaulieu MD f/u [id number] 02/27/2014 02/27/2014 Fitz Beaulieu MD f/u [id number] 02/27/2014 02/27/2014 Fitz Beaulieu MD f/u [id number] 02/27/2014 02/27/2014 Fitz Beaulieu MD f/u [id number]-[id number] 02/27/2014 02/27/2014 Fitz Beaulieu MD f/u [id number] 02/27/2014 02/27/2014 Fitz Beaulieu MD f/u [id number] 02/27/2014 02/27/2014 Fitz Beaulieu MD f/u [id number] 02/27/2014 02/27/2014 Fitz Beaulieu MD f/u [id number] 02/27/2014 02/27/2014 Fitz Beaulieu MD f/u [id number] 02/27/2014 02/27/2014 Fitz Beaulieu MD f/u [id number] 02/27/2014 02/27/2014 Fitz Beaulieu MD f/u [id number]-[id number] 02/27/2014 02/27/2014 Fitz Beaulieu MD f/u [id number] 02/27/2014 02/27/2014 Fitz Beaulieu MD f/u [id number]-wz22-[id number] 02/27/2014 02/27/2014 Fitz Beaulieu MD f/u [id number] 02/27/2014 02/27/2014 Fitz Beaulieu MD f/u [id number] 02/27/2014 02/27/2014 Fitz Beaulieu MD f/u [id number] 02/27/2014 02/27/2014 Fitz Beaulieu MD f/u [id number] 02/27/2014 02/27/2014 Fitz Beaulieu MD f/u [id number]-h483k0q53l0i 02/27/2014 02/27/2014 Fitz Beaulieu MD f/u [id number] 02/27/2014 02/27/2014 Fitz Beaulieu MD f/u [id number]-683g-qvmu-387c6v41pry6 02/27/2014 02/27/2014 Fitz Beaulieu MD f/u [id number]-e71t-[id number] 02/27/2014 02/27/2014 Fitz Beaulieu MD f/u [id number] 02/27/2014 02/27/2014 Fitz Beaulieu MD f/u [id number]-c58p332y7x2m 02/27/2014 02/27/2014 Fitz Beaulieu MD f/u [id number]-229u-z49q-520s4san847t 02/27/2014 02/27/2014 Fitz Beaulieu MD f/u [id number] 02/27/2014 02/27/2014 Fitz Beaulieu MD f/u [id number] 02/27/2014 02/27/2014 Fitz Beaulieu MD f/u [id number]-[id number] 02/27/2014 02/27/2014 Fitz Beaulieu MD f/u [id number] 02/27/2014 02/27/2014 Fitz Beaulieu MD [facility]/u [id number]-[id number] 02/27/2014 02/27/2014 Fitz Beaulieu MD Appointment [id number] 05/12/2014 05/12/2014 Fitz Beaulieu MD Appointment [id number] 05/12/2014 05/12/2014 Fitz Beaulieu MD Appointment [id number] 05/12/2014 05/12/2014 Fitz Beaulieu MD Appointment [id number] 05/12/2014 05/12/2014 Fitz Beaulieu MD Appointment [id number] 05/12/2014 05/12/2014 Fitz Beaulieu MD Appointment [id number] 05/12/2014 05/12/2014 Fitz Beaulieu MD Appointment [id number] 05/12/2014 05/12/2014 Fitz Beaulieu MD Appointment [id number] 05/12/2014 05/12/2014 Fitz Beaulieu MD Appointment [id number] 05/12/2014 05/12/2014 Fitz Beaulieu MD Appointment [id number] 05/12/2014 05/12/2014 Fitz Beaulieu MD Appointment [id number] 05/12/2014 05/12/2014 Fitz Beaulieu MD Appointment [id number] 05/12/2014 05/12/2014 Fitz Beaulieu MD Appointment [id number] 05/12/2014 05/12/2014 Fitz Beaulieu MD Appointment [id number] 05/12/2014 05/12/2014 Fitz Beaulieu MD Appointment [id number]-[id number]-[id number] 05/12/2014 05/12/2014 Fitz Beaulieu MD Appointment [id number] 05/12/2014 05/12/2014 Fitz Beaulieu MD Appointment [id number] 05/12/2014 05/12/2014 Fitz Beaulieu MD Appointment [id number] 05/12/2014 05/12/2014 Fitz Beaulieu MD Appointment [id number]-[id number] 05/12/2014 05/12/2014 Fitz Beaulieu MD Appointment [id number] 05/12/2014 05/12/2014 Fitz Beaulieu MD Appointment [id number] 05/12/2014 05/12/2014 Fitz Beaulieu MD Appointment [id number] 05/12/2014 05/12/2014 Fitz Beaulieu MD Appointment [id number] 05/12/2014 05/12/2014 Fitz Beaulieu MD Appointment [id number] 05/12/2014 05/12/2014 Fitz Beaulieu MD Appointment [id number] 05/12/2014 05/12/2014 Fitz Beaulieu MD Appointment [id number] 05/12/2014 05/12/2014 Fitz Beaulieu MD Appointment [id number] 05/12/2014 05/12/2014 Fitz Beaulieu MD Appointment [id number] 05/12/2014 05/12/2014 Fitz Beaulieu MD [facility] [id number] 05/12/2014 05/12/2014 Fitz Beaulieu MD [facility] [id number] 05/12/2014 05/12/2014 Fitz Beaulieu MD Refill- Leflunomide [id number]-[id number] 05/15/2014 05/15/2014 Fitz Beaulieu MD Refill- Leflunomide [id number] 05/15/2014 05/15/2014 Fitz Beaulieu MD Refill- Leflunomide [id number]-6m6b-6k1s-ztlz-37804v1im080 05/15/2014 05/15/2014 Fitz Beaulieu MD Refill- Leflunomide 90x2sek6-1q21-1v19-2tob-d466w0435t62 05/15/2014 05/15/2014 Fitz Beaulieu MD Refill- Leflunomide [id number]-[id number]-6o450sj13n67 05/15/2014 05/15/2014 Fitz Beaulieu MD Refill- Leflunomide [id number]-2430-55ms-y415p23eb8z9 05/15/2014 05/15/2014 Fitz Beaulieu MD Refill- Leflunomide uv3rrhv6-sfm8-1d52-i385-648nybxc69v8 05/15/2014 05/15/2014 Fitz Beaulieu MD Refill- Leflunomide [id number]-[id number]-9u3d-7dh131y97528 05/15/2014 05/15/2014 Fitz Beaulieu MD Refill- Leflunomide [id number]-lh11-3x1s-979d-a7vpe270ai68 05/15/2014 05/15/2014 Fitz Beaulieu MD Refill- Leflunomide 6p61d2sd-5854-93iq-21b4-2785282345q2 05/15/2014 05/15/2014 Fitz Beaulieu MD Refill- Leflunomide 280y5zvr-b042-045m-96zl-76l37p46znl1 05/15/2014 05/15/2014 Fitz Beaulieu MD Refill- Leflunomide [id number]-q07i-3ht3-7644-4r347ytt333q 05/15/2014 05/15/2014 Fitz Beaulieu MD Refill- Leflunomide [id number]-a1o5-t10n4n7123hs 05/15/2014 05/15/2014 Fitz Beaulieu MD Refill- Leflunomide 584g4779-0qp7-1a55-x1o8-317f5c6k2c6g 05/15/2014 05/15/2014 Fitz Beaulieu MD Refill- Leflunomide 0116me10-754l-3p51-234g-[id number] 05/15/2014 05/15/2014 Fitz Beaulieu MD Refill- Leflunomide [id number] 05/15/2014 05/15/2014 Fitz Beaulieu MD Refill- Leflunomide 9rhd7345-028h-13x4-o38g-10f32f677f04 05/15/2014 05/15/2014 Fitz Beaulieu MD Refill- Leflunomide 8g6l495s-t063-6mg9-f88f-2u32285n4ma4 05/15/2014 05/15/2014 Fitz Beaulieu MD Refill- Leflunomide 3544nc6a-h6pa-75nk-j41f-g849t470t232 05/15/2014 05/15/2014 Fitz Beaulieu MD Refill- Leflunomide [id number]-xypj-23x4-ya5o-66n0hqh78gad 05/15/2014 05/15/2014 Fitz Beaulieu MD Refill- Leflunomide 70op0nvk-4b88-2k7w-hkq2-795c6jir445f 05/15/2014 05/15/2014 Fitz Beaulieu MD Refill- Leflunomide n4vqr60m-4m25-3029-427c-464j7041027m 05/15/2014 05/15/2014 Fitz Beaulieu MD Refill- Leflunomide 2s885g6w-33b8-6019-f3c7-t528v189nb71 05/15/2014 05/15/2014 Fitz Beaulieu MD Refill- Leflunomide 6840mss4-6h10-36t0-d607-p4665c44633t 05/15/2014 05/15/2014 Fitz Beaulieu MD Refill- Leflunomide 64d8f667-o7pg-6878-230k-8127326x018o 05/15/2014 05/15/2014 Fitz Beaulieu MD Refill- Leflunomide h49q98gj-2924-9886-9j6w-j879i06a9655 05/15/2014 05/15/2014 Fitz Beaulieu MD Refill- Leflunomide 0cp9s9l5-70m5-6h28-722w-5a3vonr6sn5t 05/15/2014 05/15/2014 Fitz Beaulieu MD Refill- Leflunomide 50g7266k-svg3-8i1e-kk23-u2m270ltq251 05/15/2014 05/15/2014 Fitz Beaulieu MD 3 MO F/U [id number]-c9vi-16w3-zen0-p7901749i303 05/30/2014 05/30/2014 Fitz eBaulieu MD 3 MO F/U 31h2i76o-9234-955o-m6fu-69s9gls54ck8 05/30/2014 05/30/2014 Fitz Beaulieu MD 3 [place] F/U 9nsviryc-g7h1-68n9p3c6-62e2-9674-1z37k312x665 05/30/2014 05/30/2014 Fitz Beaulieu MD 3 [place] F/U 9vvew200-0989-3s75-lxa7-49a0a943803z 05/30/2014 05/30/2014 Fitz Beaulieu MD 3 [place] F/U b39758pj-49eo-4qx4-iuc8-a9qet717i18e 05/30/2014 05/30/2014 Fitz Beaulieu MD 3 [place] F/U v726p957-g906-29p0-0754-k15u9497796d 05/30/2014 05/30/2014 Fitz Beaulieu MD 3 [place] F/U 79a5f048-i65x-94my-zt81-16785b579o18 05/30/2014 05/30/2014 Fitz Beaulieu MD 3 [place] F/U 94l06q11-77g2-0r63-033m-9ctljh02646l 05/30/2014 05/30/2014 Fitz Beaulieu MD 3 [place] F/U p74zh607-61k2-51mj-we12-75it3k72kzi9 05/30/2014 05/30/2014 Fitz Beaulieu MD 3 [place] F/U 1u461t0n-o2gx-8s3h-h0am-6l0t07c54fad 05/30/2014 05/30/2014 Fitz Beaulieu MD 3 [place] F/U y8ms0bht-26q7-25pn-4ee4-833mz19xc1il 05/30/2014 05/30/2014 Fitz Beaulieu MD 3 [place] F/U l25v84p1-h7f8-13w5-q511-517030vc4z0d 05/30/2014 05/30/2014 Fitz Beaulieu MD 3 [place] F/U f4m6qw7t-2l06-24qc-e062-76zx1878a5gi 05/30/2014 05/30/2014 Fitz Beaulieu MD 3 [place] F/U 4558ndqu-7o8d-4n3x4v9u-8q2u-yi31-w73691h2967k 05/30/2014 05/30/2014 Fitz Beaulieu MD 3 [place] F/U 4zqht18v-2314-0305-u520-4z92v92ig56r 05/30/2014 05/30/2014 Fitz Beaulieu MD 3 [place] F/U 9p4752b3-8t3d-936n-72k6-i4t7k7b16o68 05/30/2014 05/30/2014 Fitz Beaulieu MD 3 MO F/U [id number]-0l8y-e50km0613840 05/30/2014 05/30/2014 Fitz Beaulieu MD 3 [place] F/U [id number] 05/30/2014 05/30/2014 Fitz Beaulieu MD 3 [place] F/U 4u24891g-0zi4-72f1-y668-09s15000416i 05/30/2014 05/30/2014 Fitz Beaulieu MD 3 [place] F/U 0kl24yp6-5kq4-022n-d486-p91n3f5z7853 05/30/2014 05/30/2014 Fitz Beaulieu MD 3 [place] F/U 10h1uguz-694g-5757-esj4-wm8568l31589 05/30/2014 05/30/2014 Fitz Beaulieu MD 3 MO F/U i8d3417f-3x18-035z-fv93-5454z721w9cs 05/30/2014 05/30/2014 Fitz Beaulieu MD 3 [place] F/U s9x576p4-w18t-4004-55b9-293o8e88t50x 05/30/2014 05/30/2014 Fitz Beaulieu MD 3 [place] F/U 7210fi39-907r-155k-79s2-878952928k2c 05/30/2014 05/30/2014 Fitz Beaulieu MD 3 [place] F/U zq05d6jr-1n72-4437-3w87-199r502yyw3p 05/30/2014 05/30/2014 Fitz Beaulieu MD 3 [place] F/U 9r950l73-4573-77q9-sqro-13qa23y6943a 05/30/2014 05/30/2014 Fitz Beaulieu MD 3 MO F/U l04d84m3-gr8e-86x9-082s-6fv49yj009s3 05/30/2014 05/30/2014 Fitz Beaulieu MD [facility] August 02 [id number]-n37z-3830f3jg62ax 06/14/2014 06/14/2014 Fitz Beaulieu MD [facility] August 02 [id number]-s5z5p03x6b2a 06/14/2014 06/14/2014 Fitz Beaulieu MD [facility] August 02 [id number]-[id number] 06/14/2014 06/14/2014 Fitz Beaulieu MD [facility] August 02 [id number] 06/14/2014 06/14/2014 Fitz Beaulieu MD [facility] August 02 [id number] 06/14/2014 06/14/2014 Fitz Beaulieu MD [facility] August 02 [id number] 06/14/2014 06/14/2014 Fitz Beaulieu MD [facility] August 02 [id number] 06/14/2014 06/14/2014 Fitz Beaulieu MD [facility] August 02 [id number] 06/14/2014 06/14/2014 Fitz Beaulieu MD [facility] August 02 [id number] 06/14/2014 06/14/2014 Fitz Beaulieu MD [facility] August 02 [id number] 06/14/2014 06/14/2014 Fitz Beaulieu MD [facility] August 02 [id number] 06/14/2014 06/14/2014 Fitz Beaulieu MD [facility] August 02 [id number] 06/14/2014 06/14/2014 Fitz Beaulieu MD [facility] August 02 [id number] 06/14/2014 06/14/2014 Fitz Beaulieu MD [facility] August 02 [id number] 06/14/2014 06/14/2014 Fitz Beaulieu MD [facility] August 02 [id number] 06/14/2014 06/14/2014 Fitz Beaulieu MD [facility] August 02 [id number] 06/14/2014 06/14/2014 Fitz Beaulieu MD [facility] August 02 [id number] 06/14/2014 06/14/2014 Fitz Beaulieu MD [facility] August 02 [id number] 06/14/2014 06/14/2014 Fitz Beaulieu MD [facility] August 02 [id number] 06/14/2014 06/14/2014 Fitz Beaulieu MD MRI [facility] August 02 [id number] 06/14/2014 06/14/2014 Fitz Beaulieu MD [facility] August 02 [id number] 06/14/2014 06/14/2014 Fitz Beaulieu MD [facility] August 02 [id number] 06/14/2014 06/14/2014 Fitz Beaulieu MD [facility] August 02 [id number] 06/14/2014 06/14/2014 Fitz Beaulieu MD [facility] August 02 [id number] 06/14/2014 06/14/2014 Fitz Beaulieu MD [facility] August 02 [id number] 06/14/2014 06/14/2014 Fitz Beaulieu MD [facility] August 02 [id number] 06/14/2014 06/14/2014 Fitz Beaulieu MD [facility] August 02 [id number] 06/14/2014 06/14/2014 Fitz Beaulieu MD 3 MO F/U [id number]-[id number] 08/29/2014 08/29/2014 Fitz Beaulieu MD 3 MO F/U [id number]-[id number] 08/29/2014 08/29/2014 Fitz Beaulieu MD 3 [place] F/U [id number]-m844-6s9m-i8ix-q51463r138uk 08/29/2014 08/29/2014 Fitz Beaulieu MD 3 MO F/U 768m7325-9780-745q-0x27-z93b78xg625a 08/29/2014 08/29/2014 Fitz Beaulieu MD 3 MO F/U 1ji806c4-y582-5615-1079-jv8rztmud2k8 08/29/2014 08/29/2014 Fitz Beaulieu MD 3 MO F/U 70yvv235-178p-0b23-q4t7-10c57k195352 08/29/2014 08/29/2014 Fitz Beaulieu MD 3 MO F/U g2ptsz50-2iq5-22ij-e721-t8i71yns1mab 08/29/2014 08/29/2014 Fitz Beaulieu MD 3 MO F/U 5628r3ac-cfg1-9505-k5v9-270v6pm347t1 08/29/2014 08/29/2014 Fitz Beaulieu MD 3 MO F/U 778vc886-14tg-46s3-ik46-5n93h72r393b 08/29/2014 08/29/2014 Fitz Beaulieu MD 3 MO F/U e676c9c2-7b8v-9xp2-w60r-ks25v011w9d5 08/29/2014 08/29/2014 Fitz Beaulieu MD 3 MO F/U tcv959n3-f6m6-84i3-6563-969m0cik0z01 08/29/2014 08/29/2014 Fitz Beaulieu MD 3 MO F/U 5pvl04f7-44vv-1345-1323-5du66bd9lu7d 08/29/2014 08/29/2014 Fitz Beaulieu MD 3 MO F/U 420o0x13-cc19-2589-4fq7-x9fxn1q8522k 08/29/2014 08/29/2014 Fitz Beaulieu MD 3 MO F/U 18253v2t-ar56-7614-9744-g9dwm8237803 08/29/2014 08/29/2014 Fitz Beaulieu MD 3 MO F/U c2su77r5-r3f0-4szp-84m3-jpe6682te690 08/29/2014 08/29/2014 Fitz Beaulieu MD 3 MO F/U atd09984-1d34-0p4u-8046-7a50951112f5 08/29/2014 08/29/2014 Fitz Beaulieu MD 3 MO F/U 59169oe5-1ll4-2616-4529-81j1u8877817 08/29/2014 08/29/2014 Fitz Beaulieu MD 3 MO F/U 5huqo0ln-581u-66s7-ki82-6vz3hx7398we 08/29/2014 08/29/2014 Fitz Beaulieu MD 3 MO F/U z8c56073-m1p4-0y59-f144-6096528zu494 08/29/2014 08/29/2014 Fitz Beaulieu MD 3 MO F/U x58333ca-m781-851k-l1w9-601d57v2i21w 08/29/2014 08/29/2014 Fitz Beaulieu MD 3 MO F/U m1925o62-09e1-5v52-5468-34m38kqo4850 08/29/2014 08/29/2014 Fitz Beaulieu MD 3 MO F/U 6l9wq039-b5l9-3jmr-w6j7-i821oetcq77e 08/29/2014 08/29/2014 Fitz Beaulieu MD 3 MO F/U 0f7u8z9t-079l-1989-wa48-e0t4dk96t97b 08/29/2014 08/29/2014 Fitz Beaulieu MD 3 MO F/U 9qa6cat3-14y4-869a-8961-ez1gocgkz92f 08/29/2014 08/29/2014 Fitz Beaulieu MD 3 MO F/U e53a4799-53jy-8v03-3r88-2p075g567eyc 08/29/2014 08/29/2014 Fitz Beaulieu MD 3 MO F/U cs61679i-6054-7g64-8045-517r7h972xy8 08/29/2014 08/29/2014 Fitz Beaulieu MD 3 MO F/U 5o934hcd-h19i-8u0o-j314-ed59z33m6g54 08/29/2014 08/29/2014 Fitz Beaulieu MD DEXA bx2fer2j-7io7-3iud-ray2-701s5292453k 09/01/2014 09/01/2014 Fitz Beaulieu MD DEXA 16w8xy0a-b153-1ea4-o2un-330142g95bl6 09/01/2014 09/01/2014 Fitz Beaulieu MD DEXA i15r8y5q-9q78-2zui-y99f-6o81109p27jo 09/01/2014 09/01/2014 Fitz Beaulieu MD DEXA 306r552b-6m1f-97d6-n249-ysm4m96o7443 09/01/2014 09/01/2014 Fitz Beaulieu MD DEXA jnx58ttf-u5a8-6w9x-6261-l7425ka8606j 09/01/2014 09/01/2014 Fitz Beaulieu MD DEXA 7e8e9f5m-9872-6041-qsp7-6ndb23m21bk3 09/01/2014 09/01/2014 Fitz Beaulieu MD DEXA 48ur0p89-6092-9clj-6410-378ph072pv44 09/01/2014 09/01/2014 Fitz Beaulieu MD DEXA 2d26t8a5-zk8l-95ea-bwaq-6h000d5vh180 09/01/2014 09/01/2014 Fitz Beaulieu MD DEXA 3907197q-h924-6rc0-69g2-sa157w13bn41 09/01/2014 09/01/2014 Fitz Beaulieu MD DEXA 40aa99j3-5482-55u7-893c-b3k6231n241c 09/01/2014 09/01/2014 Fitz Beaulieu MD DEXA 10vb91h6-283v-4x29-m26e-k31rh5134304 09/01/2014 09/01/2014 Fitz Beaulieu MD DEXA 52141637-zdjo-473j-wbke-8tfs35y9w7l1 09/01/2014 09/01/2014 Fitz Beaulieu MD DEXA 1b87022e-cs97-92k1-l875-0k60690mw427 09/01/2014 09/01/2014 Fitz Beaulieu MD DEXA 988wo365-g1aa-6604-i1w6-245y0t618310 09/01/2014 09/01/2014 Fitz Beaulieu MD DEXA 545mum78-72sa-0w41-q516-23172tq3t7t2 09/01/2014 09/01/2014 Fitz Beaulieu MD DEXA u22y5012-rg9s-0t15-l213-g8t45894hdzr 09/01/2014 09/01/2014 Fitz Beaulieu MD DEXA 839wv6pd-6l2h-6228-8402-kl2482ikg764 09/01/2014 09/01/2014 Fitz Beaulieu MD DEXA 41x55f29-1i9s-050r-fad1-326fr5wx36m2 09/01/2014 09/01/2014 Fitz Beaulieu MD DEXA 5p01smv4-8260-66cr-md9a-60b32d68kbzl 09/01/2014 09/01/2014 Fitz Beaulieu MD DEXA 3vy0x54v-2c25-1cv9-x0fp-27l4p2q6hcv8 09/01/2014 09/01/2014 Fitz Beaulieu MD DEXA xl658246-2518-2z10-sf4k-r849dn2ph695 09/01/2014 09/01/2014 Fitz Beaulieu MD DEXA 636z101f-9986-9gg8-y544-1016a30s0272 09/01/2014 09/01/2014 Fitz Beaulieu MD DEXA 5v1vh7h1-298m-370r-714j-a9g75nr60w01 09/01/2014 09/01/2014 Fitz Beaulieu MD DEXA r888g121-7i8j-68l7-r852-gxlu9418q2r5 09/01/2014 09/01/2014 Fitz Beaulieu MD DEXA xz4k8i51-j21d-90h2-4x88-150g64hs2o33 09/01/2014 09/01/2014 Fitz Beaulieu MD DEXA 52iy553o-9521-0u43-x01u-9959098r3lcc 09/01/2014 09/01/2014 Fitz Beaulieu MD RX Request-- Leflunomide xq5y68dx-9626-80nc-8i85-9x16g0m53930 09/15/2014 09/15/2014 Fitz Beaulieu MD RX Request-- Leflunomide y676s771-fh9m-79t4-83b3-je3624kju545 09/15/2014 09/15/2014 Fitz Beaulieu MD RX Request-- Leflunomide m67n90r2-412a-95nb-97g7-18374c38v3sw 09/15/2014 09/15/2014 Fitz Beaulieu MD RX Request-- Leflunomide 55u333fz-8e36-49oa-m0lz-48408731300u 09/15/2014 09/15/2014 Fitz Beaulieu MD RX Request-- Leflunomide ph3n83d1-fu68-5i13-q5f6-n16m47t9vfg0 09/15/2014 09/15/2014 Fitz Beaulieu MD RX Request-- Leflunomide 7s07jm55-1a07-81g7-n08t-6ekyx670575q 09/15/2014 09/15/2014 Fitz Beaulieu MD RX Request-- Leflunomide 4e14ei83-3178-957z-o6d5-6kl955o447x6 09/15/2014 09/15/2014 Fitz Beaulieu MD RX Request-- Leflunomide 457664k4-d043-92g4-d229-818646j6st6u 09/15/2014 09/15/2014 Fitz Beaulieu MD RX Request-- Leflunomide s29d1h85-f204-1wt9-ff31-878x47s758f6 09/15/2014 09/15/2014 Fitz Beaulieu MD RX Request-- Leflunomide 9g643qj2-9u1n-52iv-rx1q-76b117640722 09/15/2014 09/15/2014 Fitz Beaulieu MD RX Request-- Leflunomide gm4445hw-755n-4zh7-1s6i-887t1ebz3956 09/15/2014 09/15/2014 Fitz Beaulieu MD RX Request-- Leflunomide 42n89l5h-e811-7811-51g6-239ml4272424 09/15/2014 09/15/2014 Fitz Beaulieu MD RX Request-- Leflunomide 4v99s368-6f35-74b1-371m-b3r44tg721db 09/15/2014 09/15/2014 Fitz Beaulieu MD RX Request-- Leflunomide 9bv6n5s6-uz60-1y6q-764i-m0v319c013y6 09/15/2014 09/15/2014 Fitz Beaulieu MD RX Request-- Leflunomide 4s3268e3-543p-48ed-54l4-g555n7cv03i0 09/15/2014 09/15/2014 Fitz Beaulieu MD RX Request-- Leflunomide 2qiaft30-1047-21a2-hh28-g69sly79j32b 09/15/2014 09/15/2014 Fitz Beaulieu MD RX Request-- Leflunomide 9o987805-789z-6rw8-jh75-883150825k50 09/15/2014 09/15/2014 Fitz Beaulieu MD RX Request-- Leflunomide p36247t6-f99h-8sp8-muvk-26iwse566l24 09/15/2014 09/15/2014 Fitz Beaulieu MD RX Request-- Leflunomide 7b7ll5h2-314p-7900-11rj-35h89c1u09g4 09/15/2014 09/15/2014 Fitz Beaulieu MD RX Request-- Leflunomide 80w46128-9aij-404l-qt11-z6nq093m65b6 09/15/2014 09/15/2014 Fitz Beaulieu MD RX Request-- Leflunomide 431211oi-1898-2u25-mje4-704fu1175r3h 09/15/2014 09/15/2014 Fitz Beaulieu MD RX Request-- Leflunomide rk0f53q9-7n7x-91j2-8lau-1v51l4v71973 09/15/2014 09/15/2014 Fitz Beaulieu MD RX Request-- Leflunomide 65e4456t-00e5-1fx1-59v1-s30v7kp1u87d 09/15/2014 09/15/2014 Fitz Beaulieu MD RX Request-- Leflunomide 3i4553h7-41lj-1jh1-eyi0-0u8m937wdk17 09/15/2014 09/15/2014 Fitz Beaulieu MD RX Request-- Leflunomide 20q24am6-i234-3t8r-4q04-a2jts53t0627 09/15/2014 09/15/2014 Fitz Beaulieu MD Refill- Leflunomide 005731c6-o762-2ak9-37x4-ha7592d40wdw 09/19/2014 09/19/2014 Fitz Beaulieu MD Refill- Leflunomide 8154mu8u-5fs0-5408-5cwx-43ubj8y07677 09/19/2014 09/19/2014 Fitz Bealuieu MD Refill- Leflunomide 1e14bt22-12l7-66mn-182a-n4129667w39v 09/19/2014 09/19/2014 Fitz Beaulieu MD Refill- Leflunomide 9on97z5x-242x-614j-dp89-w03s596d196h 09/19/2014 09/19/2014 Fitz Beaulieu MD Refill- Leflunomide 2n9642b8-0y9q-26yq-vj04-v330ozkz673q 09/19/2014 09/19/2014 Fitz Beaulieu MD Refill- Leflunomide 11n9o8i8-8469-6pl9-asoh-31p028wr02lx 09/19/2014 09/19/2014 Fitz Beaulieu MD Refill- Leflunomide 5fa3914c-3m8j-110f-rl86-sh9d18014c64 09/19/2014 09/19/2014 Fitz Beaulieu MD Refill- Leflunomide j97y0u1d-vi9m-80ri-j8v5-if609549f19t 09/19/2014 09/19/2014 Fitz Beaulieu MD Refill- Leflunomide 0581272d-1mh0-4446-n1p0-07ne2e015hye 09/19/2014 09/19/2014 Fitz Beaulieu MD Refill- Leflunomide ej6l1t01-6281-139w-i18u-oa8754635bje 09/19/2014 09/19/2014 Fitz Beaulieu MD Refill- Leflunomide 3w01ov9z-008v-0ko0-7q03-0lo303md7d24 09/19/2014 09/19/2014 Fitz Beaulieu MD Refill- Leflunomide 8s6u880v-9679-5310-x461-g156b8696go3 09/19/2014 09/19/2014 Fitz Beaulieu MD Refill- Leflunomide 7375t76h-do4h-51z3-5xyz-0744bz68utvx 09/19/2014 09/19/2014 Fitz Beaulieu MD Refill- Leflunomide 845nn3k6-d68p-984t-p639-23gd625skij6 09/19/2014 09/19/2014 Fitz Beaulieu MD Refill- Leflunomide 868o8505-9643-53w2-26v6-c70ur4c4q4nk 09/19/2014 09/19/2014 Fitz Beaulieu MD Refill- Leflunomide j56x2ex8-6ur9-2u33-33df-711pb9z92378 09/19/2014 09/19/2014 Fitz Beaulieu MD Refill- Leflunomide z7xm7o54-yx80-395w-k094-cj28p9n47635 09/19/2014 09/19/2014 Fitz Beaulieu MD Refill- Leflunomide 37868f36-e595-3702-y6kr-98o5o9968653 09/19/2014 09/19/2014 Fitz Beaulieu MD Refill- Leflunomide 0nj73jk2-5999-6l44-r871-88dxx7o7z3z8 09/19/2014 09/19/2014 Fitz Beaulieu MD Refill- Leflunomide 0c5q29z4-686m-1ht6-t2k1-3a46d54644q0 09/19/2014 09/19/2014 Fitz Beaulieu MD Refill- Leflunomide z4586058-87s2-89kz-d828-0a5302z857i6 09/19/2014 09/19/2014 Fitz Beaulieu MD Refill- Leflunomide 06608x5p-odi8-5yt2-6pa0-dtu0598e169m 09/19/2014 09/19/2014 Fitz Beaulieu MD Refill- Leflunomide t1w1i511-j928-011y-mbd4-i12byu8gn371 09/19/2014 09/19/2014 Fitz Beaulieu MD Refill- Leflunomide 2270i851-3e62-4n85-9mq2-k7n13m04m654 09/19/2014 09/19/2014 Fitz Beaulieu MD Refill- Leflunomide vtqf38mg-149u-29b5-25n3-61h63809s675 09/19/2014 09/19/2014 Fitz Beaulieu MD xray order [id number]226 09/22/2014 09/22/2014 Fitz Beaulieu MD xray order [id number] 09/22/2014 09/22/2014 Fitz Beaulieu MD xray order [id number]-[id number] 09/22/2014 09/22/2014 Fitz Beaulieu MD xray order [id number]-6vht-7f3s379z724h 09/22/2014 09/22/2014 Fitz Beaulieu MD xray order [id number]-[id number] 09/22/2014 09/22/2014 Fitz Beaulieu MD xray order [id number]-b15m-93ipc6dly6v4 09/22/2014 09/22/2014 Fitz Beaulieu MD xray order [id number]-n584-46pb47j79856 09/22/2014 09/22/2014 Fitz Beaulieu MD xray order [id number]-kfc3-[id number] 09/22/2014 09/22/2014 Fitz Beaulieu MD xray order [id number]-785w-51xw-ix69239t35bn 09/22/2014 09/22/2014 Fitz Beaulieu MD xray order [id number]-585n-333p-480nbumd4i1d 09/22/2014 09/22/2014 Fitz Beaulieu MD xray order 9ll0tj32-6830-0312-7600-19q3ae6u5181 09/22/2014 09/22/2014 Fitz Beaulieu MD xray order [id number]-[id number]-l9h99ls7659y 09/22/2014 09/22/2014 Fitz Beaulieu MD xray order [id number]-5739-1moeq4w7t8xd 09/22/2014 09/22/2014 Fitz Beaulieu MD xray order gyw05n7v-vwc6-2y24-5m35-9zbib1p52si3 09/22/2014 09/22/2014 Fitz Beaulieu MD xray order [id number]-1m78-3i4g-f316-0s4pz90g4zf3 09/22/2014 09/22/2014 Fitz Beaulieu MD xray order [id number]-yb10-5m6h-ee77-aagz551x8450 09/22/2014 09/22/2014 Fitz Beaulieu MD xray order [id number]-yee3-662x-kz51-j1iz4x7v9927 09/22/2014 09/22/2014 Fitz Beaulieu MD xray order vpm96s5v-73wa-7d8g-e3n0-92n0g0r3x665 09/22/2014 09/22/2014 Fitz Beaulieu MD xray order [id number]-6921-3k3vi0376i55 09/22/2014 09/22/2014 Fitz Beaulieu MD xray order [id number]-[id number] 09/22/2014 09/22/2014 Fitz Beaulieu MD xray order [id number]-p1e1-245g-3y7q-93ak12pv1i83 09/22/2014 09/22/2014 Fitz Beaulieu MD xray order tltmg6z2-i276-1111-2yrh-x88022b23h47 09/22/2014 09/22/2014 Fitz Beaulieu MD xray order 25b9i6fw-4j4b-4428-530r-ru7569z00127 09/22/2014 09/22/2014 Fitz Beaulieu MD Refill- Leflunomide 021u957e-1d21-9pec-86kc-39t663s337g8 09/27/2014 09/27/2014 Fitz Beaulieu MD Refill- Leflunomide 0q1204s3-000u-4ecr-et5d-4o7s77sr87x5 09/27/2014 09/27/2014 Fitz Beaulieu MD Refill- Leflunomide x1u4hy80-3h4u-2029-01ws-58vdf3071692 09/27/2014 09/27/2014 Fitz Beaulieu MD Refill- Leflunomide 9g85490o-svw7-7206-6139-393b9w3lj99c 09/27/2014 09/27/2014 Fitz Beaulieu MD Refill- Leflunomide j97i75k5-11e1-3392-2m94-7t418yg10112 09/27/2014 09/27/2014 Fitz Beaulieu MD Refill- Leflunomide 2mmknh2d-sdps-1b60-x7n0-6635u740y132 09/27/2014 09/27/2014 Fitz Beaulieu MD Refill- Leflunomide k60s7h0f-4u23-4so4-r562-8s935gkb0nr2 09/27/2014 09/27/2014 Fitz Beaulieu MD Refill- Leflunomide 4y6764y5-062p-0326-b31e-9t2623qf1371 09/27/2014 09/27/2014 Fitz Beaulieu MD Refill- Leflunomide 028gv925-g53c-01hr-n82u-49i1v094v751 09/27/2014 09/27/2014 Fitz Beaulieu MD Refill- Leflunomide on61fre4-85e0-694s-ou31-d2q1c2mm5037 09/27/2014 09/27/2014 Fitz Beaulieu MD Refill- Leflunomide rhx16392-z3e2-401s-7c64-3abr0e29051u 09/27/2014 09/27/2014 Fitz Beaulieu MD Refill- Leflunomide b764l2f7-57x4-4597-1s6w-m01dn8op2779 09/27/2014 09/27/2014 Fitz Beaulieu MD Refill- Leflunomide ro0gmg1q-9l1b-9god-y412-4fd66nwe5e71 09/27/2014 09/27/2014 Fitz Beaulieu MD Refill- Leflunomide 529371iy-c2js-1674-0u7m-tdh5k4d8luo6 09/27/2014 09/27/2014 Fitz Beaulieu MD Refill- Leflunomide 7629egc4-c209-7685-7174-8677v013l68t 09/27/2014 09/27/2014 Fitz Beaulieu MD Refill- Leflunomide 2d8wzzvk-5948-7872-5ero-963n3r7naa6g 09/27/2014 09/27/2014 Fitz Beaulieu MD Refill- Leflunomide 97q2223t-h423-1t5t-qyul-5f2w26100432 09/27/2014 09/27/2014 Fitz Beaulieu MD Refill- Leflunomide v51yybbo-6h87-519r-b6n6-x1775bvwma3a 09/27/2014 09/27/2014 Fitz Beaulieu MD Refill- Leflunomide w34p377z-a8w8-76ss-h63l-q47ac72n2378 09/27/2014 09/27/2014 Fitz Beaulieu MD Refill- Leflunomide f16m081c-7z95-7un6-li76-4k0j99lge27g 09/27/2014 09/27/2014 Fitz Beaulieu MD Refill- Leflunomide m1os2bv1-7y59-5vd9-l1k0-3n19404qz733 09/27/2014 09/27/2014 Fitz Beaulieu MD Refill- Leflunomide 95hd1089-oqxf-89ue-f7u5-bi1470t5776z 09/27/2014 09/27/2014 Fitz Beaulieu MD Refill- Leflunomide 15249024-mgz2-4n97-0wd6-5040r78ouj70 09/27/2014 09/27/2014 Fitz Beaulieu MD Refill- Leflunomide i4d34k8s-c45u-4356-6r06-a3k5067l5087 09/27/2014 09/27/2014 Fitz Beaulieu MD Refill- Leflunomide 4dro7463-5802-81h1-1h49-5307zjj51k79 10/31/2014 10/31/2014 Fitz Beaulieu MD Refill- Leflunomide -z6b3-411t-e2ow-xz20np283207 10/31/2014 10/31/2014 Fitz Beaulieu MD Refill- Leflunomide wk900278-l625-8095-7c20-w5421b978ukt 10/31/2014 10/31/2014 Fitz Beaulieu MD Refill- Leflunomide qam19895-4hb5-2z0m-r4v1-5714q3w9u862 10/31/2014 10/31/2014 Fitz Beaulieu MD Refill- Leflunomide 61302vdz-2ia4-63j6-4785-92f330h4pkw8 10/31/2014 10/31/2014 Fitz Beaulieu MD Refill- Leflunomide 75spe295-26yl-78a3-z0f1-of1xz10xj64v 10/31/2014 10/31/2014 Fitz Beaulieu MD Refill- Leflunomide 2370g69o-644x-2mw9-r63o-844g00ig85b2 10/31/2014 10/31/2014 Fitz Beaulieu MD Refill- Leflunomide 4t3o2olb-77av-65l3-0w31-62292aq24875 10/31/2014 10/31/2014 Fitz Beaulieu MD Refill- Leflunomide 967sowz5-u9io-5417-39sf-8xtn5nh18197 10/31/2014 10/31/2014 Fitz Beaulieu MD Refill- Leflunomide or02wif7-2syi-76gm-9a52-42u5w5q93f81 10/31/2014 10/31/2014 Fitz Beaulieu MD Refill- Leflunomide qtd5aq1j-8964-3gs0-3u7x-7ennarf2f2n8 10/31/2014 10/31/2014 Fitz Beaulieu MD Refill- Leflunomide r70v7chp-e291-92d7-2931-7715j9t20en1 10/31/2014 10/31/2014 Fitz Beaulieu MD Refill- Leflunomide 454159t1-0tvp-42b7-193h-w776595j3g2i 10/31/2014 10/31/2014 Fitz Beaulieu MD Refill- Leflunomide y4679l1c-bi73-2161-46i4-pgr4dz2813mw 10/31/2014 10/31/2014 Fitz Beaulieu MD Refill- Leflunomide 4d889683-558e-8b78-0p37-clh2weo9f718 10/31/2014 10/31/2014 Fitz Beaulieu MD Refill- Leflunomide 8kg61h75-751f-29q4-w84a-nr871y592770 10/31/2014 10/31/2014 Fitz Beaulieu MD Refill- Leflunomide a4w49mbz-e018-01p2-0te7-52559931c38x 10/31/2014 10/31/2014 Fitz Beaulieu MD Refill- Leflunomide 97f99nbi-9194-15z2-7p80-p62337qrepyd 10/31/2014 10/31/2014 Fitz Beaulieu MD Refill- Leflunomide 99pkj21u-9791-2428-49b3-rr03r09yl29s 10/31/2014 10/31/2014 Fitz Beaulieu MD Refill- Leflunomide 3x1544ex-y9f3-62yd-0688-87835o947597 10/31/2014 10/31/2014 Fitz Beaulieu MD Refill- Leflunomide 0zi7i352-8444-37bl-6887-2ehv3717v12o 10/31/2014 10/31/2014 Fitz Beaulieu MD Refill- Leflunomide 22i6447b-g108-6t77-8eri-4b599wpe7629 10/31/2014 10/31/2014 Fitz Beaulieu MD Labs 12o7dvm2-9373-2s0z-15n2-0tm4671s3r48 11/09/2014 11/09/2014 Fitz Beaulieu MD Labs 46wqt1e6-3xd4-9241-c28m-rzs5s5c57p8w 11/09/2014 11/09/2014 Fitz Beaulieu MD Labs [id number]-9871-6k8r-9873901k1401 11/09/2014 11/09/2014 Fitz Beaulieu MD Labs ynq2902s-8448-4j85-3929-3hsr0r0914q6 11/09/2014 11/09/2014 Fitz Beaulieu MD Labs hbn27k33-e0e8-675n-5b1f-snc72g124k29 11/09/2014 11/09/2014 Fitz Beaulieu MD Labs 96vo2gi6-84lh-5662-063q-iim78o92oh87 11/09/2014 11/09/2014 Fitz Beaulieu MD Labs n4j23160-64zu-77g8-ih32-m755341jh235 11/09/2014 11/09/2014 Fitz Beaulieu MD Labs [id number]-8928-9435-q3z7-hc375x6d9904 11/09/2014 11/09/2014 Fitz Beaulieu MD Labs 8j5575vt-f07m-0ts3-7j93-5s3182h1s5md 11/09/2014 11/09/2014 Fitz Beaulieu MD Labs 1076l52p-p9fk-62k6-9366-43704wgoh33f 11/09/2014 11/09/2014 Fitz Beaulieu MD Labs [id number]-a40g-4293-o62a-433qfbq62bzg 11/09/2014 11/09/2014 Fitz Beaulieu MD Refill- Leflunomide o498hia5-07d3-8xaa-r402-to488874r168 11/09/2014 11/09/2014 Fitz Beaulieu MD Refill- Leflunomide 465u3ku0-82z6-189k-nd43-45t583326kn4 11/09/2014 11/09/2014 Fitz Beaulieu MD Refill- Leflunomide 0r4o056a-34z4-6904-50x2-9vp61b0md657 11/09/2014 11/09/2014 Fitz Beaulieu MD Refill- Leflunomide m81mfz6l-x293-0364-0ach-46a82620y89i 11/09/2014 11/09/2014 Fitz Beaulieu MD Refill- Leflunomide 62qh0043-fpo3-8dlj-rz92-kxv55e6x7h15 11/09/2014 11/09/2014 Fitz Beaulieu MD Refill- Leflunomide 6169oi2e-69b2-31k3-65f8-0l84jpm28789 11/09/2014 11/09/2014 Fitz Beaulieu MD Refill- Leflunomide 0p364ylh-lo1r-5k84-419a-4373627387d7 11/09/2014 11/09/2014 Fitz Beaulieu MD Refill- Leflunomide 70ra3s61-6084-1k11-l0v7-23aj04zwk11g 11/09/2014 11/09/2014 Fitz Beaulieu MD Refill- Leflunomide 2r06i0jg-fa95-322c-ar11-9o5961ed6g4q 11/09/2014 11/09/2014 Fitz Beaulieu MD Refill- Leflunomide 87ylu2y1-t18m-4271-1766-j146479k44qo 11/09/2014 11/09/2014 Fitz Beaulieu MD Refill- Leflunomide uh6889y6-pbr8-1549-au6h-776z6234uj57 11/09/2014 11/09/2014 Fitz Beauleiu MD Labs x0t15u2x-55x5-1350-myb6-0755117i60tq 11/09/2014 11/09/2014 Fitz Beaulieu MD Labs a5845g90-vr1l-946q-pmka-77ld878k1169 11/09/2014 11/09/2014 Fitz Beaulieu MD Labs q087i536-jz60-295z-i5e6-1492iq0n6i1z 11/09/2014 11/09/2014 Fitz Beaulieu MD Labs 3sm89106-vz2h-9lv4-0618-0w9w344scajl 11/09/2014 11/09/2014 Fitz Beaulieu MD Labs 8ut5me95-8096-5sx0-8u82-cd3fn4453s4t 11/09/2014 11/09/2014 Fitz Beaulieu MD Labs 234923vl-4117-1x7a-39vu-700t5dd2l38n 11/09/2014 11/09/2014 Fitz Beaulieu MD Labs 7jp886vb-e164-27h7-c893-w9800q6q8n22 11/09/2014 11/09/2014 Fitz Beaulieu MD Labs e2rsi195-12o2-49m7-980f-36g910v557l0 11/09/2014 11/09/2014 Fitz Beaulieu MD Labs fc37426z-8h34-7pva-6076-3t11541v9e14 11/09/2014 11/09/2014 Fitz Beaulieu MD Labs v82gnr60-qa88-035d-58id-3r5146p28ohy 11/09/2014 11/09/2014 Fitz Beaulieu MD Labs 5gc78jo3-632o-29n0-122m-qz06860f9f85 11/09/2014 11/09/2014 Fitz Beaulieu MD Refill- Leflunomide 7id22nhv-969u-7972-r83f-k8568514jk84 11/09/2014 11/09/2014 Fitz Beaulieu MD Refill- Leflunomide c5352ks5-915t-4a83-3n01-8lepso40b970 11/09/2014 11/09/2014 Fitz Beaulieu MD Refill- Leflunomide i77mq221-8u8j-70jz-4r66-0196498azvtu 11/09/2014 11/09/2014 Fitz Beaulieu MD Refill- Leflunomide w570423t-5g7m-17jn-40v1-661841184w90 11/09/2014 11/09/2014 Fitz Beaulieu MD Refill- Leflunomide z975p8ej-21c3-5w6q-9qce-700c9j11g148 11/09/2014 11/09/2014 Fitz Beaulieu MD Refill- Leflunomide 44t35j86-31k6-46t0-3sl6-78908k183b6k 11/09/2014 11/09/2014 Fitz Beaulieu MD Refill- Leflunomide k56v8gq5-9y47-261r-3615-d715530633uc 11/09/2014 11/09/2014 Fitz Beaulieu MD Refill- Leflunomide 69427058-jg0z-6y25-w7wc-o702c6u5c331 11/09/2014 11/09/2014 Fitz Beaulieu MD Refill- Leflunomide 472a67t6-2157-7mp1-3g69-0e6w82311602 11/09/2014 11/09/2014 Fitz Beaulieu MD Refill- Leflunomide jn226x62-41n9-84b2-1389-8p04a2h2oy39 11/09/2014 11/09/2014 Fitz Beaulieu MD Refill- Leflunomide 01e39e9j-943h-9z4o-a8kc-843404gx9c58 11/09/2014 11/09/2014 Fitz Beaulieu MD 3 MO F/U 164edf9y-w177-4994-tv42-311olz559783 11/29/2014 11/29/2014 Fitz Beaulieu MD 3 MO F/U 510238o9-kq03-9215-mof5-k0mf1qxuy06g 11/29/2014 11/29/2014 Fitz Beaulieu MD 3 MO F/U 4is96mj1-5722-9c0c-fkf4-39r1xd4567w6 11/29/2014 11/29/2014 Fitz Beaulieu MD 3 MO F/U 363ez077-d6t6-2479-ua97-zkp21aer341q 11/29/2014 11/29/2014 Fitz Beaulieu MD 3 MO F/U 9p8sq6pp-1968-9vx2-2707-ka9h504a7k27 11/29/2014 11/29/2014 Fitz Beaulieu MD 3 MO F/U 29lg642j-x574-0099-8t38-36605cy59t2g 11/29/2014 11/29/2014 Fitz Beaulieu MD 3 MO F/U py3b6223-4t7g-1uca-spq3-kg94g9696r80 11/29/2014 11/29/2014 Fitz Beaulieu MD 3 MO F/U 0769s69v-dyl6-6hi5-57c3-05in0ax966e5 11/29/2014 11/29/2014 Fitz Beaulieu MD 3 MO F/U 03453542-31r1-671n-83nr-947ou5253d2c 11/29/2014 11/29/2014 Fitz Beaulieu MD 3 MO F/U qfd7no87-u75e-0b3j-k793-3sn07nxwv282 11/29/2014 11/29/2014 Fitz Beaulieu MD 3 MO F/U qrk52zt3-u6n4-8451-9v29-6mit8u90167d 11/29/2014 11/29/2014 Fitz Beaulieu MD 3 MO F/U 965t80rr-jhh8-8725-m9r7-356i49lh6qgz 11/29/2014 11/29/2014 Fitz Beaulieu MD 3 MO F/U 5p0i6xj7-j8q2-6q64-i3c0-hn3ah827su54 11/29/2014 11/29/2014 Fitz Beaulieu MD 3 MO F/U 8hb04000-838g-701u-8122-50jl7q5o4123 11/29/2014 11/29/2014 Fitz Beaulieu MD 3 MO F/U 5i9od447-355n-973b-1u6n-72855p42m091 11/29/2014 11/29/2014 Fitz Beaulieu MD 3 MO F/U 5yvqs5g5-31w8-52y3-fvow-3o0949hlr27n 11/29/2014 11/29/2014 Fitz Beaulieu MD 3 MO F/U 0892n89d-a4r6-8k20-36p9-1k7ane3jc085 11/29/2014 11/29/2014 Fitz Beaulieu MD 3 MO F/U 59e0d1n5-85bt-1700-znu0-7o20u59z63a4 11/29/2014 11/29/2014 Fitz Beaulieu MD 3 MO F/U y1701659-8791-8196-7257-f98c63796z2f 11/29/2014 11/29/2014 Fitz Beaulieu MD 3 MO F/U ep79797j-i4qd-5mhq-gqp4-74hs2js669a6 11/29/2014 11/29/2014 Fitz Beaulieu MD [facility] 1059ox4y-37ha-5i60-445m-a3i3642k0f9j 01/01/2015 01/01/2015 Fitz Beaulieu MD MRI k3e8d5wg-d129-5592-888c-r5xns1w1jgak 01/01/2015 01/01/2015 Fitz Beaulieu MD MRI cp056x57-6cvv-5in7-ki01-u0371b3925e1 01/01/2015 01/01/2015 Fitz Beaulieu MD MRI bc74thyo-0571-1641-78vm-8y82cp3ny335 01/01/2015 01/01/2015 Fitz Beaulieu MD MRI 88w0ip7c-l43l-8571-8f67-0q88c06p5gas 01/01/2015 01/01/2015 Fitz Beaulieu MD MRI 1cq947l5-nh21-0eb7-47v9-8882m4585k60 01/01/2015 01/01/2015 Fitz Beaulieu MD MRI c5p0l579-3zb4-554k-dtp1-uhhi33d13f33 01/01/2015 01/01/2015 Fitz Beaulieu MD MRI 5g937p28-5l3g-50n4-1g4j-ae3243527298 01/01/2015 01/01/2015 Fitz Beaulieu MD MRI 7pf93y22-00i5-17f4-870e-25980n1g6069 01/01/2015 01/01/2015 Fitz Beaulieu MD MRI 148c58yk-2c9u-0hr6-4n29-5r8h1rx9u659 01/01/2015 01/01/2015 Fitz Beaulieu MD MRI 359ou77q-fjl1-1l1u-93ak-84c9525p38s8 01/01/2015 01/01/2015 Fitz Beaulieu MD MRI 3o00rx8f-jvy6-779g-cb4e-2y633190v5a0 01/01/2015 01/01/2015 Fitz Beaulieu MD MRI j9g0000f-u361-7j29-k2wd-z47pqcz5755u 01/01/2015 01/01/2015 Fitz Beaulieu MD MRI a2b8484r-s7c6-9766-87z1-8ni7j498k740 01/01/2015 01/01/2015 Fitz Beaulieu MD MRI o3ich6i2-5nn6-7gic-2s7y-46jr202d4430 01/01/2015 01/01/2015 Fitz Beaulieu MD MRI 7816445a-7ft2-5j7v-c2d3-4dkdth90z7a6 01/01/2015 01/01/2015 Fitz Beaulieu MD [facility] fq148435-e2m3-4n52-q60a-9v9226752365 01/01/2015 01/01/2015 Fitz Beaulieu MD MRI 6l07zy26-2e19-19p5-3705-79183m4f930g 01/01/2015 01/01/2015 Fitz Beaulieu MD MRI 34e465id-2qwd-8021-g1tx-65z964py708d 01/01/2015 01/01/2015 Fitz Beaulieu MD MRI 31984t92-d60m-6fs7-1s2j-199798694e8y 01/01/2015 01/01/2015 Fitz Beaulieu MD Refill- Leflunomide 1l0679cp-2y36-6285-1642-84ro720hu748 02/15/2015 02/15/2015 Fitz Beaulieu MD Refill- Leflunomide 31940si8-so84-873e-5i51-myv8347w9v43 02/15/2015 02/15/2015 Fitz Beaulieu MD Refill- Leflunomide 1896807i-yhuo-1976-rq3c-sj98o9x68076 02/15/2015 02/15/2015 Fitz Beaulieu MD Refill- Leflunomide 958e9204-z6r5-442q-gm19-8225u6we0u55 02/15/2015 02/15/2015 Fitz Beaulieu MD Refill- Leflunomide gl0817t7-i552-13c5-896i-p54a6632635n 02/15/2015 02/15/2015 Fitz Beaulieu MD Refill- Leflunomide ss1o1n12-9s62-2293-jg09-46434q0b7165 02/15/2015 02/15/2015 Fitz Beaulieu MD Refill- Leflunomide 7tpy70c8-985y-6279-8dsd-f6t1i05xrfn7 02/15/2015 02/15/2015 Fitz Beaulieu MD Refill- Leflunomide 7j8npz20-3u38-878t-2e40-m9498x2i7lf1 02/15/2015 02/15/2015 Fitz Beaulieu MD Refill- Leflunomide n22c3853-74nc-3s15-865l-f42rk43q2998 02/15/2015 02/15/2015 Fitz Bealuieu MD Refill- Leflunomide 37u450aj-u96m-4keh-wvj0-nb042du1785i 02/15/2015 02/15/2015 Fitz Beaulieu MD Refill- Leflunomide 3p1148g7-34o0-6109-94f5-574s0j13nglv 02/15/2015 02/15/2015 Fitz Beaulieu MD Refill- Leflunomide 4252cuej-1493-26ie-7l7q-5801vroga025 02/15/2015 02/15/2015 Fitz Beaulieu MD Refill- Leflunomide 23641b74-490j-9cmj-519t-d497feb0763h 02/15/2015 02/15/2015 Fitz Beaulieu MD Refill- Leflunomide 853i4465-15b8-3491-z11f-161ls7qrg522 02/15/2015 02/15/2015 Fitz Beaulieu MD Refill- Leflunomide 2z95606j-382y-278t-5176-fj22wd180di7 02/15/2015 02/15/2015 Fitz Beaulieu MD Refill- Leflunomide 810jyj23-8829-757e-9r8q-5x67301sddx5 02/15/2015 02/15/2015 Fitz Beaulieu MD Refill- Leflunomide 5iw09a92-6h73-7czh-fi05-30611vam44v5 02/15/2015 02/15/2015 Fitz Beaulieu MD Refill- Leflunomide 2599es31-10t7-2o40-74n9-n137am470756 02/15/2015 02/15/2015 Fitz Beaulieu MD Refill- Leflunomide [id number]u36 02/15/2015 02/15/2015 Fitz Beaulieu MD mri cancellation/xray hands [id number]-97c0-a3k5-yi63219spht3 02/19/2015 02/19/2015 Fitz Beaulieu MD mri cancellation/xray hands [id number]-1175ke34r67g 02/19/2015 02/19/2015 Fitz Beaulieu MD mri cancellation/xray hands [id number]-[id number] 02/19/2015 02/19/2015 Fitz Beaulieu MD mri cancellation/xray hands 4n9lg491-qisa-251w-x84p-z73257o60o8z 02/19/2015 02/19/2015 Fitz Beaulieu MD mri cancellation/xray hands 61n1me3w-1982-4xv0-8d2z-2b988806497d 02/19/2015 02/19/2015 Fitz Beaulieu MD mri cancellation/xray hands 1281g080-042s-9122-q14m-9542snmk84o1 02/19/2015 02/19/2015 Fitz Beaulieu MD mri cancellation/xray hands [id number]-o197-3170-ru64-p2674c5399x4 02/19/2015 02/19/2015 Fitz Beaulieu MD mri cancellation/xray hands 795z35c9-p814-5139-88t5-52o26t89s92z 02/19/2015 02/19/2015 Fitz Beaulieu MD mri cancellation/xray hands ribd07q2-v996-3466-i740-b20iu9r53635 02/19/2015 02/19/2015 Fitz Beaulieu MD mri cancellation/xray hands 1z8cjudj-19qq-5818-96r0-0331xl00787t 02/19/2015 02/19/2015 Fitz Beaulieu MD mri cancellation/xray hands 78i5yf02-491h-210r-3927-fr822yajlpr0 02/19/2015 02/19/2015 Fitz Beaulieu MD mri cancellation/xray hands 1ltj035q-jf48-1i1l-27f3-4733063g4b2d 02/19/2015 02/19/2015 Fitz Beaulieu MD mri cancellation/xray hands 0qfj0l0m-1g99-45mv-9ql5-4otdp07z8731 02/19/2015 02/19/2015 Fitz Beaulieu MD mri cancellation/xray hands f240i728-alx5-69ne-c749-[id number] 02/19/2015 02/19/2015 Fitz Beaulieu MD mri cancellation/xray hands f65d0p4z-t564-0402-v345-488rk9441b60 02/19/2015 02/19/2015 Fitz Beaulieu MD mri cancellation/xray hands [id number]-ur7l-0224-l94a-64x805g970ea 02/19/2015 02/19/2015 Fitz Beaulieu MD mri cancellation/xray hands 7r2602g3-n5tu-7578-g9p1-fe4g47f4fk7k 02/19/2015 02/19/2015 Fitz Beaulieu MD mri cancellation/xray hands [id number]-8l85-2v5t233a8a6k 02/19/2015 02/19/2015 Fitz Beaulieu MD mri cancellation/xray hands 06z24238-rxb7-47qj-1j70-o4zl3n09f3yf 02/19/2015 02/19/2015 Fitz Beaulieu MD 3 MO F/U d8k0p9ml-1bw5-45hp-240l-85704q1o548k 03/01/2015 03/01/2015 Fitz Beaulieu MD 3 MO F/U m457mlxn-l066-7t70-u03e-6p621ms3d6tv 03/01/2015 03/01/2015 Fitz Beaulieu MD 3 MO F/U w31txcg6-139g-35gd-2225-gh503e824156 03/01/2015 03/01/2015 Fitz Beaulieu MD 3 MO F/U n9td3cs4-8898-1au3-5671-x48n5155ljp8 03/01/2015 03/01/2015 Fitz Beaulieu MD 3 MO F/U 3z6623lk-7984-0705-af0w-[id number] 03/01/2015 03/01/2015 Fitz Beaulieu MD 3 MO F/U 660c18q1-oaqn-0s8h-442z-r2u64n8g3330 03/01/2015 03/01/2015 Fitz Beaulieu MD 3 MO F/U yc2m0044-3cgq-54fa-29lt-65q67bd156t9 03/01/2015 03/01/2015 Fitz Beaulieu MD 3 MO F/U 57f77tql-723z-1xv9-6g53-b0t1u3655053 03/01/2015 03/01/2015 Fitz Beaulieu MD 3 MO F/U hkce666w-9124-61kj-0806-c57536ukpndv 03/01/2015 03/01/2015 Fitz Beaulieu MD 3 MO F/U [id number]-cge1-t03w38x8hj20 03/01/2015 03/01/2015 Fitz Beaulieu MD 3 MO F/U 2ys5z2s2-80x4-2s21-144v-0z59al70p8q2 03/01/2015 03/01/2015 Fitz Beaulieu MD 3 MO F/U [id number]-lrzt-[id number] 03/01/2015 03/01/2015 Fitz Beaulieu MD 3 MO F/U [id number]-8746-138p-598h206d1149 03/01/2015 03/01/2015 Fitz Beaulieu MD 3 MO F/U [id number]-8922-d4c7xd914sj2 03/01/2015 03/01/2015 Fitz Beaulieu MD 3 MO F/U 155v0x69-9330-6703-n74b-kl591ym57z5k 03/01/2015 03/01/2015 Fitz Beaulieu MD 3 MO F/U [id number] 03/01/2015 03/01/2015 Fitz Beaulieu MD 3 MO F/U dz5719ny-d3pc-9bde-h20d-568974g574eg 03/01/2015 03/01/2015 Fitz Beaulieu MD 3 MO F/U [id number]-33v5-q25n-q8xa71gc1807 03/01/2015 03/01/2015 Fitz Beaulieu MD Refill- Tramadol [id number]-z1rw-7qj9pml29470 03/16/2015 03/16/2015 Fitz Beaulieu MD Refill- Tramadol 2oa1l5h0-793z-7866-u7nz-n2610026n63u 03/16/2015 03/16/2015 Fitz Beaulieu MD Refill- Tramadol w166n8v6-84t0-60a2-s323-1h81m124cz95 03/16/2015 03/16/2015 Fitz Beaulieu MD Refill- Tramadol [id number]-qeb0-rd1it80j96kd 03/16/2015 03/16/2015 Fitz Beaulieu MD Refill- Tramadol 315g8nuo-h5v8-3686-23l0-r6z4t89c9787 03/16/2015 03/16/2015 Fitz Beaulieu MD Refill- Tramadol s09f02v6-695s-2880-yiq1-shgz89kg0q56 03/16/2015 03/16/2015 Fitz Beaulieu MD Refill- Tramadol [id number]-4611-3053-3650-49srlu82738i 03/16/2015 03/16/2015 Fitz Beaulieu MD Refill- Tramadol b13a067b-8r9x-26kb-95y0-47f0p9440w3k 03/16/2015 03/16/2015 Fitz Beaulieu MD Refill- Tramadol 92efx8ka-220x-5336-z394-6m50sdi2s3fx 03/16/2015 03/16/2015 Ftiz Beaulieu MD Refill- Tramadol [id number]-4z1c-a9nc-4598pt7p2j12 03/16/2015 03/16/2015 Fitz Beaulieu MD Refill- Tramadol 48rd8p17-a817-87ha-b07f-d57ce71701jq 03/16/2015 03/16/2015 Fitz Beaulieu MD Refill- Tramadol qr3468ls-p7v0-4646-0vm2-ei69q90zs2d1 03/16/2015 03/16/2015 Fitz Beaulieu MD Refill- Tramadol 5i8gf4er-0bd2-6hqx-9trg-f061tk9vo4p7 03/16/2015 03/16/2015 Fitz Beaulieu MD Refill- Tramadol pned83x8-h7wr-7583-vhd0-e3w3d609s478 03/16/2015 03/16/2015 Fitz Beaulieu MD Refill- Tramadol u44e4b60-w126-2s8g-h8m3-qcn74oonqkw6 03/16/2015 03/16/2015 Fitz Beaulieu MD Refill- Tramadol [id number]-dd05-798t-[id number] 03/16/2015 03/16/2015 Fitz Beaulieu MD Refill- Tramadol [id number]-09l8-8291549p3885 03/16/2015 03/16/2015 Fitz Beaulieu MD Refill- Tramadol d95797h3-mn70-9420-f33m-79t1yv9ju59m 03/16/2015 03/16/2015 Fitz Beaulieu MD Refill- Tramadol 4mu87d9h-a6t7-44i2-10uq-96e53w4945c3 03/16/2015 03/16/2015 Fitz Beaulieu MD MRI 31xe3t0o-0vr7-9qxq-938j-760568512y7a 04/10/2015 04/10/2015 Fitz Beaulieu MD MRI q58t1f82-2m6o-6598-m543-00py1e27yy40 04/10/2015 04/10/2015 Fitz Beaulieu MD MRI 7ymu88yi-44xt-72wi-ccn2-00hd0d8p137n 04/10/2015 04/10/2015 Fitz Beaulieu MD MRI 5v68x6e6-8m1z-74mk-0s5m-17nw683w4q18 04/10/2015 04/10/2015 Fitz Beaulieu MD MRI [id number]-jr29f8ysl801 04/10/2015 04/10/2015 Fitz Beaulieu MD MRI xf1wf1r2-w6m4-6070-5nm9-kd102n004b2g 04/10/2015 04/10/2015 Fitz Beaulieu MD MRI 2604gh6b-17x5-7dim-f5x2-54e9s84z8bbb 04/10/2015 04/10/2015 Fitz Beaulieu MD MRI [id number] 04/10/2015 04/10/2015 Fitz Beaulieu MD MRI v525k9wc-w20x-09bu-k6q3-02p83w31g312 04/10/2015 04/10/2015 Fitz Beaulieu MD MRI pjk65d49-6wuh-900o-z763-y173l5pt12e3 04/10/2015 04/10/2015 Fitz Beaulieu MD MRI 1q7t7m94-117u-6zz6-9x5h-o9847gw9341y 04/10/2015 04/10/2015 Fitz Beaulieu MD MRI [id number]-631s-86mabr747937 04/10/2015 04/10/2015 Fitz Beaulieu MD MRI 6q0j4lg3-53bh-02hg-ri17-011z7ad5fda5 04/10/2015 04/10/2015 Fitz Beaulieu MD MRI 115n6b3r-2e21-2495-4p22-fa68248g8e6k 04/10/2015 04/10/2015 Fitz Beaulieu MD MRI [id number]-ji4i-rf52545f64o2 04/10/2015 04/10/2015 Fitz Beaulieu MD [facility] [id number]-w82m3c9m39z6 04/10/2015 04/10/2015 Fitz Beaulieu MD [facility] [id number]-m374-25euw405635f 04/10/2015 04/10/2015 Fitz Beaulieu MD Refill- Leflunomide 76w9s0o9-y657-3907-ksv0-66649rbvw0tq 05/16/2015 05/16/2015 Fitz Beaulieu MD Refill- Leflunomide n8ygd6r3-70ik-6726-p04t-2u5ropyjuk18 05/16/2015 05/16/2015 Fitz Beaulieu MD Refill- Leflunomide jfp4bbmt-f346-647x-h537-044e41by46o2 05/16/2015 05/16/2015 Fitz Beaulieu MD Refill- Leflunomide 2h2lu6e8-t123-483g-2yrf-8534d3530oir 05/16/2015 05/16/2015 Fitz Beaulieu MD Refill- Leflunomide 1df8k41g-o263-1o08-cw00-76sea5i97g9x 05/16/2015 05/16/2015 Fitz Beaulieu MD Refill- Leflunomide h25568w1-4e7u-1655-i419-y2859dn9772j 05/16/2015 05/16/2015 Fitz Beaulieu MD Refill- Leflunomide 3z36n528-i5ek-6378-t9m8-a1a0d77323sz 05/16/2015 05/16/2015 Fitz Beaulieu MD Refill- Leflunomide [id number]-1574-3u381gbjz017 05/16/2015 05/16/2015 Fitz Beaulieu MD Refill- Leflunomide [id number]-1dhu-7n2697i8rxs4 05/16/2015 05/16/2015 Fitz Beaulieu MD Refill- Leflunomide [id number]-8nay-ipro3d8n4mpa 05/16/2015 05/16/2015 Fitz Beaulieu MD Refill- Leflunomide 3r6r9jc7-1894-63w0-5812-84v81sbvbyd8 05/16/2015 05/16/2015 Fitz Beaulieu MD Refill- Leflunomide 010hl8b9-370v-8k59-023m-8yyk185w0wp1 05/16/2015 05/16/2015 Fitz Beaulieu MD Refill- Leflunomide i57oqgi9-6d8d-5uu2-xp9r-od183u4qqkqd 05/16/2015 05/16/2015 Fitz Beaulieu MD Refill- Leflunomide 5kyq0i75-9m82-71b1-220l-gj602ck72y9a 05/16/2015 05/16/2015 Fitz Beaulieu MD Refill- Leflunomide eps64t4c-kmzz-0wwq-ug9f-19jg02ng12i1 05/16/2015 05/16/2015 Fitz Beaulieu MD Refill- Leflunomide [id number]-xgex-10719b13m271 05/16/2015 05/16/2015 Fitz Beaulieu MD MRI peer to peer [id number] 05/25/2015 05/25/2015 Fitz Beaulieu MD MRI peer to peer [id number] 05/25/2015 05/25/2015 Fitz Beaulieu MD MRI peer to peer [id number] 05/25/2015 05/25/2015 Fitz Beaulieu MD MRI peer to peer [id number] 05/25/2015 05/25/2015 Fitz Beaulieu MD MRI peer to peer [id number] 05/25/2015 05/25/2015 Fitz Beaulieu MD MRI peer to peer [id number] 05/25/2015 05/25/2015 Fitz Beaulieu MD MRI peer to peer [id number] 05/25/2015 05/25/2015 Fitz Beaulieu MD MRI peer to peer [id number] 05/25/2015 05/25/2015 iFtz Beaulieu MD MRI peer to peer [id number] 05/25/2015 05/25/2015 Fitz Beaulieu MD MRI peer to peer [id number] 05/25/2015 05/25/2015 Fitz Beaulieu MD MRI peer to peer [id number] 05/25/2015 05/25/2015 Fitz Beaulieu MD MRI peer to peer [id number] 05/25/2015 05/25/2015 Fitz Beaulieu MD MRI peer to peer [id number] 05/25/2015 05/25/2015 Fitz Beaulieu MD MRI peer to peer [id number] 05/25/2015 05/25/2015 Fitz Beaulieu MD MRI peer to peer [id number] 05/25/2015 05/25/2015 Fitz Beaulieu MD MRI peer to peer [id number] 05/25/2015 05/25/2015 Fitz Beaulieu MD 3 MO F/U [id number]-[id number] 07/02/2015 07/02/2015 Fitz Beaulieu MD 3 MO F/U [id number]-4u5hmgr04j9n 07/02/2015 07/02/2015 Fitz Beaulieu MD 3 MO F/U 1ku1x15q-s1og-0l74-3y0r-7728sik18g99 07/02/2015 07/02/2015 Fitz Beaulieu MD 3 MO F/U 26w6cq7o-693x-0287-rk82-u065407kr0cc 07/02/2015 07/02/2015 Fitz Beaulieu MD 3 MO F/U [id number]-1532-09n9-0e8lb215x51r 07/02/2015 07/02/2015 Fitz Beaulieu MD 3 MO F/U [id number]-[id number]-[id number] 07/02/2015 07/02/2015 Fitz Beaulieu MD 3 MO F/U 3224g40e-[id number]-n108-4731g7mtr96u 07/02/2015 07/02/2015 Fitz Beaulieu MD 3 MO F/U 2u5mzh26-9pb1-8r75-kye6-j9c1290umh35 07/02/2015 07/02/2015 Fitz Beaulieu MD 3 MO F/U [id number]-144n-n4z2-[id number] 07/02/2015 07/02/2015 Fitz Beaulieu MD 3 MO F/U 07g7b4b4-3662-5lh0-s899-zf382vral6fs 07/02/2015 07/02/2015 Fitz Beaulieu MD 3 MO F/U z2gd6g75-8m96-0w3l-mc44-u9q66at2a365 07/02/2015 07/02/2015 Fitz Beaulieu MD 3 MO F/U [id number] 07/02/2015 07/02/2015 Fitz Beaulieu MD 3 MO F/U [id number]-[id number] 07/02/2015 07/02/2015 Fitz Beaulieu MD 3 MO F/U 1n17a909-c49t-4946-1s25-9m7g4hs65n99 07/02/2015 07/02/2015 Fitz Beaulieu MD tramadol refill [id number]-zv97-236i-gd3u-b4yu1v116891 08/06/2015 08/06/2015 Fitz Beaulieu MD tramadol refill 9229y82b-sm11-4bl0-b488-89bo0ed63vq4 08/06/2015 08/06/2015 Fitz Beaulieu MD tramadol refill [id number]-z02l-4985hl7pdue7 08/06/2015 08/06/2015 Fitz Beaulieu MD tramadol refill [id number]-h6xb-107o-3361-26q88729c01b 08/06/2015 08/06/2015 Fitz Beaulieu MD tramadol refill z3j4n6y6-b5zo-44d7-7999-1u78e7yx410j 08/06/2015 08/06/2015 Fitz Beaulieu MD tramadol refill [id number]-afle-1by22r52z98z 08/06/2015 08/06/2015 Fitz Beaulieu MD tramadol refill 65dexol6-hib4-671f-79e1-zg20rc23y3i0 08/06/2015 08/06/2015 Fitz Beaulieu MD tramadol refill [id number]-41z4-64ot-n2ne-vdvgau0046wk 08/06/2015 08/06/2015 Fitz Beaulieu MD tramadol refill [id number]-5k8n4g8n2c69 08/06/2015 08/06/2015 Fitz Beaulieu MD tramadol refill [id number] 08/06/2015 08/06/2015 Fitz Beaulieu MD tramadol refill [id number] 08/06/2015 08/06/2015 Fitz Beaulieu MD tramadol refill 248d5z20-d6d4-9q73-w30w-jo409p159u2d 08/06/2015 08/06/2015 Fitz Beaulieu MD tramadol refill [id number]-40j6-9e79-4h8l-5g465m511cs2 08/06/2015 08/06/2015 Fitz Beaulieu MD Refill Req [id number]-6927-u14603nounue 08/27/2015 08/27/2015 Fitz Beaulieu MD Refill Req [id number] 08/27/2015 08/27/2015 Fitz Beaulieu MD Refill Req [id number]-0tjo-zdfh-ao9kc2271412 08/27/2015 08/27/2015 Fitz Beaulieu MD Refill Req t8zlc993-a0l0-12op-e5js-s164iduzsqts 08/27/2015 08/27/2015 Fitz Beaulieu MD Refill Req [id number]-f15754b8en33 08/27/2015 08/27/2015 Fitz Beaulieu MD Refill Req [id number]-[id number]-j24e-793869v115s8 08/27/2015 08/27/2015 Fitz Beaulieu MD Refill Req [id number]-1495-mbf6-o09829tx0286 08/27/2015 08/27/2015 Fitz Beaulieu MD Refill Req 562y6lq1-bo5q-9v49-w4it-e38p09d5q978 08/27/2015 08/27/2015 Fitz Beaulieu MD Refill Req [id number]-[id number] 08/27/2015 08/27/2015 Fitz Beaulieu MD Refill Req [id number]-c3rs-3l2t45t9zhr1 08/27/2015 08/27/2015 Fitz Beaulieu MD Refill Req [id number]-3575b6k4r402 08/27/2015 08/27/2015 Fitz Beaulieu MD Refill Req [id number]-352t-0614-02sw00ck10ka 08/27/2015 08/27/2015 Fitz Beaulieu MD N/S appt 246d5j67-846s-89b8-h0z1-5x4348i32ubw 10/02/2015 10/02/2015 Fitz Beaulieu MD N/S appt [id number]-[id number]-a0k6-41052e20n541 10/02/2015 10/02/2015 Fitz Beaulieu MD N/S appt [id number]-m62o-9l648f4100c4 10/02/2015 10/02/2015 Fitz Beaulieu MD N/S appt w830dbzo-[id number]-lb1l-v864e00920a1 10/02/2015 10/02/2015 Fitz Beaulieu MD N/S appt [id number]-a451-f88p78e23916 10/02/2015 10/02/2015 Fitz Beaulieu MD N/S appt [id number]-[id number] 10/02/2015 10/02/2015 Fitz Beaulieu MD N/S appt [id number]-0454-n554d11n7705 10/02/2015 10/02/2015 Fitz Beaulieu MD N/S appt 2q4o0716-s5of-0n83-o285-93eu4eggp92o 10/02/2015 10/02/2015 Fitz Beaulieu MD N/S appt [id number]-9fpm982y756q 10/02/2015 10/02/2015 Fitz Beaulieu MD N/S appt [id number]-z2z2-kei36o8418a4 10/02/2015 10/02/2015 Fitz Beaulieu MD N/S appt [id number]-y693w91pt80f 10/02/2015 10/02/2015 Fitz Beaulieu MD Lab order [id number] 10/17/2015 10/17/2015 Fitz Beaulieu MD Lab order [id number] 10/17/2015 10/17/2015 Fitz Beaulieu MD Lab order [id number] 10/17/2015 10/17/2015 Fitz Beaulieu MD Lab order [id number] 10/17/2015 10/17/2015 Fitz Beaulieu MD Lab order [id number] 10/17/2015 10/17/2015 Fitz Beaulieu MD Lab order [id number] 10/17/2015 10/17/2015 Fitz Beaulieu MD Lab order [id number] 10/17/2015 10/17/2015 Fitz Beaulieu MD Lab order [id number] 10/17/2015 10/17/2015 Fitz Beaulieu MD Lab order [id number] 10/17/2015 10/17/2015 Fitz Beaulieu MD Lab order [id number] 10/17/2015 10/17/2015 Fitz Beaulieu MD follow up [id number] 11/07/2015 11/07/2015 Fitz Beaulieu MD follow up [id number] 11/07/2015 11/07/2015 Fitz Beaulieu MD follow up [id number] 11/07/2015 11/07/2015 Ftiz Beaulieu MD follow up [id number] 11/07/2015 11/07/2015 Fitz Beaulieu MD follow up [id number] 11/07/2015 11/07/2015 Fitz Beaulieu MD follow up 6nbjag1v-wyfx-4y03-gu14-11c66wpi8m39 11/07/2015 11/07/2015 Fitz Beaulieu MD follow up 63agcq53-[id number] 11/07/2015 11/07/2015 Fitz Beaulieu MD follow up [id number]-8630y3p0ef22 11/07/2015 11/07/2015 Fitz Beaulieu MD follow up [id number] 11/07/2015 11/07/2015 Fitz Beaulieu MD Pt pain [id number] 01/29/2016 01/29/2016 Fitz Beaulieu MD Pt pain [id number]-v49v83i01d99 01/29/2016 01/29/2016 Fitz Beaulieu MD Pt pain [id number] 01/29/2016 01/29/2016 Fitz Beaulieu MD Pt pain [id number]-16ax-4tk9d4cds969 01/29/2016 01/29/2016 Fitz Beaulieu MD Pt pain [id number]-3b0l-58n4-jab71752b2lr 01/29/2016 01/29/2016 Fitz Beaulieu MD Pt pain [id number]-1357-mq4y9g5kt1k8 01/29/2016 01/29/2016 Fitz Beaulieu MD Pt pain 69u8s2fz-umyd-62e0-fp8q-c2pi3rjs22h9 01/29/2016 01/29/2016 Fitz Beaulieu MD Pt pain [id number] 01/29/2016 01/29/2016 Fitz Beaulieu MD ADDED TO SCHEDULE FOR 02/14 [id number]-a61n695g2370 02/14/2016 02/14/2016 Fitz Beaulieu MD ADDED TO SCHEDULE FOR 02/14 [id number]-if56-768x0q25y98l 02/14/2016 02/14/2016 Fitz Beaulieu MD ADDED TO SCHEDULE FOR 02/14 [id number] 02/14/2016 02/14/2016 Fitz Beaulieu MD ADDED TO SCHEDULE FOR 02/14 [id number] 02/14/2016 02/14/2016 Fitz Beaulieu MD ADDED TO SCHEDULE FOR 02/14 [id number]-27mf-[id number] 02/14/2016 02/14/2016 Fitz Beaulieu MD ADDED TO SCHEDULE FOR 02/14 [id number]-cn13-5228p2nr59s6 02/14/2016 02/14/2016 Fitz Beaulieu MD ADDED TO SCHEDULE FOR 02/14 [id number]-l505y92m7uud 02/14/2016 02/14/2016 MD EARLENE Vallecillo 02/15/16 INJECTION [id number] 02/15/2016 02/15/2016 MD EARLENE Vallecillo 02/15/16 INJECTION [id number] 02/15/2016 02/15/2016 Fitz Beaulieu MD NS 02/15/16 INJECTION [id number]-s7m39k0p50j8 02/15/2016 02/15/2016 Fitz Beaulieu MD NS 02/15/16 INJECTION [id number] 02/15/2016 02/15/2016 Fitz Beaulieu MD NS 02/15/16 INJECTION [id number] 02/15/2016 02/15/2016 Fitz Beaulieu MD NS 02/15/16 INJECTION [id number] 02/15/2016 02/15/2016 Fitz Beaulieu [facility] Bedded Outpatient [id number] John Moreno 03/04/2016 03/04/2016 [facility] Dick Beaulieu MD NS APPT 03/10 [id number] 03/10/2016 03/10/2016 Fitz Beaulieu MD NS APPT 03/10 [id number] 03/10/2016 03/10/2016 Fitz Beaulieu MD NS APPT 03/10 [id number] 03/10/2016 03/10/2016 Fitz Beaulieu MD NS APPT 03/10 [id number] 03/10/2016 03/10/2016 Fitz Beaulieu MD NS APPT 03/10 [id number] 03/10/2016 03/10/2016 [facility] Emergency [id number] Radha Tracy 04/10/2016 04/10/2016 Nayely Beaulieu MD OV [id number] 04/15/2016 04/15/2016 Fitz Beaulieu MD OV [id number] 04/15/2016 04/15/2016 Fitz Beaulieu MD OV [id number] 04/15/2016 04/15/2016 Fitz Beaulieu MD OV [id number] 04/15/2016 04/15/2016 [facility] Outpatient [id number] John Moreno 04/22/2016 04/23/2016 [facility] Bedded Outpatient [id number] John Moreno 05/02/2016 05/02/2016 [facility] Outpatient [id number] Cody Gonzalez 06/06/2016 06/07/2016 [facility] Outpatient [id number] John Moreno 06/09/2016 06/10/2016 Nayely Beaulieu MD PT ADDED 06/23 [id number] 06/11/2016 06/11/2016 Fitz Beaulieu MD PT ADDED 06/23 [id number] 06/11/2016 06/11/2016 Fitz Beaulieu MD PT ADDED 06/23 [id number]-y0t4-2705kea9na2p 06/11/2016 06/11/2016 [facility] Emergency [id number] Eren Harper 06/20/2016 06/20/2016 [facility] Dick Beaulieu MD PT INS. 06/23 [id number] 06/20/2016 06/20/2016 Fitz Beaulieu MD PT INS. 06/23 [id number] 06/20/2016 06/20/2016 Fitz Beaulieu MD F/U [id number] 06/23/2016 06/23/2016 [facility] Bedded Outpatient [id number] John Moreno 07/29/2016 07/29/2016 [facility] Discharged Inpatient [id number] ARON WALL MD 05/30/2018 06/03/2018 [facility] Procedures Procedure Code Date Perfomer Comments Source Ultrasound guidance for vascular access [id number] 05/31/2018 [facility] Ablation [id number] [facility] Hysterectomy [id number] [facility] Mastectomy [id number] [facility] Ablation [id number] [facility] Hysterectomy [id number] [facility] Mastectomy [id number] [facility]
[2018-06-18] MEDS ORDERED: CLONIDINE HCL 0.1 MG TAB PO ONE (17:00)
[2018-06-18] MEDS ORDERED: CLINDAMYCIN PHOS 900MG/ 50ML 50 ML IV ONE (17:15)
--- NOTE | 2018-06-18 18:07 | Diagnostic Imaging Report ---
Exam: Right lower extremity 2 views History: dog bit, evaluate for foreign body Comparison: None. Findings: No fracture or malalignment. Joint spaces preserved. No abnormal soft tissue calcification or soft tissue defect. No radiopaque foreign body. Impression: No radiopaque foreign body. Signed by: Dr. Cody Treviño M.D. on 06/18/2018 6:04 PM
[2018-06-18 19:08] VITALS: BP 165/88
== END 2018-06-18 19:24 | disposition home or self-care (01) ==
LOC: ER 14:32
DX: S80.11XD Contusion of right lower leg, subsequent encounter (principal); W54.0XXD Bitten by dog, subsequent encounter
CPT/HCPCS: 87071; 87205; 99284

== ENCOUNTER 2019-08-28 20:39 | Observation (INO) | payer MEDICARE, OTHER ==
[~2019-08-28] VITALS: Ht 157.5 cm; Wt 67.8 kg
--- OUTSIDE RECORDS SUMMARY | 2019-08-28 20:45 | XMS REPORT | Summary of Care ---
Author Author Kahlil Gupta, Yen Organization Unknown Address Unknown Phone Unavailable Care Team Providers Care Color Adviser Name Role Phone ARLINE Montes, PEMA Unavailable Unavailable SAURABH Barber, JOSE Unavailable Unavailable JULIÁN Barber, JOHN Unavailable Unavailable FIDENCIO Barber, BOB Unavailable Unavailable OBDARYL Montes, MADDIE Unavailable Unavailable ARLINE SEGUNDO [place], PEMA Smith Unavailable Unavailable STEPHANIE QUISPE [place], ASHTYN WALL Unavailable Unavailable SNOW, ALBA Unavailable Unavailable STEPHANIE Barber, ASHTYN Unavailable Unavailable Fidencio QUISPE, Bob Unavailable Unavailable Julián QUISPE, John Unavailable Unavailable DESTIN QUISPE [place], MELL Unavailable Unavailable Unavailable Unavailable Functional Status Name Dates Details Functional status health issues are not documented Status: Name Dates Details Cognitive status health issues are not documented Status: Problems Name Dates Details Advance directive discussed with patient (V65.49, Z71.89) Status: Active Breast cancer screening (V76.10, Z12.39) Status: Active Encounter for mini-mental status examination Status: Active Colon cancer screening (V76.51, Z12.11) Status: Active Influenza vaccine needed (V04.81, Z23) Status: Active Chronic diarrhea (787.91, K52.9) Status: Active 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, 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) Status: Active Chronic seasonal allergic rhinitis due to pollen (477.0, J30.1) Status: Active Menopausal disorder (627.9, N95.9) Status: Active History of Dog bite of extremity Status: Resolved Caregiver stress (V61.49, Z63.6) Status: Active 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, F34.1) Status: Active Heavy sensation of lower extremity (729.89, R29.898) Status: Active At moderate risk for fall (V15.88, Z91.81) Status: Active Aortic valve, bicuspid (746.4, Q23.1) Status: Active 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, 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 Mitral valve prolapse (424.0, I34.1) Status: Active Other hyperlipidemia (272.4, E78.49) Status: Active Rheumatoid arthritis (714.0, M06.9) Status: Active Osteoporosis screening (V82.81, Z13.820) Status: Active Rapid palpitations (785.1, R00.2) Status: Active Anemia (285.9, D64.9) Status: Active Crohn's disease (555.9, K50.90) Status: Active Gastroesophageal reflux disease without esophagitis (530.81, K21.9) Status: Active Anticoagulant long-term use (V58.61, Z79.01) Status: Active Right shoulder pain, unspecified chronicity (719.41, M25.511) Status: Active Essential (primary) hypertension (401.9, I10) Status: Active Atrial fibrillation, unspecified type (427.31, I48.91) Status: Active Subacromial bursitis of right shoulder joint (726.19, M75.51) Status: Active Right supraspinatus tendinitis (726.10, M75.91) Status: Active Medications Name Dates Details Pravastatin Sodium 40 MG Oral Tablet TAKE 1 TABLET BY MOUTH EVERY NIGHT AT BEDTIME. Quantity: 90 NUNN N.P., PEMA * Start : 09-Feb-2014 Active Furosemide 40 MG Oral Tablet TAKE 1 TABLET BY MOUTH DAILY IN THE MORNING * Quantity: 90 Refills: 3 BOB PACHECO M.D. * Start : 06-Oct-2017 Active Butalbital-Acetaminophen 50-325 MG Oral Tablet TAKE 1 TABLET EVERY 3-4 HOURS NEEDED FOR COMFORT. * Quantity: 30 Refills: 3 NUNN N.P., PEMA Active Sertraline HCl - 100 MG Oral Tablet TAKE 1 AND 1/2 TABLETS BY MOUTH EVERY NIGHT AT BEDTIME * Quantity: 135 Refills: 3 ARLINE N.P., PEMA * Start : 06-Jun-2013 Active Vitamin C 500 MG Oral Capsule TAKE 1 CAPSULE DAILY. * Refills: 0 Active Leflunomide 10 MG Oral Tablet TAKE 1 CAPSULE DAILY. * Refills: 0 Active Losartan Potassium 50 MG Oral Tablet TAKE 1 TABLET BY MOUTH TWICE DAILY * Quantity: 180 Refills: 0 FIDENCIO Barber BOB * Start : 16-Nov-2013 Active Handicap Parking Temporary Disability Grant * Quantity: 1 Refills: 0 SAURABH Barber JOSE * Start : 06-Feb-2014 Active Pantoprazole Sodium 40 MG Oral Tablet Delayed Release TAKE 1 TABLET BY MOUTH EVERY MORNING 30 MINUTES BEFORE BREAKFAST * Quantity: 90 Refills: 1 PEMA NUNN N.P. * Start : 17-May-2014 Active traMADol HCl - 50 MG Oral Tablet TAKE 1 TO 2 TABLETS EVERY 8 HOURS NEEDED FOR PAIN. NO MORE THAN 8 TABLETS PE R DAY. * Refills: 0 Active Budesonide 3 MG Oral Capsule Delayed Release Particles TAKE 1 CAPSULE BY MOUTH DAILY * Quantity: 30 Refills: 11 JOHN GALLEGO M.D. * Start : 08-May-2016 Active buPROPion HCl ER (XL) 300 MG Oral Tablet Extended Release 24 Hour TAKE 1 TABLET BY MOUTH DAILY * Quantity: 90 Refills: 3 PEMA NUNN N.P. * Start : 17-Jul-2016 Active traZODone HCl - 50 MG Oral Tablet TAKE 1 TABLET BY MOUTH AT BEDTIME NEEDED FOR INSOMNIA * Quantity: 90 Refills: 1 PEMA NUNN N.P. * Start : 17-Jul-2016 Active Tylenol PM Extra Strength 500-25 MG Oral Tablet TAKE 1- 2 TABLETS AT BEDTIME. * Refills: 0 PEMA NUNN N.P. * Start : 17-Jul-2016 Active Metoprolol Succinate ER 50 MG Oral Tablet Extended Release 24 Hour TAKE 1 TABLET BY MOUTH EVERY DAY * Quantity: 90 Refills: 11 BOB PACHECO M.D. * Start : 09-Jul-2018 Active Centrum Oral Tablet TAKE 1 TABLET DAILY. * Refills: 0 * Start : 10-Oct-2016 Active Hyoscyamine Sulfate 0.125 MG Oral Tablet TAKE 1 TABLET BY MOUTH TWICE DAILY NEEDED * Quantity: 180 Refills: 8 MADDIE HICKS N.P. * Start : 28-Jan-2018 Active Calcium 1000 + D TABS TAKE 1 TABLET DAILY * Refills: 0 Active tiZANidine HCl - 4 MG Oral Capsule TAKE 1 CAPSULE Bedtime PRN for muscle spasms * Refills: 0 Active ARIPiprazole 2 MG Oral Tablet TAKE 1-2 TABLETS BY MOUTH ONCE A DAY AT BEDTIME WITH SERTRALINE. * Quantity: 90 Refills: 1 PEMA NUNN N.P. * Start : 22-Jul-2017 Active NIFEdipine ER 60 MG Oral Tablet Extended Release 24 Hour TAKE 1 TABLET BY MOUTH TWICE DAILY * Quantity: 180 Refills: 2 DHOBLE M.Luis., BOB * Start : 12-Oct-2017 Active cloNIDine HCl - 0.1 MG Oral Tablet TAKE 1 TABLET BY MOUTH DAILY WHEN BLOOD PRESSURE GREATER THAN 160 MM/HG. TAKE AT BEDTIME * Quantity: 90 Refills: 0 DHJER M.Luis., BOB * Start : 26-Oct-2018 Active Eliquis 5 MG Oral Tablet TAKE 1 TABLET TWICE DAILY * Quantity: 180 Refills: 3 DHOBLE M.Luis., BOB * Start : 19-Jan-2019 Active hydrALAZINE HCl - 50 MG Oral Tablet TAKE 1 TABLET BY MOUTH THREE TIMES DAILY * Quantity: 270 Refills: 3 DHOBLE M.Luis., BOB * Start : 19-Jan-2019 Active Allergies and Adverse Reactions Name Dates Details Scopolamine HBr SOLN (Adverse Event) Reaction: Other Status: Active Past Medical History Name Dates Details History of abdominal pain (V13.89, Z87.898) Status: Resolved History of Abdominal pain, RUQ (right upper quadrant) (789.01, R10.11) Status: Resolved History of abnormal electrocardiography (V12.59, Z86.79) Status: Resolved History of Abnormal finding on urinalysis (791.9, R82.90) Status: Resolved History of Abscess of leg (682.6, L02.419) Status: Resolved History of Acute bronchitis, unspecified organism (466.0, J20.9) Status: Resolved History of Acute recurrent frontal sinusitis (461.1, J01.11) Status: Resolved History of acute sinusitis (V12.69, Z87.09) Status: Resolved History of Acute URI (465.9, J06.9) Status: Resolved History of Allergic sinusitis (477.9, J30.9) Status: Resolved History of anxiety disorder (V11.8, Z86.59) Status: Resolved History of Aortic stenosis, mild (424.1, I35.0) Status: Resolved History of Atrial flutter by electrocardiogram (427.32, I48.92) Status: Resolved History of Atrial premature complex (427.61, I49.1) Status: Resolved History of atrial tachycardia (V12.59, Z86.79) Status: Resolved History of Bacterial overgrowth syndrome (569.89, K63.89) Status: Resolved History of Bradycardia (427.89, R00.1) Status: Resolved History of Breast Cancer (V10.3) Status: Resolved History of dehydration (V12.29, Z86.39) Status: Resolved History of Diverticulosis (562.10, K57.90) Status: Resolved History of dizziness (V13.89, Z87.898) Status: Resolved History of dog bite (V49.89, Z78.9) Status: Resolved History of Dog bite of extremity Status: Resolved History of Dog bite of left calf, initial encounter (891.0, S81.852A) Status: Resolved History of Dog bite, initial encounter (879.8, W54.0XXA) Status: Resolved History of Dysphonia (784.42, R49.0) Status: Resolved History of Dysthymic Disorder (V11.2) Status: Resolved History of esophageal reflux (V12.79, Z87.19) Status: Resolved History of hoarseness (V13.9, Z87.898) Status: Resolved History of nausea and vomiting (V12.79, Z87.898) Status: Resolved History of Nausea without vomiting (787.02, R11.0) Status: Resolved History of Need for vaccination with 13-polyvalent pneumococcal conjugate vaccine (V03.82, Z23) Status: Resolved History of neuropathy (V12.49, Z86.69) Status: Resolved History of osteopenia (V13.59, Z87.39) Status: Resolved History of Pain of right lower leg (729.5, M79.661) Status: Resolved History of pneumococcal vaccination (V49.89, Z92.29) Status: Resolved History of shortness of breath (V13.89, Z87.898) Status: Resolved History of snoring (V15.89, Z87.898) Status: Resolved History of tension headache (V13.89, Z86.69) Status: Resolved History of weight loss (V13.89, Z87.898) Status: Resolved History of Wound of right lower extremity, initial encounter (894.0, S81.801A) Status: Resolved Procedures Procedure Dates Details History of Tonsillectomy With Adenoidectomy Completed History of Hysterectomy Completed History of Breast Surgery Mastectomy Completed History of Catheter Ablation Completed Immunization Name Dates Details Influenza on: 13-Jan-2014 Fluzone Preservative Free 0.5 ML ANDRESSA on: 30-Apr-2015 Prevnar 13 Intramuscular Suspension Lot #: [id number] on: 17-May-2015 Fluarix Quadrivalent 0.5 ML SUSP Lot #: [id number] on: 09-Jan-2016 Pneumovax 23 25 MCG/0.5ML Injection Injectable Lot #: [id number] on: 30-Oct-2016 influenza, seasonal, intradermal, preservative free on: 01-Feb-2017 Td (adult), adsorbed tetanus and diphtheria toxoids on: 12-Dec-2017 Fluzone High-Dose 0.5 ML Intramuscular Suspension Prefilled Syringe Lot #: [id number] on: 15-Jan-2018 Fluzone High-Dose 0.5 ML Intramuscular Suspension Prefilled Syringe Lot #: [id number] on: 28-Mar-2019 Family History Name Dates Details Family history of Coronary Artery Disease (V17.49) Status: Active Social History Name Dates Details - Status: Name Dates Details Never smoker Vital Signs Date Test Result Details No Known Vitals to report Results Date Description Value Details 05-May-20198:12 [U] XRAY SPINE CERVICAL 2 OR 3 VWS [id number] XR SPINE CERVICAL 2 OR 3 VWS Images acquired, not reported on this accession number. Plan of Care Name Dates Details Planned Observations Planned Goals not documented Planned Encounters Appointment; ALBA MONTANO M.D. On: 16-Jun-2019 8:00 Appointment; BOB PACHECO M.D. On: 18-Jul-2019 9:00 Appointment; MELL WEIR On: 04-Oct-2019 10:15 Appointment; JOHN GALLEGO M.D. On: 10-Oct-2019 9:45 Interventions Provided Medication Changes* Budesonide 3 MG Oral Capsule Delayed Release Particles - Renew Instructions Name Dates Details Instructions not documented Encounters Appointment; PEMA NUNN NP Encounter Diagnosis: Problem not documented On: 22-Jul-2017 14:30 Appointment; JOHN GALLEGO M.D. Encounter Diagnosis: Problem not documented On: 12-Oct-2017 9:00 Appointment; BOB PACHECO M.D. Encounter Diagnosis: Problem not documented On: 12-Oct-2017 10:00 Appointment; PEMA NUNN NP Encounter Diagnosis: Problem not documented On: 21-Oct-2017 9:15 Appointment; PEMA NUNN NP Encounter Diagnosis: Problem not documented On: 15-Dec-2017 10:15 Appointment; PEMA NUNN NP Encounter Diagnosis: Problem not documented On: 18-Dec-2017 7:30 Appointment; TONI RAMIREZ M.D. Encounter Diagnosis: Problem not documented On: 28-Dec-2017 13:00 Appointment; PEMA NUNN NP Encounter Diagnosis: Problem not documented On: 15-Jan-2018 9:00 Appointment; BOB PACHECO M.D. Encounter Diagnosis: Problem not documented On: 21-Jun-2018 11:20 Appointment; ASHTYN BROWN M.D. Encounter Diagnosis: Problem not documented On: 07-Jul-2018 8:15 Appointment; BOB PACHECO M.D. Encounter Diagnosis: Problem not documented On: 19-Jul-2018 8:20 Appointment; PEMA NUNN NP Encounter Diagnosis: Problem not documented On: 20-Sep-2018 8:30 Appointment; JOHN GALLEGO M.D. Encounter Diagnosis: Problem not documented On: 11-Oct-2018 9:15 Appointment; JOHN GALLEGO M.D. Encounter Diagnosis: Problem not documented On: 11-Oct-2018 9:15 Appointment; BOB PACHECO M.D. Encounter Diagnosis: Problem not documented On: 11-Oct-2018 10:00 Appointment; PEMA NUNN NP Encounter Diagnosis: Problem not documented On: 20-Dec-2018 8:00 Appointment; BOB PACHECO M.D. Encounter Diagnosis: Problem not documented On: 19-Jan-2019 8:40 Appointment; MELL WEIR Encounter Diagnosis: Problem not documented On: 01-Feb-2019 9:15 Appointment; HEMATPOKHAI LIVER Encounter Diagnosis: Problem not documented On: 08-Mar-2019 10:00 Appointment; HEMATPOKHAI LIVER Encounter Diagnosis: Problem not documented On: 15-Mar-2019 9:45 Appointment; PEMA NUNN NP Encounter Diagnosis: Problem not documented On: 28-Mar-2019 14:00 Appointment; JOHN GALLEGO M.D. Encounter Diagnosis: Problem not documented On: 11-Apr-2019 9:45 Appointment; MELL WEIR Encounter Diagnosis: Problem not documented On: 12-Apr-2019 10:15 Appointment; STARR DUNCAN P.A. Encounter Diagnosis: Problem not documented On: 13-Apr-2019 14:15 Appointment; ALBA MONTANO M.D. Encounter Diagnosis: Problem not documented On: 05-May-2019 8:30
--- OUTSIDE RECORDS SUMMARY | 2019-08-28 20:45 | XMS REPORT | Summary of Care ---
Author Author Richar Reyes LVN Organization Unknown Address Unknown Phone Unavailable Care Team Providers Care Electrical Control Assembler Name Role Phone ARLINE Montes, PEMA Unavailable Unavailable SAURABH Barber, JOSE Unavailable Unavailable JULIÁN Barber, JOHN Unavailable Unavailable FIDENCIO Barber, BBO Unavailable Unavailable OBONYWILBER N.P., MADDIE Unavailable Unavailable Eric GALLAGHER, Richar Unavailable Unavailable ARLINE SEGUNDO HI, PEMA Smith Unavailable Unavailable STEPHANIE QUISPE [place], ASHTYN WALL Unavailable Unavailable SNOW, ALBA Unavailable Unavailable SETPHANIE Barber, ASHTYN Unavailable Unavailable Fidencio QUISPE, Bob Unavailable Unavailable Julián QUISPE, John Unavailable Unavailable DESTIN QUISPE [place], MELL Unavailable Unavailable Unavailable Unavailable Functional Status [...] * Quantity: 135 Refills: 3 ARLINE N.P., PMEA * Start : 06-Jun-2013 Active Vitamin C 500 MG Oral Capsule TAKE 1 CAPSULE DAILY. * Refills: 0 Active Leflunomide 10 MG Oral Tablet TAKE 1 CAPSULE DAILY. * Refills: 0 Active Losartan Potassium 50 MG Oral Tablet TAKE 1 TABLET BY MOUTH TWICE DAILY * Quantity: 180 Refills: 0 FIDENCIO Barber, BOB * Start : 16-Nov-2013 Active Handicap Parking Temporary Disability rGant * Quantity: 1 Refills: 0 SAURABH Barber [...] EVERY DAY * Quantity: 90 Refills: 11 OBB PACHECO M.D. * Start : 09-Jul-2018 Active [...] TWICE DAILY * Quantity: 180 Refills: 2 FIDENCIO Barber, BOB * Start : 12-Oct-2017 Active cloNIDine HCl - 0.1 MG Oral Tablet TAKE 1 TABLET BY MOUTH DAILY WHEN BLOOD PRESSURE GREATER THAN 160 MM/HG. TAKE AT BEDTIME * Quantity: 90 Refills: 0 FIDENCIO Barber, BOB * Start : 26-Oct-2018 Active Eliquis 5 MG Oral Tablet TAKE 1 TABLET TWICE DAILY * Quantity: 180 Refills: 3 FIDENCIO Barber, BOB * Start : 19-Jan-2019 Active hydrALAZINE HCl - 50 MG Oral Tablet TAKE 1 TABLET BY MOUTH THREE TIMES DAILY * Quantity: 270 Refills: 3 FIDENCIO Barber, BOB * Start : 19-Jan-2019 Active Allergies [...] 30-Apr-2015 Prevnar 13 Intramuscular Suspension Lot #: [id number] on: 17-May-2015 Fluarix Quadrivalent 0.5 ML SUSP Lot #: [id number] on: 09-Jan-2016 Pneumovax 23 25 MCG/0.5ML Injection Injectable Lot #: [id number] on: 30-Oct-2016 influenza, seasonal, intradermal, preservative free on: 01-Feb-2017 Td (adult), adsorbed tetanus and diphtheria toxoids on: 12-Dec-2017 Fluzone High-Dose 0.5 ML Intramuscular Suspension Prefilled Syringe Lot #: [id number] on: 15-Jan-2018 Fluzone High-Dose 0.5 ML Intramuscular Suspension Prefilled Syringe Lot #: [id number] on: 28-Mar-2019 Fluzone High-Dose 0.5 ML Intramuscular Suspension Prefilled Syringe Lot #: [id number] on: 28-Mar-2019 Family History Name Dates Details Family history of Coronary Artery Disease (V17.49) Status: Active Social History Name Dates Details - Status: Name Dates Details Never smoker Vital Signs Date Test Result Details No Known Vitals to report Results Date Description Value Details Results not documented Plan of Care Name Dates Details Planned Observations Planned Goals not documented Planned Encounters Appointment; ALBA MONTANO M.D. On: 16-Jun-2019 8:00 Appointment; BOB PACHECO M.D. On: 18-Jul-2019 9:00 Appointment; MELL WEIR On: 04-Oct-2019 10:15 Appointment; JOHN GALLEGO M.D. On: 10-Oct-2019 9:45 Instructions Name Dates Details Instructions not documented [...] Problem not documented On: 19-Jan-2019 8:40 Appointment; HEMATPOURELVIRAAYAR Encounter Diagnosis: Problem not documented On: 01-Feb-2019 9:15 Appointment; HEMATPOUR, KHASHAYAR Encounter Diagnosis: Problem not documented On: 08-Mar-2019 10:00 Appointment; HEMATPOUR, KHASHAYAR Encounter Diagnosis: Problem not documented On: 15-Mar-2019 [...]
--- OUTSIDE RECORDS SUMMARY | 2019-08-28 20:45 | XMS REPORT | Summary of Care ---
Author Author FIDENCIO Barber, BOB Nunes Unknown Address Unknown Phone Unavailable Care Team Providers Care Chief Radiologic Technologist Name Role Phone ARLINE YUAN, PEMA Unavailable Unavailable SAURABH Barber, JOSE Unavailable Unavailable JULIÁN Barber, JOHN Unavailable Unavailable FIDENCIO Barber, BOB Unavailable Unavailable FABIOLA YUAN, MADDIE Unavailable Unavailable ARLINE SEGUNDO NV, PEMA Smith Unavailable Unavailable STEPHANIE QUISPE NV, ASHTYN WALL Unavailable Unavailable SNOW, ALBA Unavailable Unavailable STEPHANIE Barber, ASHTYN Unavailable Unavailable Fidencio QUISPE, Bob Unavailable Unavailable Julián QUSIPE, John Unavailable Unavailable DESTIN QUISPE NV, MELL Unavailable Unavailable Unavailable Unavailable Functional Status [...] Anticoagulant long-term use (V58.61, Z79.01) Status: Active Essential (primary) hypertension (401.9, I10) Status: Active Atrial fibrillation, unspecified type (427.31, I48.91) Status: Active Right supraspinatus tendinitis (726.10, M75.91) Status: Active Right shoulder pain, unspecified chronicity (719.41, M25.511) Status: Active Subacromial bursitis of right shoulder joint (726.19, M75.51) Status: Active Medications Name Dates Details Pravastatin Sodium 40 MG Oral Tablet TAKE 1 TABLET BY MOUTH EVERY NIGHT AT BEDTIME. Quantity: 90 PEMA NUNN APRN * Start : 09-Feb-2014 Active Furosemide 40 MG Oral Tablet TAKE 1 TABLET BY MOUTH DAILY IN THE MORNING * Quantity: 30 Refills: 0 FIDENCIO Barber, BOB * Start : 06-Oct-2017 Active Butalbital-Acetaminophen 50-325 MG Oral Tablet TAKE 1 TABLET EVERY 3-4 HOURS NEEDED FOR COMFORT. * Quantity: 30 Refills: 3 PEMA NUNN APRN Active Sertraline HCl - 100 MG Oral Tablet TAKE 1 AND 1/2 TABLETS BY MOUTH EVERY NIGHT AT BEDTIME * Quantity: 135 Refills: 3 PEMA NUNN APRN * Start : 06-Jun-2013 Active Vitamin C 500 MG Oral Capsule TAKE 1 CAPSULE DAILY. * Refills: 0 Active Leflunomide 10 MG Oral Tablet TAKE 1 CAPSULE DAILY. * Refills: 0 Active Losartan Potassium 50 MG Oral Tablet TAKE 1 TABLET BY MOUTH TWICE DAILY * Quantity: 180 Refills: 0 BOB PACHECO M.D. * Start : 16-Nov-2013 Active Handicap Parking Temporary Disability Placpraveen * Quantity: 1 Refills: 0 SAURABH Barber JOSE * Start : 06-Feb-2014 Active Pantoprazole Sodium 40 MG Oral Tablet Delayed Release TAKE 1 TABLET BY MOUTH EVERY MORNING 30 MINUTES BEFORE BREAKFAST * Quantity: 90 Refills: 1 PEMA NUNN APRN * Start : 17-May-2014 Active traMADol HCl [...] * Quantity: 90 Refills: 3 PEMA NUNN APRN * Start : 17-Jul-2016 Active traZODone HCl - 50 MG Oral Tablet TAKE 1 TABLET BY MOUTH AT BEDTIME NEEDED FOR INSOMNIA * Quantity: 90 Refills: 1 PEMA NUNN APRN * Start : 17-Jul-2016 Active Tylenol PM Extra Strength 500-25 MG Oral Tablet TAKE 1- 2 TABLETS AT BEDTIME. * Refills: 0 PEMA NUNN APRN * Start : 17-Jul-2016 Active Metoprolol Succinate [...] * Quantity: 180 Refills: 8 MADDIE HICKS APRN * Start : 28-Jan-2018 Active Calcium 1000 + D TABS TAKE 1 TABLET DAILY * Refills: 0 Active tiZANidine HCl - 4 MG Oral Capsule TAKE 1 CAPSULE Bedtime PRN for muscle spasms * Refills: 0 Active ARIPiprazole 2 MG Oral Tablet TAKE 1-2 TABLETS BY MOUTH ONCE A DAY AT BEDTIME WITH SERTRALINE. * Quantity: 90 Refills: 1 PEMA NUNN APRN * Start : 22-Jul-2017 Active NIFEdipine ER 60 MG Oral Tablet Extended Release 24 Hour TAKE 1 TABLET BY MOUTH TWICE DAILY * Quantity: 180 Refills: 2 DHOBLE M.D., BOB * Start : 12-Oct-2017 Active cloNIDine HCl - 0.1 MG Oral Tablet TAKE 1 TABLET BY MOUTH DAILY WHEN BLOOD PRESSURE GREATER THAN 160 MM/HG. TAKE AT BEDTIME * Quantity: 90 Refills: 0 DHOBLE M.D., BOB * Start : 26-Oct-2018 Active Eliquis 5 MG Oral Tablet TAKE 1 TABLET TWICE DAILY * Quantity: 180 Refills: 3 DHOBLE M.D., BOB * Start : 19-Jan-2019 Active hydrALAZINE HCl - 50 MG Oral Tablet TAKE 1 TABLET BY MOUTH THREE TIMES DAILY * Quantity: 270 Refills: 3 DHOBLE M.D., BOB * Start : 19-Jan-2019 Active Allergies [...] 30-Apr-2015 Prevnar 13 Intramuscular Suspension Lot #: [id number] on: 17-May-2015 Fluarix Quadrivalent 0.5 ML SUSP Lot #: [id number] on: 09-Jan-2016 Pneumovax 23 25 MCG/0.5ML Injection Injectable Lot #: [id number] on: 30-Oct-2016 influenza, seasonal, intradermal, preservative free on: 01-Feb-2017 Td (adult), adsorbed tetanus and diphtheria toxoids on: 12-Dec-2017 Fluzone High-Dose 0.5 ML Intramuscular Suspension Prefilled Syringe Lot #: [id number] on: 15-Jan-2018 Fluzone High-Dose 0.5 ML Intramuscular Suspension Prefilled Syringe Lot #: [id number] on: 28-Mar-2019 Fluzone High-Dose 0.5 ML Intramuscular Suspension Prefilled Syringe Lot #: [id number] on: 28-Mar-2019 Family History Name Dates Details Family history of Coronary Artery Disease (V17.49) Status: Active Social History Name Dates Details - Status: Name Dates Details Never smoked tobacco (finding) Vital Signs Date Test Result Details No Known Vitals to report Results Date Description Value Details Results not documented Plan of Care Name Dates Details Planned Observations Planned Goals not documented Planned Encounters Appointment; BOB PACHECO M.D. On: 11-Jul-2019 8:20 Appointment; MELL WEIR On: 04-Oct-2019 10:15 Appointment; JOHN GALLEGO M.D. On: 10-Oct-2019 9:45 Interventions Provided Medication Changes* Furosemide 40 MG Oral Tablet - Renew Instructions Name Dates Details Instructions not documented Encounters Appointment; PEMA NUNN APRN Encounter Diagnosis: Problem not documented On: 22-Jul-2017 14:30 Appointment; JOHN GALLEGO M.D. Encounter Diagnosis: Problem not documented On: 12-Oct-2017 9:00 Appointment; BOB PACHECO M.D. Encounter Diagnosis: Problem not documented On: 12-Oct-2017 10:00 Appointment; PEMA NUNN APRN Encounter Diagnosis: Problem not documented On: 21-Oct-2017 9:15 Appointment; PEMA NUNN APRN Encounter Diagnosis: Problem not documented On: 15-Dec-2017 10:15 Appointment; PEMA NUNN APRN Encounter Diagnosis: Problem not documented On: 18-Dec-2017 7:30 Appointment; TONI RAMIREZ M.D. Encounter Diagnosis: Problem not documented On: 28-Dec-2017 13:00 Appointment; PEMA NUNN APRN Encounter Diagnosis: Problem not documented On: 15-Jan-2018 9:00 Appointment; BOB PACHECO M.D. Encounter Diagnosis: Problem not documented On: 21-Jun-2018 11:20 Appointment; ASHTYN BROWN M.D. Encounter Diagnosis: Problem not documented On: 07-Jul-2018 8:15 Appointment; BOB PACHECO M.D. Encounter Diagnosis: Problem not documented On: 19-Jul-2018 8:20 Appointment; PEMA NUNN APRN Encounter Diagnosis: Problem not documented On: 20-Sep-2018 8:30 Appointment; JOHN GALLEGO M.D. Encounter Diagnosis: Problem not documented On: 11-Oct-2018 9:15 Appointment; JOHN GALLEGO M.D. Encounter Diagnosis: Problem not documented On: 11-Oct-2018 9:15 Appointment; BOB PACHECO M.D. Encounter Diagnosis: Problem not documented On: 11-Oct-2018 10:00 Appointment; PEMA NUNN APRN Encounter Diagnosis: Problem not documented On: 20-Dec-2018 8:00 Appointment; BOB PACHECO M.D. Encounter Diagnosis: Problem not documented On: 19-Jan-2019 8:40 Appointment; HEMATPOUR, KHASHAYAR Encounter Diagnosis: Problem not documented On: 01-Feb-2019 9:15 Appointment; HEMATPOUR, KHASHAYAR Encounter Diagnosis: Problem not documented On: 08-Mar-2019 10:00 Appointment; HEMATPOUR, KHASHAYAR Encounter Diagnosis: Problem not documented On: 15-Mar-2019 9:45 Appointment; PEMA NUNN APRN Encounter Diagnosis: Problem not documented On: 28-Mar-2019 14:00 Appointment; JOHN GALLEGO M.D. Encounter Diagnosis: Problem not documented On: 11-Apr-2019 9:45 Appointment; MELL WEIR Encounter Diagnosis: Problem not documented On: 12-Apr-2019 10:15 Appointment; STARR DUNCAN P.A. Encounter Diagnosis: Problem not documented On: 13-Apr-2019 14:15 Appointment; ALBA MONTANO M.D. Encounter Diagnosis: Problem not documented On: 05-May-2019 8:30 Appointment; ALBA MONTANO M.D. Encounter Diagnosis: Problem not documented On: 16-Jun-2019 8:00
--- OUTSIDE RECORDS SUMMARY | 2019-08-28 20:45 | XMS REPORT | Summary of Care ---
Author Author MARKY GAY M.D., ALBA Nunes Unknown Address [facility] Phone Unavailable Care Team Providers Care Supervisor Pipelines Name Role Phone ARLINE Montes, PEMA Unavailable Unavailable SAURABH Barber, JOSE Unavailable Unavailable MARKY GAY M.D., ALBA Unavailable Unavailable JULIÁN Barber, JOHN Unavailable Unavailable FIDENCIO Barber, BOB Unavailable Unavailable FABIOLA Montes, MADDIE Unavailable Unavailable ARLINE SEGUNDO NM, PEMA Smith Unavailable Stefano BROWN MD [place], ASHTYN WALL Unavailable Unavailable SNOW, ALBA Unavailable Unavailable STEPHANIE Barber, ASHTYN Unavailable Unavailable Fidencio QUISPE, Bob Unavailable Unavailable Julián QUISPE, John Unavailable Unavailable HEMATPOMARIA T QUISPE NM, MELL Unavailable Unavailable Unavailable Unavailable Functional Status [...] COMFORT. * Quantity: 30 Refills: 3 NUNN N.P.PEMA Active Sertraline HCl - 100 MG Oral Tablet TAKE 1 AND 1/2 TABLETS BY MOUTH EVERY NIGHT AT BEDTIME * Quantity: 135 Refills: 3 ARLINE N.P. PEMA * Start : 06-Jun-2013 Active Vitamin [...] Grant * Quantity: 1 Refills: 0 SAURABH BarberJOSE * Start : 06-Feb-2014 Active Pantoprazole Sodium [...] 30-Apr-2015 Prevnar 13 Intramuscular Suspension Lot #: [id number] on: 17-May-2015 Fluarix Quadrivalent 0.5 ML SUSP Lot #: [id number] on: 09-Jan-2016 Pneumovax 23 25 MCG/0.5ML Injection Injectable Lot #: [id number] on: 30-Oct-2016 influenza, seasonal, intradermal, preservative free on: 01-Feb-2017 Td (adult), adsorbed tetanus and diphtheria toxoids on: 12-Dec-2017 Fluzone High-Dose 0.5 ML Intramuscular Suspension Prefilled Syringe Lot #: [id number] on: 15-Jan-2018 Fluzone High-Dose 0.5 ML Intramuscular Suspension Prefilled Syringe Lot #: [id number] on: 28-Mar-2019 Fluzone High-Dose 0.5 ML Intramuscular Suspension Prefilled Syringe Lot #: [id number] on: 28-Mar-2019 Family History Name Dates Details [...] GALLEGO M.D. On: 10-Oct-2019 9:45 Interventions Provided Plan* Patient Education/Instructions: * Patient education and reassurance was provided for better understanding of the diagnosis and treatment plan. An opportunity to ask questions was provided. * Patient/caregiver was instructed to contact the office or emergency room for worsening pain, swelling, and/or any concerns. Understanding was acknowledged. * Orders: * Physical Therapy * Medications: * Medications (prescribed or recommended at this visit): Medication was prescribed or recommended. Dosage, administration, and common potential side effects were reviewed. Please confirm and review medication information and directions with the pharmacist. * - Avoid using NSAIDs due to side effects and/or contraindications. * - Take 500mg - 1000mg of acetaminophen (Tylenol) every 4-6 hours as needed for relief of pain, discomfort, or fever. Do NOT take more than 4000mg in a 24 hour period (can cause liver damage in higher doses). * Follow Up: * Return to the clinic in 6 weeks or as needed. Instructions Name Dates Details Instructions not documented [...] Problem not documented On: 19-Jan-2019 8:40 Appointment; HEMATPOKHAI LIVER Encounter Diagnosis: Problem not documented On: 01-Feb-2019 9:15 Appointment; HEMATPOUR, KHASHAYAR Encounter Diagnosis: Problem not documented On: 08-Mar-2019 10:00 Appointment; HEMATPOURKHAIR Encounter Diagnosis: Problem not documented On: 15-Mar-2019 [...]
--- OUTSIDE RECORDS SUMMARY | 2019-08-28 20:45 | XMS REPORT | Summary of Care ---
Author Author MARKY GAY M.D., ALAB Nunes Unknown Address [facility] Phone Unavailable Care Team Providers Care Email Production Specialist Name Role Phone ARLINE Montes, PEMA Unavailable Unavailable SAURABH Barber, JOSE Unavailable Unavailable MARKY GAY M.D., ALBA Unavailable Unavailable JULIÁN Barber, JOHN Unavailable Unavailable FIDENCIO Barber, BOB Unavailable Unavailable FABIOLA Montes, MADDIE Unavailable Unavailable ARLINE SEGUNDO [place], PEMA Smith Unavailable Stefano BROWN MD [place], ASHTYN WALL Unavailable Unavailable SNOW, ALBA Unavailable Unavailable STEPHANIE Barber, ASHTYN Unavailable Unavailable Fidencio QUISPE, Bob Unavailable Unavailable Julián QUISPE, John Unavailable Unavailable HEMATPOMARIA T QUISPE [place], MELL Unavailable Unavailable Unavailable Unavailable Functional Status [...] 30-Apr-2015 Prevnar 13 Intramuscular Suspension Lot #: [id number] on: 17-May-2015 Fluarix Quadrivalent 0.5 ML SUSP Lot #: [id number] on: 09-Jan-2016 Pneumovax 23 25 MCG/0.5ML Injection Injectable Lot #: [id number] on: 30-Oct-2016 influenza, seasonal, intradermal, preservative free on: 01-Feb-2017 Td (adult), adsorbed tetanus and diphtheria toxoids on: 12-Dec-2017 Fluzone High-Dose 0.5 ML Intramuscular Suspension Prefilled Syringe Lot #: [id number] on: 15-Jan-2018 Fluzone High-Dose 0.5 ML Intramuscular Suspension Prefilled Syringe Lot #: [id number] on: 28-Mar-2019 Fluzone High-Dose 0.5 ML Intramuscular Suspension Prefilled Syringe Lot #: [id number] on: 28-Mar-2019 Family History Name Dates Details [...] and/or any concerns. Understanding was acknowledged. * Follow Up: * Please schedule an appointment as needed for any future problems or concerns. * Return to the clinic in 6 [...] Problem not documented On: 19-Jan-2019 8:40 Appointment; RUTHANNMELL MONROY Encounter Diagnosis: Problem not documented On: 01-Feb-2019 9:15 Appointment; RUTHANNPOMARIA T ELVIRABRITNI Encounter Diagnosis: Problem not documented On: 08-Mar-2019 10:00 Appointment; RUTHANNPOMARIA T ELVIRAYARITZAR Encounter Diagnosis: Problem not documented On: 15-Mar-2019 [...]
--- OUTSIDE RECORDS SUMMARY | 2019-08-28 20:46 | XMS REPORT | Summary of Care ---
Author Author Reta Rodriges R.N. Unknown Address Unknown Phone Unavailable Care Team Providers Care Shagger Name Role Phone ARLINE YUAN, PEMA Unavailable Unavailable SAURABH Barber, JOSE Unavailable Unavailable JULIÁN Barber, JOHN Unavailable Unavailable BERTIN Barber, ARON Unavailable Unavailable FIDENCIO Barber, BOB Unavailable Unavailable FABIOLA YUAN, MADDIE Unavailable Unavailable ARLINE SEGUNDO [place], PEMA Smith Unavailable Unavailable STEPHANIE QUISPE [place], ASHTYN WALL Unavailable Unavailable SNOW, ALBA Unavailable Unavailable Bertin QUISPE, Arno Unavailable Unavailable STEPHANIE Barber, ASHTYN Unavailable Unavailable Fidencio QUISPE, Bob Unavailable Unavailable Julián QUISPE, John Unavailable Unavailable DESTIN QUISPE [place], MELL Unavailable Unavailable Unavailable Unavailable Functional Status [...] long-term use (V58.61, Z79.01) Status: Active Right supraspinatus tendinitis (726.10, M75.91) Status: Active Right shoulder pain, unspecified chronicity (719.41, M25.511) Status: Active Subacromial bursitis of right shoulder joint (726.19, M75.51) Status: Active Atrial fibrillation, unspecified type (427.31, I48.91) Status: Active Essential (primary) hypertension (401.9, I10) Status: Active Pre-op evaluation (V72.84, Z01.818) Status: Active Medications Name Dates Details Pravastatin Sodium 40 MG Oral Tablet TAKE 1 TABLET BY MOUTH EVERY NIGHT AT BEDTIME. Quantity: 90 PEMA NUNN APRN * Start : 09-Feb-2014 Active Furosemide 40 MG Oral Tablet TAKE 1 TABLET BY MOUTH DAILY IN THE MORNING * Quantity: 30 Refills: 0 OBLE M.D., BOB * Start : 06-Oct-2017 Active Butalbital-Acetaminophen [...] Losartan Potassium 50 MG Oral Tablet TAKE ONE TABLET BY MOUTH NIGHTLY FOR BLOOD PRESSURE * Refills: 3 BOB PACHECO M.D. * Start : 16-Nov-2013 Active Handicap Parking Temporary Disability Placpraveen * Quantity: 1 Refills: 0 JOSE WILEY M.D. * Start : 06-Feb-2014 Active Pantoprazole Sodium [...] HICKS APRN * Start : 28-Jan-2018 Active tiZANidine HCl - 4 MG Oral [...] Start : 12-Oct-2017 Active cloNIDine HCl - 0.2 MG Oral Tablet TAKE 1 TABLET DAILY. * Refills: 0 DHOBLE M.D., BOB * Start : 26-Oct-2018 Active 30 Tablet Pack Eliquis 5 MG Oral Tablet TAKE 1 [...] 30-Apr-2015 Prevnar 13 Intramuscular Suspension Lot #: [id number] on: 17-May-2015 Fluarix Quadrivalent 0.5 ML SUSP Lot #: [id number] on: 09-Jan-2016 Pneumovax 23 25 MCG/0.5ML Injection Injectable Lot #: [id number] on: 30-Oct-2016 influenza, seasonal, intradermal, preservative free on: 01-Feb-2017 Td (adult), adsorbed tetanus and diphtheria toxoids on: 12-Dec-2017 Fluzone High-Dose 0.5 ML Intramuscular Suspension Prefilled Syringe Lot #: [id number] on: 15-Jan-2018 Fluzone High-Dose 0.5 ML Intramuscular Suspension Prefilled Syringe Lot #: [id number] on: 28-Mar-2019 Fluzone High-Dose 0.5 ML Intramuscular Suspension Prefilled Syringe Lot #: [id number] on: 28-Mar-2019 Family History Name Dates Details Family history of Coronary Artery Disease (V17.49) Status: Active Social History Name Dates Details - Status: Name Dates Details Never smoked tobacco (finding) Vital Signs Date Test Result Details :18 Systolic blood pressure 145 mm[Hg] Status: Comments: Location: [facility]; Position: Sitting Diastolic blood pressure 81 mm[Hg] Status: Comments: Location: [facility]; Position: Sitting Body height 61 in Status: Weight 147 lb Status: Body mass index (BMI) [Ratio] 27.78 kg/m2 Status: Body surface area Derived from formula 1.66 m2 Status: Heart Rate 69 /min Status: Comments: Location: Brachial Artery; :28 Systolic blood pressure 126 mm[Hg] Status: Comments: Location: E; Position: Sitting Diastolic blood pressure 78 mm[Hg] Status: Comments: Location: [facility] [place]; Position: Sitting Body height 61 in Status: Weight 145.25 lb Status: Body mass index (BMI) [Ratio] 27.44 kg/m2 Status: Body surface area Derived from formula 1.65 m2 Status: Heart Rate 64 /min Status: Comments: Location: L Radial; Results Date Description Value Details Results not documented Plan of Care Name Dates Details Planned Observations Planned Goals not documented Planned Encounters Appointment; MELL WEIR On: 04-Oct-2019 10:15 Appointment; [...] Problem not documented On: 11-Apr-2019 9:45 Appointment; HEMATPOUR, KHASHAYAR Encounter Diagnosis: Problem not documented On: 12-Apr-2019 10:15 Appointment; STARR DUNCAN P.A. Encounter Diagnosis: Problem not documented On: 13-Apr-2019 14:15 Appointment; ALBA MONTANO M.D. Encounter Diagnosis: Problem not documented On: 05-May-2019 8:30 Appointment; ALBA MONTANO M.D. Encounter Diagnosis: Problem not documented On: 16-Jun-2019 8:00 Appointment; BOB PACHECO M.D. Encounter Diagnosis: Problem not documented On: 11-Jul-2019 8:20 Appointment; ARON DENTON M.D. Encounter Diagnosis: Problem not documented On: 15-Jul-2019 8:30
--- OUTSIDE RECORDS SUMMARY | 2019-08-28 20:46 | XMS REPORT | Summary of Care ---
Author Author MARKY GAY M.D., ALBA Nunes Unknown Address [facility] Phone Unavailable Care Team Providers Care Pbx Operator Name Role Phone ARLINE YUAN, PEMA Unavailable Unavailable SAURABH Barber, JOSE Unavailable Unavailable JULIÁN Barber, JOHN Unavailable Unavailable FIDENCIO Barber, BOB Unavailable Unavailable FABIOLA YUAN, MADDIE Unavailable Unavailable Letitia Gupta, Mealnie Unavailable Unavailable ARLINE SEGUNDO [place], PEMA Smith Unavailable Unavailable STEPHANIE QUISPE [place], ASHTYN WALL Unavailable Unavailable SNOW, ALBA Unavailable Unavailable STEPHANIE Barber, ASHTYN Unavailable Unavailable Fidencio QUISPE, Bob Unavailable Unavailable Julián QUISPE, John Unavailable Unavailable HEMATELIANA QUISPE [place], MELL Unavailable Unavailable Unavailable Unavailable Functional Status [...] MOUTH EVERY NIGHT AT BEDTIME. Quantity: 90 ARLINE YUAN, PEMA * Start : 09-Feb-2014 Active Furosemide 40 MG Oral Tablet TAKE 1 TABLET BY MOUTH DAILY IN THE MORNING * Quantity: 30 Refills: 0 BOB PACHCEO M.D. * Start : 06-Oct-2017 Active Butalbital-Acetaminophen 50-325 MG Oral Tablet TAKE 1 TABLET EVERY 3-4 HOURS NEEDED FOR COMFORT. * Quantity: 30 Refills: 3 ARLINE LAMBN, PEMA Active Sertraline HCl - 100 MG Oral Tablet TAKE 1 AND 1/2 TABLETS BY MOUTH EVERY NIGHT AT BEDTIME * Quantity: 135 Refills: 3 ARLINE LAMBN, PEMA * Start : 06-Jun-2013 Active Vitamin C 500 MG Oral Capsule TAKE 1 CAPSULE DAILY. * Refills: 0 Active Leflunomide 10 MG Oral Tablet TAKE 1 CAPSULE DAILY. * Refills: 0 Active Losartan Potassium 50 MG Oral Tablet TAKE 1 TABLET BY MOUTH TWICE DAILY * Quantity: 180 Refills: 0 BRADY PACHECO M.D.JEET * Start : 16-Nov-2013 Active Handicap Parking Temporary Disability Grant * Quantity: 1 Refills: 0 SAURABH Barber, JOSE * Start : 06-Feb-2014 Active Pantoprazole [...] of right lower extremity, initial encounter (894.0, S81.982A) Status: Resolved Procedures Procedure Dates Details History of Tonsillectomy With Adenoidectomy Completed History of Hysterectomy Completed History of Breast Surgery Mastectomy Completed History of Catheter Ablation Completed Immunization Name Dates Details Influenza on: 13-Jan-2014 Fluzone Preservative Free 0.5 ML ANDRESSA on: 30-Apr-2015 Prevnar 13 Intramuscular Suspension Lot #: [id number] on: 17-May-2015 Fluarix Quadrivalent 0.5 ML SUSP Lot #: [id number] on: 09-Jan-2016 Pneumovax 23 25 MCG/0.5ML Injection Injectable Lot #: [id number] on: 30-Oct-2016 influenza, seasonal, intradermal, preservative free on: 01-Feb-2017 Td (adult), adsorbed tetanus and diphtheria toxoids on: 12-Dec-2017 Fluzone High-Dose 0.5 ML Intramuscular Suspension Prefilled Syringe Lot #: [id number] on: 15-Jan-2018 Fluzone High-Dose 0.5 ML Intramuscular Suspension Prefilled Syringe Lot #: [id number] on: 28-Mar-2019 Fluzone High-Dose 0.5 ML Intramuscular Suspension Prefilled Syringe Lot #: [id number] on: 28-Mar-2019 Family History Name Dates Details Family history of Coronary Artery Disease (V17.49) Status: Active Social History Name Dates Details - Status: Name Dates Details Never smoked tobacco (finding) Vital Signs Date Test Result Details No Known Vitals to report Results Date Description Value Details Results not documented Plan of Care Name Dates Details Planned Observations Planned Goals not documented Planned Encounters Physical Therapy Referral Ortho Appointment; BOB PACHECO M.D. On: 11-Jul-2019 8:20 [...]
--- OUTSIDE RECORDS SUMMARY | 2019-08-28 20:46 | XMS REPORT | Summary of Care ---
Author Author BERTIN Barber, ARON Nunes Unknown Address Unknown Phone Unavailable Care Team Providers Care Comsec Manager Name Role Phone ARLINE YUAN, PEMA Unavailable Unavailable SAURABH Barber, JOSE Unavailable Unavailable JULIÁN Barber, JOHN Unavailable Unavailable BERTIN Barber, ARON Unavailable Unavailable FIDENCIO Barber, BOB Unavailable Unavailable FABIOLA YUAN, MADDIE Unavailable Unavailable ARLINE SEGUNDO [place], PEMA Smith Unavailable Unavailable STEPHANIE QUISPE [place], ASHTYN WALL Unavailable Unavailable SNOW, ALBA Unavailable Unavailable Bertin QUISPE, Aron Unavailable Unavailable STEPHANIE Barber, ASHTYN Unavailable Unavailable Fidencio QUISPE, Bob Unavailable Unavailable Julián QUISPE, John Unavailable Unavailable DESTIN QUISPE [place], MELL [...] right shoulder joint (726.19, M75.51) Status: Active Pre-op evaluation (V72.84, Z01.818) Status: Active Atrial fibrillation, unspecified type (427.31, I48.91) Status: Active Essential (primary) hypertension (401.9, I10) Status: Active Medications Name Dates Details Pravastatin Sodium 40 MG Oral Tablet TAKE 1 TABLET BY MOUTH EVERY NIGHT AT BEDTIME. Quantity: 90 PEMA NUNN APRN * Start : 09-Feb-2014 Active Furosemide 40 MG Oral Tablet TAKE 1 TABLET BY MOUTH DAILY IN THE MORNING * Quantity: 30 Refills: 0 DHOBLE M.D., BOB * Start : 06-Oct-2017 Active [...] NIGHTLY FOR BLOOD PRESSURE * Refills: 3 FIDENCIO Barber, BOB * Start : 16-Nov-2013 Active Handicap Parking Temporary Disability Placpraveen * Quantity: 1 Refills: 0 SAURABH Barber, [...] EVERY DAY * Quantity: 90 Refills: 11 FIDENCIO Barber, BOB * Start : 09-Jul-2018 Active Centrum Oral [...] 30-Apr-2015 Prevnar 13 Intramuscular Suspension Lot #: [id number] on: 17-May-2015 Fluarix Quadrivalent 0.5 ML SUSP Lot #: [id number] on: 09-Jan-2016 Pneumovax 23 25 MCG/0.5ML Injection Injectable Lot #: [id number] on: 30-Oct-2016 influenza, seasonal, intradermal, preservative free on: 01-Feb-2017 Td (adult), adsorbed tetanus and diphtheria toxoids on: 12-Dec-2017 Fluzone High-Dose 0.5 ML Intramuscular Suspension Prefilled Syringe Lot #: [id number] on: 15-Jan-2018 Fluzone High-Dose 0.5 ML Intramuscular Suspension Prefilled Syringe Lot #: [id number] on: 28-Mar-2019 Fluzone High-Dose 0.5 ML Intramuscular Suspension Prefilled Syringe Lot #: [id number] on: 28-Mar-2019 Family History Name Dates Details Family history of Coronary Artery Disease (V17.49) Status: Active Social History Name Dates Details - Status: Name Dates Details Never smoked tobacco (finding) Vital Signs Date Test Result Details :18 Systolic blood pressure 145 mm[Hg] Status: Comments: Location: [facility]; Position: Sitting Diastolic blood pressure 81 mm[Hg] Status: Comments: Location: [facility]; Position: Sitting Body height 61 in Status: Weight 147 lb Status: Body mass index (BMI) [Ratio] 27.78 kg/m2 Status: Body surface area Derived from formula 1.66 m2 Status: Heart Rate 69 /min Status: Comments: Location: R Brachial Artery; :28 Systolic blood pressure 126 mm[Hg] Status: Comments: Location: E; Position: Sitting Diastolic blood pressure 78 mm[Hg] Status: Comments: Location: [facility] [place]; Position: Sitting Body height 61 in Status: [...] GALLEGO M.D. On: 10-Oct-2019 9:45 Interventions Provided Discussion/Summary* 1. HTN: * -- BP at goal today, cont current regimen. 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 * -- Results of repeat echo reviewed * 3. Atrial tachycardia / AFib * -- s/p ablation x [address] Weir * -- Continue amiodarone 200 daily - per EP * -- Cont. metoprolol XL to 50 daily for now * -- For Afib Cont. Apixaban 5 BID for now. She had two falls and head strike due to gain instability. * I explained to the patient the benefits of the Watchman device and I believe she is a good candidate for the procedure given h/o afib, unsteady gate and recent calls with head strike. She will discuss with Dr. Nicolas further plans Instructions Name Dates Details Instructions not documented Encounters Appointment; PEMA NUNN APRN Encounter Diagnosis: Problem not documented On: 22-Jul-2017 14:30 Appointment; JOHN GALLEGO M.D. Encounter Diagnosis: Problem not documented On: 12-Oct-2017 9:00 Appointment; BOB NICOLAS M.D. Encounter Diagnosis: Problem not documented On: [...] not documented On: 15-Jan-2018 9:00 Appointment; BOB NICOLAS M.D. Encounter Diagnosis: Problem not documented On: 21-Jun-2018 11:20 Appointment; ASHTYN BROWN M.D. Encounter Diagnosis: Problem not documented On: 07-Jul-2018 8:15 Appointment; BOB NICOLAS M.D. Encounter Diagnosis: Problem not documented On: 19-Jul-2018 8:20 Appointment; PEMA NUNN APRN Encounter Diagnosis: Problem not documented On: 20-Sep-2018 8:30 Appointment; JOHN GALLEGO M.D. Encounter Diagnosis: Problem not documented On: 11-Oct-2018 9:15 Appointment; JOHN GALLEGO M.D. Encounter Diagnosis: Problem not documented On: 11-Oct-2018 9:15 Appointment; BOB NICOLAS M.D. Encounter Diagnosis: Problem not documented On: 11-Oct-2018 10:00 Appointment; PEMA NUNN APRN Encounter Diagnosis: Problem not documented On: 20-Dec-2018 8:00 Appointment; BOB NICOLAS M.D. Encounter Diagnosis: Problem not documented On: [...] not documented On: 16-Jun-2019 8:00 Appointment; BOB NICOLAS M.D. Encounter Diagnosis: Problem not documented On: 11-Jul-2019 8:20 Appointment; ARON DENTON M.D. Encounter Diagnosis: Problem not documented On: 15-Jul-2019 8:30
--- OUTSIDE RECORDS SUMMARY | 2019-08-28 20:46 | XMS REPORT | Summary of Care ---
Author Author Manuelito Gupta, Lita Nunes Unknown Address [facility] Phone Unavailable Care Team Providers Care Locomotive Electrician Name Role Phone ARLINE YUAN, PEMA Unavailable Unavailable SAURABH Barber, JOSE Unavailable Unavailable JULIÁN Barber, JOHN Unavailable Unavailable FIDENCIO Barber, BOB Unavailable Unavailable FABIOLA YUAN, MADDIE Unavailable Unavailable ARLINE SEGUNDO [place], PEMA Smith Unavailable Unavailable STEPHANIE QUISPE [place], ASHTYN WALL Unavailable Unavailable SNOW, ALBA Unavailable Unavailable STEPHANIE Barber, ASHTYN Unavailable Unavailable Fidencio QUISPE, Bob Unavailable Unavailable Julián QUISPE, John Unavailable Unavailable DESTIN QUISPE [place], MELL Unavailable Unavailable Unavailable Unavailable Functional Status [...] TAKE 1 TABLET DAILY. * Refills: 0 FIDENCIO Barber, BOB * Start : 26-Oct-2018 Active 30 Tablet Pack Eliquis 5 MG Oral Tablet TAKE 1 TABLET TWICE DAILY * Quantity: 180 Refills: 3 FIDENCIO Avila.Luis., BOB * Start : 19-Jan-2019 Active hydrALAZINE HCl - 50 MG Oral Tablet TAKE 1 TABLET BY MOUTH THREE TIMES DAILY * Quantity: 270 Refills: 3 FIDENCIO Avila.Rahat, BOB * Start : 19-Jan-2019 Active Allergies [...] 30-Apr-2015 Prevnar 13 Intramuscular Suspension Lot #: [id number] on: 17-May-2015 Fluarix Quadrivalent 0.5 ML SUSP Lot #: [id number] on: 09-Jan-2016 Pneumovax 23 25 MCG/0.5ML Injection Injectable Lot #: [id number] on: 30-Oct-2016 influenza, seasonal, intradermal, preservative free on: 01-Feb-2017 Td (adult), adsorbed tetanus and diphtheria toxoids on: 12-Dec-2017 Fluzone High-Dose 0.5 ML Intramuscular Suspension Prefilled Syringe Lot #: [id number] on: 15-Jan-2018 Fluzone High-Dose 0.5 ML Intramuscular Suspension Prefilled Syringe Lot #: [id number] on: 28-Mar-2019 Fluzone High-Dose 0.5 ML Intramuscular Suspension Prefilled Syringe Lot #: [id number] on: 28-Mar-2019 Family History Name Dates Details Family history of Coronary Artery Disease (V17.49) Status: Active Social History Name Dates Details - Status: Name Dates Details Never smoked tobacco (finding) Vital Signs Date Test Result Details 11-Jul-20198:28 Systolic blood pressure 126 mm[Hg] Status: Comments: Location: [facility]; Position: Sitting Diastolic blood pressure 78 mm[Hg] Status: Comments: Location: [facility]; Position: Sitting Body height 61 in Status: Weight 145.25 lb Status: Body mass index (BMI) [Ratio] 27.44 kg/m2 Status: Body surface area Derived from formula 1.65 m2 Status: Heart Rate 64 /min Status: Comments: Location: L Radial; Quality: Normal Results Date Description Value Details Results not [...] Problem not documented On: 19-Jan-2019 8:40 Appointment; RUTHANNPOKHAI LIVER Encounter Diagnosis: Problem not documented On: 01-Feb-2019 9:15 Appointment; HEMATPOUR, KHASHAYAR Encounter Diagnosis: Problem not documented On: 08-Mar-2019 10:00 Appointment; HEMATPOUR, ELVIRAAYAR Encounter Diagnosis: Problem not documented On: 15-Mar-2019 [...]
--- OUTSIDE RECORDS SUMMARY | 2019-08-28 20:46 | XMS REPORT | Summary of Care ---
Author Author Purvi Black Organization Unknown Address Unknown Phone Unavailable Care Team Providers Care Loan Servicing Specialist Name Role Phone ARLINE YUAN, PEMA Unavailable Unavailable Purvi Black Unavailable Unavailable SAURABH Barber, JOSE Unavailable Unavailable JULIÁN Barber, JOHN Unavailable Unavailable FIDENCIO Barber, BOB Unavailable Unavailable FABIOLA YUAN, MADDIE Unavailable Unavailable ARLINE SEGUNDO [place], PEMA Smith Unavailable Unavailable STEPHANIE QUISPE [place], ASHTYN WALL Unavailable Unavailable SNOW, ALBA Unavailable Unavailable Fredrick QUISPE, Aron Unavailable Unavailable STEPHANIE Barber, ASHTYN Unavailable Unavailable Fidencio QUISPE, Bob Unavailable Unavailable Julián QUISPE, John Unavailable Unavailable DESTIN QUISPE [place], MELL Unavailable Unavailable Unavailable Unavailable Functional Status [...] MORNING * Quantity: 30 Refills: 0 BOB PACHECO M.D. * Start : 06-Oct-2017 [...] 30-Apr-2015 Prevnar 13 Intramuscular Suspension Lot #: [id number] on: 17-May-2015 Fluarix Quadrivalent 0.5 ML SUSP Lot #: [id number] on: 09-Jan-2016 Pneumovax 23 25 MCG/0.5ML Injection Injectable Lot #: [id number] on: 30-Oct-2016 influenza, seasonal, intradermal, preservative free on: 01-Feb-2017 Td (adult), adsorbed tetanus and diphtheria toxoids on: 12-Dec-2017 Fluzone High-Dose 0.5 ML Intramuscular Suspension Prefilled Syringe Lot #: [id number] on: 15-Jan-2018 Fluzone High-Dose 0.5 ML Intramuscular Suspension Prefilled Syringe Lot #: [id number] on: 28-Mar-2019 Fluzone High-Dose 0.5 ML Intramuscular Suspension Prefilled Syringe Lot #: [id number] on: 28-Mar-2019 Family History Name Dates Details [...] Planned Goals not documented Planned Encounters Appointment; ARON DENTON M.D. On: 15-Jul-2019 8:30 Appointment; MELL WEIR On: 04-Oct-2019 10:15 Appointment; JOHN GALLEGO M.D. On: 10-Oct-2019 9:45 Interventions Provided Follow-ups/Referrals* Cardiology Referral; To Be Done: 11 Jul 2019 Instructions Name Dates Details Instructions not documented [...] Problem not documented On: 19-Jan-2019 8:40 Appointment; RUTHANNSHIN MONROYJUANCARLOSBRITNI Encounter Diagnosis: Problem not documented On: 01-Feb-2019 9:15 Appointment; RUTHANNPOMARIA T MELL Encounter Diagnosis: Problem not documented On: 08-Mar-2019 10:00 Appointment; HEMATPOMARIA T ELVIRAYARITZAR Encounter Diagnosis: Problem not documented [...]
--- OUTSIDE RECORDS SUMMARY | 2019-08-28 20:46 | XMS REPORT | Summary of Care ---
Author Author FIDENCIO Barber, BOB Nunes Unknown Address Unknown Phone Unavailable Care Team Providers Care Chief Librarian Work With Blind Name Role Phone ARLINE YUAN, PEMA Unavailable Unavailable SAURABH Barber, JOSE Unavailable Unavailable JULIÁN Barber, JOHN Unavailable Unavailable FIDENCIO Barber, BOB Unavailable Unavailable FABIOLA YUAN, MADDIE Unavailable Unavailable ARLINE SEGUNDO [place], PEMA [...] of right lower extremity, initial encounter (894.0, S81.047A) Status: Resolved Procedures Procedure Dates Details History of Tonsillectomy With Adenoidectomy Completed History of Hysterectomy Completed History of Breast Surgery Mastectomy Completed History of Catheter Ablation Completed Immunization Name Dates Details Influenza on: 13-Jan-2014 Fluzone Preservative Free 0.5 ML ANDRESSA on: 30-Apr-2015 Prevnar 13 Intramuscular Suspension Lot #: [id number] on: 17-May-2015 Fluarix Quadrivalent 0.5 ML SUSP Lot #: [id number] on: 09-Jan-2016 Pneumovax 23 25 MCG/0.5ML Injection Injectable Lot #: [id number] on: 30-Oct-2016 influenza, seasonal, intradermal, preservative free on: 01-Feb-2017 Td (adult), adsorbed tetanus and diphtheria toxoids on: 12-Dec-2017 Fluzone High-Dose 0.5 ML Intramuscular Suspension Prefilled Syringe Lot #: [id number] on: 15-Jan-2018 Fluzone High-Dose 0.5 ML Intramuscular Suspension Prefilled Syringe Lot #: [id number] on: 28-Mar-2019 Fluzone High-Dose 0.5 ML Intramuscular Suspension Prefilled Syringe Lot #: [id number] on: 28-Mar-2019 Family History Name Dates Details [...] Interventions Provided Discussion/Summary* 1. HTN: * -- Labile BP, but stable lately. Today SBP was 126 * -- Continue to keep BP logs * -- Sodium control, avoid frozen and preserved food. * -- Cont. metoprolol succinate 50 daily. * -- Cont. Losartan 50 daily * -- Cont. Nifedipine ER 60 BID * -- Cont. Furosemide 40 daily * -- Cont. hydralazine to 50 TID * -- Cont. 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 * -- Results of repeat echo discussed * 3. Atrial tachycardia / AFib * -- S/p EP study for atrial tachycardia, s/p ablation x [address] Weir * -- Continue amiodarone 200 daily - per EP * -- Cont. metoprolol XL to 50 daily for now * -- Need annual TSH, FLP, and liver function tests defer to PCP * -- For Afib Cont. Apixaban 5 BID for now. She had two falls since last visit due to gain instability. Consider Watchman * 4. Watchman evaluation: * - I have discussed the WATCHMAN Left Atrial Appendage (JAKE) closure procedure with the patient in details, and she has made the decision to have this device implanted with hopes of eliminating continued necessity for the long-term use of anticoagulation. The patient is very concerned about having frequent falls, and wants to stop anticoagulation therapy. She is willing to continue anticoagulation therapy for the prescribed time frame post procedure, for 6-8 weeks. * - This patient would benefit from the WATCHMAN device due to high risk of bleeding (HASBLED 3). The patient is also at very high risk for CVA (CHADVASC 4). It is my opinion that after receiving the WATCHMAN JAKE closure device, they will be able to discontinue the anticoagulation therapy, and eliminate the drugs side effects and impact on her quality of life. In addition, as it has been proven in the published clinical research, the insertion of the WATCHMAN device may reduce the possible occurrence of all stroke and systemic thromboembolism. She will see Dr. Aron Denton for a second opinion. Please refer to his note for his independent assessment. * - Watchman information has been provided to the patient, and the procedure explained in great details. * - Based on current evidence from penitentiary, >5 years follow up data from PREVAIL and PROTECT AF Trials, and a recent PRAGUE-17 clinical trial results, I feel that patient is a good candidate for watchman device, and would benefit in terms of reduction in [id number], similar to anticoagulation. All these randomized studies have shown that Watchman was non-inferior to warfrain/DOACs. Based on both stroke and bleeding risk, a shared decision was made to purse closure of JAKE as a safe and effective alternative to oral anticoagulation therapy for stroke prophylaxis, and to reduce long term care phlebotomist risk o f intracranial and other bleeding. The SPARC Tool was utilized in the shared decision process for this patient. An independent, uninvolved physician has also agreed with proceeding with Watchman implantation. The risks/benefits and overall complication (2-5%) associated with the procedure including, but not limited to cardiac perforation, bleeding, device embolization, possible thoracotomy, blood transfusions, and local vascular complications were discussed with him in details. I also explained the procedure in details, what to expect, and time to recovery. The patient verbalized understanding the risk and benefit and their options, and willing to proceed with the Watchman implantation procedure for stroke prevention due to underlying atrial fibrillation. * - My team will contact the patient to schedule watchman procedure, once the pre-op testing is completed. * - Return to clinic after the watchman procedure. Instructions Name Dates Details Instructions not documented [...] not documented On: 19-Jan-2019 8:40 Appointment; HEMATPOUR, ELVIRAAYAR Encounter Diagnosis: Problem not documented On: 01-Feb-2019 [...]
--- OUTSIDE RECORDS SUMMARY | 2019-08-28 20:47 | XMS REPORT | Summary of Care ---
Author Author FIDENCIO Barber, BOB Nunes Unknown Address Unknown Phone Unavailable Care Team Providers Care Printing Equipment Mechanic Apprentice Name Role Phone ARLINE YUAN, PEMA Unavailable Unavailable SAURABH Barber, JOSE Unavailable Unavailable JULIÁN Barber, JOHN Unavailable Unavailable FIDENCIO Barber, BOB Unavailable Unavailable FABIOLA YUAN, MADDIE Unavailable Unavailable ARLINE SEGUNDO [place], PEMA Smith Unavailable Unavailable STEPHANIE QUISPE [place], ASHTYN WALL Unavailable Unavailable SNOW, ALBA Unavailable Unavailable Fredrick QUISPE, Aron Unavailable Unavailable STEPHANIE Barber, ASHTYN Unavailable Unavailable Fidencio QUISPE, Bob Unavailable Unavailable Julián QUISPE, John Unavailable Unavailable DESTIN QUISPE [place], MELL Unavailable Unavailable Unavailable Unavailable Functional Status Name Dates Details Functional status health issues are not documented Status: Name Dates Details Cognitive status health issues are not documented Status: Problems Name Dates Details Advance directive discussed with patient (V65.49, Z71.89) Status: Active Breast cancer screening (V76.10, Z12.39) Status: Active Chronic diarrhea (787.91, K52.9) Status: Active Chronic seasonal allergic rhinitis due to pollen (477.0, J30.1) Status: Active Colon cancer screening (V76.51, Z12.11) Status: Active History of Dog bite of extremity Status: Resolved Encounter for mini-mental status examination Status: Active Influenza vaccine needed (V04.81, Z23) Status: Active 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 * Start [...] MOUTH TWICE DAILY * Quantity: 180 Refills: 3 DHOBLE M.D., BOB * Start : 12-Oct-2017 [...] 30-Apr-2015 Prevnar 13 Intramuscular Suspension Lot #: [id number] on: 17-May-2015 Fluarix Quadrivalent 0.5 ML SUSP Lot #: [id number] on: 09-Jan-2016 Pneumovax 23 25 MCG/0.5ML Injection Injectable Lot #: [id number] on: 30-Oct-2016 influenza, seasonal, intradermal, preservative free on: 01-Feb-2017 Td (adult), adsorbed tetanus and diphtheria toxoids on: 12-Dec-2017 Fluzone High-Dose 0.5 ML Intramuscular Suspension Prefilled Syringe Lot #: [id number] on: 15-Jan-2018 Fluzone High-Dose 0.5 ML Intramuscular Suspension Prefilled Syringe Lot #: [id number] on: 28-Mar-2019 Fluzone High-Dose 0.5 ML Intramuscular Suspension Prefilled Syringe Lot #: [id number] on: 28-Mar-2019 Family History Name Dates Details Family history of Coronary Artery Disease (V17.49) Status: Active Social History Name Dates Details - Status: Name Dates Details Never smoked tobacco (finding) Vital Signs Date Test Result Details :18 Systolic blood pressure 145 mm[Hg] Status: Comments: Location: [facility]; Position: Sitting Diastolic blood pressure 81 mm[Hg] Status: Comments: Location: [facility]; Position: Sitting Body height 61 in Status: Weight 147 lb Status: Body mass index (BMI) [Ratio] 27.78 kg/m2 Status: Body surface area Derived from formula 1.66 m2 Status: Heart Rate 69 /min Status: Comments: Location: R Brachial Artery; :28 Systolic blood pressure 126 mm[Hg] Status: Comments: Location: E; Position: Sitting Diastolic blood pressure 78 mm[Hg] Status: Comments: [place] [facility] [place]: Sitting Body height 61 in Status: [...] On: 10-Oct-2019 9:45 Interventions Provided Medication Changes* Losartan Potassium 50 MG Oral Tablet - Renew * NIFEdipine ER 60 MG Oral Tablet Extended Release 24 Hour - Renew Instructions Name Dates Details Instructions not documented Encounters Appointment; JOHN GALLEGO M.D. Encounter Diagnosis: Problem [...] not documented On: 19-Jan-2019 8:40 Appointment; HEMATPOUR, SHINASHAYAR Encounter Diagnosis: Problem not documented On: 01-Feb-2019 9:15 Appointment; HEMATPOUR, KHASHAYAR Encounter Diagnosis: Problem not documented On: 08-Mar-2019 10:00 Appointment; HEMATPOUR, KHASHAYAR Encounter Diagnosis: Problem not documented On: 15-Mar-2019 9:45 Appointment; PEMA NUNN APRN Encounter Diagnosis: Problem not documented On: 28-Mar-2019 14:00 Appointment; JOHN GALLEGO M.D. Encounter Diagnosis: Problem not documented On: 11-Apr-2019 9:45 Appointment; HEMATPOUR, SHINASHAYAR Encounter Diagnosis: Problem not documented On: 12-Apr-2019 [...] Diagnosis: Problem not documented On: 15-Jul-2019 8:30 Appointment; BOB PACHECO M.D. Encounter Diagnosis: Problem not documented On: 18-Jul-2019 9:00
--- OUTSIDE RECORDS SUMMARY | 2019-08-28 20:47 | XMS REPORT | Summary of Care ---
Author Author PEMA NUNN APRN Organization Unknown Address Unknown Phone Unavailable Care Team Providers Care Butcher Or Smallgoods Maker Name Role Phone PEMA NUNN APRN Unavailable Unavailable SAURABH Barber, JOSE Unavailable Unavailable JULIÁN Barber, JOHN Unavailable Unavailable FIDENCIO Barber, BOB Unavailable Unavailable FABIOLA YUAN, MADDIE Unavailable Unavailable PEMA NUNN APRN Unavailable Unavailable ARLINE SEGUNDO [place], PEMA Smith Unavailable Unavailable STEPHANIE QUISPE [place], ASHTYN WALL Unavailable Unavailable SNOW, ALBA Unavailable Unavailable Fredrick QUISPE, Aron Unavailable Unavailable STEPHANIE Barber, ASHTYN Unavailable Unavailable Fidencio QUISPE, Bob Unavailable Unavailable Julián QUISPE, John Unavailable Unavailable HEMATPOMARIA T QUISPE [place], MELL Unavailable Unavailable Unavailable Unavailable Functional Status [...] S81.801A) Status: Resolved Procedures Procedure Dates Details [QLH] CBC (INCLUDES DIFF/PLT) Date: 27-Jul-2019 [QLH] CMP W/EGFR Date: 27-Jul-2019 History of Tonsillectomy With Adenoidectomy Completed History of Hysterectomy Completed History of Breast Surgery Mastectomy Completed History of Catheter Ablation Completed Immunization Name Dates Details Influenza on: 13-Jan-2014 Fluzone Preservative Free 0.5 ML ANDRESSA on: 30-Apr-2015 Prevnar 13 Intramuscular Suspension Lot #: [id number] on: 17-May-2015 Fluarix Quadrivalent 0.5 ML SUSP Lot #: [id number] on: 09-Jan-2016 Pneumovax 23 25 MCG/0.5ML Injection Injectable Lot #: [id number] on: 30-Oct-2016 influenza, seasonal, intradermal, preservative free on: 01-Feb-2017 Td (adult), adsorbed tetanus and diphtheria toxoids on: 12-Dec-2017 Fluzone High-Dose 0.5 ML Intramuscular Suspension Prefilled Syringe Lot #: [id number] on: 15-Jan-2018 Fluzone High-Dose 0.5 ML Intramuscular Suspension Prefilled Syringe Lot #: [id number] on: 28-Mar-2019 Fluzone High-Dose 0.5 ML Intramuscular Suspension Prefilled Syringe Lot #: [id number] on: 28-Mar-2019 Family History Name Dates Details Family history of Coronary Artery Disease (V17.49) Status: Active Social History Name Dates Details - Status: Name Dates Details Never smoked tobacco (finding) Vital Signs Date Test Result Details :18 Systolic blood pressure 145 mm[Hg] Status: Comments: Location: [facility]; Position: Sitting Diastolic blood pressure 81 mm[Hg] Status: Comments: Location: [facility]; Position: Sitting Body height 61 in Status: [...] GALLEGO M.D. On: 10-Oct-2019 9:45 Interventions Provided Labs/Procedures/Imaging* [QLH] CBC (INCLUDES DIFF/PLT); To Be Done: 27 Jul 2019 * [QLH] CMP W/EGFR; To Be Done: 27 Jul 2019 Instructions Name Dates Details Instructions [...]
--- OUTSIDE RECORDS SUMMARY | 2019-08-28 20:47 | XMS REPORT | Summary of Care ---
Author Author JAYSON HOLLOWAY APRN, LEANNA Organization Unknown Address Unknown Phone Unavailable Care Team Providers Care Gift Basket Packer Name Role Phone ARLINE YUAN, PEMA Unavailable Unavailable SAURABH Barber, JOSE Unavailable Unavailable JULIÁN Barber, JOHN Unavailable Unavailable FIDENCIO Barber, BOB Unavailable Unavailable OBDARYL YUAN, MADDIE Unavailable Unavailable JAYSON HOLLOWAY APRN, LEANNA Unavailable Unavailable ARLINE SEGUNDO MD, PEMA Smith Unavailable Unavailable STEPHANIE QUISPE MD, ASHTYN WALL Unavailable Unavailable SNOW, ALBA Unavailable Unavailable Fredrick QUISPE, Aron Unavailable Unavailable STEPHANIE Barber, ASHTYN Unavailable Unavailable Fidencio QUISPE, Bob Unavailable Unavailable Julián QUISPE, John Unavailable Unavailable DESTIN QUISPE MD, MELL Unavailable Unavailable Unavailable Unavailable Functional Status [...] HCl - 50 MG Oral Tablet TAKE 0.5 TABLET 3 TIMES DAILY * Quantity: 135 Refills: 3 LEANNA PERLA APRN * Start : 19-Jan-2019 Active Allergies and [...] S81.801A) Status: Resolved Procedures Procedure Dates Details [QL] CBC (INCLUDES DIFF/PLT) Date: 27-Jul-2019 [QL] CMP W/EGFR Date: 27-Jul-2019 History of Tonsillectomy With Adenoidectomy Completed History of Hysterectomy Completed History of Breast Surgery Mastectomy Completed History of Catheter Ablation Completed Immunization Name Dates Details Influenza on: 13-Jan-2014 Fluzone Preservative Free 0.5 ML ANDRESSA on: 30-Apr-2015 Prevnar 13 Intramuscular Suspension Lot #: [id number] on: 17-May-2015 Fluarix Quadrivalent 0.5 ML SUSP Lot #: [id number] on: 09-Jan-2016 Pneumovax 23 25 MCG/0.5ML Injection Injectable Lot #: [id number] on: 30-Oct-2016 influenza, seasonal, intradermal, preservative free on: 01-Feb-2017 Td (adult), adsorbed tetanus and diphtheria toxoids on: 12-Dec-2017 Fluzone High-Dose 0.5 ML Intramuscular Suspension Prefilled Syringe Lot #: [id number] on: 15-Jan-2018 Fluzone High-Dose 0.5 ML Intramuscular Suspension Prefilled Syringe Lot #: [id number] on: 28-Mar-2019 Fluzone High-Dose 0.5 ML Intramuscular Suspension Prefilled Syringe Lot #: [id number] on: 28-Mar-2019 Family History Name Dates Details Family history of Coronary Artery Disease (V17.49) Status: Active Social History Name Dates Details - Status: Name Dates Details Never smoked tobacco (finding) Vital Signs Date Test Result Details [id number] Systolic blood pressure 140 mm[Hg] Status: Diastolic blood pressure 91 mm[Hg] Status: Results Date Description Value Details Results not documented Plan of Care Name Dates Details Planned Observations Planned Goals not documented Planned Encounters Appointment; MELL WEIR On: 04-Oct-2019 10:15 Appointment; JOHN GALLEGO M.D. On: 10-Oct-2019 9:45 Interventions Provided Plan* Continue medications as prescribed * Regular home BP monitoring. Instructions Name Dates Details Instructions not documented [...]
--- OUTSIDE RECORDS SUMMARY | 2019-08-28 20:47 | XMS REPORT | Summary of Care ---
Author Author Reta Rodriges R.N. Unknown Address Unknown Phone Unavailable Care Team Providers Care Test Cell Technician Name Role Phone ARLINE YUAN, PEMA Unavailable Unavailable SAURABH Barber, JOSE Unavailable Unavailable JULIÁN Barber, JOHN Unavailable Unavailable FIDENCIO Barber, BOB Unavailable Unavailable FABIOLA YUAN, MADDIE Unavailable Unavailable ARLINE SEGUNDO [place], PEMA Smith Unavailable Unavailable STEPHANIE QUISPE [place], ASHTYN WALL Unavailable Unavailable SNOW, ALBA Unavailable Unavailable Fredrick QUISPE, Aron Unavailable Unavailable STEPHANIE Barber, ASHTYN Unavailable Unavailable Fidencio QUISPE, Bob Unavailable Unavailable Julián QUISPE, John Unavailable Unavailable DESTIN QUISPE [place], MELL Unavailable Unavailable Unavailable Unavailable Functional Status [...] of right lower extremity, initial encounter (894.0, S81.496A) Status: Resolved Procedures Procedure Dates Details History of Tonsillectomy With Adenoidectomy Completed History of Hysterectomy Completed History of Breast Surgery Mastectomy Completed History of Catheter Ablation Completed Immunization Name Dates Details Influenza on: 13-Jan-2014 Fluzone Preservative Free 0.5 ML ANDRESSA on: 30-Apr-2015 Prevnar 13 Intramuscular Suspension Lot #: [id number] on: 17-May-2015 Fluarix Quadrivalent 0.5 ML SUSP Lot #: [id number] on: 09-Jan-2016 Pneumovax 23 25 MCG/0.5ML Injection Injectable Lot #: [id number] on: 30-Oct-2016 influenza, seasonal, intradermal, preservative free on: 01-Feb-2017 Td (adult), adsorbed tetanus and diphtheria toxoids on: 12-Dec-2017 Fluzone High-Dose 0.5 ML Intramuscular Suspension Prefilled Syringe Lot #: [id number] on: 15-Jan-2018 Fluzone High-Dose 0.5 ML Intramuscular Suspension Prefilled Syringe Lot #: [id number] on: 28-Mar-2019 Fluzone High-Dose 0.5 ML Intramuscular Suspension Prefilled Syringe Lot #: [id number] on: 28-Mar-2019 Family History Name Dates Details Family history of Coronary Artery Disease (V17.49) Status: Active Social History Name Dates Details - Status: Name Dates Details Never smoked tobacco (finding) Vital Signs Date Test Result Details :18 Systolic blood pressure 145 mm[Hg] Status: Comments: Location: [facility]; Position: Sitting Diastolic blood pressure 81 mm[Hg] Status: Comments: Location: [facility]; Position: Sitting Body height 61 in Status: Weight 147 lb Status: Body mass index (BMI) [Ratio] 27.78 kg/m2 Status: Body surface area Derived from formula 1.66 m2 Status: Heart Rate 69 /min Status: Comments: Location: Brachial Artery; :28 Systolic blood pressure 126 mm[Hg] Status: Comments: Location: E; Position: Sitting Diastolic blood pressure 78 mm[Hg] Status: Comments: [place] [facility] [place]: Sitting Body height 61 in Status: [...]
--- OUTSIDE RECORDS SUMMARY | 2019-08-28 20:47 | XMS REPORT | Summary of Care ---
Author Author JAYSON HOLLOWAY APRN, LEANNA Organization Unknown Address Unknown Phone Unavailable Care Team Providers Care Utility Helicopter Repairer Name Role Phone ARLINE YUAN, PEMA Unavailable Unavailable SAURABH Barber, JOSE Unavailable Unavailable JULIÁN Barber, JOHN Unavailable Unavailable FIDENCIO Barber, BOB Unavailable Unavailable FABIOLA YUAN, MADDIE Unavailable Unavailable JAYSON HOLLOWAY APRN, LEANNA Unavailable Unavailable ARLINE SEGUNDO [place], PEMA Smith Unavailable Unavailable STEPHANIE QUISPE [place], ASHTYN WALL Unavailable Unavailable SNOW, ALBA Unavailable Unavailable Fredrick QUISPE, Aron Unavailable Unavailable STEPHANIE Barber, ASHTYN Unavailable Unavailable Fidencio QUISPE, Bob Unavailable Unavailable Julián QUISPE, John Unavailable Unavailable DESTIN QUISPE [place], MELL Unavailable Unavailable Unavailable Unavailable [...] TAKE 1 TABLET DAILY. * Refills: 0 DHJER M.Luis., BOB * Start : 26-Oct-2018 Active 30 Tablet Pack Eliquis 5 MG Oral Tablet TAKE 1 TABLET TWICE DAILY * Quantity: 180 Refills: 3 DHOBLE M.D., BOB * Start : 19-Jan-2019 Active hydrALAZINE HCl - 50 MG Oral Tablet TAKE 0.5 TABLET 3 TIMES DAILY * Quantity: 135 Refills: 3 JAYSON HOLLOWAY APRNLEANNA * Start : 19-Jan-2019 Active Allergies and [...] 30-Apr-2015 Prevnar 13 Intramuscular Suspension Lot #: [id number] on: 17-May-2015 Fluarix Quadrivalent 0.5 ML SUSP Lot #: [id number] on: 09-Jan-2016 Pneumovax 23 25 MCG/0.5ML Injection Injectable Lot #: [id number] on: 30-Oct-2016 influenza, seasonal, intradermal, preservative free on: 01-Feb-2017 Td (adult), adsorbed tetanus and diphtheria toxoids on: 12-Dec-2017 Fluzone High-Dose 0.5 ML Intramuscular Suspension Prefilled Syringe Lot #: [id number] on: 15-Jan-2018 Fluzone High-Dose 0.5 ML Intramuscular Suspension Prefilled Syringe Lot #: [id number] on: 28-Mar-2019 Fluzone High-Dose 0.5 ML Intramuscular Suspension Prefilled Syringe Lot #: [id number] on: 28-Mar-2019 Family History Name Dates Details [...] On: 10-Oct-2019 9:45 Interventions Provided Medication Changes* hydrALAZINE HCl - 50 MG Oral Tablet - Renew Instructions Name [...] Problem not documented On: 11-Apr-2019 9:45 Appointment; [facility] Encounter Diagnosis: Problem not documented On: 12-Apr-2019 [...]
--- OUTSIDE RECORDS SUMMARY | 2019-08-28 20:48 | XMS REPORT | Summary of Care ---
Author Author Mary Ramirez LVN Organization Unknown Address [facility] Phone Unavailable Care Team Providers Care Switch Repairer Name Role Phone Mary Ramirez LVN Unavailable Unavailable ARLINE YUAN, PEMA Unavailable Unavailable STEPHANIE Barber, ASHTYN Unavailable Unavailable SAURABH Barber, JOSE Unavailable Unavailable JULIÁN Barber, JOHN Unavailable Unavailable FIDENCIO Barber, BOB Unavailable Unavailable OBDARYL KILN SETTER, MADDIE Unavailable Unavailable JAYSON HOLLOWAY KILN SETTER, LEANNA Unavailable Unavailable ARLINE SEGUNDO [place], PEMA Smith Unavailable Unavailable STEPHANIE QUISPE [place], ASHTYN WALL Unavailable Unavailable NSOW, ALBA Unavailable Unavailable Fredrick QUISPE, Aron Unavailable Unavailable Fidencio QUISPE, Bob Unavailable Unavailable Julián QUISPE, John Unavailable Unavailable HEMATPOMARIA T QUISPE [place], MELL Unavailable Unavailable Unavailable Unavailable Functional Status [...] MINUTES BEFORE BREAKFAST * Quantity: 90 Refills: 0 ASHTYN BROWN M.D. * Start : 17-May-2014 Active traMADol HCl [...] 30-Apr-2015 Prevnar 13 Intramuscular Suspension Lot #: [id number] on: 17-May-2015 Fluarix Quadrivalent 0.5 ML SUSP Lot #: [id number] on: 09-Jan-2016 Pneumovax 23 25 MCG/0.5ML Injection Injectable Lot #: [id number] on: 30-Oct-2016 influenza, seasonal, intradermal, preservative free on: 01-Feb-2017 Td (adult), adsorbed tetanus and diphtheria toxoids on: 12-Dec-2017 Fluzone High-Dose 0.5 ML Intramuscular Suspension Prefilled Syringe Lot #: [id number] on: 15-Jan-2018 Fluzone High-Dose 0.5 ML Intramuscular Suspension Prefilled Syringe Lot #: [id number] on: 28-Mar-2019 Fluzone High-Dose 0.5 ML Intramuscular Suspension Prefilled Syringe Lot #: [id number] on: 28-Mar-2019 Family History Name Dates Details Family history of Coronary Artery Disease (V17.49) Status: Active Social History Name Dates Details - Status: Name Dates Details Never smoked tobacco (finding) Vital Signs Date Test Result Details [id number] Systolic blood pressure 140 mm[Hg] Status: Diastolic blood pressure 91 mm[Hg] Status: Results Date Description Value Details Results not documented Plan of Care Name Dates Details Planned Observations Planned Goals not documented Planned Encounters Appointment; MELL WEIR On: 04-Oct-2019 10:15 Appointment; JOHN GALLEGO M.D. On: 10-Oct-2019 9:45 Interventions Provided Medication Changes* Pantoprazole Sodium 40 MG Oral Tablet Delayed Release - Renew Instructions Name Dates Details Instructions [...]
--- NOTE | 2019-08-28 21:50 | Diagnostic Imaging Report ---
EXAMINATION: CXR 1 W - [facility] INDICATION: sob, chf COMPARISON: None FINDINGS: TUBES and LINES: None. LUNGS: Lungs are well inflated. There is no evidence of pneumonia or pulmonary edema. Calcified granuloma in the left upper lung. PLEURA: No pleural effusion or pneumothorax. HEART AND MEDIASTINUM: The cardiomediastinal silhouette is unremarkable. There are atherosclerotic calcifications within the aorta. BONES AND SOFT TISSUES: No acute osseous lesion. Soft tissues are unremarkable. UPPER ABDOMEN: No free air under the diaphragm. IMPRESSION: No acute thoracic abnormality. Signed by: Dr. Harrison Braga MD on 08/28/2019 9:45 PM
[2019-08-28] MEDS ORDERED: SODIUM CHLORIDE 0.9% 250ML 250 ML IV ONE ×2 (22:30)
[2019-08-28] MEDS ORDERED: ACETAMINOPHEN 325 MG TAB PO ONE (22:30)
[2019-08-28] MEDS ORDERED: DIPHENHYDRAMINE HCL INJ 50 MG/ML VIAL IV ONE (22:30)
[2019-08-28] MEDS ORDERED: FUROSEMIDE INJ 10 MG/ML 4 ML VIAL IV ONE (22:30)
[2019-08-28] MEDS ORDERED: FUROSEMIDE INJ 10 MG/ML 2 ML VIAL IV ONE (22:30)
[2019-08-28] MEDS ORDERED: FAMOTIDINE 20 MG/2 ML VIAL IV ONE (22:30)
[2019-08-29] VITALS (10 sets, daily range): BP systolic 145–174; BP diastolic 72–95
[2019-08-29] MEDS ORDERED: COZAAR25 MG PO (00:32)
[2019-08-29] MEDS ORDERED: ELIQUIS5 MG (00:32)
[2019-08-29] MEDS ORDERED: CLONIDINE HCL0.2 MG (00:32)
[2019-08-29] MEDS ORDERED: HYDRALAZINE HCL25 MG PO (00:32)
[2019-08-29] MEDS: ZOLPIDEM TARTRATE 5 MG TAB PO PRN ×2 (01:31→22:17)
[2019-08-29] MEDS ORDERED: FAMOTIDINE 20 MG/2 ML VIAL IV SCH (04:45)
[2019-08-29] MEDS ORDERED: DIPHENHYDRAMINE HCL INJ 50 MG/ML VIAL IV SCH (04:45)
[2019-08-29] MEDS ORDERED: ACETAMINOPHEN 325 MG TAB PO SCH (04:45)
[2019-08-29] MEDS ORDERED: FUROSEMIDE INJ 10 MG/ML 4 ML VIAL IV SCH (04:45)
[2019-08-29 05:16] LABS: BASOPHILS # (AUTO) 0.1 (0.0-0.1); BASOPHILS % 0.8 % (0.0-1.0); EOSINOPHILS # (AUTO) 0.4 (0.0-0.4); EOSINOPHILS % 4.6 % (0.0-6.0); LYMPHOCYTES # (AUTO) 1.8 (1.0-3.2); LYMPHOCYTES % 23.7 % (18.0-39.1); MEAN CORPUSCULAR HEMOGLOBIN 22.6 pg (28-32); MEAN CORPUSCULAR HGB CONC 29.4 g/dL (31-35); MEAN CORPUSCULAR VOLUME 76.7 fL (81-99); MONOCYTES # (AUTO) 0.8 (0.2-0.8); MONOCYTES % 10.1 % (4.4-11.3); NEUTROPHILS # (AUTO) 4.7 (2.1-6.9); NEUTROPHILS % 60.5 % (38.7-80.0); PLATELET COUNT 429 x10e3/uL (140-360); RED BLOOD COUNT 2.88 x10e6/uL (3.6-5.1); RED CELL DISTRIBUTION WIDTH 15.9 % (11.7-14.4)
[2019-08-29 05:29] LABS: HEMATOCRIT 22.1 % (34.2-44.1)
[2019-08-29 05:31] LABS: HEMOGLOBIN 6.5 g/dL (12.0-16.0)
[2019-08-29] MEDS ORDERED: SODIUM CHLORIDE 0.9% 250ML 250 ML ONE ×2 (05:33→11:41)
[2019-08-29] MEDS: ENALAPRILAT IV INJ 1.25 MG/ML VIAL IV PRN ×3 (08:34→20:00)
[2019-08-29] MEDS: PANTOPRAZOLE 40 MG 10ML VIAL IV SCH (08:34)
[2019-08-29] MEDS: SERTRALINE HCL 100 MG TAB PO SCH (08:35)
[2019-08-29] MEDS ORDERED: FUROSEMIDE INJ 10 MG/ML 2 ML VIAL IV PRN (08:45)
[2019-08-29] MEDS: ACETAMINOPHEN 325 MG TAB PO PRN ×2 (13:53→20:01)
[2019-08-29 18:07] LABS: % IRON SATURATION 24 % (15-50); ALANINE AMINOTRANSFERASE 11 IU/L (0-55); ALKALINE PHOSPHATASE 72 IU/L (40-150); ANION GAP 12.2 mmol/L (8-16); BLOOD UREA NITROGEN 14 mg/dL (7-26); BUN/CREATININE RATIO 18 (6-25); CALCIUM 8.5 mg/dL (8.4-10.2); CARBON DIOXIDE 26 mmol/L (22-29); CHLORIDE 105 mmol/L (98-107); EST GLOMERULAR FILTRATION RATE > 60 ML/MIN (60-); GLUCOSE 110 mg/dL (74-118); IRON 87 ug/dL (50-170); POTASSIUM 3.2 mmol/L (3.5-5.1); SODIUM 140 mmol/L (136-145); TOTAL IRON BINDING CAPACITY 360 ug/dL (261-478); TRANSFERRIN 257 mg/dL (180-382)
[2019-08-29 18:26] LABS: FERRITIN 8.15 ng/mL (4.63-204.00)
[2019-08-29] MEDS: PRAVASTATIN 20 MG TAB PO SCH (20:01)
[2019-08-29 20:55] LABS: HEMATOCRIT 32.1 % (34.2-44.1); HEMOGLOBIN 10.1 g/dL (12.0-16.0)
[2019-08-30] VITALS (8 sets, daily range): BP systolic 111–195; BP diastolic 48–99
[2019-08-30] MEDS: ACETAMINOPHEN 325 MG TAB PO PRN (02:30)
[2019-08-30] MEDS: PANTOPRAZOLE 40 MG 10ML VIAL IV SCH (07:56)
[2019-08-30] MEDS: ENALAPRILAT IV INJ 1.25 MG/ML VIAL IV PRN ×3 (08:24→21:50)
[2019-08-30 08:54] LABS: BASOPHILS # (AUTO) 0.1 (0.0-0.1); BASOPHILS % 0.7 % (0.0-1.0); EOSINOPHILS # (AUTO) 0.5 (0.0-0.4); EOSINOPHILS % 5.1 % (0.0-6.0); HEMATOCRIT 34.5 % (34.2-44.1); HEMOGLOBIN 10.8 g/dL (12.0-16.0); LYMPHOCYTES # (AUTO) 1.8 (1.0-3.2); LYMPHOCYTES % 18.3 % (18.0-39.1); MEAN CORPUSCULAR HEMOGLOBIN 24.6 pg (28-32); MEAN CORPUSCULAR HGB CONC 31.3 g/dL (31-35); MEAN CORPUSCULAR VOLUME 78.6 fL (81-99); MONOCYTES # (AUTO) 0.9 (0.2-0.8); MONOCYTES % 9.3 % (4.4-11.3); NEUTROPHILS # (AUTO) 6.6 (2.1-6.9); NEUTROPHILS % 66.2 % (38.7-80.0); PLATELET COUNT 401 x10e3/uL (140-360); RED BLOOD COUNT 4.39 x10e6/uL (3.6-5.1); RED CELL DISTRIBUTION WIDTH 16.4 % (11.7-14.4)
[2019-08-30] MEDS ORDERED: DEXAMETHASONE PHOS 10MG INJ 20 MG in SODIUM CHLORIDE 0.9% 50ML 50 ML IV ONE (10:00)
[2019-08-30] MEDS ORDERED: DIPHENHYDRAMINE HCL INJ 25 MG in SODIUM CHLORIDE 0.9% 50ML 50 ML IV ONE (10:30)
[2019-08-30] MEDS: SERTRALINE HCL 100 MG TAB PO SCH (10:43)
[2019-08-30] MEDS ORDERED: FAMOTIDINE INJ 20 MG in SODIUM CHLORIDE 0.9% 50ML 50 ML IV ONE (10:45)
[2019-08-30] MEDS ORDERED: SODIUM CHLORIDE 0.9% 250ML 250 ML ONE (10:47)
--- NOTE | 2019-08-30 10:51 | Operative Report ---
DATE OF PROCEDURE: 08/30/2019 SURGEON: Jimbo Alfonso MD PROCEDURE: EGD with biopsies. INDICATIONS FOR EGD: Iron deficiency anemia, occult blood in stool, history of hematemesis. MEDICATIONS: The patient was done under MAC, please see anesthesiologist's note. PROCEDURE IN DETAIL: With the patient in left lateral decubitus position, a flexible fiberoptic Olympus gastroscope was introduced into the esophagus under direct visualization without any difficulty. There was some patchy erythema noted in distal esophagus. The scope was then advanced with ease into the stomach, traversing a giant hiatal hernia measured at 9 cm. The mucosa overlying the antrum and the body revealed some diffuse erythema and faig-mg-glewywoy edema, and biopsies were obtained and sent to stain for H. pylori. Two minute ulcers were noted in the upper body without active bleeding or stigmata of recent hemorrhage. The pylorus was of normal contour and shape, it was intubated with ease and the scope was advanced all the way to the second portion of the duodenum. There was a small periampullary diverticulum noted and a fairly large diverticulum somewhat distal to the ampulla. Biopsies were obtained from the proximal second portion and duodenal bulb to rule out sprue. The scope was then withdrawn back into the stomach and retroflexed and the previously described hiatal hernia was also noted in the retroflexed position. The scope was then straightened out, it was subsequently withdrawn. The patient tolerated the procedure well. IMPRESSION: 1. Distal esophagitis, mild. 2. A 9 cm hiatal hernia. 3. Gastritis, biopsied, biopsies sent to stain for H. pylori. 4. Minute ulcers x2 upper body without active bleeding or stigmata of recent hemorrhage. 5. Rule out sprue. 6. Very small periampullary diverticulum. 7. Large diverticulum, 2nd portion of duodenum distal to the ampulla. PLAN: 1. Follow up histology. 2. Initiate Protonix 40 mg one p.o. q.a.m. a.c. 3. Findings do not necessarily explain degree of patient's anemia. She might benefit from a colonoscopy. Jimbo Alfonso [place] [facility] [place][id number] cc: Phil Rhodes MD
[2019-08-30] MEDS ORDERED: IRON DEXTRAN INJ 50 MG in SODIUM CHLORIDE 0.9% 100 ML IV ONE (11:30)
[2019-08-30] MEDS ORDERED: BISACODYL 5 MG TAB EC PO ONE ×3 (12:45→14:45)
[2019-08-30] MEDS ORDERED: IRON DEXTRAN INJ 500 MG in SODIUM CHLORIDE 0.9% 500ML 500 ML IV PRN (13:00)
[2019-08-30] MEDS ORDERED: POTASSIUM CHLORIDE 20 MEQ TAB CR PO SCH (14:45)
[2019-08-30] MEDS ORDERED: CITRATE OF MAGNESIA 300ML BOTTLE PO ONE ×2 (20:00→23:00)
[2019-08-30] MEDS: PRAVASTATIN 20 MG TAB PO SCH (21:42)
[2019-08-30] MEDS ORDERED: ONDANSETRON HCL INJ 2MG/ML 2ML 2 MG/ML VIAL IV PRN (23:30)
[2019-08-31] VITALS: BP 148/95
[2019-08-31 04:00] VITALS: BP 168/85
[2019-08-31] MEDS ORDERED: CITRATE OF MAGNESIA 300ML BOTTLE PO ONE (05:00)
[2019-08-31 06:05] LABS: HEMATOCRIT 33.6 % (34.2-44.1); HEMOGLOBIN 10.3 g/dL (12.0-16.0)
[2019-08-31] MEDS: ENALAPRILAT IV INJ 1.25 MG/ML VIAL IV PRN (06:17)
[2019-08-31 08:00] VITALS: BP 183/87
[2019-08-31] MEDS: PANTOPRAZOLE 40 MG 10ML VIAL IV SCH (09:49)
[2019-08-31] MEDS: SERTRALINE HCL 100 MG TAB PO SCH (09:49)
[2019-08-31 10:13] VITALS: BP 183/87
[2019-08-31 16:00] VITALS: BP 160/82
[2019-08-31 17:35] LABS: TOTAL IRON BINDING CAPACITY 360 ug/dL (261-478); TRANSFERRIN 257 mg/dL (180-382)
--- NOTE | 2019-08-31 18:22 | Operative Report ---
DATE OF PROCEDURE: 08/31/2019 SURGEON: Jimbo Alfonso MD PROCEDURES: Colonoscopy with polypectomy. INDICATIONS FOR COLONOSCOPY: Iron deficiency anemia, occult blood in stools. MEDICATIONS: The patient was done under MAC, please see anesthesiologist's note. PROCEDURE IN DETAIL: With the patient in the left lateral decubitus position, a flexible fiberoptic Olympus colonoscope was inserted into the rectum with ease and advanced all the way to the cecum. Mucosa overlying the cecum, ascending colon, and transverse colon appeared to be within normal limits. An approximately 5 mm sessile polyp was removed per hot snare polypectomy from the descending colon and site was hemoclipped x1. Diverticular disease was noted in the sigmoid colon. One polyp was hot biopsied from the rectum. The scope was then retroflexed into the distal rectum and small internal hemorrhoids were noted, none of which was actively bleeding. The scope was then straightened out, it was subsequently withdrawn, and the patient tolerated the procedure well. IMPRESSION: 1. Descending colon polyp, hot snared and site hemoclipped x1. 2. Diverticulosis. 3. Rectal polyp, hot biopsied. 4. Internal hemorrhoids, none actively bleeding. PLAN: Follow up histology. Initiate high-fiber, low-fat diet. The patient will need a small bowel series to complete workup and if negative, a capsule endoscopy would be in order. Jimbo Alfonso MD [facility] [place] /[id number] cc: Phil Rhodes MD
[2019-08-31 18:41] LABS: % IRON SATURATION 148 % (15-50); IRON 531 ug/dL (50-170)
[2019-08-31] MEDS ORDERED: PROPOFOL IV EMULSION 10 MG/ML 20 ML VIAL ONE ×2 (19:53→19:54)
[2019-08-31] MEDS ORDERED: LABETALOL HCL 5 MG/ML 20ML VIAL ONE (19:54)
[2019-08-31] MEDS ORDERED: LIDOCAINE HCL 2% LOCAL INJ 5 ML SDV VIAL INJ ONE (19:54)
== END 2019-08-31 18:47 | disposition home or self-care (01) ==
LOC: FSED 20:39 → ERHOLD 22:18 → MED/SURG2 23:58
PROVIDERS: ADMIT Internal Medicine; ATTEND Internal Medicine
DX: K63.5 Polyp of colon (principal); D50.9 Iron deficiency anemia, unspecified; K57.30 Diverticulosis of large intestine without perforation or abscess without bleeding; K62.1 Rectal polyp; K64.8 Other hemorrhoids; K20.9 Esophagitis, unspecified; K44.9 Diaphragmatic hernia without obstruction or gangrene; K29.70 Gastritis, unspecified, without bleeding; K25.9 Gastric ulcer, unspecified as acute or chronic, without hemorrhage or perforation; I50.1 Left ventricular failure, unspecified; I11.0 Hypertensive heart disease with heart failure; M19.90 Unspecified osteoarthritis, unspecified site; I48.0 Paroxysmal atrial fibrillation; M06.9 Rheumatoid arthritis, unspecified; K21.9 Gastro-esophageal reflux disease without esophagitis; E78.5 Hyperlipidemia, unspecified; Z79.01 Long term (current) use of anticoagulants; Z85.3 Personal history of malignant neoplasm of breast; Z90.12 Acquired absence of left breast and nipple; I25.10 Atherosclerotic heart disease of native coronary artery without angina pectoris; K50.90 Crohn's disease, unspecified, without complications; K29.80 Duodenitis without bleeding; Z11.59 Encounter for screening for other viral diseases
CPT/HCPCS: 36415; 43239; 45385; 71045; 80053; 81003; 82270; 82553; 82607; 82728; 82746; 83540; 83880; 84132; 84466; 84484; 85014; 85018; 85025; 85045; 86850; 86900; 86920; 87635; 88305; 88312; 93005; 96374; 99283; G0378; J1100; J1200; J1750; J1940; J2001; J2405; J7040; J7050; P9016

== ENCOUNTER 2021-01-05 16:50 | Emergency (ER) | payer MEDICARE ==
[~2021-01-05] VITALS: Ht 154.9 cm; Wt 66.7 kg
[~2021-01-05 16:50] MED LIST changes: +CLONIDINE HCL0.2 MG; +COZAAR25 MG PO; +ELIQUIS5 MG
[2021-01-05] MEDS ORDERED: KETOROLAC TROMETHAMINE 30 MG/ML VIAL IV ONE (17:10)
[2021-01-05] MEDS ORDERED: DIPHENHYDRAMINE HCL INJ 50 MG/ML VIAL IV ONE (17:10)
[2021-01-05] MEDS ORDERED: CLONIDINE HCL 0.1 MG TAB PO ONE (17:15)
[2021-01-05] MEDS ORDERED: METOCLOPRAMIDE HCL 10 MG/2ML VIAL IV ONE (17:15)
[2021-01-05] MEDS ORDERED: DIPHENHYDRAMINE HCL INJ 50 MG/ML VIAL ONE (17:43)
[2021-01-05] MEDS ORDERED: KETOROLAC TROMETHAMINE 30 MG/ML VIAL ONE (17:43)
[2021-01-05] MEDS ORDERED: CLONIDINE HCL 0.1 MG TAB ONE (17:43)
[2021-01-05] MEDS ORDERED: METOCLOPRAMIDE HCL 10 MG/2ML VIAL ONE (17:43)
[2021-01-05] MEDS ORDERED: CEPHALEXIN500 MG PO (17:54)
[2021-01-05] MEDS ORDERED: CEFTRIAXONE 1 GM in SODIUM CHLORIDE 0.9% 50ML 50 ML IV ONE (18:00)
[2021-01-05] MEDS ORDERED: CEFTRIAXONE 1 GM VIAL IV ONE (18:00)
[2021-01-05] MEDS ORDERED: CEFTRIAXONE 1 GM VIAL ONE (18:15)
[2021-01-05] MEDS ORDERED: SODIUM CHLORIDE 0.9% 50ML 50 ML ONE (18:15)
[2021-01-05] MEDS ORDERED: FLUNISOLIDE25 ML (18:41)
[2021-01-05] MEDS ORDERED: FUROSEMIDE40 MG PO (18:41)
[2021-01-05] MEDS ORDERED: TRAZODONE HCL50 MG PO (18:41)
[2021-01-05] MEDS ORDERED: TIZANIDINE HCL4 M1 PO (18:41)
[2021-01-05] MEDS ORDERED: BUPROPION XL150 MG PO (18:41)
[2021-01-05] MEDS ORDERED: PROMETHAZINE HC25 M1 PO (18:41)
[2021-01-05] MEDS ORDERED: LEVSIN0.125 MG PO (18:41)
[2021-01-05] MEDS ORDERED: BUDESONIDE EC3 MG PO (18:41)
== END 2021-01-05 18:41 | disposition home or self-care (01) ==
LOC: FSED 16:56
DX: R51.9 Headache, unspecified (principal); N39.0 Urinary tract infection, site not specified; I10 Essential (primary) hypertension; E78.5 Hyperlipidemia, unspecified; F41.9 Anxiety disorder, unspecified; K21.9 Gastro-esophageal reflux disease without esophagitis; I48.91 Unspecified atrial fibrillation; M06.9 Rheumatoid arthritis, unspecified
CPT/HCPCS: 70450; 81003; 96374; 96375; 99284; J0696; J1200; J1885; J2765

== ENCOUNTER 2021-01-10 05:47 | Emergency (ER) | payer MEDICARE ==
[~2021-01-10] VITALS: Ht 154.9 cm; Wt 66.7 kg
[~2021-01-10 05:47] MED LIST changes: +BUDESONIDE EC3 MG PO; +BUPROPION XL150 MG PO; +CEPHALEXIN500 MG PO; +FLUNISOLIDE25 ML; +LEVSIN0.125 MG PO; +PROMETHAZINE HC25 M1 PO; +TIZANIDINE HCL4 M1 PO; +TRAZODONE HCL50 MG PO
[2021-01-10] MEDS ORDERED: HYDRALAZINE HCL 20 MG/ML VIAL IV STA ×2 (06:24→08:02)
[2021-01-10] MEDS ORDERED: SODIUM CHLORIDE 0.9% 1000ML 1,000 ML IV STA (06:26)
[2021-01-10] MEDS ORDERED: CEFTRIAXONE 500 MG VIAL IV ONE (06:30)
[2021-01-10] MEDS ORDERED: METOCLOPRAMIDE HCL 10 MG/2ML VIAL IV ONE ×2 (06:30→08:30)
[2021-01-10] MEDS ORDERED: DEXAMETHASONE SOD PHOS INJ 4 MG/ML VIAL IV ONE ×2 (06:30→08:30)
[2021-01-10] MEDS ORDERED: DIPHENHYDRAMINE HCL INJ 50 MG/ML VIAL IV ONE ×2 (06:30→08:30)
[2021-01-10] MEDS ORDERED: CEFTRIAXONE 1 GM in SODIUM CHLORIDE 0.9% 50ML 50 ML IV ONE (06:45)
[2021-01-10] MEDS ORDERED: METOCLOPRAMIDE HCL 10 MG/2ML VIAL ONE (06:57)
[2021-01-10] MEDS ORDERED: DIPHENHYDRAMINE HCL INJ 50 MG/ML VIAL ONE (06:57)
[2021-01-10] MEDS ORDERED: DEXAMETHASONE SOD PHOS INJ 4 MG/ML VIAL ONE ×2 (06:57→08:38)
[2021-01-10] MEDS ORDERED: SODIUM CHLORIDE 0.9% 1000ML 1,000 ML ONE (06:58)
[2021-01-10] MEDS ORDERED: CEFTRIAXONE 1 GM VIAL ONE (06:58)
[2021-01-10] MEDS ORDERED: HYDRALAZINE HCL 20 MG/ML VIAL ONE ×2 (07:01→07:59)
[2021-01-10] MEDS ORDERED: KETOROLAC TROMETHAMINE 30 MG/ML VIAL IV STA (08:26)
[2021-01-10] MEDS ORDERED: SODIUM CHLORIDE 0.9% 500ML 500 ML ONE (08:38)
[2021-01-10] MEDS ORDERED: SODIUM CHLORIDE 0.9% 500ML 500 ML IV ONE (09:00)
[2021-01-10] MEDS ORDERED: ONDANSETRON ODT4 MG PO (10:04)
[2021-01-10 10:21] VITALS: BP 180/75
== END 2021-01-10 10:22 | disposition home or self-care (01) ==
LOC: FSED 05:50
DX: R51.9 Headache, unspecified (principal); I10 Essential (primary) hypertension; N39.0 Urinary tract infection, site not specified; I48.91 Unspecified atrial fibrillation; E78.5 Hyperlipidemia, unspecified; K21.9 Gastro-esophageal reflux disease without esophagitis; F41.9 Anxiety disorder, unspecified; K50.90 Crohn's disease, unspecified, without complications; M06.9 Rheumatoid arthritis, unspecified
CPT/HCPCS: 70450; 71045; 99284; J0360; J0696; J1100; J1200; J1885; J2765; J7030; J7040

== ENCOUNTER 2021-09-25 14:08 | Emergency (ER) | payer MEDICARE ==
[~2021-09-25] VITALS: Ht 152.4 cm; Wt 66.7 kg
[~2021-09-25 14:08] MED LIST changes: +ONDANSETRON ODT4 MG PO
[2021-09-25] MEDS ORDERED: FUROSEMIDE INJ 10 MG/ML 2 ML VIAL IV ONE (15:45)
[2021-09-25] MEDS ORDERED: FUROSEMIDE INJ 10 MG/ML 4 ML VIAL ONE (16:01)
== END 2021-09-25 16:16 | disposition home or self-care (01) ==
LOC: FSED 14:34
DX: Z48.02 Encounter for removal of sutures (principal); R60.9 Edema, unspecified; I10 Essential (primary) hypertension; E11.9 Type 2 diabetes mellitus without complications; M06.9 Rheumatoid arthritis, unspecified
CPT/HCPCS: 71045; 80053; 83880; 85025; 99283; J1940

== ENCOUNTER 2021-12-27 22:14 | Emergency (ER) | payer MEDICARE ==
[~2021-12-27] VITALS: Ht 154.9 cm; Wt 66.7 kg
[2021-12-27] MEDS ORDERED: LORAZEPAM 1 MG TAB PO ONE ×2 (22:30)
[2021-12-27] MEDS ORDERED: ATIVAN1 MG PO (22:38)
== END 2021-12-27 23:24 | disposition home or self-care (01) ==
LOC: ER 22:20
DX: F41.9 Anxiety disorder, unspecified (principal); E11.9 Type 2 diabetes mellitus without complications; I10 Essential (primary) hypertension; I48.91 Unspecified atrial fibrillation; E78.5 Hyperlipidemia, unspecified; K21.9 Gastro-esophageal reflux disease without esophagitis; M06.9 Rheumatoid arthritis, unspecified; R94.31 Abnormal electrocardiogram [ECG] [EKG]; Z87.19 Personal history of other diseases of the digestive system
CPT/HCPCS: 93005; 99283

== ENCOUNTER 2022-01-30 | Emergency (ER) | payer MEDICARE ==
[~2022-01-30] VITALS: Ht 154.9 cm; Wt 66.7 kg
[~2022-01-30] MED LIST changes: +ATIVAN1 MG PO
[2022-01-30] MEDS ORDERED: SODIUM CHLORIDE 0.9% 1000ML 1,000 ML IV STA (00:18)
[2022-01-30] MEDS ORDERED: SODIUM CHLORIDE 0.9% 1000ML 1,000 ML ONE (00:54)
== END 2022-01-30 02:09 | disposition home or self-care (01) ==
LOC: FSED 00:03
DX: E86.0 Dehydration (principal); F41.9 Anxiety disorder, unspecified; T50.995A Adverse effect of other drugs, medicaments and biological substances, initial encounter; I10 Essential (primary) hypertension; E11.9 Type 2 diabetes mellitus without complications
CPT/HCPCS: 80053; 85025; 99283; J7030